=== PATIENT | female | born 1995 | race African-American/Black ===

== ENCOUNTER 2017-08-29 06:08 | Emergency (ER) ==
[2017-08-29 06:20] VITALS: BP 142/99; TEMP 98.4; BMI 24.9
[2017-08-29] MEDS ORDERED: PREDNISONE PO STA (06:38)
[2017-08-29] MEDS ORDERED: ZOFRAN 4 MG/2 ML IM STA (06:38)
--- NOTE | 2017-08-29 06:41 | ED.PDOC ---
General ED Provider: Dr. RUBINA DEL RIO Chief Complaint: Non-specific Complaint Stated Complaint: Patient is diagnosed with Flu, Taking Tamiflu, not feeling better, still coughing, nausea, hurting all over. Time Seen by Physician: 06:39 Mode of Arrival: Walk-In Information Source: Patient, Family Primary Care Provider: ELENA CHO Nursing and Triage Documentation Reviewed and Agree: Yes Reviewed sepsis parameters & appropriate labs ordered?: No System Inflammatory Response Syndrome: Not Applicable Sepsis Protocol: For patient's 13 years and over: Temp is 96.8 and below OR 101 and greater Pulse >90 BPM Resp >20/minute Acutely Altered Mental Status Are patient's symptoms suggestive of a new infection, such as: -Pneumonia -Skin, Soft Tissue -Endocarditis -UTI -Bone, Joint Infection -Implantable Device -Acute Abdominal Infection -Wound Infection -Meningitis -Blood Stream Catheter Infection -Unknown Miscellaneous Complaint Exam - Febrile Illness/Adult Complaint/Exam Symptoms Are: Resolved Timing: Intermittent Episodes Lasting: Days Initial Severity: Moderate Current Severity: Mild Aggravating: Reports: None Alleviating: Reports: None Associated Signs and Symptoms: Reports: Headache, Cough, Nausea, Myalgia. Denies: Fluid intake, Short of air, Sore throat, Vomiting, Chills, Diaphoresis, Dysuria, Arthralgia, Stiff neck, Rash, Altered mental status Pseudomonas Risk Factors: Reports: None Serious Bacterial Infection Risk Factors: Reports: None Related Surgical History: None Differential Diagnoses: Viremia Review of Systems - Review Of Systems Constitutional: Reports: Malaise, Weakness Eyes: Reports: No symptoms Ears, Nose, Mouth, Throat: Reports: No symptoms Respiratory: Reports: Cough Cardiac: Reports: No symptoms GI: Reports: Nausea : Reports: No symptoms Musculoskeletal: Reports: No symptoms Skin: Reports: No symptoms Neurological: Reports: No symptoms Endocrine: Reports: No symptoms Hematologic/Lymphatic: Reports: No symptoms All Other Systems: Reviewed and Negative Past Medical History - Past Medical History Previously Healthy: Yes Endocrine: Reports: None Cardiovascular: Reports: None Respiratory: Reports: None Hematological: Reports: None Gastrointestinal: Reports: None Genitourinary: Reports: None Neuro/Psych: Reports: None Musculoskeletal: Reports: None Cancer: Reports: None Last Menstrual Period: 3 MONTHS AGO - Surgical History General Surgical History: Reports: None - Family History Family History: Reports: None - Social History Smoking Status: Current every day smoker, Heavy tobacco smoker Smoking Cessation Counseling Time: > 3 min - 10 min Hx Substance Use: Yes (OPIATE) Alcohol Screening: Occasionally - Immunizations Tetanus Shot up to Date: Yes Physical Exam - Physical Exam Appearance: Well-appearing, Obese Eyes: NOEL, EOMI, Conjunctiva clear ENT: Ears normal, Nose normal, Oropharynx normal Respiratory: Airway patent, Breath sounds equal, Respirations nonlabored, Crackles Cardiovascular: RRR, Pulses normal, No rub, No murmur GI/: Soft, Nontender, No masses, Bowel sounds normal, No Organomegaly Musculoskeletal: Normal strength, ROM intact, No edema, No calf tenderness Skin: Warm, Dry, Normal color Neurological: Sensation intact, Motor intact, Reflexes intact, Cranial nerves intact, Alert, Oriented Psychiatric: Affect appropriate, Mood appropriate Critical Care Note - Critical Care Note Total Time (mins): 10 Course - Course Orders, Labs, Meds: Orders Category Date Time Status Ondansetron HCl/Pf [Zofran 4 mg/2 ml] MEDS 08/29/17 06:38 Stat 4 mg IM ONCE STA Prednisone MEDS 08/29/17 06:38 Stat 10 mg PO ONCE STA Medications Discontinued Medications Generic Name Dose Route Start Last Admin Trade Name Freq PRN Reason Stop Dose Admin Ondansetron HCl 4 mg 08/29/17 06:38 Zofran 4 Mg/2 Ml IM 08/29/17 06:39 ONCE STA Prednisone 10 mg 08/29/17 06:38 Prednisone PO 08/29/17 06:39 ONCE STA Vital Signs: Temp Pulse Resp BP Pulse Ox 08/29/17 06:12 98.4 F 109 H 20 142/99 H 95 Departure - Departure Time of Disposition: 06:43 Disposition: HOME SELF-CARE Discharge Problem: Influenza Instructions: Influenza (ED) Condition: Stable Pt referred to PMD for follow-up: Yes IPMP verified?: No Additional Instructions: Increase Hydration Tylenol or Ibuprofen prn soft diet for 3-4 days Prescriptions: Ondansetron [Zofran Odt] 4 mg PO Q8H #20 tab.rapdis Prednisone 10 mg PO BIDWM #14 tablet Allergies/Adverse Reactions: Allergies amoxicillin Adverse Reaction (Verified 08/10/14 06:46) Nausea clarithromycin [From Biaxin] Adverse Reaction (Verified 08/10/14 06:46) Nausea Penicillins Adverse Reaction (Verified 08/10/14 06:46) Nausea Home Medications: Ambulatory Orders Buprenorphine HCl/Naloxone HCl [Suboxone 4 mg-1 mg Sl Film] 1 each SL DAILY Ondansetron [Zofran Odt] 4 mg PO Q8H #20 tab.rapdis 08/29/17 Oseltamivir Phosphate 75 mg PO BID 08/29/17 Prednisone 10 mg PO BIDWM #14 tablet 08/29/17 Disposition Discussed With: Patient, Family
== END 2017-08-29 06:53 | disposition home or self-care (01) ==
LOC: ED 06:08
DX: J11.1 Influenza due to unidentified influenza virus with other respiratory manifestations (principal); F17.210 Nicotine dependence, cigarettes, uncomplicated
CPT/HCPCS: 96372; 99282

== ENCOUNTER 2017-09-28 09:36 | Emergency (ER) ==
--- NOTE | 2017-09-28 09:38 | ED.PDOC ---
General ED Provider: Dr. MORGAN MENESES-ER Chief Complaint: Abdominal Pain Stated Complaint: im hurting Time Seen by Physician: 09:40 Mode of Arrival: Walk-In Information Source: Patient, Family Exam Limitations: No limitations Primary Care Provider: ELENA WALTER Nursing and Triage Documentation Reviewed and Agree: Yes Reviewed sepsis parameters & appropriate labs ordered?: Yes System Inflammatory Response Syndrome: Not Applicable Sepsis Protocol: For patient's 13 years and over: Temp is 96.8 and below OR 101 and greater Pulse >90 BPM Resp >20/minute Acutely Altered Mental Status Are patient's symptoms suggestive of a new infection, such as: -Pneumonia -Skin, Soft Tissue -Endocarditis -UTI -Bone, Joint Infection -Implantable Device -Acute Abdominal Infection -Wound Infection -Meningitis -Blood Stream Catheter Infection -Unknown GI Complaint Exam - Abdominal Pain Complaint/Exam Onset: Gradual Duration: several hours Symptoms Are: Still present Timing: Constant Initial Severity: Mild Current Severity: Mild Location of Pain: Diffuse Radiates To: Reports: Back Character: Reports: Dull, Aching Aggravating: Reports: None Alleviating: Reports: None Associated Signs and Symptoms: Reports: Back pain, Decreased appetite, Nausea. 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 Differential Diagnoses: Appendicitis, Bowel Obstruction, Constipation, Gastroenteritis, Pancreatitis, Renal Colic, Ureteral Stone, GB, PUD, UTI, Review of Systems - Review Of Systems Constitutional: Reports: No symptoms Eyes: Reports: No symptoms Ears, Nose, Mouth, Throat: Reports: No symptoms Respiratory: Reports: No symptoms Cardiac: Reports: No symptoms GI: Reports: Abdominal pain, Nausea : Reports: No symptoms Musculoskeletal: Reports: No symptoms Skin: Reports: No symptoms Neurological: Reports: No symptoms Endocrine: Reports: No symptoms Hematologic/Lymphatic: Reports: No symptoms All Other Systems: Reviewed and Negative Past Medical History - Past Medical History Previously Healthy: Yes Endocrine: Reports: None Cardiovascular: Reports: None Respiratory: Reports: None Hematological: Reports: None Gastrointestinal: Reports: None Genitourinary: Reports: None Neuro/Psych: Reports: None Musculoskeletal: Reports: None Cancer: Reports: None - Surgical History General Surgical History: Reports: None - Family History Family History: Reports: None - Social History Smoking Status: Current every day smoker, Heavy tobacco smoker Hx Substance Use: Yes (OPIATE) Alcohol Screening: Occasionally Lives: With family Physical Exam - Physical Exam Appearance: Well-appearing, No pain distress, Well-nourished Pain Distress: Moderate Eyes: NOEL, EOMI, Conjunctiva clear ENT: Ears normal, Nose normal, Oropharynx normal Neck: Supple Respiratory: Airway patent, Breath sounds clear, Breath sounds equal, Respirations nonlabored Cardiovascular: RRR, Pulses normal, No rub, No murmur GI/: Soft, No masses, Bowel sounds normal, No Organomegaly Musculoskeletal: Normal strength Skin: Warm, Dry, Normal color Neurological: Sensation intact, Motor intact, Reflexes intact, Cranial nerves intact, Alert, Oriented Psychiatric: Affect appropriate, Mood appropriate Interpretation - Radiology Interpretation Radiology Interpretation By: Radiologist Radiology Results: Negative Exam Interpreted: CT Scan Re-Evaluation - Re-Evaluation Time of Re-Evaluation: 11:40 Status: Improved Vital Signs Stable: Yes Pain Level: 3 Appearance: NAD Lungs: Clear Skin: Warm and Dry Neuro: Alert and Oriented X3 CV: RRR Critical Care Note - Critical Care Note Total Time (mins): 0 Course - Course Hematology/Chemistry: 09/28/17 09:50 09/28/17 09:50 Orders, Labs, Meds: Lab Review 09/28/17 09/28/17 09/28/17 09:50 09:50 09:50 WBC 11.23 H RBC 4.58 Hgb 14.5 Hct 41.5 MCV 90.6 MCH 31.7 H MCHC 34.9 RDW Coeff of Mainor 17.7 H Plt Count 265 Immature Gran % (Auto) 0.4 Neut % (Auto) 81.7 Lymph % (Auto) 12.5 Bee % (Auto) 4.8 Eos % (Auto) 0.3 Baso % (Auto) 0.3 Immature Gran # (Auto) 0.0 Neut # 9.2 H Lymph # 1.4 Bee # 0.5 Eos # 0.0 Baso # 0.0 ESR 6 Sodium 134 L Potassium 3.1 L Chloride 102 Carbon Dioxide 14 L Anion Gap 21.1 BUN 9 Creatinine 0.93 Estimated GFR (MDRD) 90.00 BUN/Creatinine Ratio 9.67 Glucose 102 Calcium 9.4 Total Bilirubin 0.9 AST 108 H ALT 50 Alkaline Phosphatase 79 Total Protein 8.6 H Albumin 4.1 Globulin 4.5 Albumin/Globulin Ratio 0.91 Amylase 76 Lipase 249 H Urine Color Yellow Urine Clarity Clear Urine pH 5.5 Ur Specific [place] >=1.030 Urine Protein 1+ Urine Glucose (UA) Negative Urine Ketones Trace Urine Blood 2+ Urine Nitrite Positive Urine Bilirubin 1+ Urine Urobilinogen 0.2 Ur Leukocyte Esterase Negative Urine Microscopic RBC 5-10 Urine Microscopic WBC 2-5 Ur Squamous Epith Cells 10-20 Urine Bacteria 4+ Urine Yeast Trace Urine Test 09/28/17 09:50 WBC RBC Hgb Hct MCV MCH MCHC RDW Coeff of Mainor Plt Count Immature Gran % (Auto) Neut % (Auto) Lymph % (Auto) [place] % (Auto) Eos % (Auto) Baso % (Auto) Immature Gran # (Auto) Neut # Lymph # Bee # Eos # Baso # ESR Sodium Potassium Chloride Carbon Dioxide Anion Gap BUN Creatinine Estimated GFR (MDRD) BUN/Creatinine Ratio Glucose Calcium Total Bilirubin AST ALT Alkaline Phosphatase Total Protein Albumin Globulin Albumin/Globulin Ratio Amylase Lipase Urine Color Urine Clarity Urine pH Ur Specific [place] Urine Protein Urine Glucose (UA) Urine Ketones Urine Blood Urine Nitrite Urine Bilirubin Urine Urobilinogen Ur Leukocyte Esterase Urine Microscopic RBC Urine Microscopic WBC Ur Squamous Epith Cells Urine Bacteria Urine Yeast Urine Test Negative Orders Category Date Time Status NPO REMINDER: IMAGING ONCE CARE 09/28/17 09:45 Active ED IV/MEDIPORT/POWERPORT .ONCE EMERGENCY 09/28/17 09:44 Active AMYLASE Stat LAB 09/28/17 09:50 Completed CBC W/ AUTO DIFF Stat LAB 09/28/17 09:50 Completed COMPREHENSIVE METABOLIC PANEL Stat LAB 09/28/17 09:50 Completed ESR Stat LAB 09/28/17 09:50 Completed LIPASE Stat LAB 09/28/17 09:50 Completed URINALYSIS C & S IF INDICATED Stat LAB 09/28/17 09:50 Completed URINE CULTURE Stat LAB 09/28/17 09:50 Received URINE Stat LAB 09/28/17 09:50 Completed 0.9 % Sodium Chloride [Saline Flush] MEDS 09/28/17 09:44 Active 1 syr IVF PRN PRN Ketorolac Tromethamine [Toradol] MEDS 09/28/17 11:33 Discontinued 30 mg IVP ONCE STA Morphine Sulfate [Morphine 2 mg/ml Syringe] MEDS 09/28/17 10:15 Discontinued 2 mg IVP ONCE STA Ondansetron HCl/Pf [Zofran 4 mg/2 ml] MEDS 09/28/17 10:15 Discontinued 4 mg IVP ONCE STA Potassium Chloride [K-Dur] MEDS 09/28/17 11:35 Discontinued 40 meq PO ONCE STA Sodium Chloride 0.9% [Sodium Chloride] 500 ml MEDS 09/28/17 10:[address] ABDOMEN/PELVIS W/WO CONTRAS Stat RADS 09/28/17 09:44 Completed Medications Generic Name Dose Route Start Last Admin Trade Name Freq PRN Reason Stop Dose Admin Sodium Chloride 1 syr 09/28/17 09:44 Saline Flush IVF PRN PRN To flush IV Discontinued Medications Generic Name Dose Route Start Last Admin Trade Name Freq PRN Reason Stop Dose Admin Sodium Chloride 500 mls @ 500 mls/hr 09/28/17 10:15 09/28/17 10:39 Sodium Chloride IV 09/28/17 11:14 500 mls/hr BOLUS STA Administration Ketorolac Tromethamine 30 mg 09/28/17 11:33 Toradol IVP 09/28/17 11:34 ONCE STA Morphine Sulfate 2 mg 09/28/17 10:15 09/28/17 10:38 Morphine 2 Mg/Ml Syringe IVP 09/28/17 10:16 Not Given ONCE STA Ondansetron HCl 4 mg 09/28/17 10:15 09/28/17 10:39 Zofran 4 Mg/2 Ml IVP 09/28/17 10:16 4 mg ONCE STA Administration Potassium Chloride 40 meq 09/28/17 11:35 K-Dur PO 09/28/17 11:36 ONCE STA Vital Signs: Temp Pulse Resp BP Pulse Ox 09/28/17 09:37 98.6 F 122 H 16 156/111 H 98 Departure - Departure Time of Disposition: 11:41 Disposition: HOME SELF-CARE Discharge Problem: Abdominal pain Pancreatitis Qualifiers: Chronicity: acute Pancreatitis type: unspecified pancreatitis type Acute pancreatitis complication: unspecified Qualified Code(s): K85.90 - Acute pancreatitis without necrosis or infection, unspecified UTI (urinary tract infection) Qualifiers: Urinary tract infection type: site unspecified Hematuria presence: without hematuria Qualified Code(s): N39.0 - Urinary tract infection, site not specified Instructions: Pancreatitis (ED) Condition: Good Pt referred to PMD for follow-up: Yes IPMP verified?: No Additional Instructions: stop etoh--bactrim ds bid x 7 days---f/u with dr walter this week to repeat pancreas labs and potassium Allergies/Adverse Reactions: Allergies amoxicillin Adverse Reaction (Verified 09/28/17 09:56) Nausea clarithromycin [From Biaxin] Adverse Reaction (Verified 09/28/17 09:56) Nausea Penicillins Adverse Reaction (Verified 09/28/17 09:56) Nausea Home Medications: Ambulatory Orders Buprenorphine HCl/Naloxone HCl [Suboxone 4 mg-1 mg Sl Film] 1 each SL DAILY Ondansetron [Zofran Odt] 4 mg PO Q8H #20 tab.rapdis 08/29/17 Oseltamivir Phosphate 75 mg PO BID 08/29/17 Prednisone 10 mg PO BIDWM #14 tablet 08/29/17 Disposition Discussed With: Patient, Family
[2017-09-28 09:45] VITALS: BP 156/111; TEMP 98.6; BMI 34.9
[2017-09-28] MEDS ORDERED: SODIUM CHLORIDE 500 ML IV STA (10:15)
[2017-09-28] MEDS ORDERED: MORPHINE 2 MG/ML SYRINGE IVP STA (10:15)
[2017-09-28] MEDS ORDERED: ZOFRAN 4 MG/2 ML IVP STA (10:15)
[2017-09-28] MEDS ORDERED: TORADOL IVP STA (11:33)
--- NOTE | 2017-09-28 11:33 | CT ---
EXAM: CT abdomen pelvis with and without contrast TECHNIQUE: Helical axial CT of the abdomen and pelvis was performed with and without contrast with c oronal and sagittal reconstructions. COMPARISON: CT pelvis from 06/15/2011 HISTORY: Abdominal pain FINDINGS: There is no acute abnormality. Specifically there is no mesenteric inflammation, free air, free fluid or bowel wall thickening or edema or pathologic lymph nodes or obstruction or ileus. The liver, spleen, pancreas,and adrenal glands show no acute abnormality. There is a fair amount of f atty infiltration of the liver. Lung bases are well-aerated. There is no hiatal hernia. The gallblad shayla is normal with no stones or inflammation. There is no biliary or pancreatic ductal dilatation. There are no suspicious renal masses or large cysts and no hydronephrosis. There is a 3 mm nonobstruc tive stone in the lower pole of the right kidney and the similar stone in the lower pole calyceal sys tem of the left kidney. Both ureters demonstrate normal course and caliber. There is no filling defe ct in the urinary bladder. There is an intrauterine device in place. Uterus and adnexa are unremarka ble. The appendix is unremarkable. There are no colonic diverticula. There are no abdominal wall hernias. The aorta is normal with no aneurysm or calcific atherosclerosis. There are no acute osseous abnorma lities. IMPRESSION: 1. No acute abnormality in the abdomen or pelvis. Specifically there is no free air free fluid or b owel wall thickening or edema or hydronephrosis. 2. Bilateral small nonobstructing ureteral kidney stones. 3. Fatty infiltration of the liver with no focal liver abnormality.
[2017-09-28] MEDS ORDERED: K-DUR PO STA (11:35)
== END 2017-09-28 12:00 | disposition home or self-care (01) ==
LOC: ED 09:36
DX: K85.90 Acute pancreatitis without necrosis or infection, unspecified (principal); N39.0 Urinary tract infection, site not specified; F17.210 Nicotine dependence, cigarettes, uncomplicated
CPT/HCPCS: 36415; 80053; 81001; 81025; 82150; 83690; 85025; 85651; 87086; 87186; 96360; 96375; 99284

== ENCOUNTER 2018-01-05 06:48 | Emergency (ER) | payer OTHER ==
[2018-01-05 06:57] VITALS: BP 138/99; TEMP 97.9; BMI 24.0
[2018-01-05] MEDS ORDERED: ZOFRAN ODT PO STA (07:51)
[2018-01-05] MEDS ORDERED: MORPHINE 2 MG/ML SYRINGE IM STA (08:15)
--- NOTE | 2018-01-05 08:24 | ED.PDOC ---
General ED Provider: Dr. LUCIAN MCCLURE Chief Complaint: Abdominal Pain Stated Complaint: Pt states that she woke up this morning due to epigastric pain around 4 am this morning. Associated symptoms include nausea. History of diarrhea for the past one week. History of mild pancreatitis diagnosed approximately 7 months ago here. Denies UTI symptoms, Fever, or Chill Time Seen by Physician: 07:45 Mode of Arrival: Walk-In Information Source: Patient Exam Limitations: No limitations Primary Care Provider: ELENA CHO Nursing and Triage Documentation Reviewed and Agree: Yes Reviewed sepsis parameters & appropriate labs ordered?: Yes System Inflammatory Response Syndrome: Pulse >90 BPM, Not Applicable Sepsis Protocol: For patient's 13 years and over: Temp is 96.8 and below OR 101 and greater Pulse >90 BPM Resp >20/minute Acutely Altered Mental Status Are patient's symptoms suggestive of a new infection, such as: -Pneumonia -Skin, Soft Tissue -Endocarditis -UTI -Bone, Joint Infection -Implantable Device -Acute Abdominal Infection -Wound Infection -Meningitis -Blood Stream Catheter Infection -Unknown GI Complaint Exam - Abdominal Pain Complaint/Exam Onset: Sudden Duration: 4 hours Symptoms Are: Still present Timing: Constant Initial Severity: Moderate Current Severity: Moderate Location of Pain: Epigastric Radiates To: Denies: Chest, Back, Flank, LLQ, RLQ Character: Reports: Sharp Aggravating: Reports: None Alleviating: Reports: None Associated Signs and Symptoms: Reports: Nausea, Diarrhea. Denies: Diaphoresis, Fever, Cough, Chest pain, Dizziness, Back pain, Constipation, Blood in stool, Dysuria, Urinary frequency, Decreased urine output, Decreased appetite, Vaginal bleeding, Vaginal discharge, Vomiting, Sore throat, Decreased activity Related History: Reports: Similar episode (pt states that previous occurance was 7 months ago and diagnosed with mild pancreatitis ) : 2 Para: 2 (two vaginal deliveries ) Hx Total # of Abortions (Spontaneous & Elective): 0 AAA Risk Factors: Reports: None, Smoking Cardiac Risk Factors: Reports: Smoking Ectopic Risk Factors: Reports: None Ovarian Torsion Risk Factors: Reports: None, Reproductive age Surgical Obstruction Risk Factors: Reports: None Related Surgical History: Reports: None Abdominal Findings: Present: Abdominal distention Differential Diagnoses: Gastroenteritis, Pancreatitis Review of Systems - Review Of Systems Constitutional: Reports: No symptoms Eyes: Reports: No symptoms Ears, Nose, Mouth, Throat: Reports: No symptoms Respiratory: Reports: No symptoms Cardiac: Reports: No symptoms GI: Reports: Abdomen distended, Abdominal pain, Diarrhea, Nausea : Reports: No symptoms Musculoskeletal: Reports: No symptoms Skin: Reports: No symptoms Neurological: Reports: No symptoms Endocrine: Reports: No symptoms Hematologic/Lymphatic: Reports: No symptoms All Other Systems: Reviewed and Negative Past Medical History - Past Medical History Previously Healthy: Yes Endocrine: Reports: None Cardiovascular: Reports: None Respiratory: Reports: None Hematological: Reports: None Gastrointestinal: Reports: None Genitourinary: Reports: None Neuro/Psych: Reports: None Musculoskeletal: Reports: None Cancer: Reports: None Last Menstrual Period: monthsm- has IUD - Surgical History General Surgical History: Reports: None - Family History Family History: Reports: None, Unknown - Social History Smoking Status: Current every day smoker, Heavy tobacco smoker Hx Substance Use: No (OPIATE) Alcohol Screening: Occasionally - Immunizations Tetanus Shot up to Date: Yes Physical Exam - Physical Exam Appearance: Ill-appearing Ill-appearing: Moderate Pain Distress: Moderate Eyes: NOEL, EOMI, Conjunctiva clear ENT: Ears normal, Nose normal, Oropharynx normal Respiratory: Airway patent, Breath sounds clear, Breath sounds equal, Respirations nonlabored Cardiovascular: RRR, Pulses normal, No rub, No murmur GI/: No masses, Bowel sounds normal, No Organomegaly, Tender Musculoskeletal: Normal strength Skin: Warm, Dry, Normal color Neurological: Sensation intact, Motor intact, Reflexes intact, Cranial nerves intact, Alert, Oriented Psychiatric: Affect appropriate, Mood appropriate Interpretation - Radiology Interpretation Radiology Interpretation By: Radiologist Radiology Results: No acute changes Critical Care Note - Critical Care Note Total Time (mins): 0 Course - Course Hematology/Chemistry: 01/05/18 07:55 01/05/18 07:55 Orders, Labs, Meds: Lab Review 01/05/18 01/05/18 01/05/18 07:40 07:40 07:55 WBC 11.44 H RBC 4.28 Hgb 13.5 Hct 40.1 MCV 93.7 MCH 31.5 H MCHC 33.7 RDW Coeff of Mainor 16.0 H Plt Count 276 Immature Gran % (Auto) 0.3 Neut % (Auto) 86.1 Lymph % (Auto) 7.7 L [place] % (Auto) 5.2 Eos % (Auto) 0.5 Baso % (Auto) 0.2 Immature Gran # (Auto) 0.0 Neut # (Auto) 9.9 H Lymph # (Auto) 0.9 [place] # (Auto) 0.6 Eos # (Auto) 0.1 Baso # (Auto) 0.0 Sodium Potassium Chloride Carbon Dioxide Anion Gap BUN Creatinine Estimated GFR (MDRD) BUN/Creatinine Ratio Glucose Calcium Total Bilirubin AST ALT Alkaline Phosphatase Total Protein Albumin Globulin Albumin/Globulin Ratio Amylase Lipase Urine Color Yellow Urine Clarity Turbid Urine pH 6.0 Ur Specific [place] >=1.030 Urine Protein 2+ Urine Glucose (UA) Negative Urine Ketones Negative Urine Blood Negative Urine Nitrite Negative Urine Bilirubin 2+ Urine Urobilinogen 0.2 Ur Leukocyte Esterase Negative Urine Microscopic WBC 0-2 Ur Squamous Epith Cells 0-2 Amorphous Sediment 3+ Urine Test Negative 01/05/18 07:55 WBC RBC Hgb Hct MCV MCH MCHC RDW Coeff of Mainor Plt Count Immature Gran % (Auto) Neut % (Auto) Lymph % (Auto) [place] % (Auto) Eos % (Auto) Baso % (Auto) Immature Gran # (Auto) Neut # (Auto) Lymph # (Auto) [place] # (Auto) Eos # (Auto) Baso # (Auto) Sodium 141 Potassium 3.0 L Chloride 105 Carbon Dioxide 22 Anion Gap 17.0 BUN 8 Creatinine 1.06 Estimated GFR (MDRD) 77.00 BUN/Creatinine Ratio 7.54 Glucose 110 Calcium 10.4 H Total Bilirubin 0.9 AST 35 ALT 20 Alkaline Phosphatase 80 Total Protein 8.7 H Albumin 4.7 Globulin 4.0 Albumin/Globulin Ratio 1.18 Amylase 46 Lipase 40 Urine Color Urine Clarity Urine pH Ur Specific [place] Urine Protein Urine Glucose (UA) Urine Ketones Urine Blood Urine Nitrite Urine Bilirubin Urine Urobilinogen Ur Leukocyte Esterase Urine Microscopic WBC Ur Squamous Epith Cells Amorphous Sediment Urine Test Orders Category Date Time Status AMYLASE Stat LAB 01/05/18 07:55 Completed CBC W/ AUTO DIFF Stat LAB 01/05/18 07:55 Completed COMPREHENSIVE METABOLIC PANEL Stat LAB 01/05/18 07:55 Completed LIPASE Stat LAB 01/05/18 07:55 Completed URINALYSIS C & S IF INDICATED Stat LAB 01/05/18 07:40 Completed URINE Stat LAB 01/05/18 07:40 Completed Morphine Sulfate [Morphine 2 mg/ml Syringe] MEDS 01/05/18 08:15 Discontinued 2 mg IM ONCE STA Ondansetron [Zofran Odt] MEDS 01/05/18 07:51 Discontinued 4 mg PO ONCE STA CT ABDOMEN/PELVIS WO CONTRAST Stat RADS 01/05/18 07:48 Completed Medications Discontinued Medications Generic Name Dose Route Start Last Admin Trade Name Spencer PRN Reason Stop Dose Admin Morphine Sulfate 2 mg 01/05/18 08:15 01/05/18 08:27 Morphine 2 Mg/Ml Syringe IM 01/05/18 08:16 2 mg ONCE STA Administration Ondansetron HCl 4 mg 01/05/18 07:51 01/05/18 08:23 Zofran Odt PO 01/05/18 07:52 4 mg ONCE STA Administration Vital Signs: Temp Pulse Resp BP Pulse Ox 01/05/18 06:50 97.9 F 136 H 18 138/99 H 98 Departure - Departure Time of Disposition: 09:50 Disposition: HOME SELF-CARE Discharge Problem: Abdominal pain Instructions: Abdominal Pain (ED) Condition: Good Pt referred to PMD for follow-up: Yes IPMP verified?: No Additional Instructions: Please call your Family Physician as soon as possible to schedule a follow-up appointment. Allergies/Adverse Reactions: Allergies amoxicillin Adverse Reaction (Verified 09/28/17 09:56) Nausea clarithromycin [From Biaxin] Adverse Reaction (Verified 09/28/17 09:56) Nausea Penicillins Adverse Reaction (Verified 09/28/17 09:56) Nausea Home Medications: Ambulatory Orders Buprenorphine HCl/Naloxone HCl [Suboxone 4 mg-1 mg Sl Film] 1 each SL DAILY Levonorgestrel [Mirena] 1 insert VAGINAL DIRECTED 01/05/18
--- NOTE | 2018-01-05 08:57 | CT ---
EXAM: CT ABDOMEN AND PELVIS HISTORY: Epigastric pain TECHNIQUE: CT abdomen and pelvis without intravenous contrast. Images were reconstructed using 3 mm section thickness. Reformations were prepared. COMPARISON: 09/28/2017 FINDINGS: Diagnostic limitations exist without including contrast enhanced images. Liver and spleen appear nor mal. Gallbladder is normal. Normal pancreas and adrenal glands. There is a single calculus within each kidney largest on the right measuring 2.6 mm. No perinephric fat stranding or hydronephrosis. Ureters are clear. Normal abdominal aorta. There is a small hiatal hernia. No gastric distension. Normal appendix. Questionable mild colonic wall thickening diffusely with also possible mild thickening of the terminal ileum. There is fluid c onsistency stool within the rectum which may represent diarrhea. Nonobstructive bowel gas pattern. Intrauterine device is in place. Urinary bladder appears normal. There is no ascites or noticeable inflammatory infiltration of the abdominal fat. Small fatty umbilical hernia with transverse neck of 6.8 mm likely of no current clinical significanc e. Bones are normal. Lung bases are clear. No pneumoperitoneum. IMPRESSION: 1. Hiatal hernia. 2. Cannot exclude early infectious or inflammatory enterocolitis. Nonobstructive bowel gas pattern. No ascites, inflammatory infiltration of the abdominal fat or free air. 3. Bilateral nephrolithiasis without hydronephrosis. 4. Normal appendix.
== END 2018-01-05 10:04 | disposition home or self-care (01) ==
LOC: ED 06:48
DX: R10.13 Epigastric pain (principal); R11.0 Nausea; R19.7 Diarrhea, unspecified; F17.210 Nicotine dependence, cigarettes, uncomplicated
CPT/HCPCS: 36415; 80053; 81001; 81025; 82150; 83690; 85025; 96372; 99283

== ENCOUNTER 2018-01-14 08:07 | Outpatient (CLI) ==
--- NOTE | 2018-01-14 10:32 | DI ---
EXAM: Double contrast upper GI History: GERD. Technique: Patient was given gas crystals. Patient was then given oral barium and multiple spot ankit ms of the esophagus, stomach and duodenum were obtained during projections. Findings: The course and caliber of the esophagus are within normal limits. No filling defects or m ucosal lesions identified. Small inconsistent hiatal hernia identified with Valsalva maneuver. No ga stroesophageal reflux was observed during the course of this examination. The stomach demonstrates n ormal course and caliber and is without ulceration. No gastric outlet obstruction. The course and c aliber of the duodenum are within normal limits with no wall thickening or ulceration. No extravasat ion of contrast material. Impression: Small inconsistent hiatal hernia.
== END 2018-01-14 08:08 | disposition home or self-care (01) ==
LOC: RAD 08:07
PROVIDERS: ATTEND Family Medicine
DX: K21.9 Gastro-esophageal reflux disease without esophagitis (principal)

== ENCOUNTER 2018-03-05 09:28 | Emergency (ER) ==
[2018-03-05 09:32] VITALS: BP 165/112; TEMP 98.1; BMI 25.1
--- NOTE | 2018-03-05 10:26 | US ---
EXAM: Abdominal ultrasound limited HISTORY: Intermittent episodes of abdominal pain for 6 months COMPARISON: CT abdomen pelvis 01/05/2018 and 09/28/2017 TECHNIQUE: Sonographic and limited Doppler evaluation of the right upper quadrant was performed. FINDINGS: The liver is normal in echogenicity and measures 13.4 cm. The portal vein is patent. The gallbladder demonstrates no stones or sludge. The gallbladder wall measures 0.2 cm in thickness. Co mmon bile duct is unremarkable and measures 0.3 cm in diameter. The pancreas is unremarkable in appe arance. The right kidney measure 9.0 x 3.5 x 3.8 cm with cortical thickness of 1.2 cm. IMPRESSION: No sonographic abnormality to account for patient's symptoms.
--- NOTE | 2018-03-05 11:06 | ED.PDOC ---
General ED Provider: Dr. LUCIAN MCCLURE Chief Complaint: Abdominal Pain Stated Complaint: abdominal pain Time Seen by Physician: 09:33 (libbRN present at all times ) Mode of Arrival: Walk-In Information Source: Patient Exam Limitations: No limitations Primary Care Provider: ELENA CHO Nursing and Triage Documentation Reviewed and Agree: Yes Does patient meet sepsis criteria?: No System Inflammatory Response Syndrome: Not Applicable Sepsis Protocol: For patient's 13 years and over: Temp is 96.8 and below OR 101 and greater Pulse >90 BPM Resp >20/minute Acutely Altered Mental Status Are patient's symptoms suggestive of a new infection, such as: -Pneumonia -Skin, Soft Tissue -Endocarditis -UTI -Bone, Joint Infection -Implantable Device -Acute Abdominal Infection -Wound Infection -Meningitis -Blood Stream Catheter Infection -Unknown GI Complaint Exam - Abdominal Pain Complaint/Exam Onset: Gradual Duration: a chronic issue Symptoms Are: Still present Timing: Intermittent Initial Severity: Mild Current Severity: Mild Location of Pain: RUQ Radiates To: Denies: Chest, Back, Flank, LLQ, RLQ, Inguinal Character: Reports: Aching Aggravating: Reports: None Alleviating: Reports: None Associated Signs and Symptoms: Denies: Diaphoresis, Fever, Cough, Chest pain, Dizziness, Back pain, Constipation, Blood in stool, Dysuria, Urinary frequency, Decreased urine output, Decreased appetite, Vaginal bleeding, Vaginal discharge , Nausea, Vomiting, Diarrhea, Sore throat, Decreased activity Related History: Reports: Similar episode AAA Risk Factors: Reports: None Cardiac Risk Factors: Reports: None Ectopic Risk Factors: Reports: None Ovarian Torsion Risk Factors: Reports: Reproductive age Surgical Obstruction Risk Factors: Reports: None Related Surgical History: Reports: None Patient Rh Status: Unknown Abdominal Findings: Present: None Differential Diagnoses: Appendicitis, Bowel Obstruction, Constipation, Diverticulitis, Gastroenteritis, UTI Review of Systems - Review Of Systems Constitutional: Reports: No symptoms Eyes: Reports: No symptoms Ears, Nose, Mouth, Throat: Reports: No symptoms Respiratory: Reports: No symptoms Cardiac: Reports: No symptoms GI: Reports: Abdominal pain : Reports: No symptoms Musculoskeletal: Reports: No symptoms Skin: Reports: No symptoms Neurological: Reports: No symptoms Endocrine: Reports: No symptoms Hematologic/Lymphatic: Reports: No symptoms All Other Systems: Reviewed and Negative Past Medical History - Past Medical History Previously Healthy: Yes Endocrine: Reports: None Cardiovascular: Reports: None Respiratory: Reports: None Hematological: Reports: None Gastrointestinal: Reports: None Genitourinary: Reports: None Neuro/Psych: Reports: None Musculoskeletal: Reports: None Cancer: Reports: None Last Menstrual Period: IUD - Surgical History General Surgical History: Reports: None - Family History Family History: Reports: None, Unknown - Social History Smoking Status: Current every day smoker, Heavy tobacco smoker Hx Substance Use: No (OPIATE) Alcohol Screening: Occasionally Physical Exam - Physical Exam Appearance: Well-appearing, No pain distress, Well-nourished Eyes: NOEL, EOMI, Conjunctiva clear ENT: Ears normal, Nose normal, Oropharynx normal Respiratory: Airway patent, Breath sounds clear, Breath sounds equal, Respirations nonlabored Cardiovascular: RRR, Pulses normal, No rub, No murmur GI/: Soft, Nontender, No masses, Bowel sounds normal, No Organomegaly Musculoskeletal: Normal strength, ROM intact, No edema, No calf tenderness Skin: Warm, Dry, Normal color Neurological: Sensation intact, Motor intact, Reflexes intact, Cranial nerves intact, Alert, Oriented Psychiatric: Affect appropriate, Mood appropriate Interpretation - Radiology Interpretation Radiology Interpretation By: Radiologist Radiology Results: No acute changes Critical Care Note - Critical Care Note Total Time (mins): 0 Course - Course Orders, Labs, Meds: Lab Review 03/05/18 03/05/18 09:50 10:32 Urine Color Yellow Urine Clarity Cloudy Urine pH 6.0 Ur Specific [place] 1.025 Urine Protein 2+ Urine Glucose (UA) Negative Urine Ketones 1+ Urine Blood 3+ Urine Nitrite Negative Urine Bilirubin 1+ Urine Urobilinogen 0.2 Ur Leukocyte Esterase Negative Urine Microscopic RBC 20-30 Ur Squamous Epith Cells 50-100 Urine Mucus 1+ Urine Test Negative Orders Category Date Time Status NPO REMINDER: IMAGING ONCE CARE 03/05/18 09:45 Completed UA [URINALYSIS C & S IF INDICATED] Stat LAB 03/05/18 09:50 Completed URINE Stat LAB 03/05/18 10:[address] ABDOMEN/PELVIS WO CONTRAST Stat RADS 03/05/18 09:44 Ordered ULTRASOUND ABDOMEN, RT. UPPER QUAD [U/S ABDOMEN, RT. RADS 03/05/18 09:44 Completed UPPER QUAD] Stat Vital Signs: Temp Pulse Resp BP Pulse Ox 03/05/18 09:29 98.1 F 100 H 20 165/112 H 97 Departure - Departure Time of Disposition: 12:00 Disposition: HOME SELF-CARE Discharge Problem: Abdominal pain Instructions: Chronic Abdominal Pain (ED) Condition: Good Pt referred to PMD for follow-up: Yes IPMP verified?: No Additional Instructions: Please call your Family Physician as soon as possible to schedule a follow-up appointment. Allergies/Adverse Reactions: Allergies amoxicillin Adverse Reaction (Verified 03/05/18 09:33) Nausea clarithromycin [From Biaxin] Adverse Reaction (Verified 03/05/18 09:33) Nausea Penicillins Adverse Reaction (Verified 03/05/18 09:33) Nausea Home Medications: Ambulatory Orders Buprenorphine HCl/Naloxone HCl [Suboxone 4 mg-1 mg Sl Film] 1 each SL DAILY Levonorgestrel [Mirena] 1 insert VAGINAL DIRECTED 01/05/18
--- NOTE | 2018-03-05 11:32 | CT ---
Exam: CT abdomen pelvis without intravenous contrast. Comparison: CT abdomen pelvis performed 01/05/2018. Reason for exam: Chronic pain. FINDINGS: No pleural effusion, or focal consolidation in the partially imaged lung bases. There is a small hiatal hernia. The liver is lower in attenuation in the spleen. The splenic parenchyma, gallbladder, adrenal glands , and pancreas appear grossly unremarkable within limitations of a noncontrasted study. 4 mm stone is seen in the right renal collecting system. 2 mm stone is seen in the left renal collec ting system. No hydronephrosis or ureterolithiasis is seen in either kidney. The bladder appears grossly unremarkable. Intrauterine device is seen within the uterus. No focal small bowel dilatation or transition point. The appendix is unremarkable. No intra-abdominal free air or pelvic free fluid. No suspicious appearing osteoblastic or osteolytic lesions. Impression: 1. No acute inflammatory findings are seen within the abdomen or pelvis. 2. Nephrolithiasis without hydronephrosis. 3. Small hiatal hernia
== END 2018-03-05 11:55 | disposition home or self-care (01) ==
LOC: ED 09:28
DX: R10.11 Right upper quadrant pain (principal)
CPT/HCPCS: 81001; 81025; 99283

== ENCOUNTER 2018-11-02 11:58 | Outpatient (CLI) ==
--- NOTE | 2018-11-02 14:06 | DI ---
EXAM: RIGHT ANKLE THREE VIEWS HISTORY: Ankle pain FINDINGS: Bone and joint structures appear normal. No fracture or joint dislocation. There is no joint effusion. Bone density is unremarkable. IMPRESSION: Bone and joint structures are within normal limits.
== END 2018-11-02 11:59 | disposition home or self-care (01) ==
LOC: RAD 11:58
PROVIDERS: ATTEND Family Medicine
DX: M25.571 Pain in right ankle and joints of right foot (principal)

== ENCOUNTER 2019-04-14 15:48 | Inpatient (IN) ==
--- NOTE | 2019-04-14 16:36 | ED.PDOC ---
General ED Provider: Dr. MORGAN MENDEZ Chief Complaint: Abdominal Pain Stated Complaint: Has experienced epiagastric discomfort with severe pain across her upper abdomen. Associated severe nausea. Pt was seen at [facility] yesterday and dx with viral infection. Her mother states she saw Dr. Richards yesterday evening and he was worried about Pancreatitis and ordered ultrasounds , did not get was awaiting insurance approval Time Seen by Physician: 16:00 Mode of Arrival: Walk-In Information Source: Patient Primary Care Provider: ELENA RICHARDS Nursing and Triage Documentation Reviewed and Agree: Yes Does patient meet sepsis criteria?: No System Inflammatory Response Syndrome: Not Applicable Sepsis Protocol: For patient's 13 years and over: Temp is 96.8 and below OR 101 and greater Pulse >90 BPM Resp >20/minute Acutely Altered Mental Status Are patient's symptoms suggestive of a new infection, such as: -Pneumonia -Skin, Soft Tissue -Endocarditis -UTI -Bone, Joint Infection -Implantable Device -Acute Abdominal Infection -Wound Infection -Meningitis -Blood Stream Catheter Infection -Unknown GI Complaint Exam - Abdominal Pain Complaint/Exam Onset: Gradual Duration: 48 hr Symptoms Are: Still present Timing: Intermittent Initial Severity: Moderate Current Severity: Severe Location of Pain: RUQ, LUQ, Epigastric Radiates To: Reports: Back Character: Reports: Sharp, Aching, Cramping, Colicky Aggravating: Reports: Movement Alleviating: Reports: None Associated Signs and Symptoms: Reports: Diaphoresis, Back pain, Nausea Related History: Reports: Similar episode AAA Risk Factors: Reports: None Cardiac Risk Factors: Reports: None Ectopic Risk Factors: Reports: None Ovarian Torsion Risk Factors: Reports: None Surgical Obstruction Risk Factors: Reports: None Related Surgical History: Reports: None Abdominal Findings: Present: Abdominal distention, CVA Tenderness Differential Diagnoses: Gastroenteritis, Pancreatitis Review of Systems - Review Of Systems Constitutional: Reports: No symptoms Eyes: Reports: No symptoms Ears, Nose, Mouth, Throat: Reports: No symptoms Respiratory: Reports: No symptoms Cardiac: Reports: No symptoms GI: Reports: Abdominal pain, Nausea, Poor appetite, Poor fluid intake : Reports: No symptoms Musculoskeletal: Reports: No symptoms Skin: Reports: No symptoms Neurological: Reports: No symptoms Endocrine: Reports: No symptoms Hematologic/Lymphatic: Reports: No symptoms All Other Systems: Reviewed and Negative Past Medical History - Past Medical History Previously Healthy: Yes Endocrine: Reports: DM 1 Cardiovascular: Reports: None Respiratory: Reports: None Hematological: Reports: None Gastrointestinal: Reports: Other (pancreatitis) Genitourinary: Reports: None Neuro/Psych: Reports: None, Other (Hx opiate/drug abuse-on suboxone) Musculoskeletal: Reports: None Cancer: Reports: None Last Menstrual Period: IUD - Surgical History General Surgical History: Reports: None - Family History Family History: Reports: None, Unknown - Social History Smoking Status: Current some day smoker Hx Substance Use: No Alcohol Screening: Occasionally - Immunizations Tetanus Shot up to Date: Yes Physical Exam - Physical Exam Appearance: Ill-appearing Ill-appearing: Moderate Pain Distress: Moderate Eyes: NOEL, EOMI, Conjunctiva clear ENT: Ears normal, Nose normal, Oropharynx normal Neck: Supple Respiratory: Airway patent, Breath sounds clear, Breath sounds equal, Respirations nonlabored Cardiovascular: RRR GI/: Soft, No masses, No Organomegaly, Tender, Bowel sounds hypoactive Musculoskeletal: Normal strength, ROM intact, No edema, No calf tenderness Skin: Warm, Dry, Normal color Neurological: Sensation intact, Motor intact, Reflexes intact, Cranial nerves intact, Alert, Oriented Psychiatric: Affect appropriate, Mood appropriate Physician Notification - Case Discussed Physician Notified: Dr Painter Time of Notification: 17:20 (Discussed Case/Recommend admit) Critical Care Note - Critical Care Note Total Time (mins): 30 Course - Course Hematology/Chemistry: 04/14/19 16:30 04/14/19 16:30 Orders, Labs, Meds: Lab Review 04/14/19 04/14/19 04/14/19 16:15 16:15 16:30 WBC 8.10 RBC 4.87 Hgb 15.2 Hct 45.5 MCV 93.4 MCH 31.2 H MCHC 33.4 RDW Coeff of Mainor 12.1 Plt Count 236 Immature Gran % (Auto) 0.1 Neut % (Auto) 82.9 Lymph % (Auto) 10.7 [place] % (Auto) 5.7 Eos % (Auto) 0.4 Baso % (Auto) 0.2 Immature Gran # (Auto) 0.0 Neut # (Auto) 6.7 Lymph # (Auto) 0.9 [place] # (Auto) 0.5 Eos # (Auto) 0.0 Baso # (Auto) 0.0 Sodium Potassium Chloride Carbon Dioxide Anion Gap BUN Creatinine Estimated GFR (MDRD) BUN/Creatinine Ratio Glucose Calcium Total Bilirubin AST ALT Alkaline Phosphatase Total Protein Albumin Globulin Albumin/Globulin Ratio Amylase Lipase Urine Color Yellow Urine Clarity Clear Urine pH 6.0 Ur Specific [place] >=1.030 Urine Protein Trace Urine Glucose (UA) Negative Urine Ketones 2+ Urine Blood 1+ Urine Nitrite Negative Urine Bilirubin Negative Urine Urobilinogen 0.2 Ur Leukocyte Esterase Negative Urine Microscopic RBC 5-10 Ur Squamous Epith Cells 50-100 Urine Bacteria 1+ Urine Opiates Screen Positive Ur Oxycodone Screen Negative Urine Methadone Screen Negative Ur Propoxyphene Screen Negative Ur Barbiturates Screen Negative U Tricyclic Antidepress Negative Ur Phencyclidine Scrn Negative Ur Amphetamine Screen Negative U Methamphetamines Scrn Negative U Benzodiazepines Scrn Negative Urine Cocaine Screen Negative U Cannabinoids Screen Negative 04/14/19 16:30 WBC RBC Hgb Hct MCV MCH MCHC RDW Coeff of Mainor Plt Count Immature Gran % (Auto) Neut % (Auto) Lymph % (Auto) [place] % (Auto) Eos % (Auto) Baso % (Auto) Immature Gran # (Auto) Neut # (Auto) Lymph # (Auto) [place] # (Auto) Eos # (Auto) Baso # (Auto) Sodium 136.7 Potassium 4.06 Chloride 102.2 Carbon Dioxide 24.0 Anion Gap 14.56 BUN 11.6 Creatinine 0.87 Estimated GFR (MDRD) 95.00 BUN/Creatinine Ratio 13.33 Glucose 88.7 Calcium 9.27 Total Bilirubin 0.99 AST 45.3 H ALT 32.1 Alkaline Phosphatase 94.2 Total Protein 8.09 Albumin 4.65 Globulin 3.44 Albumin/Globulin Ratio 1.35 Amylase 203.1 H Lipase 1546.0 H Urine Color Urine Clarity Urine pH Ur Specific [place] Urine Protein Urine Glucose (UA) Urine Ketones Urine Blood Urine Nitrite Urine Bilirubin Urine Urobilinogen Ur Leukocyte Esterase Urine Microscopic RBC Ur Squamous Epith Cells Urine Bacteria Urine Opiates Screen Ur Oxycodone Screen Urine Methadone Screen Ur Propoxyphene Screen Ur Barbiturates Screen U Tricyclic Antidepress Ur Phencyclidine Scrn Ur Amphetamine Screen U Methamphetamines Scrn U Benzodiazepines Scrn Urine Cocaine Screen U Cannabinoids Screen Orders Category Date Time Status ADMIT PATIENT INPATIENT .TO [facility] (NON-MONITORED ADMISSION 04/14/19 17: 36 Active BED) NPO REMINDER: IMAGING ONCE CARE 04/14/19 16:20 Active IV [ED IV/MEDIPORT/POWERPORT] .ONCE EMERGENCY 04/14/19 16:21 Active AMYLASE Stat LAB 04/14/19 16:30 Completed CBC W/ AUTO DIFF Stat LAB 04/14/19 16:30 Completed CMP [COMPREHENSIVE METABOLIC PANEL] Stat LAB 04/14/19 16:30 Completed LIPASE Stat LAB 04/14/19 16:30 Completed UA [URINALYSIS C & S IF INDICATED] Stat LAB 04/14/19 16:15 Completed URINE CULTURE Stat LAB 04/14/19 16:15 Received URINE DRUG SCREEN (RAPID FOR ED) [DRUG SCREEN, URINE, LAB 04/14/19 16:15 Completed RAPID] Stat 0.9 % Sodium Chloride [Saline Flush] MEDS 04/14/19 16:21 Active 1 syr IVF PRN PRN Hydromorphone HCl [Dilaudid 1 mg/ml Syringe] MEDS 04/14/19 17:11 Discontinued 1 mg IVP ONCE STA Ondansetron HCl/Pf [Zofran 4 mg/2 ml] MEDS 04/14/19 17:11 Discontinued 4 mg IVP ONCE STA ULTRASOUND ABDOMEN [U/S ABDOMEN COMPLETE] Stat RADS 04/14/19 16:19 Completed Medications Generic Name Dose Route Start Last Admin Trade Name Freq PRN Reason Stop Dose Admin Enoxaparin Sodium 40 mg 04/14/19 21:00 Lovenox SUBCUT BEDTIME MICHAEL Hydromorphone HCl 1 mg 04/14/19 17:52 Dilaudid 1 Mg/Ml Syringe IVP Q4HR PRN Severe Pain Sodium Chloride 1,000 mls @ 150 mls/hr 04/15/19 00:40 Sodium Chloride IV Q6H [facility] Insulin Human Regular 1 unit 04/14/19 18:00 Humulin R SUBCUT PRN PRN elevated blood glucose Protocol Lisinopril 20 mg 04/15/19 09:00 Zestril PO DAILY MICHAEL Lorazepam 0.5 mg 04/14/19 18:00 Ativan IVP Q8H MICHAEL Non-Formulary Medication 1 tab 04/15/19 09:00 Buprenorphine Hcl/Naloxone Hcl [Suboxone 4 Mg-1 Mg Sl Film] PO DAILY MICHAEL Ondansetron HCl 4 mg 04/14/19 17:52 Zofran 4 Mg/2 Ml IVP Q6H PRN Nausea vomiting Sodium Chloride 1 syr 04/14/19 16:21 Saline Flush IVF PRN PRN To flush IV Thiamine HCl 100 mg 04/15/19 09:00 Thiamine IVP DAILY MICHAEL Discontinued Medications Generic Name Dose Route Start Last Admin Trade Name Spencer PRN Reason Stop Dose Admin Hydromorphone HCl 1 mg 04/14/19 17:11 04/14/19 17:21 Dilaudid 1 Mg/Ml Syringe IVP 04/14/19 17:12 1 mg ONCE STA Administration Sodium Chloride 1,000 mls @ 150 mls/hr 04/14/19 18:00 04/14/19 17:55 Sodium Chloride IV 150 mls/hr Q0H MICHAEL Administration Ondansetron HCl 4 mg 04/14/19 17:11 04/14/19 17:21 Zofran 4 Mg/2 Ml IVP 04/14/19 17:12 4 mg ONCE STA Administration Vital Signs: Temp Pulse Resp BP Pulse Ox 04/14/19 15:50 98 F 91 H 16 167/112 H 98 Departure - Departure Time of Disposition: 17:30 Disposition: ADMITTED INPATIENT Discharge Problem: Acute pancreatitis Condition: Stable Pt referred to PMD for follow-up: Yes IPMP verified?: No Allergies/Adverse Reactions: Allergies amoxicillin Adverse Reaction (Verified 04/14/19 15:58) Nausea clarithromycin [From Biaxin] Adverse Reaction (Verified 04/14/19 15:58) Nausea Penicillins Adverse Reaction (Verified 04/14/19 15:58) Nausea Home Medications: Ambulatory Orders Levonorgestrel [Mirena] 1 insert VAGINAL DIRECTED 01/05/18 Buprenorphine HCl/Naloxone HCl [Suboxone 4 mg-1 mg Sl Film] 1 tab PO DAILY 04/14 Insulin Glargine,Hum.rec.anlog [Basaglar Kwikpen U-100] 20 units SQ DAILY Insulin Lispro [Humalog] 4 units SQ QID 04/14/19 Lisinopril 20 mg PO DAILY 04/14/19 Disposition Discussed With: Patient, Family
[2019-04-14] MEDS ORDERED: ZOFRAN 4 MG/2 ML IVP STA (17:11)
[2019-04-14] MEDS ORDERED: DILAUDID 1 MG/ML SYRINGE IVP STA (17:11)
--- NOTE | 2019-04-14 17:28 | US ---
EXAM: Complete abdominal ultrasound. History: Upper abdominal pain. Comparison: CT abdomen pelvis 03/05/2018 Technique: Multiple sonographic images through the abdomen were obtained. Color duplex Doppler was used to interrogate vascular flow. Findings: The liver is not enlarged. No focal liver lesions. There is antegrade flow within the ma in portal vein. The visualized abdominal aorta and IVC demonstrate normal caliber. No abdominal ascites. No shadowing gallstones. Gallbladder wall is not thickened. Common bile duct measures 0.4 cm in alhaji iber. The visualized pancreas is unremarkable. Spleen is not enlarged. No focal splenic lesions. Both kidneys measure normal in long length demonstrating normal cortical echogenicity without evidenc e for hydronephrosis, mass or shadowing calculus. Impression: Unremarkable exam
[2019-04-14] MEDS: SODIUM CHLORIDE 1,000 ML IV SCH ×2 (17:53→17:55)
[2019-04-14] MEDS ORDERED: HUMULIN R SUBCUT PRN (18:00)
[2019-04-14] MEDS ORDERED: ATIVAN ONE (18:20)
[2019-04-14 18:37] VITALS: BMI 25.5
[2019-04-14] MEDS: ATIVAN IVP SCH (18:41)
[2019-04-14] MEDS: LOVENOX SUBCUT SCH (20:51)
[2019-04-14] MEDS: DILAUDID 1 MG/ML SYRINGE IVP PRN (21:58)
[2019-04-15] MEDS: SODIUM CHLORIDE 1,000 ML IV SCH ×4 (00:23→21:44)
[2019-04-15] MEDS: ATIVAN IVP SCH ×3 (01:59→17:52)
[2019-04-15] MEDS: DILAUDID 1 MG/ML SYRINGE IVP PRN ×7 (02:00→22:49)
[2019-04-15] MEDS: THIAMINE IVP SCH (08:33)
[2019-04-15] MEDS: ZESTRIL PO SCH ×2 (08:39→15:05)
[2019-04-15] MEDS: ZOFRAN 4 MG/2 ML IVP PRN (08:41)
[2019-04-15] MEDS ORDERED: [UNRECOGNIZED DRUG - OTHER] PO SCH (09:00)
[2019-04-15] MEDS ORDERED: NALOXONE HCL PO SCH (09:00)
[2019-04-15] MEDS ORDERED: BUPRENORPHINE HCL PO SCH (09:00)
[2019-04-15] MEDS: LOVENOX SUBCUT SCH (20:56)
[2019-04-16] MEDS: ATIVAN IVP SCH ×2 (01:17→10:32)
[2019-04-16] MEDS: DILAUDID 1 MG/ML SYRINGE IVP PRN ×7 (01:23→19:50)
[2019-04-16] MEDS: SODIUM CHLORIDE 1,000 ML IV SCH ×3 (03:55→11:27)
[2019-04-16] MEDS: ZOFRAN 4 MG/2 ML IVP PRN ×2 (04:44→16:38)
[2019-04-16] MEDS: ZESTRIL PO SCH (08:23)
[2019-04-16] MEDS: THIAMINE IVP SCH (08:24)
[2019-04-16] MEDS: NICODERM 21 MG TD SCH (10:32)
[2019-04-16] MEDS ORDERED: TOPROL XL PO STA (16:09)
[2019-04-16] MEDS: SODIUM CHLORIDE 0.9%-KCL 20 MEQ 1,000 ML IV SCH (17:47)
[2019-04-16] MEDS: HUMULIN R SUBCUT PRN (19:49)
[2019-04-16] MEDS: LOVENOX SUBCUT SCH (20:05)
[2019-04-16] MEDS: ATIVAN IVP PRN (23:10)
[2019-04-17] MEDS: DILAUDID 1 MG/ML SYRINGE IVP PRN ×7 (00:44→23:56)
[2019-04-17] MEDS: ATIVAN IVP PRN ×2 (08:23→21:07)
[2019-04-17] MEDS: ZESTRIL PO SCH (08:28)
[2019-04-17] MEDS: TOPROL XL PO SCH (08:29)
[2019-04-17] MEDS: NICODERM 21 MG TD SCH (08:30)
[2019-04-17] MEDS: THIAMINE IVP SCH (08:32)
[2019-04-17] MEDS: SODIUM CHLORIDE 0.9%-KCL 20 MEQ 1,000 ML IV SCH (14:23)
[2019-04-17] MEDS ORDERED: TYLENOL ONE (14:54)
[2019-04-17] MEDS: TYLENOL PO PRN (14:55)
[2019-04-17] MEDS: HUMULIN R SUBCUT PRN ×2 (17:01→21:08)
[2019-04-17] MEDS: LOVENOX SUBCUT SCH (21:11)
[2019-04-18] MEDS: TYLENOL PO PRN (01:37)
[2019-04-18] MEDS: DILAUDID 1 MG/ML SYRINGE IVP PRN ×3 (03:09→09:39)
[2019-04-18] MEDS: TOPROL XL PO SCH (08:40)
[2019-04-18] MEDS: ZESTRIL PO SCH (08:40)
[2019-04-18] MEDS: ATIVAN IVP PRN (08:41)
[2019-04-18] MEDS: NICODERM 21 MG TD SCH (09:02)
[2019-04-18] MEDS: SODIUM CHLORIDE 0.9%-KCL 20 MEQ 1,000 ML IV SCH (09:39)
[2019-04-18] MEDS ORDERED: DULCOLAX RC STA (12:29)
[2019-04-18] MEDS: NORCO 5-325 PO PRN ×3 (13:11→17:06)
[2019-04-18] MEDS: HUMULIN R SUBCUT PRN (13:11)
[2019-04-18 13:45] VITALS: BP 155/107; TEMP 98.7
== END 2019-04-18 17:50 | disposition home or self-care (01) | DRG 440 ==
LOC: ED 15:48 → MEDSURG B 17:39
PROVIDERS: ADMIT Family Medicine; ATTEND Family Medicine

== ENCOUNTER 2019-10-07 09:20 | Inpatient (IN) ==
--- NOTE | 2019-10-07 10:05 | ED.PDOC ---
General ED Provider: Dr. MORGAN MENDEZ Chief Complaint: Abdominal Pain Stated Complaint: Nausea and vomiting. Pain and bloating, especially RUQ. Hx pancreatitis. Time Seen by Physician: 09:40 Mode of Arrival: Walk-In Information Source: Patient Exam Limitations: No limitations Primary Care Provider: LEIGHTON WALKER APRN, FNP-BC Nursing and Triage Documentation Reviewed and Agree: Yes Does patient meet sepsis criteria?: No System Inflammatory Response Syndrome: Not Applicable Sepsis Protocol: For patient's 13 years and over: Temp is 96.8 and below OR 101 and greater Pulse >90 BPM Resp >20/minute Acutely Altered Mental Status Are patient's symptoms suggestive of a new infection, such as: -Pneumonia -Skin, Soft Tissue -Endocarditis -UTI -Bone, Joint Infection -Implantable Device -Acute Abdominal Infection -Wound Infection -Meningitis -Blood Stream Catheter Infection -Unknown GI Complaint Exam Abdominal Pain Complaint/Exam Onset: Gradual Duration: 2 days Symptoms Are: Still present Timing: Constant Initial Severity: Moderate Current Severity: Moderate Location of Pain: RUQ and LUQ Radiates To: Reports Back Character: Reports Sharp, Aching and Throbbing Aggravating: Reports Food and Position Associated Signs and Symptoms: Reports Nausea and Vomiting; Denies Diaphoresis, Fever, Cough, Chest pain, Dizziness, Back pain, Constipation, Blood in stool, Dysuria, Urinary frequency, Decreased urine output, Decreased appetite, Vaginal bleeding, Vaginal discharge, Diarrhea, Sore throat and Decreased activity Related History: Reports Similar episode Review of Systems Review Of Systems Constitutional: Reports Malaise Eyes: Reports No symptoms Ears, Nose, Mouth, Throat: Reports No symptoms Respiratory: Reports No symptoms Cardiac: Reports No symptoms GI: Reports Abdomen distended, Abdominal pain, Nausea, Poor appetite and Vomiting : Reports No symptoms Musculoskeletal: Reports No symptoms Skin: Reports No symptoms Neurological: Reports No symptoms Endocrine: Reports No symptoms Hematologic/Lymphatic: Reports No symptoms All Other Systems: Reviewed and Negative [facility] Medical History (Updated 10/08/19 @ 09:40 by GEORGE HESS) Drug abuse (Acute) History of pancreatitis (Inactive) Hypertension (Acute) Tobacco abuse (Chronic) Type 1 diabetes mellitus (Chronic) Family History (Updated 10/07/19 @ 14:56 by GEORGE HESS) FATHER Diabetes Hypertension FH: prostate cancer Mother Hypertension SISTER Seasonal allergies Social History (Updated 10/07/19 @ 15:00 by GEORGE MAURO Smoking and tobacco status: Current every day smoker Tobacco: How many years used: 8 Quit status: not considering quitting Second hand smoke exposure: No Alcohol intake: current Alcohol intake frequency: a few times a month Alcohol type: beer and other Counseling given: Yes Counseling provided: reduce to 2 or less/day Substance use type: former substance user Date of last use: 1016 Rehab program w/ no use since. 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 Current occupational exposures/hazards: No Pets and animals: No History of recent travel: No Sexually active: Yes Do you think of yourself as: straight/heterosexual Current gender identity: female Seatbelt use: always Drives intoxicated or rides with intoxicated pick up and delivery driver: No Water heater temperature set < 120 degrees: Yes Fire extinguisher in home: Yes Carbon monoxide detector in home: Yes Female Reproductive History Menstrual Hx Hysterectomy: No Hx Tubal Ligation: No Physical Exam Physical Exam Appearance: Reports Well-appearing and Well-nourished Ill-appearing: Mild Pain Distress: Mild Eyes: Reports NOEL, EOMI and Conjunctiva clear ENT: Reports Ears normal, Nose normal and Oropharynx normal Neck: Supple Respiratory: Reports Airway patent, Breath sounds clear, Breath sounds equal and Respirations nonlabored Cardiovascular: Reports RRR, Pulses normal, No rub and No murmur GI/: Reports Soft, No masses, Bowel sounds normal, No Organomegaly and Tender (RUQ) Musculoskeletal: Reports Normal strength, ROM intact, No edema and No calf tenderness Skin: Reports Warm, Dry and Normal color Neurological: Reports Sensation intact, Motor intact, Reflexes intact, Cranial nerves intact, Alert and Oriented Psychiatric: Reports Affect appropriate and Mood appropriate Re-Evaluation Re-Evaluation Time of Re-Evaluation: 12:25 Status: Unchanged Vital Signs Stable: Yes Appearance: NAD Lungs: Clear Skin: Warm and Dry Neuro: Alert and Oriented X3 CV: RRR Physician Notification Case Discussed Physician Notified: [id number] case-accepted admission Time of Notification: 12:30 Critical Care Note Critical Care Note Total Time (mins): 30 Course Course Hematology/Chemistry: 10/09/19 04:20 10/09/19 04:20 Orders, Labs, Meds: Lab Review 10/07/19 10/07/19 10/07/19 10:30 10:30 10:30 WBC 5.28 RBC 4.48 Hgb 13.8 Hct 41.9 MCV 93.5 MCH 30.8 MCHC 32.9 RDW Coeff of Mainor 13.5 Plt Count 259 Immature Gran % (Auto) 0.2 Neut % (Auto) 50.8 Lymph % (Auto) 39.2 Beckham % (Auto) 6.3 Eos % (Auto) 2.7 Baso % (Auto) 0.8 Immature Gran # (Auto) 0.0 Neut # (Auto) 2.7 Lymph # (Auto) 2.1 Beckham # (Auto) 0.3 L Eos # (Auto) 0.1 Baso # (Auto) 0.0 Sodium 143.2 Potassium 3.92 Chloride 106.7 Carbon Dioxide 26.3 Anion Gap 14.12 BUN 11.0 Creatinine 0.70 Estimated GFR (MDRD) 123.00 BUN/Creatinine Ratio 15.71 Glucose 72.3 L Calcium 9.31 Magnesium 2.15 Total Bilirubin 0.50 AST 230.5 H ALT 398.3 H Alkaline Phosphatase 188.7 H Total Protein 8.66 H Albumin 5.09 H Globulin 3.57 Albumin/Globulin Ratio 1.42 Amylase 60.2 Lipase 65.2 Serum , Qual Negative Urine Color Urine Clarity Urine pH Ur Specific [place] Urine Protein Urine Glucose (UA) Urine Ketones Urine Blood Urine Nitrite Urine Bilirubin Urine Urobilinogen Ur Leukocyte Esterase Urine Microscopic RBC Urine Microscopic WBC Ur Squamous Epith Cells Influ A Molecular Assay Influ B Molecular Assay 10/07/19 10/07/19 10:30 12:02 WBC RBC Hgb Hct MCV MCH MCHC RDW Coeff of Mainor Plt Count Immature Gran % (Auto) Neut % (Auto) Lymph % (Auto) Beckham % (Auto) Eos % (Auto) Baso % (Auto) Immature Gran # (Auto) Neut # (Auto) Lymph # (Auto) Beckham # (Auto) Eos # (Auto) Baso # (Auto) Sodium Potassium Chloride Carbon Dioxide Anion Gap BUN Creatinine Estimated GFR (MDRD) BUN/Creatinine Ratio Glucose Calcium Magnesium Total Bilirubin AST ALT Alkaline Phosphatase Total Protein Albumin Globulin Albumin/Globulin Ratio Amylase Lipase Serum , Qual Urine Color Yellow Urine Clarity Clear Urine pH 7.0 Ur Specific [place] 1.020 Urine Protein Negative Urine Glucose (UA) Negative Urine Ketones Negative Urine Blood 1+ H Urine Nitrite Negative Urine Bilirubin Negative Urine Urobilinogen 0.2 Ur Leukocyte Esterase Negative Urine Microscopic RBC 0-2 Urine Microscopic WBC 0-2 Ur Squamous Epith Cells 2-5 Influ A Molecular Assay Negative by naat Influ B Molecular Assay Negative by naat Orders Category Date Time Status ADMIT PATIENT INPATIENT .TO MEDSURG (MONITORED BED) ADMISSION 10/07/19 12:46 Active EKG-(ED ONLY) Stat CARDIO 10/07/19 12:38 Completed INTAKE & OUTPUT Q8HR CARE 10/07/19 12:39 Active INTAKE & OUTPUT Q8HR CARE 10/07/19 12:39 Completed NPO REMINDER: IMAGING ONCE CARE 10/07/19 10:14 Completed NPO REMINDER: IMAGING ONCE CARE 10/07/19 12:39 Completed TELEMETRY MONITORING TELE CARE 10/07/19 12:43 Active VITAL SIGNS Q8HR CARE 10/07/19 12:39 Completed VITAL SIGNS Q8HR CARE 10/07/19 12:39 Completed IV [ED IV/MEDIPORT/POWERPORT] .ONCE EMERGENCY 10/07/19 10:17 Active AMYLASE Stat LAB 10/07/19 10:30 Completed CBC W/ AUTO DIFF Stat LAB 10/07/19 10:30 Completed CMP [COMPREHENSIVE METABOLIC PANEL] Stat LAB 10/07/19 10:30 Completed FLU A & B MOLECULAR [FLU A/B MOLECULAR] Stat LAB 10/07/19 10:30 Completed HCG QUALITATIVE [SERUM ] Stat LAB 10/07/19 10:30 Completed LIPASE Stat LAB 10/07/19 10:30 Completed MAGNESIUM Stat LAB 10/07/19 10:30 Completed UA [URINALYSIS C & S IF INDICATED] Stat LAB 10/07/19 12:02 Completed 0.9 % Sodium Chloride [Saline Flush] MEDS 10/07/19 10:15 Active 1 syr IVF PRN PRN Famotidine Inj [Pepcid] MEDS 10/07/19 12:37 Discontinued 20 mg IVP ONCE STA Ondansetron HCl/Pf [Zofran 4 mg/2 ml] MEDS 10/07/19 12:38 Discontinued 4 mg IVP ONCE STA Sodium Chloride 0.9% [Sodium Chloride] 500 ml MEDS 10/07/19 12:37 Discontinued IV BOLUS RESUSCITATION STATUS Routine OTHERS 10/07/19 12:[address] ABDOMEN/PELVIS W CONTRAST Stat RADS 10/07/19 10:10 Completed Medications Generic Name Dose Route Start Last Admin Trade Name Freq PRN Reason Stop Dose Admin Dextrose 50 ml 10/07/19 17:06 Dextrose 50%-Water Abboject IVP PRN PRN Hypoglycemia Enalaprilat 1.25 mg 10/07/19 16:34 Vasotec Iv IVP Q6H PRN SBP > 170 Famotidine 20 mg 10/07/19 15:55 10/08/19 21:02 Pepcid IVP 20 mg Q12HR MICHAEL Administration Glucose 5 tab 10/07/19 17:06 10/07/19 17:21 Glucose Chew Tab PO 5 tab PRN PRN Administration Hypoglycemia Sodium Chloride 1,000 mls @ 125 mls/hr 10/08/19 08:47 10/09/19 04:04 Sodium Chloride IV 125 mls/hr .Q8H MICHAEL Administration Ibuprofen 800 mg 10/07/19 15:38 10/08/19 21:03 Motrin PO 800 mg Q8H PRN Administration Mild Pain Insulin Glargine 20 unit 10/07/19 21:00 10/08/19 21:14 Lantus SUBCUT 20 unit BEDTIME MICHAEL Administration Insulin Human Lispro 5 unit 10/07/19 17:00 10/09/19 08:06 Humalog SUBCUT Not Given ACHS [facility] Lisinopril 20 mg 10/08/19 09:00 10/08/19 11:03 Zestril PO 20 mg DAILY MICHAEL Administration Metoprolol Succinate 25 mg 10/08/19 09:00 10/08/19 11:03 Toprol Xl PO 25 mg DAILY MICHAEL Administration Nicotine 1 patch 10/08/19 21:30 10/08/19 22:20 Nicoderm 14 Mg TD 1 patch DAILY MICHAEL Administration Non-Formulary Medication 0.5 each 10/08/19 09:00 10/08/19 17:10 Buprenorphine-Naloxone [Suboxone] SL 0.5 each DAILY MICHAEL Administration Non-Formulary Medication 1 insert 10/06/24 15:45 Levonorgestrel [Mirena] INTRAUTERI DIRECTED [facility] Ondansetron HCl 8 mg 10/07/19 16:05 10/08/19 21:02 Zofran 4 Mg/2 Ml IVP 8 mg Q6H PRN Administration Nausea / Vomiting Sodium Chloride 1 syr 10/07/19 10:15 Saline Flush IVF PRN PRN To flush IV Discontinued Medications Generic Name Dose Route Start Last Admin Trade Name Freq PRN Reason Stop Dose Admin Amlodipine Besylate 5 mg 10/07/19 13:08 10/07/19 13:12 Norvasc PO 10/07/19 13:09 5 mg ONCE STA Administration Amlodipine Besylate 5 mg 10/07/19 14:33 10/07/19 14:53 Norvasc PO 10/07/19 14:34 5 mg ONCE STA Administration Famotidine 20 mg 10/07/19 12:37 10/07/19 12:47 Pepcid IVP 10/07/19 12:38 Not Given ONCE STA Glucagon 1 mg 10/07/19 16:30 Glucagen IVP PRN PRN hypoglycemia Sodium Chloride 500 mls @ 500 mls/hr 10/07/19 12:37 10/07/19 14:34 Sodium Chloride IV 10/07/19 13:36 Not Given BOLUS STA Sodium Chloride 1,000 mls @ 100 mls/hr 10/07/19 15:00 10/08/19 00:07 Sodium Chloride IV 100 mls/hr .Q10H MICHAEL Administration Lactated Ringer's 1,000 mls @ 500 mls/hr 10/08/19 09:23 10/08/19 09:43 Lactated Ringers IV 10/08/19 11:22 500 mls/hr BOLUS STA Administration Insulin Human Lispro 5 unit 10/07/19 17:00 10/08/19 12:04 Humalog SUBCUT 5 unit ACHS MICHAEL Administration Ondansetron HCl 4 mg 10/07/19 12:38 10/07/19 12:47 Zofran 4 Mg/2 Ml IVP 10/07/19 12:39 Not Given ONCE STA Vital Signs: Temp Pulse Resp BP Pulse Ox 10/07/19 09:20 97.7 F 81 18 176/114 H 97 Discharge Plan Discharge Patient Disposition: ADMITTED INPATIENT Discharge Problem: Acute pancreatitis, Diabetes Hypertension Qualifiers: Hypertension type: essential hypertension Qualified Code(s): I10 - Essential (primary) hypertension ED Provider: MORGAN MENDEZ Condition: Good Discharge Date/Time: 10/07/19 13:40
[2019-10-07 10:37] LABS: HEMATOCRIT 41.9 % (37.0-47.0)
--- NOTE | 2019-10-07 11:59 | CT ---
EXAM: CT of the abdomen pelvis with contrast History: Right upper quadrant abdominal pain. Comparison: CT abdomen pelvis 07/02/2019 Technique: Multiplanar CT images through the abdomen pelvis were obtained following administration o f IV contrast Findings: Lung bases are clear. No acute osseous abnormalities. No gallstones identified by CT. No liver or splenic lesions. There is some atrophy of the pancreas and the pancreatic duct is prominent. 1.3 cm low-density mass in the pancreatic head. There is subt le stranding seen adjacent to the pancreatic head and pancreatic tail. No peripancreatic fluid colle ctions. Adrenal glands are unremarkable. 2 mm calculus within the left kidney. No renal masses. N o hydronephrosis. No perinephric stranding. No abdominal aortic aneurysm. No bowel obstruction. T he appendix is normal. No free air and no ascites. No bladder wall thickening. Intrauterine device is seen in place within the pelvis. No perirectal inflammation. No pathologically enlarged lymph n odes. Impression: 1. Mild early acute pancreatitis. 2. Low-density mass in the pancreatic head could represent a pseudocyst but cannot exclude underlyin g pancreatic neoplasm. Recommend further evaluation with MRI of the abdomen with and without contras t and MRCP 3. There is some atrophy of the pancreas and the pancreatic duct is prominent.
[2019-10-07] MEDS ORDERED: PEPCID IVP STA (12:37)
[2019-10-07] MEDS ORDERED: SODIUM CHLORIDE 500 ML IV STA (12:37)
[2019-10-07] MEDS ORDERED: ZOFRAN 4 MG/2 ML IVP STA (12:38)
[2019-10-07] MEDS ORDERED: NORVASC PO STA ×2 (13:08→14:33)
[2019-10-07 14:16] VITALS: BMI 26.3
[2019-10-07] MEDS: SODIUM CHLORIDE 1,000 ML IV SCH (15:02)
--- NOTE | 2019-10-07 15:16 | PCM ---
Chief Complaint Chief Complaint: "abdominal pain" History of Present Illness History of Present Illness: Alesha Pastor is a 24 yo AA female w/ Type 1 DM, HTN, hx pain med abuse w/ rehab 2013, and Tobacco abuse (1/2 PPD X 8yrs) who presented 10/07/2019 09:20 [facility] ER for recurrent episode 1 week ago of waxing and waning stabbing/pressure to soft throb aching RUQ abdominal pain that radiates to right lateral side (not kidney area) lasting up to 30 minutes and relieved w/ 600mg Ibuprofen OTC. Pain is rated 10/10 and currently upon admission 4/10. There is associated chills at HS, decreased appetite, nausea, vomiting X1 in last 2 days, bilious emesis, large soft brown unformed stools 3 times/day last 2 days; last pancreatitis 05/2019. 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 Admission labs reveal significant findings: CBC wnl; Chem profile wnl except LFT"s elevated AST 230.5H, ALT 398.3, Alk Phos 188.7: Total Protein 8.86H; Albumin 5.09H. Amylase and Lipase are normal 60.2 and 65.2 respectively. Urinalysis is negative except for 1+ blood. Influenza A/B were both negative. CT abd/pelvis w/ contrast notes: Mild early acute pancreatitis; Low-density mass in the pancreatic head could represent a pseudocyst but cannot exclude underlying pancreatic neoplasm. Recommend further evaluation with MRI of the abdomen with and without contrast and MRCP; some atrophy of the pancreas and the pancreatic duct is prominent. There is also incidental finding of 2 mm calculus within the left kidney. Patient was admitted as inPatient w/ Acute Pancreatitis w/ abnormal CT finding head of pancreas w/ MRI f-u recommended. Full code status confirmed per review w/ patient. Goal is hydration w/ managing slightly elevated BP, and protection for liver w/ elevated LFT's. IBUPROFEN for pain; avoid narcotics. Review of Systems Constitutional: Reports chills; Denies fever, weakness, sweats, fatigue and loss of appetite Eyes: Denies blurred vision, double-vision, discharge, itching, pain and redness Ears: Denies pain, bleeding, drainage, ringing and hearing loss Nose: Denies bleeding, congestion and discharge Throat: Denies pain, swelling and voice change Mouth: Denies bleeding, pain and swelling Respiratory: Denies cough, shortness of air, wheeze, hemoptysis and pain with breathing Cardiovascular: Denies chest pain, left arm pain, diaphoresis, PND, orthopnea, edema, palpitations and syncope Gastrointestinal: Reports abdominal pain (RUQ --see HPI. ), nausea, vomiting and diarrhea (soft unformed stools 3 X/day in last few days. ); Denies melena, hematemesis, hematochezia, dysphagia and constipation Genitourinary: Denies dysuria, hematuria, frequency, incontinence, flank pain, vaginal discharge, abnormal bleeding and pelvic pain Last Menstrual Cycle: Has Mirena. Neurological: Denies headache, dizziness, seizure, numbness, weakness, speech difficulty, problems with walking, tremor and fainting Musculoskeletal: Denies pain and swelling in joints Skin: Denies rash, pruritus, lacerations, wounds and bruising Hematology: Denies easy bruising, easy bleeding and swollen glands Endocrine: Denies weight changes, cold intolerance, heat intolerance, excessive thirst, excessive hunger and polyuria Psychiatric: Denies depression, anxiety, sleeplessness, hopelessness, suicidal and hallucinations Habits: Reports tobacco use (1/2 PPD; using nicotine patch to try and stop. ), substance use (Pain pills; drug rehab 2013 w/ no use since then) and alcohol use (2 drinks per month at most.) Allergies Allergies Allergy/AdvReac Type Severity Reaction Status Date / Time amoxicillin AdvReac Nausea Verified 10/07/19 09:24 clarithromycin [From Biaxin] AdvReac Nausea Verified 10/07/19 09:24 Penicillins AdvReac Nausea Verified 10/07/19 09:24 [facility] Medical History (Updated 10/07/19 @ 16:14 by GEORGE HESS) Drug abuse (Acute) History of pancreatitis (Inactive) Hypertension (Acute) Tobacco abuse (Chronic) Type 1 diabetes mellitus (Chronic) Surgical History (Updated 10/07/19 @ 14:54 by GEORGE HESS) History of tonsillectomy (Acute) [place] teeth extracted (Acute) Family History (Updated 10/07/19 @ 14:56 by GEORGE HESS) FATHER Diabetes Hypertension FH: prostate cancer Mother Hypertension SISTER Seasonal allergies Social History (Updated 03/05/20 @ 15:00 by GEORGE MAURO Smoking and tobacco status: Current every day smoker Tobacco: How many years used: 8 Quit status: not considering quitting Second hand smoke exposure: No Alcohol intake: current Alcohol intake frequency: a few times a month Alcohol type: beer and other Counseling given: Yes Counseling provided: reduce to 2 or less/day Substance use type: former substance user Date of last use: 1016 Rehab program w/ no use since. 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 Current occupational exposures/hazards: No Pets and animals: No History of recent travel: No Sexually active: Yes Do you think of yourself as: straight/heterosexual Current gender identity: female Seatbelt use: always Drives intoxicated or rides with intoxicated flatbed truck driver: No Water heater temperature set < 120 degrees: Yes Fire extinguisher in home: Yes Carbon monoxide detector in home: Yes Medications Medications: Medications Generic Name Dose Route Start Last Admin Trade Name Freq PRN Reason Stop Dose Admin Sodium Chloride 1,000 mls @ 100 mls/hr 10/07/19 15:00 Sodium Chloride IV .Q10H MICHAEL Sodium Chloride 1 syr 10/07/19 10:15 Saline Flush IVF PRN PRN To flush IV Body Composition Height: 5 ft 4 in Weight: 153 lb 7.068 oz Body Mass Index (BMI): 26.3 Vital Signs Temperature: 97.7 F Pulse Rate: 61 Respiratory Rate: 16 Blood Pressure: 155/99 O2 Sat by Pulse Oximetry: 100 Physical Examination Appearance: Reports Ill-appearing and Well-nourished Ill-appearing: Mild Pain Distress: Mild Eyes: Reports NOEL, EOMI and Conjunctiva clear ENT: Reports Ears normal, Nose normal and Oropharynx normal (except for mild pharyngeal cobblestoning; No PND. ); Denies TMs Occluded, Rhinorrhea, Epistaxis, Erythema and Exudate Neck: Supple Respiratory: Reports Airway patent, Breath sounds clear, Breath sounds equal and Respirations nonlabored; Denies Crackles, Rhonchi, Wheezes and Retractions Cardiovascular: Reports RRR (SR Telemetry 60's. ), Pulses normal, No rub and No murmur GI/: Reports Soft, No masses, Bowel sounds normal, No Organomegaly and Tender (Mid-epigastric and RUQ tenderness w/o rebound or guarding. No bilateral CVA tenderness. ) Musculoskeletal: Reports Normal strength, ROM intact, No edema and No calf tenderness Skin: Reports Warm, Dry and Normal color; Denies Pale, Diaphoretic and Cyanotic Neurological: Reports Sensation intact, Motor intact, Reflexes intact, Cranial nerves intact, Alert and Oriented (X4) Psychiatric: Reports Affect appropriate and Mood appropriate; Denies Anxious and Depressed Lab/Tests/Diagnostic Imaging Lab/Tests/Diagnostic Imaging: Lab Review 10/07/19 10/07/19 10/07/19 10:30 10:30 10:30 WBC 5.28 RBC 4.48 Hgb 13.8 Hct 41.9 MCV 93.5 MCH 30.8 MCHC 32.9 RDW Coeff of Mainor 13.5 Plt Count 259 Immature Gran % (Auto) 0.2 Neut % (Auto) 50.8 Lymph % (Auto) 39.2 [place] % (Auto) 6.3 Eos % (Auto) 2.7 Baso % (Auto) 0.8 Immature Gran # (Auto) 0.0 Neut # (Auto) 2.7 Lymph # (Auto) 2.1 [place] # (Auto) 0.3 L Eos # (Auto) 0.1 Baso # (Auto) 0.0 Sodium 143.2 Potassium 3.92 Chloride 106.7 Carbon Dioxide 26.3 Anion Gap 14.12 BUN 11.0 Creatinine 0.70 Estimated GFR (MDRD) 123.00 BUN/Creatinine Ratio 15.71 Glucose 72.3 L Calcium 9.31 Magnesium 2.15 Total Bilirubin 0.50 AST 230.5 H ALT 398.3 H Alkaline Phosphatase 188.7 H Total Protein 8.66 H Albumin 5.09 H Globulin 3.57 Albumin/Globulin Ratio 1.42 Amylase 60.2 Lipase 65.2 Serum , Qual Negative Urine Color Urine Clarity Urine pH Ur Specific [place] Urine Protein Urine Glucose (UA) Urine Ketones Urine Blood Urine Nitrite Urine Bilirubin Urine Urobilinogen Ur Leukocyte Esterase Urine Microscopic RBC Urine Microscopic WBC Ur Squamous Epith Cells Influ A Molecular Assay Influ B Molecular Assay 03/05/20 03/05/20 10:30 12:02 WBC RBC Hgb Hct MCV MCH MCHC RDW Coeff of Mainor Plt Count Immature Gran % (Auto) Neut % (Auto) Lymph % (Auto) [place] % (Auto) Eos % (Auto) Baso % (Auto) Immature Gran # (Auto) Neut # (Auto) Lymph # (Auto) [place] # (Auto) Eos # (Auto) Baso # (Auto) Sodium Potassium Chloride Carbon Dioxide Anion Gap BUN Creatinine Estimated GFR (MDRD) BUN/Creatinine Ratio Glucose Calcium Magnesium Total Bilirubin AST ALT Alkaline Phosphatase Total Protein Albumin Globulin Albumin/Globulin Ratio Amylase Lipase Serum , Qual Urine Color Yellow Urine Clarity Clear Urine pH 7.0 Ur Specific [place] 1.020 Urine Protein Negative Urine Glucose (UA) Negative Urine Ketones Negative Urine Blood 1+ H Urine Nitrite Negative Urine Bilirubin Negative Urine Urobilinogen 0.2 Ur Leukocyte Esterase Negative Urine Microscopic RBC 0-2 Urine Microscopic WBC 0-2 Ur Squamous Epith Cells 2-5 Influ A Molecular Assay Negative by naat Influ B Molecular Assay Negative by naat 10/07/2019 EXAM: CT of the abdomen pelvis with contrast History: Right upper quadrant abdominal pain. Comparison: CT abdomen pelvis 07/02/2019 Technique: Multiplanar CT images through the abdomen pelvis were obtained following administration of IV contrast Findings: Lung bases are clear. No acute osseous abnormalities. No gallstones identified by CT. No liver or splenic lesions. There is some atrophy of the pancreas and the pancreatic duct is prominent. 1.3 cm low- density mass in the pancreatic head. There is subtle stranding seen adjacent to the pancreatic head and pancreatic tail. No peripancreatic fluid collections. Adrenal glands are unremarkable. 2 mm calculus within the left kidney. No renal masses. No hydronephrosis. No perinephric stranding. No abdominal aortic aneurysm. No bowel obstruction. The appendix is normal. No free air an d no ascites. No bladder wall thickening. Intrauterine device is seen in place within the pelvis. No perirectal inflammation. No pathologically enlarged lymph nodes. Impression: 1. Mild early acute pancreatitis. 2. Low-density mass in the pancreatic head could represent a pseudocyst but cannot exclude underlying pancreatic neoplasm. Recommend further evaluation with MRI of the abdomen with and without contrast and MRCP 3. There is some atrophy of the pancreas and the pancreatic duct is prominent. Orders Category Date Time Status ADMIT PATIENT INPATIENT .TO MEDSURG (MONITORED BED) ADMISSION 10/07/19 12:46 Active EKG-(ED ONLY) Stat CARDIO 10/07/19 12:38 Completed BLOOD GLUCOSE MONITORING 0630,1100,1700,2100 CARE 10/07/19 14:33 Active INTAKE & OUTPUT Q8HR CARE 10/07/19 12:39 Active INTAKE & OUTPUT Q8HR CARE 10/07/19 12:39 Completed NPO REMINDER: IMAGING ONCE CARE 10/07/19 10:14 Completed NPO REMINDER: IMAGING ONCE CARE 10/07/19 12:39 Completed TELEMETRY MONITORING TELE CARE 10/07/19 12:43 Active VITAL SIGNS Q8HR CARE 10/07/19 12:39 Active VITAL SIGNS Q8HR CARE 10/07/19 12:39 Completed IV [ED IV/MEDIPORT/POWERPORT] .ONCE EMERGENCY 10/07/19 10:17 Active AMYLASE Stat LAB 10/07/19 10:30 Completed CBC W/ AUTO DIFF Stat LAB 10/07/19 10:30 Completed CMP [COMPREHENSIVE METABOLIC PANEL] Stat LAB 10/07/19 10:30 Completed FLU A & B MOLECULAR [FLU A/B MOLECULAR] Stat LAB 10/07/19 10:30 Completed HCG QUALITATIVE [SERUM ] Stat LAB 10/07/19 10:30 Completed LIPASE Stat LAB 10/07/19 10:30 Completed MAGNESIUM Stat LAB 10/07/19 10:30 Completed UA [URINALYSIS C & S IF INDICATED] Stat LAB 10/07/19 12:02 Completed 0.9 % Sodium Chloride [Saline Flush] MEDS 10/07/19 10:15 Active 1 syr IVF PRN PRN Amlodipine Besylate [Norvasc] MEDS 10/07/19 13:08 Discontinued 5 mg PO ONCE STA Amlodipine Besylate [Norvasc] MEDS 10/07/19 14:33 Discontinued 5 mg PO ONCE STA Famotidine Inj [Pepcid] MEDS 10/07/19 12:37 Discontinued 20 mg IVP ONCE STA Ondansetron HCl/Pf [Zofran 4 mg/2 ml] MEDS 10/07/19 12:38 Discontinued 4 mg IVP ONCE STA Sodium Chloride 0.9% [Sodium Chloride] 1,000 ml MEDS 10/07/19 15:00 Active IV 100 mls/hr Sodium Chloride 0.9% [Sodium Chloride] 500 ml MEDS 10/07/19 12:37 Discontinued IV BOLUS RESUSCITATION STATUS Routine OTHERS 10/07/19 12:[address] ABDOMEN/PELVIS W CONTRAST Stat RADS 10/07/19 10:10 Completed Medications Generic Name Dose Route Start Last Admin Trade Name Freq PRN Reason Stop Dose Admin Sodium Chloride 1,000 mls @ 100 mls/hr 10/07/19 15:00 Sodium Chloride IV .Q10H MICHAEL Sodium Chloride 1 syr 10/07/19 10:15 Saline Flush IVF PRN PRN To flush IV Discontinued Medications Generic Name Dose Route Start Last Admin Trade Name Freq PRN Reason Stop Dose Admin Amlodipine Besylate 5 mg 10/07/19 13:08 10/07/19 13:12 Norvasc PO 10/07/19 13:09 5 mg ONCE STA Administration Amlodipine Besylate 5 mg 10/07/19 14:33 Norvasc PO 10/07/19 14:34 ONCE STA Famotidine 20 mg 10/07/19 12:37 10/07/19 12:47 Pepcid IVP 10/07/19 12:38 Not Given ONCE STA Sodium Chloride 500 mls @ 500 mls/hr 10/07/19 12:37 10/07/19 14:34 Sodium Chloride IV 10/07/19 13:36 Not Given BOLUS STA Ondansetron HCl 4 mg 10/07/19 12:38 10/07/19 12:47 Zofran 4 Mg/2 Ml IVP 10/07/19 12:39 Not Given ONCE STA Assessment (1) Acute pancreatitis: Status: Acute Code(s): K85.9 - Acute pancreatitis, unspecified SNOMED Code(s): 423489760 Qualifiers: Pancreatitis type: unspecified pancreatitis type Acute pancreatitis complication: no infection or necrosis Qualified Code(s): K85.90 - Acute pancreatitis without necrosis or infection, unspecified (2) Hypertension: Status: Acute Code(s): I10 - Essential (primary) hypertension SNOMED Code(s): 65589553 Qualifiers: Hypertension type: essential hypertension Qualified Code(s): I10 - Essential (primary) hypertension (3) Type 1 diabetes mellitus: Status: Chronic Qualifiers: Diabetes mellitus complication status: without complication Qualified Code(s): E10.9 - Type 1 diabetes mellitus without complications (4) Tobacco abuse: Status: Chronic Code(s): Z72.0 - Tobacco use SNOMED Code(s): 49259891 (5) Tobacco abuse counseling: Status: Acute Code(s): Z71.6 - Tobacco abuse counseling SNOMED Code(s): 492602421 Plan Plan: Acute Pancreatitis--Recurring problem w/ abnormal CT scan of pancreas w/ MRI recommended. Cautious hydration w/ IVF due to mildly elevated BP; PPI; Ibuprofen 800mg Q 8hrs prn pain; NO narcotics due to past drug hx w/ patient requesting same; Zofran prn N/V; telemetry; monitor VS and labs--keli. LFT's w/ significant elevation as noted in HPI; Clear liquid diet avoiding red dyes for now and will advance in AM if symptoms resolving. Will need MRI of Abdomen in near future for pancreatic head abnormality. Hypertension--moderately increased w/ pain and anxiety; continue home meds; added Hydralazine total 10mg today. Caution w/ further Beta bette as pulse is in 60's---Consider HCTZ 25mg PO, but my dry pancreas out too much; will order Vasotec mg IVP Q hrs for SBP>190 Type I DM --good control w/ latest 09/24/2019 A1C 6.92; cont home insulins; SB AC & HS; 2000 Calorie ADA diet when able to resume eating. Tobacco Abuse w/ Tobacco abuse counseling-Improving w/ patient now switching to nicotine patch size 14 to be continued in hospital; patient alert, attentive, and encouraged to d/c tobacco and verbalizes understanding of 15 min. counseling w/ side effects vs benefits of quitting tobacco.
[2019-10-07] MEDS: ZOFRAN 4 MG/2 ML IVP PRN (16:23)
[2019-10-07] MEDS: PEPCID IVP SCH ×2 (16:23→20:52)
[2019-10-07] MEDS ORDERED: GLUCAGEN IVP PRN ×2 (16:30→16:37)
[2019-10-07] MEDS ORDERED: VASOTEC IV IVP PRN (16:34)
[2019-10-07] MEDS: HUMALOG SUBCUT SCH ×2 (17:01→20:46)
[2019-10-07] MEDS ORDERED: GLUCOSE CHEW TAB PO PRN (17:06)
[2019-10-07] MEDS ORDERED: DEXTROSE 50%-WATER ABBOJECT IVP PRN (17:06)
[2019-10-07] MEDS: MOTRIN PO PRN (18:37)
[2019-10-07] MEDS: LANTUS SUBCUT SCH (20:47)
[2019-10-08] MEDS: SODIUM CHLORIDE 1,000 ML IV SCH ×3 (00:07→18:29)
[2019-10-08] MEDS: ZOFRAN 4 MG/2 ML IVP PRN ×3 (05:15→21:02)
[2019-10-08] MEDS: MOTRIN PO PRN ×3 (05:15→21:03)
[2019-10-08] MEDS: HUMALOG SUBCUT SCH ×5 (05:29→21:15)
--- NOTE | 2019-10-08 06:54 | PCM.PROG ---
Date Seen by Provider: 10/08/19 Time Seen by Provider: 08:08 Subjective: Alesha Pastor found resting on her right side in bed. States she slept a little better last night w/ improved mild RUQ pain that radiates to right lateral upper abdominal area. Has slight nausea; tolerating clear liquids sparingly. Denies f/c, headache, CP, palpitations, SOB, NICHOLS, diarrhea, constipation, or myalgias. Objective: Vitals: T=98.1 F, P=67, R=16, ZP=544/63, SPO2=99 HEENT: Eyes-no redness, swelling or d/c. Ears: pinna w/o tenderness/pain. Hearing--normal. Pharynx: w/o injection, cobblestoning, lesions or PND. No dysphagia. Neck: Supple; NT; No lymphadenopathy Lungs: CTA. No rales, rhonchi, crackles, or wheezing. No cough on exam. No retractions. Respirations easy and regular. RA O2 sat 99%. CVS: RRR; no murmurs or gallops; No edema. No cyanosis; NBB Abdomen: Soft, mild tenderness generalized > bilateral upper quads w/o rebound tenderness or guarding, no organomegaly or masses. TAYLOR/SO present. Extremities: KHAN well w/ symmetry. No edema. Ambulates w/ steady gait. Neurological: A/O X4. Cooperative and pleasant. Good eye contact. Up and about in room w/ assistance; steady. Speech clear. No other abnormalities noted. Skin: Dry & intact. No rashes or lesions noted. Lab/Tests/Diagnostic Imaging: Laboratory Results WBC 3.59 K/ul (4.6-10.2) L 10/08/19 07:00 RBC 4.21 10^6/ul (4.20-5.40) 10/08/19 07:00 Hgb 12.9 g/dl (12.0-16.0) 10/08/19 07:00 Hct 39.8 % (37.0-47.0) 10/08/19 07:00 MCV 94.5 fl (81.0-99.0) 10/08/19 07:00 MCH 30.6 pg (27.0-31.0) 10/08/19 07:00 MCHC 32.4 (31.8-35.4) 10/08/19 07:00 RDW Coeff of Mainor 13.3 % (11.6-14.8) 10/08/19 07:00 Plt Count 189 10^3/uL (140-440) 10/08/19 07:00 Immature Gran % (Auto) 0.3 % (0.0-5.0) 10/08/19 07:00 Neut % (Auto) 59.3 % (42.2-75.2) 10/08/19 07:00 Lymph % (Auto) 31.5 (10.0-50.0) 10/08/19 07:00 [place] % (Auto) 5.0 (0-10) 10/08/19 07:00 Eos % (Auto) 3.3 % (0.0-7.0) 10/08/19 07:00 Baso % (Auto) 0.6 % (0.0-3.0) 10/08/19 07:00 Immature Gran # (Auto) 0.0 (0.0-1.0) 10/08/19 07:00 Neut # (Auto) 2.1 K/ul (2.0-6.9) 10/08/19 07:00 Lymph # (Auto) 1.1 K/uL (0.60-3.4) 10/08/19 07:00 [place] # (Auto) 0.2 K/uL (0.4-2.0) L 10/08/19 07:00 Eos # (Auto) 0.1 K/ul (0.0-0.7) 10/08/19 07:00 Baso # (Auto) 0.0 K/uL (0-0.2) 10/08/19 07:00 Sodium 137.1 mmol/L (134.5-145) 10/08/19 07:00 Potassium 3.56 mmol/L (3.5-5.1) 10/08/19 07:00 Chloride 104.4 mmol/L (98-107) 10/08/19 07:00 Carbon Dioxide 25.4 mmol/L (22-30.0) 10/08/19 07:00 Anion Gap 10.86 10/08/19 07:00 BUN 4.7 mg/dL (7-17) L 10/08/19 07:00 Creatinine 0.73 mg/dL (0.60-1.30) 10/08/19 07:00 Estimated GFR (MDRD) 117.00 mL/min 10/08/19 07:00 BUN/Creatinine Ratio 6.43 10/08/19 07:00 Glucose 138.2 mg/dL (74-106) H D 10/08/19 07:00 Calcium 8.64 mg/dL (8.4-10.2) 10/08/19 07:00 Magnesium 2.15 mg/dL (1.6-2.3) 10/07/19 10:30 Total Bilirubin 0.94 mg/dL (0.2-1.3) 10/08/19 07:00 AST 74.5 U/L (14-36) H D 10/08/19 07:00 ALT 229.9 U/L (0-35) H D 10/08/19 07:00 Alkaline Phosphatase 175.3 U/L (38-126) H 10/08/19 07:00 Total Protein 6.78 g/dL (6.3-8.2) 10/08/19 07:00 Albumin 3.94 g/dL (3.5-5.0) 10/08/19 07:00 Globulin 2.84 10/08/19 07:00 Albumin/Globulin Ratio 1.38 10/08/19 07:00 Amylase 59.1 U/L (30-110) 10/08/19 07:00 Lipase 110.8 U/L (23-300) 10/08/19 07:00 Serum , Qual Negative (NEGATIVE) 10/07/19 10:30 Urine Color Yellow (YELLOW) 10/07/19 12:02 Urine Clarity Clear (CLEAR) 10/07/19 12:02 Urine pH 7.0 (5-9) 10/07/19 12:02 Ur Specific [place] 1.020 (1.005-1.030) 10/07/19 12:02 Urine Protein Negative (NEGATIVE) 10/07/19 12:02 Urine Glucose (UA) Negative (NEGATIVE) 10/07/19 12:02 Urine Ketones Negative (NEGATIVE) 10/07/19 12:02 Urine Blood 1+ (NEGATIVE) H 10/07/19 12:02 Urine Nitrite Negative (NEGATIVE) 10/07/19 12:02 Urine Bilirubin Negative (NEGATIVE) 10/07/19 12:02 Urine Urobilinogen 0.2 (0.2) 10/07/19 12:02 Ur Leukocyte Esterase Negative (NEGATIVE) 10/07/19 12:02 Urine Microscopic RBC 0-2 (0-2) 10/07/19 12:02 Urine Microscopic WBC 0-2 (0-2) 10/07/19 12:02 Ur Squamous Epith Cells 2-5 (0-5) 10/07/19 12:02 Influ A Molecular Assay Negative by naat (NEGATIVE) 10/07/19 10:30 Influ B Molecular Assay Negative by naat (NEGATIVE) 10/07/19 10:30 (1) Acute pancreatitis: Status: Acute Code(s): K85.9 - Acute pancreatitis, unspecified SNOMED Code(s): 369524400 (2) Hypertension: Status: Acute Code(s): I10 - Essential (primary) hypertension SNOMED Code(s): 13141830 (3) Type 1 diabetes mellitus: Status: Chronic (4) Tobacco abuse: Status: Chronic Code(s): Z72.0 - Tobacco use SNOMED Code(s): 40076910 (5) Tobacco abuse counseling: Status: Acute Code(s): Z71.6 - Tobacco abuse counseling SNOMED Code(s): 448547047 (6) Transaminitis: Status: Acute Code(s): R74.0 - Nonspecific elevation of levels of transaminase and lactic acid dehydrogenase [LDH] SNOMED Code(s): 297647238 Plan: Acute Pancreatitis w/ Transaminitis--Improving slowly. LFT's still elevated w/ slight improvement for most levels--AST 230.5 to 74.5 ALT 398.3 to 229.9 and ALK Phos 188.7 to 175.3. Lipase & Amylase remain normal 110.8 and 59.1 respectively. Recurring problem w/ abnormal CT scan of pancreas w/ MRI/MRCP recommended. Discussed inpatient MRI/MRCP w/ CEO Mir as it needs his approval per hospital protocol. Plan is OP studies here if patient L FT's return to normal and symptoms resolve. Otherwise, will continue w/ bolus 500ml LR and then IVF NS @ 125ml/hr.; recheck labs in AM & prn; if no improvement in LFT's and symptoms, will transfer tomorrow AM for further evaluation and GI consult; Continue PPI & Ibuprofen 800mg Q 8hrs prn pain; NO narcotics due to past drug hx w/ patient requesting same; Zofran prn N/V; telemetry; monitor VS and labs; Clear liquid diet avoiding red dyes for now; Call [employer] hospitalist with any change in VS/status or concerns--may need to be transferred. Hypertension--Improved BP 106/63 P 67 this AM. Will need to watch BP w/ IVF therapy. continue home meds; Caution w/ further Beta bette as pulse is in 60's; Vasotec mg IVP Q hrs for SBP>190. Type I DM --good control w/ latest 09/24/2019 A1C 6.92 Fasting Glucose this AM 138.2 w/ clear liquid diet; cont home insulins; SBGM AC & HS; 2000 Calorie ADA diet when able to resume eating. Tobacco Abuse w/ Tobacco abuse counseling-Improving w/ patient w/ good toleration nicotine patch; patient alert, attentive, and encouraged to continue w/ Tobacco discontinuation.
[2019-10-08 07:20] LABS: HEMATOCRIT 39.8 % (37.0-47.0)
[2019-10-08] MEDS ORDERED: LACTATED RINGERS 1,000 ML IV STA (09:23)
[2019-10-08] MEDS: PEPCID IVP SCH ×2 (11:03→21:02)
[2019-10-08] MEDS: ZESTRIL PO SCH (11:03)
[2019-10-08] MEDS: TOPROL XL PO SCH (11:03)
--- NOTE | 2019-10-08 16:13 | PCM.DC ---
Final Diagnosis: Acute Pancreatitis Transaminitis (1) Acute pancreatitis: Status: Acute Code(s): K85.9 - Acute pancreatitis, unspecified SNOMED Code(s): 961110384 Qualifiers: Acute pancreatitis complication: no infection or necrosis Pancreatitis type: unspecified pancreatitis type Qualified Code(s): K85.90 - Acute pancreatitis without necrosis or infection, unspecified (2) Transaminitis: Status: Acute Code(s): R74.0 - Nonspecific elevation of levels of transaminase and lactic acid dehydrogenase [LDH] SNOMED Code(s): 051990815 (3) Hypertension: Status: Acute Code(s): I10 - Essential (primary) hypertension SNOMED Code(s): 02993227 Qualifiers: Hypertension type: essential hypertension Qualified Code(s): I10 - Essential (primary) hypertension (4) Type 1 diabetes mellitus: Status: Chronic Qualifiers: Diabetes mellitus complication status: without complication Qualified Code(s): E10.9 - Type 1 diabetes mellitus without complications (5) Tobacco abuse: Status: Chronic Code(s): Z72.0 - Tobacco use SNOMED Code(s): 04846758 (6) Tobacco abuse counseling: Status: Acute Code(s): Z71.6 - Tobacco abuse counseling SNOMED Code(s): 653114215 Medications at Discharge: Ambulatory Orders Medication Instructions Recorded Mirena 1 insert VAGINAL DIRECTED 01/05/18 buprenorphine-naloxone [Suboxone] 0.5 ea SUBLINGUAL DAILY 04/15/19 pen needle, diabetic 32 gauge x See Rx Instructions .ROUTE 08/26/19" .COMPLEX #200 each insulin glargine 100 unit/mL (3 20 unit SUBCUT BEDTIME #15 ml 09/13/19 mL) subcutaneous pen metoprolol succinate 25 mg 25 mg PO DAILY #90 tab 09/13/19 tablet,extended release 24 hr blood sugar diagnostic #100 each 09/15/19 insulin lispro [Admelog SoloStar 5 unit SUBCUT ACHS 10/07/19 U-100 Insulin] lisinopril 20 mg PO DAILY 10/07/19 Education Provided to Patient and Family: Activity as tolerated. Stay on low fat, low spice, soft bland diet for 1 week and then increase diet slowly as tolerated. Continue home medications as directed. May use Motrin/Ibuprofen 600-800mg by mouth every 8 hrs as needed for pain; take with crackers or a light snack to prevent stomach irritation. Follow-up with Savanah Dickson APRN for needed GI specialist referral [facility]. Hospital Course: 10/07/2019 Alesha Pastor, a 24 yo AA female w/ Type 1 DM, HTN, hx pain med abuse w/ rehab 2013, Tobacco abuse (1/2 PPD X 8yrs), and episode acute pancreatitis 05/2019 presented at 09:20 to [facility] ER for a recurrent episode 1 week ago of waxing and waning stabbing/pressure to soft throbbing, aching RUQ abdominal pain that radiated to right lateral side (not kidney area) lasting up to 30 minutes and relieved w/ 600mg Ibuprofen OTC. Pain was rated 10/10 at worst. There was associated nightime chills, decreased appetite, nausea, vomiting X1 in last 2 days, bilious emesis, large soft brown unformed stools 3 times/day last 2 days. 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 CT abd/pelvis w/ contrast noted: Mild early acute pancreatitis; Low-density mass in the pancreatic head could represent a pseudocyst but cannot exclude underlying pancreatic neoplasm; recommended further evaluation with MRI of the abdomen with and without contrast and MRCP; some atrophy of the pancreas and the pancreatic duct was prominent; and there was also incidental finding of 2 mm calculus within the left kidney. CBC and Chem profile were benign except for elevated LFT's AST 230.5H, ALT 398.3, Alk Phos 188.7: Total Protein 8.86H; Albumin 5.09H. Amylase and Lipase were normal 60.2 and 65.2 respectively. Urinalysis was negative except for 1+ blood. Influenza A/B were both negative. Patient was admitted as inPatient w/ Acute Pancreatitis w/ abnormal CT finding head of pancreas. Full code status confirmed per review w/ patient; IVF's and PPI were started. Admission treatment goas was hydration w/ managing slightly elevated BP, and protection for liver w/ elevated LFT's. IBUPROFEN for pain; avoid narcotics. The patient experienced some mild nausea her first night and was able to accomplish nausea control w/o vomiting and pain was controlled at 3/10 rating. 10/08/2019 QUILL REAMER Hospitalist saw patient w/ H&P performed noting generalized abdominal tenderness on palpation w/o guarding or rebound; no masses or organomegalynormal TAYLOR/SO.
[2019-10-08] MEDS: BUPRENORPHINE NALOXONE SL SCH (17:10)
[2019-10-08] MEDS: LANTUS SUBCUT SCH (21:14)
[2019-10-08] MEDS: NICODERM 14 MG TD SCH (22:20)
[2019-10-09] MEDS: SODIUM CHLORIDE 1,000 ML IV SCH (04:04)
[2019-10-09 04:40] LABS: HEMATOCRIT 37.1 % (37.0-47.0)
[2019-10-09 05:08] VITALS: BP 122/80; TEMP 98.5
--- NOTE | 2019-10-09 07:32 | PCM.DC ---
Final Diagnosis: Acute Pancreatitis Transaminitis (1) Acute pancreatitis: Status: Acute Code(s): K85.9 - Acute pancreatitis, unspecified SNOMED Code(s): 408082945 Qualifiers: Acute pancreatitis complication: no infection or necrosis Pancreatitis type: unspecified pancreatitis type Qualified Code(s): K85.90 - Acute pancreatitis without necrosis or infection, unspecified (2) Transaminitis: Status: Acute Code(s): R74.0 - Nonspecific elevation of levels of transaminase and lactic acid dehydrogenase [LDH] SNOMED Code(s): 554667730 (3) Hypertension: Status: Acute Code(s): I10 - Essential (primary) hypertension SNOMED Code(s): 96595693 Qualifiers: Hypertension type: essential hypertension Qualified Code(s): I10 - Essential (primary) hypertension (4) Type 1 diabetes mellitus: Status: Chronic Qualifiers: Diabetes mellitus complication status: without complication Qualified Code(s): E10.9 - Type 1 diabetes mellitus without complications (5) Tobacco abuse: Status: Chronic Code(s): Z72.0 - Tobacco use SNOMED Code(s): 78541635 (6) Tobacco abuse counseling: Status: Acute Code(s): Z71.6 - Tobacco abuse counseling SNOMED Code(s): 620273182 Reason for Hospitalization: Acute pancreatitis, recurrent, (last/first episode 07/01/2019) needing IVF, symptom control, and monitoring w/ transaminitis. Abnormal CT notin. Mild early acute pancreatitis. 2. Low-density mass in the pancreatic head could represent a pseudocyst but cannot exclude underlying pancreatic neoplasm. Recommend further evaluation with MRI of the abdomen with and without contrast and MRCP 3. There is some atrophy of the pancreas and the pancreatic duct is prominent. Prognosis at Discharge: Transferring to [place], [place] to Dr. Diogo Hubbard. Improving, but LFT's still remain elevated w/ mild to moderate RUQ pain w/ radiation to mid-lateral trunk area w/ nausea---vomiting currently under control. Condition at Discharge: Stable, but unknown CT scan needing MRI w/ MRCP to r/o obstructed ducts or other pancreatic/liver problems in Type 1 Diabetic w/ HTN. Medications at Discharge: Ambulatory Orders Medication Instructions Recorded Mirena 1 insert VAGINAL DIRECTED 01/05/18 buprenorphine-naloxone [Suboxone] 0.5 ea SUBLINGUAL DAILY 04/15/19 pen needle, diabetic 32 gauge x See Rx Instructions .ROUTE 08/26/19" .COMPLEX #200 each insulin glargine 100 unit/mL (3 20 unit SUBCUT BEDTIME #15 ml 09/13/19 mL) subcutaneous pen metoprolol succinate 25 mg 25 mg PO DAILY #90 tab 09/13/19 tablet,extended release 24 hr blood sugar diagnostic #100 each 09/15/19 insulin lispro [Admelog SoloStar 5 unit SUBCUT ACHS 10/07/19 U-100 Insulin] lisinopril 20 mg PO DAILY 10/07/19 Lab/Diagnostics: Laboratory Results WBC 3.17 K/ul (4.6-10.2) L 10/09/19 04:20 RBC 3.87 10^6/ul (4.20-5.40) L 10/09/19 04:20 Hgb 12.0 g/dl (12.0-16.0) 10/09/19 04:20 Hct 37.1 % (37.0-47.0) 10/09/19 04:20 MCV 95.9 fl (81.0-99.0) 10/09/19 04:20 MCH 31.0 pg (27.0-31.0) 10/09/19 04:20 MCHC 32.3 (31.8-35.4) 10/09/19 04:20 RDW Coeff of Mainor 13.0 % (11.6-14.8) 10/09/19 04:20 Plt Count 187 10^3/uL (140-440) 10/09/19 04:20 Immature Gran % (Auto) 0.0 % (0.0-5.0) 10/09/19 04:20 Neut % (Auto) 39.5 % (42.2-75.2) L 10/09/19 04:20 Lymph % (Auto) 47.6 (10.0-50.0) 10/09/19 04:20 Archer % (Auto) 8.2 (0-10) 10/09/19 04:20 Eos % (Auto) 4.1 % (0.0-7.0) 10/09/19 04:20 Baso % (Auto) 0.6 % (0.0-3.0) 10/09/19 04:20 Immature Gran # (Auto) 0.0 (0.0-1.0) 10/09/19 04:20 Neut # (Auto) 1.3 K/ul (2.0-6.9) L 10/09/19 04:20 Lymph # (Auto) 1.5 K/uL (0.60-3.4) 10/09/19 04:20 Archer # (Auto) 0.3 K/uL (0.4-2.0) L 10/09/19 04:20 Eos # (Auto) 0.1 K/ul (0.0-0.7) 10/09/19 04:20 Baso # (Auto) 0.0 K/uL (0-0.2) 10/09/19 04:20 Sodium 139.8 mmol/L (134.5-145) 10/09/19 04:20 Potassium 3.90 mmol/L (3.5-5.1) 10/09/19 04:20 Chloride 105.9 mmol/L (98-107) 10/09/19 04:20 Carbon Dioxide 29.7 mmol/L (22-30.0) 10/09/19 04:20 Anion Gap 8.10 10/09/19 04:20 BUN 4.0 mg/dL (7-17) L 10/09/19 04:20 Creatinine 0.78 mg/dL (0.60-1.30) 10/09/19 04:20 Estimated GFR (MDRD) 108.00 mL/min 10/09/19 04:20 BUN/Creatinine Ratio 5.12 10/09/19 04:20 Glucose 108.6 mg/dL (74-106) H 10/09/19 04:20 Calcium 8.54 mg/dL (8.4-10.2) 10/09/19 04:20 Magnesium 2.15 mg/dL (1.6-2.3) 10/07/19 10:30 Total Bilirubin 0.59 mg/dL (0.2-1.3) 10/09/19 04:20 AST 50.5 U/L (14-36) H 10/09/19 04:20 ALT 161.3 U/L (0-35) H D 10/09/19 04:20 Alkaline Phosphatase 124.7 U/L (38-126) D 10/09/19 04:20 Total Protein 6.50 g/dL (6.3-8.2) 10/09/19 04:20 Albumin 3.77 g/dL (3.5-5.0) 10/09/19 04:20 Globulin 2.73 10/09/19 04:20 Albumin/Globulin Ratio 1.38 10/09/19 04:20 Amylase 52.6 U/L (30-110) 10/09/19 04:20 Lipase 69.1 U/L (23-300) 10/09/19 04:20 Serum , Qual Negative (NEGATIVE) 10/07/19 10:30 Urine Color Yellow (YELLOW) 10/07/19 12:02 Urine Clarity Clear (CLEAR) 10/07/19 12:02 Urine pH 7.0 (5-9) 10/07/19 12:02 Ur Specific [place] 1.020 (1.005-1.030) 10/07/19 12:02 Urine Protein Negative (NEGATIVE) 10/07/19 12:02 Urine Glucose (UA) Negative (NEGATIVE) 10/07/19 12:02 Urine Ketones Negative (NEGATIVE) 10/07/19 12:02 Urine Blood 1+ (NEGATIVE) H 10/07/19 12:02 Urine Nitrite Negative (NEGATIVE) 10/07/19 12:02 Urine Bilirubin Negative (NEGATIVE) 10/07/19 12:02 Urine Urobilinogen 0.2 (0.2) 10/07/19 12:02 Ur Leukocyte Esterase Negative (NEGATIVE) 10/07/19 12:02 Urine Microscopic RBC 0-2 (0-2) 10/07/19 12:02 Urine Microscopic WBC 0-2 (0-2) 10/07/19 12:02 Ur Squamous Epith Cells 2-5 (0-5) 10/07/19 12:02 Influ A Molecular Assay Negative by naat (NEGATIVE) 10/07/19 10:30 Influ B Molecular Assay Negative by naat (NEGATIVE) 10/07/19 10:30 10/07/2019 EXAM: CT of the abdomen pelvis with contrast History: Right upper quadrant abdominal pain. Comparison: CT abdomen pelvis 07/02/2019 Technique: Multiplanar CT images through the abdomen pelvis were obtained following administration of IV contrast Findings: Lung bases are clear. No acute osseous abnormalities. No gallstones identified by CT. No liver or splenic lesions. There is some atrophy of the pancreas and the pancreatic duct is prominent. 1.3 cm low- density mass in the pancreatic head. There is subtle stranding seen adjacent to the pancreatic head and pancreatic tail. No peripancreatic fluid collections. Adrenal glands are unremarkable. 2 mm calculus within the left kidney. No renal masses. No hydronephrosis. No perinephric stranding. No abdominal aortic aneurysm. No bowel obstruction. The appendix is normal. No free air and no ascites. No bladder wall thickening. Intrauterine device is seen in place within the pelvis. No perirectal inflammation. No pathologically enlarged lymph nodes. Impression: 1. Mild early acute pancreatitis. 2. Low-density mass in the pancreatic head could represent a pseudocyst but cannot exclude underlying pancreatic neoplasm. Recommend further evaluation with MRI of the abdomen with and without contrast and MRCP 3. There is some atrophy of the pancreas and the pancreatic duct is prominent. Education Provided to Patient and Family: Activity as tolerated. Stay on low fat, low spice, soft bland diet for 1 week and then increase diet slowly as tolerated. Continue home medications as directed. May use Motrin/Ibuprofen 600-800mg by mouth every 8 hrs as needed for pain; take with crackers or a light snack to prevent stomach irritation. Follow-up with Savanah Dickson APRN for needed GI specialist referral [facility]. Follow-ups: F-U w/ Savanah Dickson APRN Hospital Course: 10/07/2019 Alesha Pastor, a 24 yo AA female w/ Type 1 DM, HTN, hx pain med abuse w/ rehab 2013, Tobacco abuse (1/2 PPD X 8yrs), and episode acute pancreatitis 05/2019 presented at 09:20 to [facility] ER for a recurrent episode 1 week ago of waxing and waning stabbing/pressure to soft throbbing, aching RUQ abdominal pain that radiated to right lateral side (not kidney area) lasting up to 30 minutes and relieved w/ 600mg Ibuprofen OTC. Pain was rated 10/10 at worst. There was associated nightime chills, decreased appetite, nausea, vomiting X1 in last 2 days, bilious emesis, large soft brown unformed stools 3 times/day last 2 days. 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 CT abd/pelvis w/ contrast noted: Mild early acute pancreatitis; Low-density mass in the pancreatic head could represent a pseudocyst but cannot exclude underlying pancreatic neoplasm; recommended further evaluation with MRI of the abdomen with and without contrast and MRCP; some atrophy of the pancreas and the pancreatic duct was prominent; and there was also incidental finding of 2 mm calculus within the left kidney. CBC and Chem profile were benign except for elevated LFT's AST 230.5H, ALT 398.3, Alk Phos 188.7: Total Protein 8.86H; Albumin 5.09H. Amylase and Lipase were normal 60.2 and 65.2 respectively. Urinalysis was negative except for 1+ blood. Influenza A/B were both negative. Patient was admitted as inPatient w/ Acute Pancreatitis w/ abnormal CT finding head of pancreas. Full code status confirmed per review w/ patient; IVF's and PPI were started. Admission treatment goas was hydration w/ managing slightly elevated BP, and protection for liver w/ elevated LFT's. IBUPROFEN for pain; avoid narcotics. The patient experienced some mild nausea her first night and was able to accomplish nausea control w/o vomiting and pain was controlled at 3/10 rating. 10/08/2019 [employer] Hospitalist saw patient w/ H&P performed noting generalized abdominal tenderness on palpation w/o guarding or rebound; no masses or organomegaly, normal TAYLOR/SO. BP was elevated upper 140-150's/79-90; Telemetry SR 60-70's. Patient up and walking in the halls w/ assistance to help with "tightness" abdomen. Has mild nausea intermittently relieved w/ Zofran IV and PPI continue. Denies CP, SOB, NICHOLS, swelling, or palpitations. IVF NS @ 125ml/hr cont'd w/ Ibuprofen 800mg X1 requested for pain. Patient has high pain tolerance and due to her 2013 drug rehab program is not wanting to take any more pain medications than she needs. O Transaminitis improved but not resolved w/ concerns w/ abnormal CT abd/pelvis w/ abnormal pancreatic head finding for obstructing stones, presence of sludge, or other liver or GI system complications. Talked w/ patient, who's status is essentially unchanged and will transfer to [facility] for MRI/MRCP and GI consult as indicated. Patient agrees w/ plan of care. Plan: Acute Pancreatitis w/ Transaminitis--Unresolving w/ Transfer to [place], [place] system. See Critical Care note. Report and acceptance to [facility] per Dr. Diogo Fabian for Room 511 Bed 1; 2nd episode since 07/01/2019; Improving slowly LFT's still elevated w/ slight improvement for most levels over the last 3 days--AST 230.5 to 74.5 ALT 398.3 to 229.9 and ALK Phos 188.7 to 175.3. Lipase & Amylase remain normal 110.8 and 59.1 r espectively. Recurring problem w/ abnormal CT scan of pancreas w/ MRI/MRCP recommended. Unable to do this testing during weekend as not available and would be at least 2 or 3 days after that w/ insurance clearance. See nurse report for last doses of PPI & Ibuprofen 800mg Q 8hrs prn pain; NO narcotics due to past drug hx w/ patient requesting same and patient refuses any narcotics.; Zofran prn N/V; telemetry has been NSR 60-70's; NPO since )7:15 today w/ clear liquids w/o red coloring avoided. Further order per Dr. Fabian. Hypertension--Stable at present. 122/80. Home meds Metoprolol ER 25mg and Lisinopril 20mg given this AM. see nurses d/c report. Type I DM --good control w/ latest 09/24/2019 A1C 6.92 Fasting Glucose this AM 108.6; cont home insulins--lispro & glargine; [facility] [place] enclosed w/ Nurse info.; Tobacco Abuse w/ Tobacco abuse counseling-Improving w/ patient w/ good toleration nicotine patch 14--patient has decided no further smoking using nicotine patch.
[2019-10-09] MEDS: HUMALOG SUBCUT SCH ×2 (07:58→08:06)
--- NOTE | 2019-10-09 08:00 | PCM.PROG ---
Critical Care Note -- Critical care time: Final exam; discussion/review of hospital stay, review of radiology records (04/14/2019 US Abd, 07/01/2019 CT Abd/Pelvis w/o contrast, 07/02/2019 CT Abd/Pelvis w/ contrast compared to 10/07/2019 CT Abd/Pelvis w/ contrast) w/ patient; plan of care w/ transfer to higher level of care and instructions for continuing care to other caregivers, EMR entry D/C summary & creation of D/C records including radiology disc of current CT 10/07/2019), discussion w/ 2 hospital transfer centers, Nursing huddle, and EMS for transfer. 07:15 Talked w/ patient re: lab results w/ AST 50.5H, ALT 161.3H, and Alk Phos now normal 124.7; abnormal CT w/ pancreatic head concerns suggesting MRI w/ MRCP; and abdominal tenderness still significant despite activity and IVF. Discussed OP MRI vs transfer to [facility] for further evaluation. Patient also notes some nausea that is relieved w/ Zofran, but not resolving completely. After discussing concerns for obstructing stones w/ liver involvement and 2 episodes 07/01/2019 and present, patient agrees and would like to go forward w/ [facility] transfer for further evaluation to r/o other possib ilities/complications. 07:30 Called JAMMIE Xiong at [facility] for transfer Acute Pancreatitis w/ transaminitis needing MRI w/ MRCP and GI consult. Face sheet faxed per JAMMIE Gutierrez to transfer center as requested. Hospitalist to call for transfer report. 07:57 Received call back from [facility] w/ Dr. Lawson for possible transfer w/ report including patient PMH, HPI, past tx for pancreatitis 07/01/2019(w/ US & CTX2 reports), current lab and abnormal CT findings including transaminitis, current P.E findings, and treatments given; questions answered. Dr. Lawson declines transfer as no GI available to do ERCP or surgery, w/ Dr. Lawson suspecting sludge, stones or other issues that may require GI surgical attention. Dr. Lawson recommends [facility] w/ GI available for probable needed services. agrees patient needs transferred today. 08:10 [place], [place] transfer center call and spoke w/ JAMMIE Dick giving information for patient transfer w/ nurse questions answered; Hospitalist to return call for transfer. Face sheet faxed to transfer center as requested per JAMMIE Gutierrez ([phone]). 08:38AM Received call back from JAMMIE [facility] Transfer [facility] w/ Transfer report called to Dr. Diogo Fabian, hospitalist accepting transfer. Patient report including HPI, past 07/01/2019 treatment/w/ CT abd/pelvis X2 and US Abd results 07/02/2020 reviewed, current labs and CT abd/pelvis results 10/07/2019 w/ disc to follow w/ patient transfer including H&P, all radiology printed reports,and nursing d/c summaries; all questions answered per MD w/ transfer accepted to Room 511 Bed 1. JAMMIE Gutierrez requested to call nursing report to [phone] Nurse to nurse line; EMS called for transport w/ EMS papers completed and signed per LABORATORY CHEMICAL ASSISTANT and patient nurseBrenda. 09:39 EMS has been called and they are currently on a CVA run; will mixing picker tender patient for transport when return to hospital then. IV 0.9% NS continued at 125ml/hr w/patient ready for transport now. 11:30 EMS here and transporting patient via stretcher w/ telemetry and IV 0.9% NS transfusing at 125ml/hr. JAMMIE Gutierrez, has given transfer papers, radiology disc, medical records as per protocol. Patient in no acute distress w/ nausea controlled post recent Zofran 4mg IV.
[2019-10-09] MEDS: TOPROL XL PO SCH (08:23)
[2019-10-09] MEDS: PEPCID IVP SCH (08:23)
[2019-10-09] MEDS: ZESTRIL PO SCH (08:23)
[2019-10-09] MEDS: NICODERM 14 MG TD SCH (08:23)
[2019-10-09] MEDS: BUPRENORPHINE NALOXONE SL SCH (08:24)
[2019-10-09] MEDS: ZOFRAN 4 MG/2 ML IVP PRN (10:47)
[2024-10-06] MEDS ORDERED: LEVONORGESTREL INTRAUTERI SCH (15:45)
== END 2019-10-09 11:30 | disposition short-term general hospital (02) | DRG 440 ==
LOC: ED 09:20 → MEDSURG B 12:44
PROVIDERS: ADMIT Nurse Practitioner Family; ATTEND Nurse Practitioner Family
DX: K85.90 Acute pancreatitis without necrosis or infection, unspecified; R74.0 Nonspecific elevation of levels of transaminase and lactic acid dehydrogenase [LDH]; E10.9 Type 1 diabetes mellitus without complications; N20.0 Calculus of kidney; R11.2 Nausea with vomiting, unspecified; Z71.6 Tobacco abuse counseling; R10.12 Left upper quadrant pain; R10.11 Right upper quadrant pain; K86.89 Other specified diseases of pancreas; F17.210 Nicotine dependence, cigarettes, uncomplicated; I10 Essential (primary) hypertension

== ENCOUNTER 2020-07-12 15:37 | Observation (INO) ==
[2020-07-12 15:57] VITALS: BMI 24.9
[2020-07-12] MEDS ORDERED: SODIUM CHLORIDE 1,000 ML IV STA ×2 (16:12→16:46)
[2020-07-12] MEDS ORDERED: ZOFRAN 4 MG/2 ML IVP STA (16:20)
[2020-07-12] MEDS ORDERED: TORADOL IVP STA (16:20)
--- NOTE | 2020-07-12 16:24 | ED.PDOC ---
General ED Provider: Dr. BRIE CHAMORRO MD Chief Complaint: Abdominal Pain Stated Complaint: abdominal pain 8.5/10 x 2 days Time Seen by Physician: 16:13 Mode of Arrival: Walk-In Information Source: Patient Exam Limitations: No limitations Primary Care Provider: LEIGHTON WALKER APRN, FNP- Nursing and Triage Documentation Reviewed and Agree: Yes Does patient meet sepsis criteria?: No System Inflammatory Response Syndrome: Pulse >90 BPM Sepsis Protocol: For patient's 13 years and over: Temp is 96.8 and below OR 101 and greater Pulse >90 BPM Resp >20/minute Acutely Altered Mental Status Are patient's symptoms suggestive of a new infection, such as: -Pneumonia -Skin, Soft Tissue -Endocarditis -UTI -Bone, Joint Infection -Implantable Device -Acute Abdominal Infection -Wound Infection -Meningitis -Blood Stream Catheter Infection -Unknown Review of Systems Review Of Systems Constitutional: Reports No symptoms Eyes: Reports No symptoms Ears, Nose, Mouth, Throat: Reports No symptoms Respiratory: Reports No symptoms Cardiac: Reports No symptoms GI: Reports Abdominal pain, Nausea and Vomiting (x 1) : Reports No symptoms and Other (currently menstuating, has IUD) Musculoskeletal: Reports No symptoms Skin: Reports No symptoms Neurological: Reports No symptoms Endocrine: Reports Other (last took insulin this morning) Hematologic/Lymphatic: Reports No symptoms All Other Systems: Reviewed and Negative [facility] Medical History Acute effusion of left ear Drug abuse Encounter for diabetic foot exam Fatigue Follow-up exam after treatment Glucosuria Hematuria History of pancreatitis Hypertension Left ear pain Loss of smell Loss of taste Proteinuria Tobacco abuse Type 1 diabetes mellitus Type 1 diabetes mellitus with hyperglycemia, with long-term current use of insulin Urinary tract infection Vaginal irritation Family History FATHER Diabetes Hypertension FH: prostate cancer Mother Hypertension SISTER Seasonal allergies Social History Smoking and tobacco status: Current every day smoker Tobacco: How many years used: 8 Quit status: not considering quitting Second hand smoke exposure: No Alcohol intake: current Alcohol intake frequency: a few times a month Alcohol type: beer and other Counseling given: Yes Counseling provided: reduce to 2 or less/day Substance use type: former substance user Date of last use: [facility] program w/ no use since. 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 Current occupational exposures/hazards: Yes Pets and animals: No History of recent travel: No Sexually active: Yes Do you think of yourself as: straight/heterosexual Current gender identity: female Seatbelt use: always Helmet use: Yes Drives intoxicated or rides with intoxicated winch driver: No Water heater temperature set < 120 degrees: Yes Working smoke detector in home: Yes Fire extinguisher in home: Yes Carbon monoxide detector in home: Yes Firearms in home: No Surgical History History of tonsillectomy Magnet teeth extracted Female Reproductive History Menstrual Hx Hysterectomy: No Hx Tubal Ligation: No Physical Exam Physical Exam Appearance: Reports Well-appearing Ill-appearing: None Pain Distress: None Eyes: Reports NOEL, EOMI and Conjunctiva clear ENT: Reports Ears normal and Oropharynx normal Neck: Supple Respiratory: Reports Airway patent, Breath sounds equal and Respirations nonlabored Cardiovascular: Reports RRR and Tachycardia GI/: Reports Soft, Nontender, No masses and No Organomegaly Musculoskeletal: Reports Normal strength and ROM intact Skin: Reports Warm and Dry Neurological: Reports Sensation intact, Motor intact, Reflexes intact, Cranial nerves intact and Alert Psychiatric: Reports Anxious Interpretation EKG Interpretation Time of EKG #1: 16:34 Rate: Tachy (135) Rhythm: Sinus Ectopy: None Mittie: NL ST Segment: Normal Interpretation: sinus tachycardia, otherwise negative EKG Re-Evaluation Re-Evaluation Time of Re-Evaluation: 18:33 Status: Improved Vital Signs Stable: Yes (heart rate 73 after 2 liters fluids) Pain Level: 3 Appearance: NAD Lungs: Clear CV: RRR Additional Comments: place in observation Critical Care Note Critical Care Note Total Critical Care Time (mins): 0 Course Course Hematology/Chemistry: 07/12/20 16:24 07/12/20 16:24 Orders, Labs, Meds: Lab Review 07/12/20 07/12/20 07/12/20 16:24 16:24 16:24 WBC 7.23 RBC 4.59 Hgb 14.6 Hct 42.0 MCV 91.5 MCH 31.8 H MCHC 34.8 RDW Coeff of Mainor 12.4 Plt Count 219 Immature Gran % (Auto) 0.3 Neut % (Auto) 79.7 H Lymph % (Auto) 11.3 Weston % (Auto) 7.3 Eos % (Auto) 1.0 Baso % (Auto) 0.4 Neut # (Auto) 5.8 Lymph # (Auto) 0.8 Weston # (Auto) 0.5 Eos # (Auto) 0.1 Baso # (Auto) 0.0 Immature Gran # (Auto) 0.0 Puncture Site O2 Saturation ABG pH ABG pCO2 ABG pO2 ABG HCO3 ABG Total CO2 ABG Base Excess FiO2 % Sodium 134.3 L Potassium 3.31 L Chloride 99.7 Carbon Dioxide 13.2 L Anion Gap 24.71 BUN 9.3 Creatinine 0.81 Estimated GFR (MDRD) 103.00 BUN/Creatinine Ratio 11.48 Glucose 185.6 H Hemoglobin A1c 9.78 H Calcium 9.67 Total Bilirubin 1.01 AST 142.1 H ALT 71.0 H Alkaline Phosphatase 205.9 H Total Protein 8.40 H Albumin 4.98 Globulin 3.42 Albumin/Globulin Ratio 1.45 Lipase 630.9 H Serum , Qual 07/12/20 07/12/20 16:24 16:43 WBC RBC Hgb Hct MCV MCH MCHC RDW Coeff of Mainor Plt Count Immature Gran % (Auto) Neut % (Auto) Lymph % (Auto) Weston % (Auto) Eos % (Auto) Baso % (Auto) Neut # (Auto) Lymph # (Auto) Weston # (Auto) Eos # (Auto) Baso # (Auto) Immature Gran # (Auto) Puncture Site Rbrach O2 Saturation 97.6 ABG pH 7.33 L ABG pCO2 25.0 L ABG pO2 105.0 H ABG HCO3 13.2 L ABG Total CO2 14 L ABG Base Excess -12.7 L FiO2 % 21.0 Sodium Potassium Chloride Carbon Dioxide Anion Gap BUN Creatinine Estimated GFR (MDRD) BUN/Creatinine Ratio Glucose Hemoglobin A1c Calcium Total Bilirubin AST ALT Alkaline Phosphatase Total Protein Albumin Globulin Albumin/Globulin Ratio Lipase Serum , Qual Negative Orders Category Date Time Status ABG DRAW REQUEST Stat CARDIO 07/12/20 16:43 Completed EKG-(ED ONLY) Stat CARDIO 07/12/20 16:12 Completed NPO REMINDER: IMAGING ONCE CARE 07/12/20 16:15 Completed ED ACCUCHECK ASSESSMENT .ONCE EMERGENCY 07/12/20 16:12 Active ED EXTRAS CASTING DIRECTOR APPLIED .ONCE EMERGENCY 07/12/20 16:12 Active ED IV/MEDIPORT/POWERPORT .ONCE EMERGENCY 07/12/20 16:12 Active ED IV/MEDIPORT/POWERPORT .ONCE EMERGENCY 07/12/20 16:46 Active ABG Stat LAB 07/12/20 16:43 Completed CBC W/ AUTO DIFF Stat LAB 07/12/20 16:24 Completed COMPREHENSIVE METABOLIC PANEL Stat LAB 07/12/20 16:24 Completed DRUG SCREEN, URINE, RAPID Stat LAB 07/12/20 16:24 Uncollected HEMOGLOBIN A1C Stat LAB 07/12/20 16:24 Completed LIPASE Stat LAB 07/12/20 16:24 Completed SERUM Stat LAB 07/12/20 16:24 Completed URINALYSIS C & S IF INDICATED Stat LAB 07/12/20 16:12 Uncollected 0.9 % Sodium Chloride [Saline Flush] MEDS 07/12/20 16:12 Active 1 syr IVF PRN PRN Hydromorphone HCl [Dilaudid 0.5 mg/0.5 ml Syringe] MEDS 07/12/20 16:45 Discontinued 1 mg IVP ONCE STA Ketorolac Tromethamine [Toradol] MEDS 07/12/20 16:20 Discontinued 15 mg IVP ONCE STA Ondansetron HCl/Pf [Zofran 4 mg/2 ml] MEDS 07/12/20 16:20 Discontinued 4 mg IVP ONCE STA Sodium Chloride 0.9% [Sodium Chloride] 1,000 ml MEDS 07/12/20 16:12 Discontinued IV BOLUS Sodium Chloride 0.9% [Sodium Chloride] 1,000 ml MEDS 07/12/20 16:46 Discontinued IV BOLUS CHEST, 2 VIEWS PA & LAT Stat RADS 07/12/20 16:[address] ABDOMEN/PELVIS W CONTRAST Stat RADS 07/12/20 16:14 Completed Medications Generic Name Dose Route Start Last Admin Trade Name Freq PRN Reason Stop Dose Admin Sodium Chloride 1 syr 07/12/20 16:12 0.9% Sodium Chloride 10 Ml Disp.Syrin IVF PRN PRN To flush IV Discontinued Medications Generic Name Dose Route Start Last Admin Trade Name Salvadorq PRN Reason Stop Dose Admin Hydromorphone HCl 1 mg 07/12/20 16:45 07/12/20 17:45 Hydromorphone 0.5 Mg/0.5 Ml Syringe IVP 07/12/20 16:46 1 mg ONCE STA Administration Sodium Chloride 1,000 mls @ 1,000 mls/hr 07/12/20 16:12 07/12/20 17:45 Sodium Chloride IV 07/12/20 17:11 1,000 mls/hr BOLUS STA Administration Sodium Chloride 1,000 mls @ 1,000 mls/hr 07/12/20 16:46 Sodium Chloride IV 07/12/20 17:45 BOLUS STA Ketorolac Tromethamine 15 mg 07/12/20 16:20 07/12/20 17:42 Ketorolac Tromethamine 15 Mg/Ml Vial IVP 07/12/20 16:21 15 mg ONCE STA Administration Ondansetron HCl 4 mg 07/12/20 16:20 07/12/20 17:38 Ondansetron Hcl/Pf 4 Mg/2 Ml Sdv IVP 07/12/20 16:21 4 mg ONCE STA Administration A1C 9,78, glucose 186, pH 7.33, bicarb 13.2, respiratory compensation of metabo lic acidosis Vital Signs: Temp Pulse Resp BP Pulse Ox 07/12/20 15:40 97.4 F L 127 H 20 142/107 H 98 Discharge Plan Discharge Patient Disposition: PLACED OBSERVATION Discharge Problem: Metabolic acidosis due to diabetes mellitus Acute pancreatitis Qualifiers: Pancreatitis type: unspecified pancreatitis type Acute pancreatitis complication: no infection or necrosis Qualified Code(s): K85.90 - Acute pancreatitis without necrosis or infection, unspecified Prescriptions: No Action OneTouch Ultra Blue Test Strip Strip See Rx Instructions .ROUTE .COMPLEX Qty: 100 RF: 2 alcohol swabs [BD Alcohol Swabs] Pads, Medicated 1 pad TP TID Qty: 100 RF: 2 lisinopril 20 mg tablet 20 mg PO DAILY Qty: 90 RF: 0 Mirena 1 EACH intrauterine device 1 insert vaginal DIRECTED RF: 0 buprenorphine-naloxone [Suboxone] 1 EACH film 0.5 ea sublingual DAILY RF: 0 metoprolol succinate 50 mg tablet extended release 24 hr 50 mg PO DAILY RF: 0 promethazine 25 mg tablet 25 mg PO Q8HR PRN (Reason: nausea and vomiting) Qty: 14 RF: 0 fluticasone propionate [Flonase Allergy Relief] 50 mcg/actuation spray,suspension 2 spray ALEC QDAY Qty: 9.9 RF: 1 insulin lispro [Admelog U-100 Insulin lispro] 100 unit/mL solution 10 unit SUBCUT QID 30 Days Qty: 12 RF: 2 pen needle, diabetic [BD Ultra-Fine Piedad Pen Needle] 32 gauge x 5/32" needle See Rx Instructions .ROUTE .COMPLEX Qty: 200 RF: 2 insulin glargine 100 unit/mL (3 mL) insulin pen 30 unit SUBCUT BEDTIME Qty: 15 RF: 2 ED Provider: RBIE CHAMORRO Condition: Stable Physician Progress Note: []
[2020-07-12 16:29] LABS: BASOPHILS % (AUTO) 0.4 % (0.0-3.0); EOSINOPHILS # (AUTO) 0.1 K/ul (0.0-0.7); HEMOGLOBIN 14.6 g/dl (12.0-16.0); IMMATURE GRANULOCYTE % (AUTO) 0.3 % (0.0-5.0); LYMPHOCYTES # (AUTO) 0.8 K/uL (0.60-3.4); LYMPHOCYTES % (AUTO) 11.3 (10.0-50.0); MEAN CORPUSCULAR HEMOGLOBIN 31.8 pg (27.0-31.0); MEAN CORPUSCULAR HGB CONC 34.8 (31.8-35.4); MEAN CORPUSCULAR VOLUME 91.5 fl (81.0-99.0); MONOCYTES # (AUTO) 0.5 K/uL (0.4-2.0); MONOCYTES % (AUTO) 7.3 (0-10); NEUTROPHILS # (AUTO) 5.8 K/ul (2.0-6.9); NEUTROPHILS % (AUTO) 79.7 % (42.2-75.2); PLATELET COUNT 219 10^3/uL (140-440); RDW COEFFICIENT OF VARIATION 12.4 % (11.6-14.8); RED BLOOD COUNT 4.59 10^6/ul (4.20-5.40); WHITE BLOOD COUNT 7.23 K/ul (4.6-10.2)
[2020-07-12 16:40] LABS: ALBUMIN 4.98 g/dL (3.5-5.0); ALKALINE PHOSPHATASE 205.9 U/L (38-126); ASPARTATE AMINO TRANSFERASE 142.1 U/L (14-36); BILIRUBIN,TOTAL 1.01 mg/dL (0.2-1.3); BLOOD UREA NITROGEN 9.3 mg/dL (7-17); CALCIUM 9.67 mg/dL (8.4-10.2); CARBON DIOXIDE 13.2 mmol/L (22-30.0); CHLORIDE 99.7 mmol/L (98-107); CREATININE 0.81 mg/dL (0.60-1.30); GLUCOSE 185.6 mg/dL (74-106); LIPASE 630.9 U/L (23-300); POTASSIUM 3.31 mmol/L (3.5-5.1); SODIUM 134.3 mmol/L (134.5-145); TOTAL PROTEIN 8.4 g/dL (6.3-8.2)
[2020-07-12 16:44] LABS: SERUM PREGNANCY NEGATIVE (NEGATIVE)
[2020-07-12] MEDS ORDERED: DILAUDID 0.5 MG/0.5 ML SYRINGE IVP STA (16:45)
--- NOTE | 2020-07-12 17:30 | CT ---
Exam: CT abdomen and pelvis with contrast Date: 07/12/2020 Comparison: CT abdomen and pelvis 12/04/2019 History: Left upper quadrant abdominal pain and back pain. TECHNIQUE: Axial CT images through the abdomen and pelvis were obtained after the intravenous admini stration of iodinated contrast dye.. MPR images obtained. FINDINGS: Small hypodensity seen along the falciform ligament likely representing focal fatty infilt ration versus a perfusion variant. Liver is otherwise negative. The spleen is normal. Gallbladder is normal in caliber and without pericholecystic fluid or fat stranding. There is mild fat stranding of the pancreas, which may represent acute pancreatitis. No pancreatic fluid collection or acute ne crotic collection identified. No pseudocyst formation. No splenic vein thrombosis. No adrenal mass. Bilateral kidneys are normal. No pyelonephritis. No urolithiasis, hydronephrosis, or hydroureter. No bowel obstruction. Negative appendix on axial image 51. No abdominal aortic aneurysm. Intraut erine device is in good position. Ovaries are grossly normal. There is mild free pelvic fluid. No bladder calculi. No bladder wall thickening. No inguinal lymphadenopathy. No iliac chain lymphaden opathy. No retroperitoneal lymphadenopathy. No mesenteric lymphadenopathy. Impression: Acute pancreatitis. No evidence of pancreatic pseudocyst or acute necrotic collection.
--- NOTE | 2020-07-12 17:33 | DI ---
EXAM: Chest two views Date: 07/12/2020 Comparison: None. History: Shortness of breath FINDINGS: PA and lateral views of the chest obtained. Cardiac silhouette and pulmonary vascularity ar e normal. No consolidation, pleural effusion, or evidence of pneumothorax. No acute fractures in th e chest. Impression: No active chest disease.
[2020-07-12 18:18] LABS: ABG BASE EXCESS -12.7 (-2.0-2.0); ABG HCO3 13.2 (22.0-26.0); ABG OXYGEN SATURATION 97.6 % (95-100); ABG PH 7.33 (7.35-7.45); ABG TCO2 14 (22.0-28.0)
[2020-07-12 18:39] LABS: BILIRUBIN,URINE 1+ (NEGATIVE); CLARITY,URINE Clear (CLEAR); COLOR,URINE Yellow (YELLOW); GLUCOSE, URINE (UA) Negative (NEGATIVE); KETONES,URINE 4+ (NEGATIVE); LEUKOCYTE ESTERASE ,URINE Trace (NEGATIVE); NITRITE,URINE Negative (NEGATIVE); PH,URINE 5.5 (5-9); PROTEIN,URINE 1+ (NEGATIVE); URINE, BLOOD 2+ (NEGATIVE); UROBILINOGEN,URINE 0.2 (0.2)
[2020-07-12 18:41] LABS: BACTERIA,URINE TRACE (NOT PRESENT); SQUAMOUS EPITHELIAL CELL,UR 0-2 (0-5)
[2020-07-12 18:49] LABS: AMPHETAMINE SCREEN,URINE NEGATIVE (NEGATIVE); BARBITURATE SCREEN,URINE NEGATIVE (NEGATIVE); BENZODIAZEPINES SCREEN,URINE NEGATIVE (NEGATIVE); CANNABINOID SCREEN,URINE NEGATIVE (NEGATIVE); COCAIN SCREEN,URINE NEGATIVE (NEGATIVE); METHADONE URINE SCREEN NEGATIVE (NEGATIVE); METHAMPHETAMINES SCREEN,URINE NEGATIVE (NEGATIVE); OPIATE SCREEN,URINE POSITIVE (NEGATIVE); OXYCODONE URINE SCREEN NEGATIVE (NEGATIVE); PHENCYCLIDINE SCREEN,URINE NEGATIVE (NEGATIVE); PROPOXYPHENE URINE SCREEN NEGATIVE (NEGATIVE); TRICYCLIC ANTIDEPRESSANTS URIN NEGATIVE (NEGATIVE)
[2020-07-12] MEDS ORDERED: HUMULIN R SUBCUT PRN (19:15)
[2020-07-12] MEDS ORDERED: SODIUM BICARBONATE 8.4% IVP STA (19:53)
[2020-07-12] MEDS: SODIUM CHLORIDE 0.9%-KCL 20 MEQ 1,000 ML IV SCH (20:04)
[2020-07-12] MEDS ORDERED: TRANDATE IVP STA ×2 (20:54→23:30)
[2020-07-12] MEDS: ZOFRAN 4 MG/2 ML IVP PRN (21:56)
[2020-07-12] MEDS: DILAUDID 1 MG/ML SYRINGE IVP PRN (21:56)
[2020-07-12] MEDS ORDERED: TRANDATE ONE (23:39)
[2020-07-13] MEDS: ATIVAN PO PRN ×3 (00:29→20:58)
[2020-07-13] MEDS: TORADOL IVP PRN ×3 (00:29→20:51)
[2020-07-13] MEDS: DILAUDID 1 MG/ML SYRINGE IVP PRN ×3 (04:14→20:51)
[2020-07-13 05:30] LABS: BASOPHILS % (AUTO) 0.2 % (0.0-3.0); EOSINOPHILS # (AUTO) 0.1 K/ul (0.0-0.7); EOSINOPHILS % (AUTO) 1.1 % (0.0-7.0); HEMATOCRIT 32.9 % (37.0-47.0); HEMOGLOBIN 11.4 g/dl (12.0-16.0); IMMATURE GRANULOCYTE % (AUTO) 0.2 % (0.0-5.0); LYMPHOCYTES # (AUTO) 1.1 K/uL (0.60-3.4); LYMPHOCYTES % (AUTO) 22.8 (10.0-50.0); MEAN CORPUSCULAR HEMOGLOBIN 32.2 pg (27.0-31.0); MEAN CORPUSCULAR HGB CONC 34.7 (31.8-35.4); MEAN CORPUSCULAR VOLUME 92.9 fl (81.0-99.0); MONOCYTES # (AUTO) 0.4 K/uL (0.4-2.0); MONOCYTES % (AUTO) 9.6 (0-10); NEUTROPHILS % (AUTO) 66.1 % (42.2-75.2); PLATELET COUNT 175 10^3/uL (140-440); RDW COEFFICIENT OF VARIATION 12.4 % (11.6-14.8); RED BLOOD COUNT 3.54 10^6/ul (4.20-5.40)
[2020-07-13 06:19] LABS: ALBUMIN 3.59 g/dL (3.5-5.0); ASPARTATE AMINO TRANSFERASE 75.4 U/L (14-36); BILIRUBIN,TOTAL 0.57 mg/dL (0.2-1.3); BLOOD UREA NITROGEN 5.9 mg/dL (7-17); CALCIUM 8.26 mg/dL (8.4-10.2); CARBON DIOXIDE 15.1 mmol/L (22-30.0); CHLORIDE 108.3 mmol/L (98-107); CREATININE 0.65 mg/dL (0.60-1.30); GLUCOSE 202.6 mg/dL (74-106); POTASSIUM 3.48 mmol/L (3.5-5.1); SODIUM 136.3 mmol/L (134.5-145); TOTAL PROTEIN 6.26 g/dL (6.3-8.2)
[2020-07-13] MEDS: ZOFRAN 4 MG/2 ML IVP PRN ×2 (06:22→14:12)
[2020-07-13] MEDS: TYLENOL PO PRN (06:39)
[2020-07-13] MEDS: SODIUM CHLORIDE 0.9%-KCL 20 MEQ 1,000 ML IV SCH ×5 (07:21→15:55)
[2020-07-13] MEDS: TOPROL XL PO SCH (08:47)
[2020-07-13] MEDS: ZESTRIL PO SCH (08:47)
[2020-07-13] MEDS: HUMALOG SUBCUT SCH ×4 (08:48→20:29)
[2020-07-13] MEDS: BUPRENORPHINE NALOXONE SL SCH (08:48)
--- NOTE | 2020-07-13 11:58 | US ---
EXAM: Right upper quadrant abdominal ultrasound History: Elevated liver function tests, pancreatitis. Comparison: CT abdomen pelvis 07/12/2020 Technique: Multiple sonographic images through the abdomen were obtained. Color and duplex Doppler was used to interrogate vascular flow. Findings: The liver is echogenic. No abdominal ascites. The pancreas was not seen due to obscuration by bowel gas. No liver lesions identified sonographically. There is antegrade flow within the main portal v ein. No shadowing gallstones. Gallbladder wall is not thickened. Common bile duct measures 0.7 cm in caliber. The right kidney is unremarkable. Impression: 1. No shadowing gallstones. 2. Mildly dilated common bile duct. 3. Hepatic steatosis
[2020-07-13] MEDS ORDERED: DILAUDID 1 MG/ML SYRINGE IVP STA (17:02)
[2020-07-13] MEDS: NICODERM 21 MG TD SCH (17:06)
[2020-07-13] MEDS ORDERED: PHENERGAN 25 MG/ML VIAL ONE (17:18)
[2020-07-13] MEDS: PROTONIX IV IVP SCH (17:25)
[2020-07-13] MEDS: PHENERGAN 25 MG/ML VIAL 25 MG in SODIUM CHLORIDE 50 ML IV PRN (17:28)
[2020-07-13] MEDS: LANTUS SUBCUT SCH (20:18)
[2020-07-14] MEDS: DILAUDID 1 MG/ML SYRINGE IVP PRN ×2 (01:01→05:25)
[2020-07-14] MEDS: SODIUM CHLORIDE 0.9%-KCL 20 MEQ 1,000 ML IV SCH ×4 (02:12→21:17)
[2020-07-14] MEDS: ATIVAN PO PRN ×2 (05:24→20:44)
[2020-07-14] MEDS: TORADOL IVP PRN ×3 (05:25→21:11)
[2020-07-14 05:39] LABS: BASOPHILS % (AUTO) 0.5 % (0.0-3.0); EOSINOPHILS # (AUTO) 0.1 K/ul (0.0-0.7); EOSINOPHILS % (AUTO) 1.6 % (0.0-7.0); HEMOGLOBIN 11.4 g/dl (12.0-16.0); IMMATURE GRANULOCYTE % (AUTO) 0.2 % (0.0-5.0); LYMPHOCYTES # (AUTO) 1.1 K/uL (0.60-3.4); LYMPHOCYTES % (AUTO) 23.7 (10.0-50.0); MEAN CORPUSCULAR HEMOGLOBIN 31.8 pg (27.0-31.0); MEAN CORPUSCULAR HGB CONC 34.5 (31.8-35.4); MEAN CORPUSCULAR VOLUME 92.2 fl (81.0-99.0); MONOCYTES # (AUTO) 0.3 K/uL (0.4-2.0); MONOCYTES % (AUTO) 6.5 (0-10); NEUTROPHILS % (AUTO) 67.5 % (42.2-75.2); PLATELET COUNT 168 10^3/uL (140-440); RDW COEFFICIENT OF VARIATION 12.4 % (11.6-14.8); RED BLOOD COUNT 3.58 10^6/ul (4.20-5.40); WHITE BLOOD COUNT 4.43 K/ul (4.6-10.2)
[2020-07-14 05:48] LABS: ALANINE AMINOTRANSFERASE 55.6 U/L (0-35); ALBUMIN 4.19 g/dL (3.5-5.0); ALKALINE PHOSPHATASE 193.1 U/L (38-126); ASPARTATE AMINO TRANSFERASE 97.9 U/L (14-36); BILIRUBIN,TOTAL 0.64 mg/dL (0.2-1.3); CALCIUM 9.06 mg/dL (8.4-10.2); CARBON DIOXIDE 25.6 mmol/L (22-30.0); CREATININE 0.57 mg/dL (0.60-1.30); POTASSIUM 3.15 mmol/L (3.5-5.1); SODIUM 138.5 mmol/L (134.5-145)
[2020-07-14 05:50] LABS: BLOOD UREA NITROGEN < 2.0 mg/dL (7-17)
[2020-07-14 07:20] LABS: AMYLASE 78.7 U/L (30-110); LIPASE 700.8 U/L (23-300)
[2020-07-14] MEDS ORDERED: CATAPRES-TTS 1 TD SCH (09:00)
[2020-07-14] MEDS: ZESTRIL PO SCH (09:08)
[2020-07-14] MEDS: TOPROL XL PO SCH (09:09)
[2020-07-14] MEDS: NICODERM 21 MG TD SCH (09:09)
[2020-07-14] MEDS: BUPRENORPHINE NALOXONE SL SCH (09:12)
[2020-07-14] MEDS: PROTONIX IV IVP SCH (09:47)
[2020-07-14] MEDS: HUMALOG SUBCUT PRN ×2 (12:43→17:00)
[2020-07-14] MEDS ORDERED: PHENERGAN 25 MG/ML VIAL ONE ×2 (12:48→20:11)
[2020-07-14] MEDS: PHENERGAN 25 MG/ML VIAL 25 MG in SODIUM CHLORIDE 50 ML IV PRN ×2 (12:53→20:45)
--- NOTE | 2020-07-14 16:12 | PCM.PROG ---
Objective: Vitals: T=98.1 F, P=105, R=20, RY=774/88, SPO2=99 HEENT: oral mucosa moist Neck: supple Lungs: clear CVS: 98 regular Abdomen: soft, mild left upper quadrant tenderness Extremities: no calf tenderness or cords Neurological: m/s normal Skin: warm and dry Lab/Tests/Diagnostic Imaging: no gallstones on ultrasound, borderline CBD size PLAN: PATIENT TOLERATED SOLID LUNCH ONLY FAIR, WILL PREMEDICATE WITH REGLAN FOR DINNER; PATIENT MAY BE SHOWING SYMPTOMS OF DIABETIC GASTROPARESIS, PANCREATITIS, OR POSSIBLE BILIARY DYSFUNCTION WHICH MAY REQUIRE LATER OUTPATIENT HIDA SCAN TO FULLY EVALUATE. (1) Dyspepsia: Status: Acute Code(s): R10.13 - Epigastric pain SNOMED Code(s): 944722914 (2) Acute pancreatitis: Status: Acute Code(s): K85.9 - Acute pancreatitis, unspecified SNOMED Code(s): 764068325 (3) Hypertension: Status: Acute Code(s): I10 - Essential (primary) hypertension SNOMED Code(s): 42328614
[2020-07-14] MEDS: REGLAN PO SCH ×2 (17:00→20:44)
[2020-07-14] MEDS ORDERED: MILK OF MAGNESIA PO PRN (20:28)
[2020-07-14] MEDS: LANTUS SUBCUT SCH (20:47)
[2020-07-15] MEDS: TYLENOL PO PRN (02:04)
[2020-07-15] MEDS: TORADOL IVP PRN ×3 (05:04→21:51)
[2020-07-15] MEDS ORDERED: PHENERGAN 25 MG/ML VIAL ONE ×2 (05:35→21:49)
[2020-07-15] MEDS: PHENERGAN 25 MG/ML VIAL 25 MG in SODIUM CHLORIDE 50 ML IV PRN ×2 (05:40→21:51)
[2020-07-15] MEDS: REGLAN PO SCH ×4 (05:46→20:49)
[2020-07-15] MEDS: ATIVAN PO PRN ×3 (05:46→20:54)
[2020-07-15] MEDS: SODIUM CHLORIDE 0.9%-KCL 20 MEQ 1,000 ML IV SCH ×4 (05:47→22:46)
[2020-07-15] MEDS: TOPROL XL PO SCH (09:21)
[2020-07-15] MEDS: ZESTRIL PO SCH (09:21)
[2020-07-15] MEDS: BUPRENORPHINE NALOXONE SL SCH (09:21)
[2020-07-15] MEDS: NICODERM 21 MG TD SCH (09:22)
[2020-07-15] MEDS: PROTONIX IV IVP SCH (09:54)
[2020-07-15] MEDS: HUMALOG SUBCUT PRN ×2 (11:34→17:21)
[2020-07-15] MEDS: ZOFRAN 4 MG/2 ML IVP PRN (18:32)
[2020-07-15] MEDS: LANTUS SUBCUT SCH (20:49)
[2020-07-16] MEDS: ATIVAN PO PRN ×2 (03:20→13:44)
[2020-07-16] MEDS: REGLAN PO SCH ×2 (06:25→11:31)
[2020-07-16] MEDS: SODIUM CHLORIDE 0.9%-KCL 20 MEQ 1,000 ML IV SCH ×2 (06:31)
[2020-07-16 06:36] VITALS: TEMP 98
[2020-07-16] MEDS ORDERED: GI COCKTAIL PO PRN (07:50)
[2020-07-16 08:02] LABS: BASOPHILS % (AUTO) 0.3 % (0.0-3.0); EOSINOPHILS # (AUTO) 0.1 K/ul (0.0-0.7); EOSINOPHILS % (AUTO) 1.3 % (0.0-7.0); HEMATOCRIT 32.7 % (37.0-47.0); HEMOGLOBIN 11.3 g/dl (12.0-16.0); IMMATURE GRANULOCYTE % (AUTO) 0.3 % (0.0-5.0); LYMPHOCYTES % (AUTO) 24.7 (10.0-50.0); MEAN CORPUSCULAR HGB CONC 34.6 (31.8-35.4); MEAN CORPUSCULAR VOLUME 92.6 fl (81.0-99.0); MONOCYTES # (AUTO) 0.4 K/uL (0.4-2.0); MONOCYTES % (AUTO) 10.3 (0-10); NEUTROPHILS # (AUTO) 2.5 K/ul (2.0-6.9); NEUTROPHILS % (AUTO) 63.1 % (42.2-75.2); PLATELET COUNT 172 10^3/uL (140-440); RDW COEFFICIENT OF VARIATION 12.7 % (11.6-14.8); RED BLOOD COUNT 3.53 10^6/ul (4.20-5.40); WHITE BLOOD COUNT 3.89 K/ul (4.6-10.2)
[2020-07-16 08:15] LABS: ALANINE AMINOTRANSFERASE 45.4 U/L (0-35); ALBUMIN 4.29 g/dL (3.5-5.0); ALKALINE PHOSPHATASE 143.4 U/L (38-126); ASPARTATE AMINO TRANSFERASE 74.2 U/L (14-36); BILIRUBIN,TOTAL 0.36 mg/dL (0.2-1.3); BLOOD UREA NITROGEN 2.1 mg/dL (7-17); CALCIUM 9.31 mg/dL (8.4-10.2); CARBON DIOXIDE 27.3 mmol/L (22-30.0); CHLORIDE 103.5 mmol/L (98-107); CREATININE 0.58 mg/dL (0.60-1.30); GLUCOSE 106.4 mg/dL (74-106); POTASSIUM 3.3 mmol/L (3.5-5.1); SODIUM 137.2 mmol/L (134.5-145); TOTAL PROTEIN 7.36 g/dL (6.3-8.2)
[2020-07-16] MEDS: TOPROL XL PO SCH (08:37)
[2020-07-16] MEDS: NICODERM 21 MG TD SCH (08:37)
[2020-07-16] MEDS: ZESTRIL PO SCH (08:37)
[2020-07-16] MEDS: BUPRENORPHINE NALOXONE SL SCH (08:37)
[2020-07-16] MEDS: PROTONIX IV IVP SCH (10:10)
--- NOTE | 2020-07-16 10:41 | PCM.PROG ---
Objective: Vitals: T=98.0 F, P=111, R=16, MU=889/90, SPO2=99 HEENT: conjunctiva clear, PERRL, neck supple, oropharnyx clear.[] Neck: []supple Lungs: [] clear CVS: []RRR Abdomen: generalized discomfort, LUQ pain w palpation[] Extremities: normal strength, ROM [] Neurological: []case liner intact, no complaint of numbness or weakness Skin: []no abnormalities Lab/Tests/Diagnostic Imaging: []Lipase trending downwards (pos) Amylase normal. (1) Dyspepsia: Status: Acute Code(s): R10.13 - Epigastric pain SNOMED Code(s): 519644115 (2) Acute pancreatitis: Status: Acute Code(s): K85.9 - Acute pancreatitis, unspecified SNOMED Code(s): 328689954 (3) Hypertension: Status: Acute Code(s): I10 - Essential (primary) hypertension SNOMED Code(s): 52237695
[2020-07-16] MEDS: HUMALOG SUBCUT PRN (11:31)
--- NOTE | 2020-07-16 13:20 | PCM.DC ---
Final Diagnosis: Pancreatitis, acute (1) Dyspepsia: Status: Acute Code(s): R10.13 - Epigastric pain SNOMED Code(s): 073310819 (2) Acute pancreatitis: Status: Acute Code(s): K85.9 - Acute pancreatitis, unspecified SNOMED Code(s): 858995379 Qualifiers: Acute pancreatitis complication: no infection or necrosis Pancreatitis type: unspecified pancreatitis type Qualified Code(s): K85.90 - Acute pancreatitis without necrosis or infection, unspecified (3) Hypertension: Status: Acute Code(s): I10 - Essential (primary) hypertension SNOMED Code(s): 87056180 Qualifiers: Hypertension type: essential hypertension Qualified Code(s): I10 - Essential (primary) hypertension Medications at Discharge: Ambulatory Orders Medication Instructions Recorded Mirena 1 insert VAGINAL DIRECTED 01/05/18 buprenorphine-naloxone [Suboxone] 0.5 ea SUBLINGUAL DAILY 04/15/19 insulin glargine 100 unit/mL (3 30 unit SUBCUT BEDTIME #15 ml 12/13/19 mL) subcutaneous pen blood sugar diagnostic See Rx Instructions .ROUTE 02/17/20 .COMPLEX #100 strip fluticasone propionate 50 2 spray ALEC QDAY #9.9 gm 03/13/20 mcg/actuation nasal spray,suspension insulin lispro 100 unit/mL 10 unit SUBCUT QID 30 Days #12 ml 03/13/20 subcutaneous solution pen needle, diabetic 32 gauge x See Rx Instructions .ROUTE 03/13/20" .COMPLEX #200 each promethazine 25 mg PO Q8HR PRN #14 tab 05/11/20 alcohol swabs 1 pad TP TID #100 each 06/12/20 lisinopril 20 mg tablet 20 mg PO DAILY #90 tab 07/11/20 metoprolol succinate 50 mg PO DAILY 07/12/20
[2020-07-16 13:40] VITALS: BP 145/100
== END 2020-07-16 15:20 | disposition home or self-care (01) ==
LOC: MEDSURG A 15:37 → ED 15:37 → MEDSURG A 20:10
PROVIDERS: ADMIT Emergency Medicine; ATTEND Emergency Medicine Emergency Medical Services
DX: K85.90 Acute pancreatitis without necrosis or infection, unspecified; I10 Essential (primary) hypertension; R10.13 Epigastric pain

== ENCOUNTER 2021-01-02 07:24 | Inpatient (IN) ==
--- NOTE | 2021-01-02 08:00 | ED.PDOC ---
General ED Provider: Dr. MORGAN MENDEZ Chief Complaint: Abdominal Pain Stated Complaint: Abdominal and middle back pain, nausea, one episode vomiting yesterday. Hx chronic pancreatitis Time Seen by Provider: 01/02/21 07:45 Mode of Arrival: Walk-In Information Source: Patient Primary Care Provider: LEIGHTON WALKER APRN, FNP- Nursing and Triage Documentation Reviewed and Agree: Yes Does patient meet sepsis criteria?: No System Inflammatory Response Syndrome: Not Applicable Sepsis Protocol: For patient's 13 years and over: Temp is 96.8 and below OR 101 and greater Pulse >90 BPM Resp >20/minute Acutely Altered Mental Status Are patient's symptoms suggestive of a new infection, such as: -Pneumonia -Skin, Soft Tissue -Endocarditis -UTI -Bone, Joint Infection -Implantable Device -Acute Abdominal Infection -Wound Infection -Meningitis -Blood Stream Catheter Infection -Unknown GI Complaint Exam Abdominal Pain Complaint/Exam Onset: Sudden Duration: 24 hr Symptoms Are: Still present Timing: Intermittent Initial Severity: Moderate Current Severity: Mild Location of Pain: RUQ, LUQ and Epigastric Radiates To: Reports Back Character: Reports Sharp and Aching Aggravating: Reports None Alleviating: Reports None Associated Signs and Symptoms: Denies Diaphoresis, Fever, Cough, Chest pain, Dizziness, Back pain, Constipation, Blood in stool, Dysuria, Urinary frequency, Decreased urine output, Decreased appetite, Vaginal bleeding, Vaginal discharge, Nausea, Vomiting, Diarrhea, Sore throat and Decreased activity Related History: Reports Similar episode AAA Risk Factors: Reports Hypertension Cardiac Risk Factors: Reports None Ectopic Risk Factors: Reports None Ovarian Torsion Risk Factors: Reports None Surgical Obstruction Risk Factors: Reports None Related Surgical History: Reports None Abdominal Findings: Present None Female Body Picture: 1. Review of Systems Review Of Systems Constitutional: Reports Weakness GI: Reports Abdominal pain, Nausea, Poor appetite, Poor fluid intake and Vomiting (one episode yesterday) : Reports No symptoms Musculoskeletal: Reports No symptoms Skin: Reports No symptoms Neurological: Reports No symptoms Endocrine: Reports No symptoms Hematologic/Lymphatic: Reports No symptoms All Other Systems: Reviewed and Negative [facility] Medical History (Updated 01/02/21 @ 13:18 by MORGAN MENDEZ DO) Acute effusion of left ear Alcohol use Anxiety and depression Drug abuse Elevated LFTs Encounter for diabetic foot exam Fatigue Follow-up exam after treatment Generalized anxiety disorder Glucosuria Hematuria History of alcohol dependence History of COVID-19 History of pancreatitis Hypertension Hypertriglyceridemia Left ear pain Loss of smell Loss of taste Proteinuria Snoring Tobacco abuse Type 1 diabetes mellitus Type 1 diabetes mellitus with hyperglycemia, with long-term current use of insulin Uncontrolled hypertension Urinary tract infection Vaginal irritation Family History FATHER Diabetes Hypertension FH: prostate cancer Mother Hypertension SISTER Seasonal allergies Social History Smoking and tobacco status: Current every day smoker Tobacco: How many years used: 8 Quit status: not considering quitting Second hand smoke exposure: No Alcohol intake: current Alcohol intake frequency: a few times a month Alcohol type: beer and other Counseling given: Yes Counseling provided: reduce to 2 or less/day Substance use type: former substance user Date of last use: [address] [place], [place] [id number] program w/ no use since. 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 Current occupational exposures/hazards: Yes Pets and animals: No History of recent travel: No Sexually active: Yes Do you think of yourself as: straight/heterosexual Current gender identity: female Seatbelt use: always Helmet use: Yes Drives intoxicated or rides with intoxicated dumpster driver: No Water heater temperature set < 120 degrees: Yes Working smoke detector in home: Yes Fire extinguisher in home: Yes Carbon monoxide detector in home: Yes Firearms in home: No Surgical History History of tonsillectomy [place] teeth extracted Female Reproductive History Menstrual Hx Hysterectomy: No Hx Tubal Ligation: No Physical Exam Physical Exam Appearance: Reports Well-appearing and No pain distress Ill-appearing: Mild Pain Distress: Mild Eyes: Reports NOEL, EOMI and Conjunctiva clear ENT: Reports Ears normal, Nose normal and Oropharynx normal Neck: Supple Respiratory: Reports Airway patent, Breath sounds clear and Breath sounds equal Cardiovascular: Reports RRR, Pulses normal, No rub and No murmur GI/: Reports Soft, No masses, Bowel sounds normal and Tender (markedly tender in the Mid to lower epigastric and BI lat Upper quadrants with guarding. No Rebound or rigidity) Musculoskeletal: Reports Normal strength Skin: Reports Warm and Dry Neurological: Reports Sensation intact, Motor intact, Reflexes intact, Cranial nerves intact, Alert and Oriented Psychiatric: Reports Affect appropriate and Mood appropriate Interpretation Radiology Interpretation Exam Interpreted: CT Scan (Mild residual inflammatory changes are seen along the pancreas and this may represent improving pancreatitis. Recurrent pancreatitis cannot be excluded. There is no bowel obstruction. No definite fluid collections are seen.) Physician Notification Case Discussed Physician Notified: Dr Godfrey-agreed to admissoin and continued home meds Time of Notification: 13:18 Critical Care Note Critical Care Note Total Critical Care Time (mins): 60 Course Course Hematology/Chemistry: 01/02/21 08:26 01/02/21 08:26 Orders, Labs, Meds: Lab Review 01/02/21 01/02/21 01/02/21 08:20 08:20 08:24 WBC RBC Hgb Hct MCV MCH MCHC RDW Coeff of Mainor Plt Count Immature Gran % (Auto) Neut % (Auto) Lymph % (Auto) Sharp % (Auto) Eos % (Auto) Baso % (Auto) Neut # (Auto) Lymph # (Auto) Sharp # (Auto) Eos # (Auto) Baso # (Auto) Immature Gran # (Auto) Puncture Site Base Excess O2 Saturation ABG pH ABG pCO2 ABG pO2 ABG HCO3 ABG Total CO2 Abhishek Test Hemoglobin Oxyhemoglobin Carboxyhemoglobin Total Hemoglobin O2 Delivery Device FiO2 % Sodium Potassium Chloride Carbon Dioxide Anion Gap BUN Creatinine Estimated GFR (MDRD) BUN/Creatinine Ratio Glucose Lactic Acid Calcium Total Bilirubin AST ALT Alkaline Phosphatase Total Protein Albumin Globulin Albumin/Globulin Ratio Amylase Lipase Serum , Qual Urine Color Yellow Urine Clarity Clear Urine pH 6.0 Ur Specific Sanger >=1.030 Urine Protein 2+ H Urine Glucose (UA) 2+ H Urine Ketones 3+ H Urine Blood 2+ H Urine Nitrite Negative Urine Bilirubin 1+ H Urine Urobilinogen 0.2 Ur Leukocyte Esterase Negative Urine Microscopic RBC 2-5 Ur Squamous Epith Cells 10-20 Urine Mucus 2+ Urine Opiates Screen Positive H Ur Oxycodone Screen Negative Urine Methadone Screen Negative Ur Propoxyphene Screen Negative Ur Barbiturates Screen Negative U Tricyclic Antidepress Negative Ur Phencyclidine Scrn Negative Ur Amphetamine Screen Negative U Methamphetamines Scrn Negative U Benzodiazepines Scrn Negative Urine Cocaine Screen Negative U Cannabinoids Screen Negative Plasma/Serum Alcohol < 10.0 Adenovirus (PCR) B. pertussis DNA (PCR) B.parapertussis DNA PCR C. pneumoniae DNA (PCR) Coronavirus OC43 (PCR) Coronavirus HKU1 (PCR) Coronavirus 229E (PCR) Coronavirus NL63 (PCR) Human Metapneumovir PCR Influenza Type A (PCR) Influenza B (RT-PCR) M. pneumoniae (PCR) Parainfluenza 1 (PCR) Parainfluenza 2 (PCR) Parainfluenza 3 (PCR) Parainfluenza 4 (PCR) RSV (PCR) Entero/Rhino (PCR) SARS-CoV-2 (PCR) 01/02/21 01/02/21 01/02/21 08:26 08:26 08:26 WBC 5.42 RBC 4.28 Hgb 14.0 Hct 40.8 MCV 95.3 MCH 32.7 H MCHC 34.3 RDW Coeff of Mainor 13.5 Plt Count 198 Immature Gran % (Auto) 0.2 Neut % (Auto) 75.4 H Lymph % (Auto) 14.4 Sharp % (Auto) 9.2 Eos % (Auto) 0.6 Baso % (Auto) 0.2 Neut # (Auto) 4.1 Lymph # (Auto) 0.8 Sharp # (Auto) 0.5 Eos # (Auto) 0.0 Baso # (Auto) 0.0 Immature Gran # (Auto) 0.0 Puncture Site Base Excess O2 Saturation ABG pH ABG pCO2 ABG pO2 ABG HCO3 ABG Total CO2 Abhishek Test Hemoglobin Oxyhemoglobin Carboxyhemoglobin Total Hemoglobin O2 Delivery Device FiO2 % Sodium 132.2 L Potassium 3.57 Chloride 97.9 L Carbon Dioxide 21.7 L Anion Gap 16.17 BUN 7.2 Creatinine 0.76 Estimated GFR (MDRD) 111.00 BUN/Creatinine Ratio 9.47 Glucose 280.4 H Lactic Acid Calcium 9.61 Total Bilirubin 1.07 AST 200.1 H ALT 98.5 H Alkaline Phosphatase 177.0 H Total Protein 8.12 Albumin 4.57 Globulin 3.55 Albumin/Globulin Ratio 1.28 Amylase 69.5 Lipase 414.8 H Serum , Qual Negative Urine Color Urine Clarity Urine pH Ur Specific Sanger Urine Protein Urine Glucose (UA) Urine Ketones Urine Blood Urine Nitrite Urine Bilirubin Urine Urobilinogen Ur Leukocyte Esterase Urine Microscopic RBC Ur Squamous Epith Cells Urine Mucus Urine Opiates Screen Ur Oxycodone Screen Urine Methadone Screen Ur Propoxyphene Screen Ur Barbiturates Screen U Tricyclic Antidepress Ur Phencyclidine Scrn Ur Amphetamine Screen U Methamphetamines Scrn U Benzodiazepines Scrn Urine Cocaine Screen U Cannabinoids Screen Plasma/Serum Alcohol Adenovirus (PCR) B. pertussis DNA (PCR) B.parapertussis DNA PCR C. pneumoniae DNA (PCR) Coronavirus OC43 (PCR) Coronavirus HKU1 (PCR) Coronavirus 229E (PCR) Coronavirus NL63 (PCR) Human Metapneumovir PCR Influenza Type A (PCR) Influenza B (RT-PCR) M. pneumoniae (PCR) Parainfluenza 1 (PCR) Parainfluenza 2 (PCR) Parainfluenza 3 (PCR) Parainfluenza 4 (PCR) RSV (PCR) Entero/Rhino (PCR) SARS-CoV-2 (PCR) 01/02/21 01/02/21 01/02/21 10:50 10:59 11:20 WBC RBC Hgb Hct MCV MCH MCHC RDW Coeff of Mainor Plt Count Immature Gran % (Auto) Neut % (Auto) Lymph % (Auto) Sharp % (Auto) Eos % (Auto) Baso % (Auto) Neut # (Auto) Lymph # (Auto) Sharp # (Auto) Eos # (Auto) Baso # (Auto) Immature Gran # (Auto) Puncture Site L brach Base Excess -5.8 L O2 Saturation 96.4 ABG pH 7.34 L ABG pCO2 37.0 ABG pO2 90.0 ABG HCO3 20.0 L ABG Total CO2 21.1 Abhishek Test + Hemoglobin 1.1 Oxyhemoglobin 94.1 L Carboxyhemoglobin 3.4 H Total Hemoglobin 13.6 O2 Delivery Device Room air FiO2 % 21.0 Sodium Potassium Chloride Carbon Dioxide Anion Gap BUN Creatinine Estimated GFR (MDRD) BUN/Creatinine Ratio Glucose Lactic Acid 1.05 Calcium Total Bilirubin AST ALT Alkaline Phosphatase Total Protein Albumin Globulin Albumin/Globulin Ratio Amylase Lipase Serum , Qual Urine Color Urine Clarity Urine pH Ur Specific Sanger Urine Protein Urine Glucose (UA) Urine Ketones Urine Blood Urine Nitrite Urine Bilirubin Urine Urobilinogen Ur Leukocyte Esterase Urine Microscopic RBC Ur Squamous Epith Cells Urine Mucus Urine Opiates Screen Ur Oxycodone Screen Urine Methadone Screen Ur Propoxyphene Screen Ur Barbiturates Screen U Tricyclic Antidepress Ur Phencyclidine Scrn Ur Amphetamine Screen U Methamphetamines Scrn U Benzodiazepines Scrn Urine Cocaine Screen U Cannabinoids Screen Plasma/Serum Alcohol Adenovirus (PCR) Not detected B. pertussis DNA (PCR) Not detected B.parapertussis DNA PCR Not detected C. pneumoniae DNA (PCR) Not detected Coronavirus OC43 (PCR) Not detected Coronavirus HKU1 (PCR) Not detected Coronavirus 229E (PCR) Not detected Coronavirus NL63 (PCR) Not detected Human Metapneumovir PCR Not detected Influenza Type A (PCR) Not detected Influenza B (RT-PCR) Not detected M. pneumoniae (PCR) Not detected Parainfluenza 1 (PCR) Not detected Parainfluenza 2 (PCR) Not detected Parainfluenza 3 (PCR) Not detected Parainfluenza 4 (PCR) Not detected RSV (PCR) Not detected Entero/Rhino (PCR) Not detected SARS-CoV-2 (PCR) Not detected Orders Category Date Time Status ABG DRAW REQUEST Stat CARDIO 01/02/21 10:47 Completed EKG-(ED ONLY) Stat CARDIO 01/02/21 08:08 Completed TELEMETRY MONITORING TELE CARE 01/02/21 12:22 Active VITAL SIGNS Q30MIN CARE 01/02/21 08:09 Active IV [ED IV/MEDIPORT/POWERPORT] .ONCE EMERGENCY 01/02/21 10:40 Active ABG COOX Stat LAB 01/02/21 10:59 Completed AMYLASE Stat LAB 01/02/21 08:26 Completed BLOOD ALCOHOL Stat LAB 01/02/21 08:24 Completed CBC W/ AUTO DIFF Stat LAB 01/02/21 08:26 Completed CMP [COMPREHENSIVE METABOLIC PANEL] Stat LAB 01/02/21 08:26 Completed HCG QUALITATIVE [SERUM ] Stat LAB 01/02/21 08:26 Completed LACTIC ACID Stat LAB 01/02/21 10:50 Completed LIPASE Stat LAB 01/02/21 08:26 Completed RESPIRATORY PANEL 2.1 (PCR) Stat LAB 01/02/21 11:20 Completed UA [URINALYSIS C & S IF INDICATED] Stat LAB 01/02/21 08:20 Completed URINE DRUG SCREEN (RAPID FOR ED) [DRUG SCREEN, URINE, LAB 01/02/21 08:20 Compl eted RAPID] Stat 0.9 % Sodium Chloride [Saline Flush] MEDS 01/02/21 10:40 Active 1 syr IVF PRN PRN Famotidine Inj [Pepcid] MEDS 01/02/21 12:12 Discontinued 20 mg IVP ONCE STA Hydralazine HCl MEDS 01/02/21 10:51 Discontinued 10 mg IVP ONCE ONE Hydromorphone HCl [Dilaudid 1 mg/ml Syringe] MEDS 01/02/21 10:47 Discontinued 1 mg IVP ONCE STA Ketorolac Tromethamine [Toradol] MEDS 01/02/21 12:12 Discontinued 30 mg IVP ONCE STA Ondansetron HCl/Pf [Zofran 4 mg/2 ml] MEDS 01/02/21 10:50 Discontinued 4 mg IVP ONCE STA Sodium Chloride 0.9% [Sodium Chloride] 1,000 ml MEDS 01/02/21 10:[address] ABDOMEN/PELVIS WO CONTRAST Stat RADS 01/02/21 08:09 Completed Medications Generic Name Dose Route Start Last Admin Trade Name Freq PRN Reason Stop Dose Admin Buspirone HCl 5 mg 01/02/21 13:30 Buspirone Hcl 10 Mg Tablet PO TID [facility] Escitalopram Oxalate 10 mg 01/02/21 13:30 Escitalopram Oxalate 10 Mg Tablet PO QDAY [facility] Fluticasone Propionate 2 spray 01/02/21 13:30 Fluticasone Propionate 16 Gm Nasal [place] ALEC QDAY [facility] Hydralazine HCl 10 mg 01/02/21 13:30 Hydralazine Hcl 10 Mg Tablet PO Q6H [facility] Insulin Glargine 34 unit 01/02/21 17:00 Insulin Glargine,Hum.Rec.Anlog 100 Units/Ml SUBCUT QPM [facility] Insulin Human Lispro 10 unit 01/02/21 13:15 Insulin Lispro 100 Unit/Ml (3 Ml) Vial SUBCUT QID [facility] Lisinopril 40 mg 01/02/21 13:30 Lisinopril 40 Mg Tablet PO QDAY [facility] Metoprolol Succinate 50 mg 01/02/21 13:30 Metoprolol Succinate 50 Mg Tab.Er.24h PO DAILY [facility] Non-Formulary Medication 0.5 each 01/03/21 09:00 Buprenorphine-Naloxone [Suboxone] SL DAILY [facility] Non-Formulary Medication 1 insert 01/02/21 13:15 Levonorgestrel [Mirena] VAGINAL DIRECTED MICHAEL Sodium Chloride 1 syr 01/02/21 10:40 01/02/21 12:22 0.9% Sodium Chloride 10 Ml Disp.Syrin IVF 1 syr PRN PRN Administration To flush IV Discontinued Medications Generic Name Dose Route Start Last Admin Trade Name Freq PRN Reason Stop Dose Admin Famotidine 20 mg 01/02/21 12:12 01/02/21 12:21 Famotidine Inj 20 Mg/2 Ml Vial IVP 01/02/21 12:13 20 mg ONCE STA Administration Hydralazine HCl 10 mg 01/02/21 10:51 01/02/21 11:22 Hydralazine Hcl 20 Mg/Ml Sdv IVP 01/02/21 10:52 10 mg ONCE ONE Administration Hydromorphone HCl 1 mg 01/02/21 10:47 01/02/21 11:21 Hydromorphone Hcl 1 Mg/Ml Syringe IVP 01/02/21 10:48 1 mg ONCE STA Administration Sodium Chloride 1,000 mls @ 1,000 mls/hr 01/02/21 10:43 01/02/21 11:22 Sodium Chloride IV 01/02/21 11:42 1,000 mls/hr BOLUS STA Administration Ketorolac Tromethamine 30 mg 01/02/21 12:12 01/02/21 12:19 Ketorolac Tromethamine 30 Mg/Ml Vial IVP 01/02/21 12:13 30 mg ONCE STA Administration Ondansetron HCl 4 mg 01/02/21 10:50 01/02/21 11:21 Ondansetron Hcl/Pf 4 Mg/2 Ml Sdv IVP 01/02/21 10:51 4 mg ONCE STA Administration Vital Signs: Temp Pulse Resp BP Pulse Ox 01/02/21 08:56 158/113 H 01/02/21 07:25 97.4 F L 123 H 20 181/117 H 98 Discharge Plan Discharge Discharge Problem: Acute pancreatitis, Hypertension, Type 1 diabetes mellitus, Alcohol use ED Provider: MORGAN MENDEZ Physician Progress Note: []
[2021-01-02 08:29] LABS: BASOPHILS % (AUTO) 0.2 % (0.0-3.0); EOSINOPHILS % (AUTO) 0.6 % (0.0-7.0); HEMATOCRIT 40.8 % (37.0-47.0); IMMATURE GRANULOCYTE % (AUTO) 0.2 % (0.0-5.0); LYMPHOCYTES # (AUTO) 0.8 K/uL (0.60-3.4); LYMPHOCYTES % (AUTO) 14.4 (10.0-50.0); MEAN CORPUSCULAR HEMOGLOBIN 32.7 pg (27.0-31.0); MEAN CORPUSCULAR HGB CONC 34.3 (31.8-35.4); MEAN CORPUSCULAR VOLUME 95.3 fl (81.0-99.0); MONOCYTES # (AUTO) 0.5 K/uL (0.4-2.0); MONOCYTES % (AUTO) 9.2 (0-10); NEUTROPHILS # (AUTO) 4.1 K/ul (2.0-6.9); NEUTROPHILS % (AUTO) 75.4 % (42.2-75.2); PLATELET COUNT 198 10^3/uL (140-440); RDW COEFFICIENT OF VARIATION 13.5 % (11.6-14.8); RED BLOOD COUNT 4.28 10^6/ul (4.20-5.40); WHITE BLOOD COUNT 5.42 K/ul (4.6-10.2)
[2021-01-02 08:38] LABS: BILIRUBIN,URINE 1+ (NEGATIVE); CLARITY,URINE Clear (CLEAR); COLOR,URINE Yellow (YELLOW); GLUCOSE, URINE (UA) 2+ (NEGATIVE); KETONES,URINE 3+ (NEGATIVE); LEUKOCYTE ESTERASE ,URINE Negative (NEGATIVE); NITRITE,URINE Negative (NEGATIVE); PROTEIN,URINE 2+ (NEGATIVE); URINE, BLOOD 2+ (NEGATIVE); UROBILINOGEN,URINE 0.2 (0.2)
[2021-01-02 08:42] LABS: ALANINE AMINOTRANSFERASE 98.5 U/L (0-35); ALBUMIN 4.57 g/dL (3.5-5.0); AMYLASE 69.5 U/L (30-110); ASPARTATE AMINO TRANSFERASE 200.1 U/L (14-36); BILIRUBIN,TOTAL 1.07 mg/dL (0.2-1.3); BLOOD UREA NITROGEN 7.2 mg/dL (7-17); CALCIUM 9.61 mg/dL (8.4-10.2); CARBON DIOXIDE 21.7 mmol/L (22-30.0); CHLORIDE 97.9 mmol/L (98-107); CREATININE 0.76 mg/dL (0.60-1.30); GLUCOSE 280.4 mg/dL (74-106); LIPASE 414.8 U/L (23-300); POTASSIUM 3.57 mmol/L (3.5-5.1); SODIUM 132.2 mmol/L (134.5-145); TOTAL PROTEIN 8.12 g/dL (6.3-8.2)
[2021-01-02 08:43] LABS: MUCUS,URINE 2+ (NOT PRESENT)
[2021-01-02 08:47] LABS: SERUM PREGNANCY NEGATIVE (NEGATIVE)
--- NOTE | 2021-01-02 09:50 | CT ---
EXAM: CT scan of the abdomen and pelvis without contrast HISTORY: abdominal pain, back pain TECHNIQUE: Imaging of the abdomen pelvis was performed without contrast. 5 mm thin axial images and coronal and sagittal reconstructions were provided for interpretation. Comparison 07/12/2020. FINDINGS: Mild residual inflammatory changes are seen surrounding the pancreas. Low density changes are seen throughout the liver. No acute abnormalities are seen seen within the spleen. The proxima l ureters are normal size. There is a small nonobstructing calculus seen within the inferior pole of the left kidney. There is no free air. The appendix appears normal. There is no free fluid seen within the pelvis. There is an intrauterine device seen within the urete rs. Lung bases are clear. No lytic or blastic changes are seen within the osseous structures. IMPRESSION: Mild residual inflammatory changes are seen along the pancreas and this may represent im proving pancreatitis. Recurrent pancreatitis cannot be excluded. There is no bowel obstruction. No definite fluid collections are seen. All CT scans are performed using dose optimization techniques as appropriate to the performed exam an d include at least one of the following: Automated exposure control, adjustment of the mA and/or kV according t o size, and the use of iterative reconstruction technique.
[2021-01-02] MEDS ORDERED: SODIUM CHLORIDE 1,000 ML IV STA (10:43)
[2021-01-02] MEDS ORDERED: DILAUDID 1 MG/ML SYRINGE IVP STA (10:47)
[2021-01-02] MEDS ORDERED: ZOFRAN 4 MG/2 ML IVP STA (10:50)
[2021-01-02] MEDS ORDERED: HYDRALAZINE HCL IVP ONE (10:51)
[2021-01-02 11:33] LABS: ABG O2 HGB 94.1 % (95-100); ABG PH 7.34 (7.35-7.45); BEecf -5.8 (-2.0-3.0); COHb 3.4 (0.5-1.5); MetHb 1.1 (0-1.5); TCO2 21.1 (19-24); sO2 96.4 % (94-98); tHb 13.6 g/dl (11.7-17.4)
[2021-01-02 12:03] LABS: ADENOVIRUS (PCR) NOT DETECTED (NOT DETECT); BORDETELLA PARAPERTUSSIS (PCR) NOT DETECTED (NOT DETECT); BORDETELLA PERTUSSIS (PCR) NOT DETECTED (NOT DETECT); CHLAMYDIA PNEUMONIAE (PCR) NOT DETECTED (NOT DETECT); CORONAVIRUS 229E (PCR) NOT DETECTED (NOT DETECT); CORONAVIRUS HKU1 (PCR) NOT DETECTED (NOT DETECT); CORONAVIRUS NL63 (PCR) NOT DETECTED (NOT DETECT); CORONAVIRUS OC43 (PCR) NOT DETECTED (NOT DETECT); HUMAN METAPNEUMOVIRUS (PCR) NOT DETECTED (NOT DETECT); HUMAN RHINOVIRUS/ENTEROV (PCR) NOT DETECTED (NOT DETECT); INFLUENZA B (PCR) NOT DETECTED (NOT DETECT); MYCOPLASMA PNEUMONIAE (PCR) NOT DETECTED (NOT DETECT); PARAINFLUENZA VIRUS 1 (PCR) NOT DETECTED (NOT DETECT); PARAINFLUENZA VIRUS 2 (PCR) NOT DETECTED (NOT DETECT); PARAINFLUENZA VIRUS 3 (PCR) NOT DETECTED (NOT DETECT); PARAINFLUENZA VIRUS 4 (PCR) NOT DETECTED (NOT DETECT); RESPIRATORY SYNCYTIAL V (PCR) NOT DETECTED (NOT DETECT); SARS_COV_2 (PCR) NOT DETECTED (NOT DETECT)
[2021-01-02] MEDS ORDERED: TORADOL IVP STA (12:12)
[2021-01-02] MEDS ORDERED: PEPCID IVP STA (12:12)
[2021-01-02 12:26] LABS: AMPHETAMINE SCREEN,URINE NEGATIVE (NEGATIVE); BARBITURATE SCREEN,URINE NEGATIVE (NEGATIVE); BENZODIAZEPINES SCREEN,URINE NEGATIVE (NEGATIVE); CANNABINOID SCREEN,URINE NEGATIVE (NEGATIVE); COCAIN SCREEN,URINE NEGATIVE (NEGATIVE); METHADONE URINE SCREEN NEGATIVE (NEGATIVE); METHAMPHETAMINES SCREEN,URINE NEGATIVE (NEGATIVE); OPIATE SCREEN,URINE POSITIVE (NEGATIVE); OXYCODONE URINE SCREEN NEGATIVE (NEGATIVE); PHENCYCLIDINE SCREEN,URINE NEGATIVE (NEGATIVE); PROPOXYPHENE URINE SCREEN NEGATIVE (NEGATIVE); TRICYCLIC ANTIDEPRESSANTS URIN NEGATIVE (NEGATIVE)
[2021-01-02] MEDS ORDERED: LEVONORGESTREL VAGINAL SCH (13:15)
[2021-01-02] MEDS ORDERED: TORADOL IVP PRN (13:30)
[2021-01-02 14:13] VITALS: BMI 23.8
[2021-01-02] MEDS: TOPROL XL PO SCH (15:26)
[2021-01-02] MEDS: BUSPAR PO SCH ×3 (15:26→20:36)
[2021-01-02] MEDS: FLONASE NAS SCH (15:27)
[2021-01-02] MEDS ORDERED: HUMALOG SUBCUT ONE (15:34)
[2021-01-02] MEDS: HUMALOG SUBCUT SCH ×4 (15:36→20:34)
[2021-01-02] MEDS: APRESOLINE PO SCH ×3 (15:37→21:21)
--- NOTE | 2021-01-02 16:40 | PCM ---
Chief Complaint Chief Complaint: Abdominal pain, nausea, back pain, vomiting x 1 yesterday, not feeling well. History of Present Illness History of Present Illness: 25 yo AAF presented to emergency department 0745 01/02/21 for walk in with CC abdominal and mid back pain, emesis x 1 yesterday, history of chronic pancreatitis, chronic suboxone use/opiate, Tobacco use, DM 1, HTN, transaminitis, LANE, HTN, and history of moderate to heavy alcohol use. Vitals upon initial eval temp 97.4, pulse 123, rr 20, BP 181/117, pulse ox 98%. Repeat BP at 0856 158/113. Based on presentation, did not meet SIRS criteria. Sudden onset of pain x 24 hours, intermittent colicky pain moderate, RUQ/LUQ/Epigastric, pain radiates through to the back. Sharp and aching, No agg/ameliorating factors. Denied Diaphoresis, Fever, Cough, Chest pain, Dizziness, Back pain, Constipation, Blood in stool, Dysuria, Urinary frequency, Decreased urine output, Decreased appetite, Vaginal bleeding, Vaginal discharge, Nausea, Vomiting, Diarrhea, Sore throat and Decreased activity. History of similar problems in the past. Reported abd pain, N/V x 1 yesteday non bloody, decreased appetite, poor fluid intake. Not tolerating liquids or solids at this time. Fam hx reviewed DM in father, HTN in mother and father, paternal history of Prostate cancer in family. No other findings. Current every day smoking x 8 years, PMHX/Social history reviewed. 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 CT scan of abdomen. Mild residual inflammatory changes are seen along the pancreas and this may represent improving pancreatitis. Recurrent pancreatitis cannot be excluded. There is no bowel obstruction. No definite fluid collections are seen. I reveiwed US of kidneys from 11/20/20: No abnormality of the kidneys or bladder. Dopper negative. I was updated by Dr. hutchinson at 13:18 and agreed to admission for acute on chronic pancreatitis. Labs showed WBC 5.2, Hgb 14.0, plt 198. CMP showed sodium 132, K+ 3.57, CL 97.9, co2 21.7, BUN 7.2, Cr 0.76, glucose 280.4. Urine pH 6.0, SG 1.030, prot/glu 2+, ketones 3+, blood 2+, bili 1+, urobilinogen 0.2, leuk est neg, micro rbc 2-5, squam 10-20, mucus 2+. UDS +opiates, Negative oxy, methadone, propoxyphene, barbs, tca, phencyclidine, amphet, methamphetamine, benzo, urine cocaine, cannabinoids. ETOH <10. AST 200.1, ALT 98.5. Alk phos 177. Lipase 414.8, serum negative. ABG reviewed 7.34, pco2 37, po2 90, hco3 20, fio2 21%. Independent interpretation: Primary metabolic acidosis, with normal anion gap, with full respiratory compensation. Lactic acid was 1.05 and normal range. Biofire negative for all organisms and patient was thus admitted to room 104. History was discussed with Dr. Hutchinson. Discussed orders. Patient was evaluated by me at 1700. She was given 1 L of NS, 1mg of dilaudid, 30mg toradol, 4mg zofran. Home meds reviewed, buspar 5 mg TID, lexapro 10mg, flonase nasal, hydralazine 10mg q 6 hours, glargine 34 units daily, lispro 10 units QID, lisinopril 40mg, metoprolol succinate 50mg daily, suboxone 0.5 daily\. I reviewed last note from WIN Dickson on 12/11/20 summary: Bp better, feelign better. F/U anxiety, depression/BP. BP 140/88 in office. Review of recent labs showed CBC stable. HCT 40.8 and better today than 39.5 11/30/20 and 37.3 on 10/24/20. No anemia since 07/16/20. CMP 11/30/20 K+ 3.67. Sodium 139.1. Cr 0.72 (baseline). Glucose 152.8. ALT 48, AST 112 2:1 ratio suggesting ETOH involvement. GGT was 435 on 11/06/20. I will add antimitochondrial abs ( US liver 07/13/20 Impression: 1. No shadowing gallstones. 2. Mildly dilated common bile duct. 3. Hepatic steatosis, A1C 9.61 10/30/20. Not done within 30 days of admit, will check one in am tomorrow. 9.14 07/31/20, 9.78 07/12/20, 9.50 03/06/20. 8.80 12/13/19. She is noted to be DM 1. if PBC is present, she may have chronic biliary cirhossis and chronic pancreatitis of autoimmune type. With elevated alk phos historically, this may be partially involved. She does drink alcohol. She has given up alcohol last . She has had ETOH issues x 2 years. She notes history of Drug problem several items, opiates and anything she could get. She was diagnosed with diabetes 4 [address] ago[address] Prior provider Dr. Richards. This changed over to [facility] clinics due to insurance issues. She notes opiate doctor said she was not diabetic. A1C is elevated and she is diabetic. We discussed diabetes type 1 vs type 2. She has never been tested th at she could tell. She noted that her boyfriend wnated her to come in to hopsital on friday as felt bad. She notes she always felt judged. At 1738 she is 6-7/10 pain in mid epigastric and upper abdomen. She noted dilaudid took all of the pain away but did not help her mid stomach. She has had toradol historically. She was asleep and comfortable. She has increased ibupofren/aleve recently. She notes she has been worried about peptic ulcer. She notes frontal FRANKLIN, no photophobia. No phonophobia. We had talked about NPO status in ER they brought food tray. She is not ready to tolerate foods. I will change to clear liquids and advance as tolerated. We discussed her history, she notes nobody has worked her up for AI disease that she can remember. She has Mirena in place. Spotting 2 days ago and spotting now. Sexually active single partner. REVIEW OF SYMPTOMS: (Positives bolded) General: weight loss, fever, chills, night sweats, fatigue, appetite loss HEENT: blurry vision, eye pain, eye discharge, dry eyes, decreased vision, sore throat tinnitus, bloody nose, hearin gloss, sinus pain/pressure, ear pain/pressure. Respiratory: shortness of breath, cough, hemoptysis, wheezing, pleurisy, Cardiovascular: chest pain, PND, palpitation, edema, orthopnea, syncope, swelling of extremities Gastro: Nausea, vomiting, diarrhea, hematemesis, abdominal pain, constipation, NSAID use, ETOH use. History of Drug addiction. HIV negative 09/13/19 Genito: hematuria, dysuria, glycosuria, hesitancy, frequency, incontinence Musckelo: Arthralgia, Back painn myalgia, muscle weakness, joint swelling, NSAID use Skin: rash, pruritis, sores, nail changes, skin thickening, change in wart/mole, itching, rash, new lesions, pruritus, nail changes Neuro: Migraine, numbness, ataxia, tremor, vertigo, weakness, memory loss, Irritability, dizziness Endocrine: excessive thirst, polyuria, cold intolerance, heat intolerance, goiter Psychiatric: depression, anxiety, anti-depressants, alcohol abuse, drug abuse, insomnia, change in sleep pattern and mood changes Heme/lymph: easy bruising, bleeding gums, blood clots, swollen glands, lymphedema, Allergic/immune: allergic rhinitis, hay fever, asthma, hives Vital Signs Temp Pulse Resp BP Pulse Ox 01/02/21 16:40 99.3 F 104 H 18 158/113 H 100 01/02/21 14:01 99.3 F 104 H 18 100 01/02/21 08:56 158/113 H 01/02/21 07:25 97.4 F L 123 H 20 181/117 H 98 Constitutional: Appearance-No acute distress, Consistent with stated age. Orientation- Oriented x 3, alert Build and Nutrition-[normal ] General- Patient is pleasant and cooperative with the interview and exam. Integumentary: General-No rashes, ulcers or lesions. Palpation- Normal skin moisture/turgor. Skin is warm to touch, appropriate. Capillary refill is normal bilateral Upper and lower extremity. Head/Neck: Head- normocephalic and atraumatic. Neck- without visible/palpable lumps or pulsations. Palpation- No bony tenderness about head/neck along frontal, occipital, temporal, parietal, mastoid, jawline, zygoma, orbit or any other location. NO temporal artery tenderness. No TMJ tenderness. Neck Supple. Thyroid-No thyromegaly, no nodules Eye: Bilaterally PERRLA, EOMI. No discharge. Upper and lower eyelids are normal. Sclera/conjunctiva normal without discharge. Cornea is normal and clear. Lens is normal. Eyeball appears normal. No ciliary flushing, no conjunctival injection. ENMT: Pinna- normal without tenderness or erythema. External auditory canal Left- normal without erythema or discharge, no excessive cerumen. External auditory canal Right-normal without erythema or discharge, no excessive cerumen. TM left- Mtz/pearly, normal light reflex and anatomy TM Right- Mtz/pearly, normal light reflex and anatomy Hearing Assessment-normal to conversational speech. Nose and sinus- No sinus tenderness along frontal/maxillary region. External appearance normal and midline. Nares- bilateral quiet airflow, no discharge. Nasal mucosa- No bleeding noted and no ulcerations observed. [place], moist. Turbinates non boggy. Lips- normal color, moist without cracks/lesions Oral Cavity/Palate- hard/soft palate intact without lesions, oral mucosa pink and moist. Dentition assessed [well kempt]. Tongue normal midline. Oropharynx- no pharyngeal erythema, Uvula midline. No post nasal drip. No exudate. Salivary glands- Non tender to palpation CHEST/LUNG: Inspection- symmetric chest wall no pectus deformity. Normal effort, no distress, no use of accessory muscles. Palpation- nontender sternum, ribline. No abnormal pulsations. Auscultation- Breath sounds normal throughout all lung marino. Normal tracheal sounds, Normal bronchial sounds overlying sternum, Bronchovessicular sounds normal between scapulae posteriorly, Normal vessicular breath sounds heard throughout periphery. Lungs are clear today. Adventitious sounds- No wheezes, rales, rhonchi. CARDIOVASCULAR: Carotid artery- normal, no bruits or abnormal pulsations. Jugular vein- no pulsations. Palpation/Percussion- Normal PMI, no palpable thrill Auscultation- Regular rate and rhythm. No murmur noted in sitting, supine positions. Extremities- no digital clubbing, cyanosis, edema, increased warmth. ABDOMEN: Inspection- normal and no visible pulsations. Normal contour. Auscultation- Bowel sounds normal, no abdominal bruits. Palpation/Percussion- soft, tender, no rebound tenderness, no rigidity (guarding), no jar tenderness, no masses. Liver-mild hepatomegaly, 3 fingers below costal margin, Spleen no splenomegaly, not palpable. Tender epigastric region, RUQ adn along weinstein praumbilical region. Mcburney negative, rovsing negative. No straie. Peripheral Vascular: Upper extremity Left- Normal temperature with pink nailbeds and no ulcerations. Upper extremity Right- Normal temperature with pink nailbeds and no ulcerations. Lower extremity- Normal temperature with pink nailbeds and no ulcerations. DP pulses 2+ bilaterally. Pedal hair intact. Normal capillary refill. Edema- No edema. Musculoskeletal: Generalized-No generalized swelling or edema of extremities, no digital clubbing or cyanosis, neurovascularly intact all four extremities. Upper extremity- Symmetrical posture. No visible deformity. Normal sensation along medial and lateral upper extremity proximally and distally. NO tenderness overlying shoulder, lateral/medial epicondyle. Postdoctoral Research Fellow 5/5 and strength 5/5 bilateral UE. Elbow palpated, no tenderness overlying olecranon. Normal supination, pronation to active/passive ROM and to resisted rotation. Bicep insertion/tricep insertion appear normal without obvious pathology. Rotator cuff evaluated and intact. Normal wrist ROM bilaterally. Normal hand movement, intrinsic muscles of hands normal. No tenderness to palpation of hands/wrists/elbows. Lower extremity- Hip: Not tender to palpation, no pain, no swelling, edema or erythema of surrounding tissue, normal strength and tone. Normal appearing hip ROM bilaterally without pain. Knee: Knee ROM normal. No tenderness overlying trochanters, no tenderness about patella, quad tendon, patellar tendon. No tenderness at tibial tuberosity. Ankle: normal ROM not tender to palpation along medial/lateral malleolus. Foot: Normal movement of toes, no tenderness bilateral feet/toes. Normal foot type. Spine/Ribs- No deformities, masses or tenderness, no known fractures, normal strength, Normal ROM. Normal stability No tenderness along C/T/L spine. Normal appearing ROM about spine. Neurological: General- Moves all 4 extremities symmetrically. Symmetrical face and body posture. Cranial nerves- individually evaluated II-XII and intact. PERRLA, Normal EOMI, visual/special senses appear intact, Face is symmetrical and normal sensation/movement, normal tongue, normal strength/posture of neck musculature. Reflexes- intact with DTR 2+ patellar, Achilles, bicep, brachial, tricep. Ankle clonus normal with 2 beats. Strength- 5/5 bilateral UE and LE. Soft touch- intact bilateral UE and LE. Temperature sensation- intact bilateral UE and LE. Neuropsych: Oriented- Person, place, time. (AAOx3), Mood/affect- normal and congruent. Able to articulate well. Speech-Normal speech, normal rate, normal tone, normal use of language, volume and coherence. Thought content- normal with ability to perform basic computations and apply abstract thought/reason. Associations- intact, no SI/HI, no hallucinations, delusions, obsessions. Judgment/insight- Appropriate. Memory-Recall intact, remote and recent memory intact. Knowledge- Age appropriate fund of knowledge, concentration and attention span normal. Lymphatic: Head/Neck- normal size and non tender to palpation. Axillary- normal size and non tender to palpation. Femoral and Inguinal- normal size and non tender to palpation. Allergies Allergies Allergy/AdvReac Type Severity Reaction Status Date / Time amoxicillin AdvReac Nausea Verified 01/02/21 07:30 clarithromycin [From Biaxin] AdvReac Nausea Verified 01/02/21 07:30 Penicillins AdvReac Nausea Verified 01/02/21 07:30 [facility] Medical History (Updated 01/02/21 @ 18:22 by HAL COFFMAN MD) Acute effusion of left ear Alcohol use Anxiety and depression Drug abuse Elevated LFTs Encounter for diabetic foot exam Fatigue Follow-up exam after treatment Generalized anxiety disorder Glucosuria Hematuria History of alcohol dependence History of COVID-19 History of pancreatitis Hypertension Hypertriglyceridemia Left ear pain Loss of smell Loss of taste Proteinuria Snoring Tobacco abuse Type 1 diabetes mellitus Type 1 diabetes mellitus with hyperglycemia, with long-term current use of insulin Uncontrolled hypertension Urinary tract infection Vaginal irritation Surgical History History of tonsillectomy Malin teeth extracted Family History FATHER Diabetes Hypertension FH: prostate cancer Mother Hypertension SISTER Seasonal allergies Social History (Updated 01/02/21 @ 14:06 by TASHIA DIGGS RN) Smoking and tobacco status: Current every day smoker Tobacco: How many years used: 8 Quit status: not considering quitting Second hand smoke exposure: No Alcohol intake: current Alcohol intake frequency: a few times a month Alcohol type: beer and other Counseling given: Yes Counseling provided: reduce to 2 or less/day Details: patient states she hasn't drank alcohol since last week Substance use type: former substance user Date of last use: [facility] program w/ no use since. 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 Current occupational exposures/hazards: Yes Pets and animals: No History of recent travel: No Sexually active: Yes Do you think of yourself as: straight/heterosexual Current gender identity: female Seatbelt use: always Helmet use: Yes Drives intoxicated or rides with intoxicated commercial collections driver: No Water heater temperature set < 120 degrees: Yes Working smoke detector in home: Yes Fire extinguisher in home: Yes Carbon monoxide detector in home: Yes Firearms in home: No Medications Medications: Medications Generic Name Dose Route Start Last Admin Trade Name Freq PRN Reason Stop Dose Admin Buspirone HCl 5 mg 01/02/21 13:30 01/02/21 15:37 Buspirone Hcl 10 Mg Tablet PO 5 mg TID [facility] Administration Escitalopram Oxalate 10 mg 01/03/21 09:00 Escitalopram Oxalate 10 Mg Tablet PO DAILY [facility] Fluticasone Propionate 2 spray 01/02/21 13:30 01/02/21 15:27 Fluticasone Propionate 16 Gm Nasal [place] ALEC Not Given DAILY [facility] Hydralazine HCl 10 mg 01/02/21 13:30 01/02/21 15:37 Hydralazine Hcl 10 Mg Tablet PO 10 mg Q6H [facility] Administration Insulin Glargine 34 unit 01/02/21 17:00 Insulin Glargine,Hum.Rec.Anlog 100 Units/Ml SUBCUT QPM [facility] Insulin Human Lispro 10 unit 01/02/21 13:15 01/02/21 16:21 Insulin Lispro 100 Unit/Ml (3 Ml) Vial SUBCUT Not Given QID [facility] Ketorolac Tromethamine 30 mg 01/02/21 13:30 Ketorolac Tromethamine 30 Mg/Ml Vial IVP 01/06/21 13:31 Q6H PRN severe pain abdomen Lisinopril 40 mg 01/03/21 09:00 Lisinopril 40 Mg Tablet PO DAILY [facility] Metoprolol Succinate 50 mg 01/02/21 13:30 01/02/21 15:26 Metoprolol Succinate 50 Mg Tab.Er.24h PO Not Given DAILY MICHAEL Non-Formulary Medication 0.5 each 01/03/21 09:00 Buprenorphine-Naloxone [Suboxone] SL DAILY MICHAEL Non-Formulary Medication 1 insert 01/02/21 13:15 Levonorgestrel [Mirena] VAGINAL DIRECTED MICHAEL Sodium Chloride 1 syr 01/02/21 10:40 01/02/21 12:22 0.9% Sodium Chloride 10 Ml Disp.Syrin IVF 1 syr PRN PRN Administration To flush IV Body Composition Height: 5 ft 4 in Weight: 138 lb 14.259 oz Body Mass Index (BMI): 23.8 Vital Signs Temperature: 99.3 F Pulse Rate: 104 Respiratory Rate: 18 Blood Pressure: 158/113 O2 Sat by Pulse Oximetry: 100 Lab/Tests/Diagnostic Imaging Lab/Tests/Diagnostic Imaging: Lab Review 01/02/21 01/02/21 01/02/21 08:20 08:20 08:24 WBC RBC Hgb Hct MCV MCH MCHC RDW Coeff of Mainor Plt Count Immature Gran % (Auto) Neut % (Auto) Lymph % (Auto) Park % (Auto) Eos % (Auto) Baso % (Auto) Neut # (Auto) Lymph # (Auto) Park # (Auto) Eos # (Auto) Baso # (Auto) Immature Gran # (Auto) Puncture Site Base Excess O2 Saturation ABG pH ABG pCO2 ABG pO2 ABG HCO3 ABG Total CO2 Abhishek Test Hemoglobin Oxyhemoglobin Carboxyhemoglobin Total Hemoglobin O2 Delivery Device FiO2 % Sodium Potassium Chloride Carbon Dioxide Anion Gap BUN Creatinine Estimated GFR (MDRD) BUN/Creatinine Ratio Glucose Lactic Acid Calcium Total Bilirubin AST ALT Alkaline Phosphatase Total Protein Albumin Globulin Albumin/Globulin Ratio Amylase Lipase Serum , Qual Urine Color Yellow Urine Clarity Clear Urine pH 6.0 Ur Specific [place] >=1.030 Urine Protein 2+ H Urine Glucose (UA) 2+ H Urine Ketones 3+ H Urine Blood 2+ H Urine Nitrite Negative Urine Bilirubin 1+ H Urine Urobilinogen 0.2 Ur Leukocyte Esterase Negative Urine Microscopic RBC 2-5 Ur Squamous Epith Cells 10-20 Urine Mucus 2+ Urine Opiates Screen Positive H Ur Oxycodone Screen Negative Urine Methadone Screen Negative Ur Propoxyphene Screen Negative Ur Barbiturates Screen Negative U Tricyclic Antidepress Negative Ur Phencyclidine Scrn Negative Ur Amphetamine Screen Negative U Methamphetamines Scrn Negative U Benzodiazepines Scrn Negative Urine Cocaine Screen Negative U Cannabinoids Screen Negative Plasma/Serum Alcohol < 10.0 Adenovirus (PCR) B. pertussis DNA (PCR) B.parapertussis DNA PCR C. pneumoniae DNA (PCR) Coronavirus OC43 (PCR) Coronavirus HKU1 (PCR) Coronavirus 229E (PCR) Coronavirus NL63 (PCR) Human Metapneumovir PCR Influenza Type A (PCR) Influenza B (RT-PCR) M. pneumoniae (PCR) Parainfluenza 1 (PCR) Parainfluenza 2 (PCR) Parainfluenza 3 (PCR) Parainfluenza 4 (PCR) RSV (PCR) Entero/Rhino (PCR) SARS-CoV-2 (PCR) 01/02/21 01/02/21 01/02/21 08:26 08:26 08:26 WBC 5.42 RBC 4.28 Hgb 14.0 Hct 40.8 MCV 95.3 MCH 32.7 H MCHC 34.3 RDW Coeff of Mainor 13.5 Plt Count 198 Immature Gran % (Auto) 0.2 Neut % (Auto) 75.4 H Lymph % (Auto) 14.4 Park % (Auto) 9.2 Eos % (Auto) 0.6 Baso % (Auto) 0.2 Neut # (Auto) 4.1 Lymph # (Auto) 0.8 Park # (Auto) 0.5 Eos # (Auto) 0.0 Baso # (Auto) 0.0 Immature Gran # (Auto) 0.0 Puncture Site Base Excess O2 Saturation ABG pH ABG pCO2 ABG pO2 ABG HCO3 ABG Total CO2 Abhishek Test Hemoglobin Oxyhemoglobin Carboxyhemoglobin Total Hemoglobin O2 Delivery Device FiO2 % Sodium 132.2 L Potassium 3.57 Chloride 97.9 L Carbon Dioxide 21.7 L Anion Gap 16.17 BUN 7.2 Creatinine 0.76 Estimated GFR (MDRD) 111.00 BUN/Creatinine Ratio 9.47 Glucose 280.4 H Lactic Acid Calcium 9.61 Total Bilirubin 1.07 AST 200.1 H ALT 98.5 H Alkaline Phosphatase 177.0 H Total Protein 8.12 Albumin 4.57 Globulin 3.55 Albumin/Globulin Ratio 1.28 Amylase 69.5 Lipase 414.8 H Serum , Qual Negative Urine Color Urine Clarity Urine pH Ur Specific [place] Urine Protein Urine Glucose (UA) Urine Ketones Urine Blood Urine Nitrite Urine Bilirubin Urine Urobilinogen Ur Leukocyte Esterase Urine Microscopic RBC Ur Squamous Epith Cells Urine Mucus Urine Opiates Screen Ur Oxycodone Screen Urine Methadone Screen Ur Propoxyphene Screen Ur Barbiturates Screen U Tricyclic Antidepress Ur Phencyclidine Scrn Ur Amphetamine Screen U Methamphetamines Scrn U Benzodiazepines Scrn Urine Cocaine Screen U Cannabinoids Screen Plasma/Serum Alcohol Adenovirus (PCR) B. pertussis DNA (PCR) B.parapertussis DNA PCR C. pneumoniae DNA (PCR) Coronavirus OC43 (PCR) Coronavirus HKU1 (PCR) Coronavirus 229E (PCR) Coronavirus NL63 (PCR) Human Metapneumovir PCR Influenza Type A (PCR) Influenza B (RT-PCR) M. pneumoniae (PCR) Parainfluenza 1 (PCR) Parainfluenza 2 (PCR) Parainfluenza 3 (PCR) Parainfluenza 4 (PCR) RSV (PCR) Entero/Rhino (PCR) SARS-CoV-2 (PCR) 01/02/21 01/02/21 01/02/21 10:50 10:59 11:20 WBC RBC Hgb Hct MCV MCH MCHC RDW Coeff of Mainor Plt Count Immature Gran % (Auto) Neut % (Auto) Lymph % (Auto) Park % (Auto) Eos % (Auto) Baso % (Auto) Neut # (Auto) Lymph # (Auto) Park # (Auto) Eos # (Auto) Baso # (Auto) Immature Gran # (Auto) Puncture Site L brach Base Excess -5.8 L O2 Saturation 96.4 ABG pH 7.34 L ABG pCO2 37.0 ABG pO2 90.0 ABG HCO3 20.0 L ABG Total CO2 21.1 Abhishek Test + Hemoglobin 1.1 Oxyhemoglobin 94.1 L Carboxyhemoglobin 3.4 H Total Hemoglobin 13.6 O2 Delivery Device Room air FiO2 % 21.0 Sodium Potassium Chloride Carbon Dioxide Anion Gap BUN Creatinine Estimated GFR (MDRD) BUN/Creatinine Ratio Glucose Lactic Acid 1.05 Calcium Total Bilirubin AST ALT Alkaline Phosphatase Total Protein Albumin Globulin Albumin/Globulin Ratio Amylase Lipase Serum , Qual Urine Color Urine Clarity Urine pH Ur Specific [place] Urine Protein Urine Glucose (UA) Urine Ketones Urine Blood Urine Nitrite Urine Bilirubin Urine Urobilinogen Ur Leukocyte Esterase Urine Microscopic RBC Ur Squamous Epith Cells Urine Mucus Urine Opiates Screen Ur Oxycodone Screen Urine Methadone Screen Ur Propoxyphene Screen Ur Barbiturates Screen U Tricyclic Antidepress Ur Phencyclidine Scrn Ur Amphetamine Screen U Methamphetamines Scrn U Benzodiazepines Scrn Urine Cocaine Screen U Cannabinoids Screen Plasma/Serum Alcohol Adenovirus (PCR) Not detected B. pertussis DNA (PCR) Not detected B.parapertussis DNA PCR Not detected C. pneumoniae DNA (PCR) Not detected Coronavirus OC43 (PCR) Not detected Coronavirus HKU1 (PCR) Not detected Coronavirus 229E (PCR) Not detected Coronavirus NL63 (PCR) Not detected Human Metapneumovir PCR Not detected Influenza Type A (PCR) Not detected Influenza B (RT-PCR) Not detected M. pneumoniae (PCR) Not detected Parainfluenza 1 (PCR) Not detected Parainfluenza 2 (PCR) Not detected Parainfluenza 3 (PCR) Not detected Parainfluenza 4 (PCR) Not detected RSV (PCR) Not detected Entero/Rhino (PCR) Not detected SARS-CoV-2 (PCR) Not detected IMAGING: CT AB PELVIS W/o CONTRAST: Mild residual inflammatory changes are seen along the pancreas and this may represent improving pancreatitis. Recurrent pancreatitis cannot be excluded. There is no bowel obstruction. No definite fluid collections are seen. Orders Category Date Time Status ADMIT PATIENT [facility]PAT[facility] ADMISSION 01/02/21 12: 42 Active ABG DRAW REQUEST Stat CARDIO 01/02/21 10:47 Completed EKG-(ED ONLY) Stat CARDIO 01/02/21 08:08 Completed ACCUCHECK (MED/SURG, SCU) [BLOOD GLUCOSE MONITORING] CARE 01/02/21 14:44 Active 0630,1100,1700,2100 ACTIVITY .Up ad [place]elle CARE 01/02/21 13:25 Active GIVE HS SNACK 2100 CARE 01/02/21 13:26 Active INTAKE & OUTPUT Q8HR CARE 01/02/21 13:25 Active INTAKE & OUTPUT Q8HR CARE 01/02/21 13:26 Completed TELEMETRY MONITORING TELE CARE 01/02/21 12:22 Active VITAL SIGNS Q6HR CARE 01/02/21 08:09 Active VITAL SIGNS Q8HR CARE 01/02/21 13:25 Completed ADA 2000 MELIDA DIET DIETARY 01/02/21 Dinner Ordered HS SNACK DIETARY 01/02/21 Dinner Ordered IV [ED IV/MEDIPORT/POWERPORT] .ONCE EMERGENCY 01/02/21 10:40 Active ABG COOX Stat LAB 01/02/21 10:59 Completed AMYLASE Stat LAB 01/02/21 08:26 Completed BLOOD ALCOHOL Stat LAB 01/02/21 08:24 Completed CBC W/ AUTO DIFF Stat LAB 01/02/21 08:26 Completed CMP [COMPREHENSIVE METABOLIC PANEL] Stat LAB 01/02/21 08:26 Completed HCG QUALITATIVE [SERUM ] Stat LAB 01/02/21 08:26 Completed LACTIC ACID Stat LAB 01/02/21 10:50 Completed LIPASE Stat LAB 01/02/21 08:26 Completed RESPIRATORY PANEL 2.1 (PCR) Stat LAB 01/02/21 11:20 Completed UA [URINALYSIS C & S IF INDICATED] Stat LAB 01/02/21 08:20 Completed URINE DRUG SCREEN (RAPID FOR ED) [DRUG SCREEN, URINE, LAB 01/02/21 08:20 Completed RAPID] Stat 0.9 % Sodium Chloride [Saline Flush] MEDS 01/02/21 10:40 Active 1 syr IVF PRN PRN Buspirone HCl [Buspar] MEDS 01/02/21 13:30 Active 5 mg PO TID Escitalopram Oxalate [Lexapro] MEDS 01/03/21 09:00 Active 10 mg PO DAILY Famotidine Inj [Pepcid] MEDS 01/02/21 12:12 Discontinued 20 mg IVP ONCE STA Fluticasone Propionate [Flonase] MEDS 01/02/21 13:30 Active 2 spray ALEC DAILY Hydralazine HCl MEDS 01/02/21 10:51 Discontinued 10 mg IVP ONCE ONE Hydralazine HCl [Apresoline] MEDS 01/02/21 13:30 Active 10 mg PO Q6H Hydromorphone HCl [Dilaudid 1 mg/ml Syringe] MEDS 01/02/21 10:47 Discontinued 1 mg IVP ONCE STA Insulin Glargine,Hum.rec.anlog [Lantus] MEDS 01/02/21 17:00 Ordered 34 unit SUBCUT QPM Insulin Lispro [Humalog] MEDS 01/02/21 13:15 Ordered 10 unit SUBCUT QID Ketorolac Tromethamine [Toradol] MEDS 01/02/21 12:12 Discontinued 30 mg IVP ONCE STA Ketorolac Tromethamine [Toradol] MEDS 01/02/21 13:30 Active 30 mg IVP Q6H PRN Lisinopril [Zestril] MEDS 01/03/21 09:00 Active 40 mg PO DAILY Metoprolol Succinate [Toprol Xl] MEDS 01/02/21 13:30 Active 50 mg PO DAILY Ondansetron HCl/Pf [Zofran 4 mg/2 ml] MEDS 01/02/21 10:50 Discontinued 4 mg IVP ONCE STA Sodium Chloride 0.9% [Sodium Chloride] 1,000 ml MEDS 01/02/21 10:43 Discontinued IV BOLUS buprenorphine-naloxone [Suboxone] MEDS 01/03/21 09:00 Active 0.5 each SL DAILY levonorgestrel [Mirena] MEDS 01/02/21 13:15 Active 1 insert VAGINAL DIRECTED RESUSCITATION STATUS Routine OTHERS 01/02/21 13:[address] ABDOMEN/PELVIS WO CONTRAST Stat RADS 01/02/21 08:09 Completed Medications Generic Name Dose Route Start Last Admin Trade Name Freq PRN Reason Stop Dose Admin Buspirone HCl 5 mg 01/02/21 13:30 01/02/21 15:37 Buspirone Hcl 10 Mg Tablet PO 5 mg TID MICHAEL Administration Escitalopram Oxalate 10 mg 01/03/21 09:00 Escitalopram Oxalate 10 Mg Tablet PO DAILY [facility] Fluticasone Propionate 2 spray 01/02/21 13:30 01/02/21 15:27 Fluticasone Propionate 16 Gm Nasal [place] ALEC Not Given DAILY [facility] Hydralazine HCl 10 mg 01/02/21 13:30 01/02/21 15:37 Hydralazine Hcl 10 Mg Tablet PO 10 mg Q6H MICHAEL Administration Insulin Glargine 34 unit 01/02/21 17:00 Insulin Glargine,Hum.Rec.Anlog 100 Units/Ml SUBCUT QPM [facility] Insulin Human Lispro 10 unit 01/02/21 13:15 01/02/21 16:21 Insulin Lispro 100 Unit/Ml (3 Ml) Vial SUBCUT Not Given QID [facility] Ketorolac Tromethamine 30 mg 01/02/21 13:30 Ketorolac Tromethamine 30 Mg/Ml Vial IVP 01/06/21 13:31 Q6H PRN severe pain abdomen Lisinopril 40 mg 01/03/21 09:00 Lisinopril 40 Mg Tablet PO DAILY [facility] Metoprolol Succinate 50 mg 01/02/21 13:30 01/02/21 15:26 Metoprolol Succinate 50 Mg Tab.Er.24h PO Not Given DAILY [facility] Non-Formulary Medication 0.5 each 01/03/21 09:00 Buprenorphine-Naloxone [Suboxone] SL DAILY [facility] Non-Formulary Medication 1 insert 01/02/21 13:15 Levonorgestrel [Mirena] VAGINAL DIRECTED [facility] Sodium Chloride 1 syr 01/02/21 10:40 01/02/21 12:22 0.9% Sodium Chloride 10 Ml Disp.Syrin IVF 1 syr PRN PRN Administration To flush IV Discontinued Medications Generic Name Dose Route Start Last Admin Trade Name Freq PRN Reason Stop Dose Admin Famotidine 20 mg 01/02/21 12:12 01/02/21 12:21 Famotidine Inj 20 Mg/2 Ml Vial IVP 01/02/21 12:13 20 mg ONCE STA Administration Hydralazine HCl 10 mg 01/02/21 10:51 01/02/21 11:22 Hydralazine Hcl 20 Mg/Ml Sdv IVP 01/02/21 10:52 10 mg ONCE ONE Administration Hydromorphone HCl 1 mg 01/02/21 10:47 01/02/21 11:21 Hydromorphone Hcl 1 Mg/Ml Syringe IVP 01/02/21 10:48 1 mg ONCE STA Administration Sodium Chloride 1,000 mls @ 1,000 mls/hr 01/02/21 10:43 01/02/21 11:22 Sodium Chloride IV 01/02/21 11:42 1,000 mls/hr BOLUS STA Administration Ketorolac Tromethamine 30 mg 01/02/21 12:12 01/02/21 12:19 Ketorolac Tromethamine 30 Mg/Ml Vial IVP 01/02/21 12:13 30 mg ONCE STA Administration Ondansetron HCl 4 mg 01/02/21 10:50 01/02/21 11:21 Ondansetron Hcl/Pf 4 Mg/2 Ml Sdv IVP 01/02/21 10:51 4 mg ONCE STA Administration Assessment (1) Epigastric abdominal pain: Status: Acute Code(s): R10.13 - Epigastric pain SNOMED Code(s): 56406521 (2) Elevated lipase: Status: Acute Code(s): R74.8 - Abnormal levels of other serum enzymes SNOMED Code(s): 194033021 (3) Transaminitis: Status: Acute Code(s): R74.01 - Elevation of levels of liver transaminase levels SNOMED Code(s): 966683751 (4) History of alcohol dependence: Status: Acute Code(s): F10.21 - Alcohol dependence, in remission SNOMED Code(s): 954341935 (5) History of drug use: Status: Acute Code(s): Z87.898 - Personal history of other specified conditions SNOMED Code(s): 735037894 (6) Chronic prescription opiate use: Status: Acute Code(s): 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 SNOMED Code(s): 615108777 (7) Anxiety and depression: Status: Acute Code(s): F41.9 - Anxiety disorder, unspecified; F32.9 - Major depressive disorder, single episode, unspecified SNOMED Code(s): 050284586 (8) Uncontrolled hypertension: Status: Acute Code(s): I10 - Essential (primary) hypertension SNOMED Code(s): 66795088 (9) Hypertriglyceridemia: Status: Acute Code(s): E78.1 - Pure hyperglyceridemia SNOMED Code(s): 598631208 (10) Dyspepsia: Status: Acute Code(s): R10.13 - Epigastric pain SNOMED Code(s): 330001695 (11) Type 1 diabetes mellitus with hyperglycemia, with long-term current use of insulin: Status: Acute Code(s): E10.65 - Type 1 diabetes mellitus with hyperglycemia SNOMED Code(s): 18680556 (12) Proteinuria: Status: Acute Code(s): R80.9 - Proteinuria, unspecified SNOMED Code(s): 68566615 Qualifiers: Proteinuria type: unspecified Qualified Code(s): R80.9 - Proteinuria, unspecified (13) Tobacco abuse: Status: Chronic Code(s): Z72.0 - Tobacco use SNOMED Code(s): 696468944 (14) History of pancreatitis: Status: Inactive Code(s): Z87.19 - Personal history of other diseases of the digestive system SNOMED Code(s): 49117228968420 Plan Plan: Epigastric pain, Transaminitis, elevated lipase: DDX today includes Pancreatitis, Gastritis, PUD, choledoctholithiasis, cholangitis, cholecystitis, hepatitis and less likely SBO/mesenteric ischemia. She has reported history of ETOH, drinking moderate to heavily over the last 4 years. She has now been sober 4 days. No DT, no withdrawal features noted. Discussed to monitor CIWA protocol. Labs showed elevated lipase, elevated AST/ALT but no specific ratio. Pain epigastric, bilateral UQ, mild Hepatomegaly without splenomegaly. Abdominal pain in the regions located concerning for pancreatitis, gastritis and PUD mostly. She noted improvement with pain meds toradol and dilaudid. Imaging suggestive of pancreatitis. Normal WBC/Hgb, hct is stable. Most common causes of pancreatitis reviewed with patient Gallstones, ETOH mostly female and after 10 years of heavy use. [facility] [place] has not met this criteria. Other causes can be anatomic issues autoimmune issues (will check GONZALES and check IgG4). Drug use (lisinopril is a possible cause), familial genetics, infections, post procedure/trauma. Classic symptosm of bandlike pain radiating into the back. UP to 10% are pain free and 90% have N/V which she has reported minimal. She has no ileus, no decreased abdominal bowel sounds. No e/o retroperitoneal hemorrhage or mtz turnes sign. She has met criteria with abd pain, and imaging but lipase was not 3X ULN, rather minimally elevated. Severity dicated by s/sx of organ failure (no CIERRA/Resp failure/Shock). MIld symptoms based on the above, suggesting low mortality at this time. BISAP: BUN <25, no impaired MS, SIRS negative, Age <60, no pleural effusion. Low risk. No SIRS at present. Monitor HCT and consider NANCY/KALSKAG II in 48 hours. We discussed her symptoms support PUD as well as gastritis and can also be seen with ETOH use. We will fluid hydrate with 125ml/hr NS + 10meq K+Cl-. Goal Uout >0.5ml/kg/hr. Monitor BUN and HCT as noted. Reviewed other labs, trigly are not >1000 and likely not cause. She has admitted ETOH although ETOH negative today (sober x 5 days). Discussed AA as outpatient and accountability partner. Discussed early feeding. She is not NPO. Discussed clear liquids, broths, jello, advance as tolerated.. No ileus noted. Low fat low residue can be used as it is typically as safe as liquid. IV opiates, IV toradol, monitor renal function. - Admit inpatient - Telemetry - CBC/CMP in am. - GONZALES in am. IGG4 in am.C-peptide in am. - GGT am - PT/PTT/INR now. - Antimitochondrial abs in am. - Fluids NS +10meq KCL 125 ml/hour (1.25 maintenance). - OKAY TO CONTINUE SUBOXONE - Dilaudid 1mg q 6 hours. - Zofran 4mg IV q 8 hours. - Lovenox DVT prophy 40mg subcut daily. Essential HTN: Elevated chronically. Continue home meds. Will add norvasc to her med regimen. Avoid thiazides due to proposed increased risk of pancreatitis. Monitor BP. Chronic Essential HTN not at goal. Good BP control is encouraged with Goal BP based on JNC 8 guidelines of <140/90 for this patient. Reviewed medications and discussed the typical first line agents to include thiazide diuretic or selam-I or ARB or CCB alone or in combo. She is not on thiazide and we will avoid these if able. Monitor cholesterol regularly as outpatient. Statin therapy should be discussed with patient and cholesterol checked as outpatient by PCP. - Continue lisinopril 40mg - Continue hydralazine home medication. - Consider norvasc 10mg. Diabetes: Unknown if DM 1 or 2. No C-peptide, no LANE abs. She does not know the type of DM that she is either. She has no recent a1c. She is on insulin basal/bolus, continue for now home doses. Address with OV tomorrow. - LANE abs in am - c-peptide in am - A1C in am - Continue home insulin 34 units basal - Continue meal insulin. History of Drug/Opiate Use: We discussed opiates as a form of pain medication to act as an adjunct to Tylenol, NSAIDS, steroids, topical rubs such as icyhot, bengay, biofreeze, aspercreme, cool/warm compresses, stretching/exercising etc. We discussed pain cream. Discussed to consider f/u with pain management to discuss other options. Opiates are not meant to eliminate pain but rather are designed to facilitate function and improve ADL. We discussed ADL today, discussed goals of therapy. We talked specifically about R/B/A to opiates, to overuse of opiates and dangers of using opiates even at recommended levels. We discussed frequency of visits depends on history and is individualized to the patient. We typically will see patients at least every 1-3 months for focused physical exam to make sure the medical course is stable. There is no published guideline for UDS. This is to reduce diversion, to make sure patient is actually taking them and not using illegal drugs. Random UDS are utilized to reduce chances of cheating the system. Patient can expect minimum of 2 per year scheduled and or random and if any compliance questions are considered. Discussed multiple rx can be given but again case by case basis. There will be no early fills, no after hours fills. We reviewed the level of pain, ADL, any adverse effects, and aberrant drug-related behaviors. We also reviewed personal and family history of substance abuse and discussed appropriate destruction of unwanted Rx. Reviewed risks of tolerance/dependence/addiction. These medications are dangerous and any abnormal behavior may limit our ability to continue these agents. - Dilaudid to be continued cautiously. Tobacco use: Tobacco Cessation discussed today. We reviewed lifestyle choices and discussed quitting. Ready to quit status discussed. The risks and hazards of continued tobacco abuse were discussed with the patient today and total tobacco cessation as recommended. It was clearly and unambiguously explained that continued tobacco usage will adversely affect overall morbidity and mortality of the patient. Patient was informed that tobacco use can lead to numerous cancers, worsening of cardiovascular and pulmonary systems and that lung damage is often permanent and irreversible. I advised the patient to inform me if any further assistance is requested, as we can offer counseling services, nicotine replacement inhaled, patch, lozenge, gum, or prescription medications to include Chantix or Wellbutrin for assistance. I will reassess the interest in tobacco cessation at the next and all subsequent visits. ETOH Abuse: none in 5 days. Praise given. Monitor with CIWA. Add thiamine 100mg daily. Monitor for symptoms of withdrawal. DVT prophy: Lovenox 40mg subcutanous daily. Diet: Advance as tolerated. Disposition: Patient presenting with acute on chronic process. Would benefit from outpatient eval by GI for ERCP. 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 Epigastric pain may be as likely PUD as pancreatitis with history listed above. No e/o pseudocyst at this time. Consider genetic testing in future gamaglobulins, SPINK1, PRRS1 due to young age and consider alpha 1 antitrypisin as well as CFTR (AAF makes it less likely). Needs to avvoid ETOH and tobacco. Outpatient evaluation encouraged. If autoimmune process GC can be helpful as well asome immune modulators. 74 mintues spent rounding on patient, eval on floor, discussing with nursing, with patient, review of last OV, last labs, discussion with ER doctor today.
[2021-01-02] MEDS: LANTUS SUBCUT SCH (18:03)
[2021-01-02] MEDS ORDERED: DILAUDID 1 MG/ML SYRINGE IM PRN (18:12)
[2021-01-02 18:23] LABS: PROTHROMBIN TIME 10.4 SEC (9.3-11.0)
[2021-01-02] MEDS ORDERED: POTASSIUM CHLORIDE 10 MEQ VIAL- ADDITIVE ONLY 10 MEQ in SODIUM CHLORIDE 1,000 ML IV SCH (18:30)
[2021-01-02] MEDS ORDERED: POTASSIUM CHLORIDE 10 MEQ VIAL- ADDITIVE ONLY IV ONE (18:34)
[2021-01-02] MEDS: POTASSIUM CHLORIDE 10 MEQ VIAL- ADDITIVE ONLY 10 MEQ in SODIUM CHLORIDE 1,000 ML IV SCH (18:43)
[2021-01-02] MEDS: LOVENOX SUBCUT SCH (18:44)
[2021-01-02] MEDS: NORVASC PO SCH (19:27)
[2021-01-02] MEDS: CARAFATE PO SCH (20:35)
[2021-01-02] MEDS: PEPCID IVP SCH (20:35)
[2021-01-02] MEDS: ZOFRAN 4 MG/2 ML IVP PRN (23:47)
[2021-01-03] MEDS: TORADOL IVP PRN ×3 (01:18→17:09)
[2021-01-03] MEDS ORDERED: POTASSIUM CHLORIDE 10 MEQ VIAL- ADDITIVE ONLY IV ONE ×2 (02:01→20:40)
[2021-01-03] MEDS: POTASSIUM CHLORIDE 10 MEQ VIAL- ADDITIVE ONLY 10 MEQ in SODIUM CHLORIDE 1,000 ML IV SCH ×3 (02:31→20:46)
[2021-01-03] MEDS: ZOFRAN 4 MG/2 ML IVP PRN ×2 (06:28→22:01)
[2021-01-03] MEDS: CARAFATE PO SCH ×4 (06:28→20:19)
--- NOTE | 2021-01-03 07:33 | PCM.PROG ---
Date Seen by Provider: 01/03/21 Time Seen by Provider: 07:05 Subjective: 25 yo AAF HD #2 admitted with Epigastric pain, pain radiating into back, chronic pancreatitis with acute pain and imaging consistent with acute pancreatitis, Diabetes 1 (uncertain dx), uncontrolled HTN, Tobacco use, history of ETOH abuse x 4 years, history of drug abuse/opiate abuse, chronic opiate management now on suboxone, Transaminitis, LANE, Tobacco use. 1 call overnight regarding her hydralazine. I added norvasc 10mg yesterday, avoided thiazides, which can worsen pancreatitis. Nursing notes reviewed. 01/02 discussed the hydralazine. Resume home dosing. I+O #2 voids. IV running 125ml/hour NS +10meq K+CL-. 2222 pain level 6/10 RUQ. Dilaudid 1mg given. 2318 rested quietly. Caution discussed w/ patient 01/02 due to history of opiate abuse. 2349 asked for nausea relief, zofran admin. Tele Sinus tachy through the night. QRS 0.06, pr 0.16. 0123 01/03/21 Pain 9/10 low back. Toradol 30 given. Patient rested comfortably 0327. Nausea meds requested 0632. Zofran given. Labs this am showed WBC 2.57, hgb 17.3, HCT 51.9, plt 133. Reviewed ant 10.4,Neutrophils 1.6. PT/INR/PTT 27.0 01/02/21. Called lab to check on the CBC, they noted CMP tube had hemolyzed and they were going to redraw. A1C this am 7.84 and better than expected. Remainder of lab orders not yet available. Called lab again as noted above, asked to repeat CBC to make sure values are reasonable. Vitals reviewed. Overnight Temp remained afebrile. Pulse rate 96-105. BP 141/92, 143/89, 155/98. RR 18, O2 97-99%. Remote Tele ST and RI/QRS WNL. I+O reviewed. #2 Voids, no mention of BM. As of 7:44 am no additional information. Talked with patient this am. Tension style FRANKLIN is present, bandlike, pressure, pounding neck radiating over top of head. She noted Toradol did help. Asked for something for sleep. I noted a muscle relaxer may help with both problems, Will provide 10mg flexeril, demonstrated stretching. Reviewed her symptoms, she noted mildly looser stool overnight that was not documented. We will reach out to her pain doctor in [place]. She asked for dilaudid to be stopped. WE discussed benefit over morphine, concern for oral agents with her history. I discussed we should continue this agent today. Repeat labs available, lab called 0818. WBC 3.61, hgb 12.0, plt 191. Drop all cell lines c/w hemodilution. Chemistry showed sodium 135.4, K+ 3.13, cl 102, bun 2.7 and creatinine 0.53. glucose 190.4. AST increased to 307.2, alt 183.5, alk phos 180.5. Remainder of labs pending. Changes today: Added K+cl- 20meq BID with meals, flexeril 10mg BID scheduled. Zofran changed from PRN to scheduled. Continued dilaudid 1 q 6. Added thiamine 100mg daily. Patient was checked again at 1700 and doing much better with the muscle relaxer and toradol. I talked with DR. Lin this afternoon and discussed the above with him. The patient was seen this am from [phone] and again [phone]. She tolerated low residue diet for lunch. Will see how she does for dinner and if still doing well d/c in am. She likes this plan. [place] ring glucose, still working on type 1 vs type 2 DM. Per [place] nurse she has not required pain meds most of the day today outside of toradol. REVIEW OF SYMPTOMS: (Positives bolded) General: weight loss, fever, chills, night sweats, fatigue, appetite loss HEENT: blurry vision, eye pain, eye discharge, dry eyes, decreased vision, sore throat tinnitus, bloody nose, hearin gloss, sinus pain/pressure, ear pain/pressure. Respiratory: shortness of breath, cough, hemoptysis, wheezing, pleurisy, Cardiovascular: chest pain, PND, palpitation, edema, orthopnea, syncope, swelling of extremities Gastro: Nausea, vomiting (RESOLVED), diarrhea, hematemesis, abdominal pain, constipation, NSAID use, ETOH use (none in last 6 days). History of Drug addiction. HIV negative 2/10/20 Genito: hematuria, dysuria, glycosuria, hesitancy, frequency, incontinence [place]: Arthralgia, Back pain myalgia, muscle weakness, joint swelling, NSAID use Skin: rash, pruritis, sores, nail changes, skin thickening, change in wart/mole, itching, rash, new lesions, pruritus, nail changes Neuro: Migraine, numbness, ataxia, tremor, vertigo, weakness, memory loss, Irritability, dizziness Endocrine: excessive thirst, polyuria, cold intolerance, heat intolerance, goiter Psychiatric: depression, anxiety, anti-depressants, alcohol abuse, drug abuse, insomnia, change in sleep pattern and mood changes Heme/lymph: easy bruising, bleeding gums, blood clots, swollen glands, lymphedema, Allergic/immune: allergic rhinitis, hay fever, asthma, hives Objective: Vital Signs - 24 hr 01/02/21 08:56 01/02/21 14:01 01/02/21 16:40 Temperature 99.3 F 99.3 F Pulse Rate 104 H 104 H Pulse Rate [Apical] Respiratory Rate 18 18 Blood Pressure 158/113 H 158/113 H O2 Sat by Pulse Oximetry 100 100 01/02/21 18:00 01/02/21 20:00 01/02/21 21:51 Temperature 98.4 F 98.4 F Pulse Rate 95 H 96 H Pulse Rate [Apical] 96 H Respiratory Rate 18 18 Blood Pressure 171/107 H 141/92 H O2 Sat by Pulse Oximetry 100 99 01/03/21 02:00 01/03/21 05:39 Temperature 97.6 F 97.9 F Pulse Rate 89 105 H Pulse Rate [Apical] Respiratory Rate 18 18 Blood Pressure 143/89 H 155/98 H O2 Sat by Pulse Oximetry 98 97 Constitutional: Appearance-No acute distress, Consistent with stated age. Orientation- Oriented x 3, alert Build and Nutrition-[normal ] General- Patient is pleasant and cooperative with the interview and exam. Integumentary: General-No rashes, ulcers or lesions. Palpation- Normal skin moisture/turgor. Skin is warm to touch, appropriate. Capillary refill is normal bilateral Upper and lower extremity. Head/Neck: Head- normocephalic and atraumatic. Neck- without visible/palpable lumps or pulsations. Palpation- No bony tenderness about head/neck along frontal, occipital, temporal, parietal, mastoid, jawline, zygoma, orbit or any other location. NO temporal artery tenderness. No TMJ tenderness. Neck Supple. Thyroid-No thyromegaly, no nodules ENMT: Nares- bilateral quiet airflow, no discharge. Nasal mucosa- No bleeding noted and no ulcerations observed. [place], moist. Turbinates non boggy. Lips- normal color, moist without cracks/lesions Oral Cavity/Palate- hard/soft palate intact without lesions, oral mucosa pink and moist. Tongue normal midline. Oropharynx- no pharyngeal erythema, Uvula midline. No post nasal drip. No exudate. Salivary glands- Non tender to palpation CHEST/LUNG: Inspection- symmetric chest wall no pectus deformity. Normal effort, no distress, no use of accessory muscles. Palpation- nontender sternum, ribline. No abnormal pulsations. Auscultation- Breath sounds normal throughout all lung marino. Normal tracheal sounds, Normal bronchial sounds overlying sternum, Bronchovessicular sounds normal between scapulae posteriorly, Normal vessicular breath sounds heard throughout periphery. Lungs are clear today. Adventitious sounds- No wheezes, rales, rhonchi. CARDIOVASCULAR: Carotid artery- normal, no bruits or abnormal pulsations. Jugular vein- no pulsations. Palpation/Percussion- Normal PMI, no palpable thrill Auscultation- Regular rate and rhythm. No murmur noted in sitting, supine positions. Extremities- no digital clubbing, cyanosis, edema, increased warmth. ABDOMEN: Inspection- normal and no visible pulsations. Unchanged from 01/02/21. Normal contour. Auscultation- Bowel sounds normal, no abdominal bruits. Palpation/Percussion- soft, tender, no rebound tenderness, no rigidity (guarding), no jar tenderness, no masses. Liver-mild hepatomegaly, 3 fingers below costal margin, Spleen no splenomegaly, not palpable. Tender epigastric region, RUQ adn along supraumbilical region. Mcburney negative, rovsing negative. No straie. Peripheral Vascular: Upper extremity Left- Normal temperature with pink nailbeds and no ulcerations. Upper extremity Right- Normal temperature with pink nailbeds and no ulcerations. Lower extremity- Normal temperature with pink nailbeds and no ulcerations. DP pulses 2+ bilaterally. Pedal hair intact. Normal capillary refill. Edema- No edema. Musculoskeletal: Generalized-No generalized swelling or edema of extremities, no digital clubbing or cyanosis, neurovascularly intact all four extremities. Back pain: No spinous process tenderness along C/T/L spine. Paraspinal tenderness present bilaterally along thoracic and lumbar region. Hip flexion 5/5 bilat, knee extension 5/5 bilat, knee flexion 5/5 bilat. Ankle dorsiflexion and plantar flexion 5/5 bilaterally. Hallux strength normal symmetrical, no atrophy. No ankle clonus. Normal reflexes, symmetrical. no foot drop. Normal sensation to light touch bilaterally. FADIR negative bilat, ERICA [negative ]. Piriformis testing [negative bilaterally. ]. Neurological: General- Moves all 4 extremities symmetrically. Symmetrical face and body posture. Cranial nerves- individually evaluated II-XII and intact. PERRLA, Normal EOMI, visual/special senses appear intact, Face is symmetrical and normal sensation/movement, normal tongue, normal strength/posture of neck musculature. Reflexes- intact with DTR 2+ patellar, Achilles, Strength- 5/5 bilateral UE and LE. Soft touch- intact bilateral UE and LE. Temperature sensation- intact bilateral UE and LE. Neuropsych: Oriented- Person, place, time. (AAOx3), Mood/affect- normal and congruent. Able to articulate well. Speech-Normal speech, normal rate, normal tone, normal use of language, volume and coherence. Thought content- normal with ability to perform basic computations and apply abstract thought/reason. Associations- intact, no SI/HI, no hallucinations, delusions, obsessions. Judgment/insight- Appropriate. Memory-Recall intact, remote and recent memory intact. Knowledge- Age appropriate fund of knowledge, concentration and attention span normal. Lymphatic: Head/Neck- normal size and non tender to palpation. Axillary- normal size and non tender to palpation. Femoral and Inguinal- normal size and non tender to palpation. Labs reviewed above in HPI. (1) Epigastric abdominal pain: Status: Acute Code(s): R10.13 - Epigastric pain SNOMED Code(s): 44983017 (2) Elevated lipase: Status: Acute Code(s): R74.8 - Abnormal levels of other serum enzymes SNOMED Code(s): 654510915 (3) Transaminitis: Status: Acute Code(s): R74.01 - Elevation of levels of liver transaminase levels SNOMED Code(s): 139125630 (4) History of alcohol dependence: Status: Acute Code(s): F10.21 - Alcohol dependence, in remission SNOMED Code(s): 488439734 (5) History of drug use: Status: Acute Code(s): Z87.898 - Personal history of other specified conditions SNOMED Code(s): 325743404 (6) Chronic prescription opiate use: Status: Acute Code(s): Z79.891 - salvage determiner (current) use of opiate analgesic SNOMED Code(s): 242785562 (7) Anxiety and depression: Status: Acute Code(s): F41.9 - Anxiety disorder, unspecified; F32.9 - Major depressive disorder, single episode, unspecified SNOMED Code(s): 096721198 (8) Uncontrolled hypertension: Status: Acute Code(s): I10 - Essential (primary) hypertension SNOMED Code(s): 79256054 (9) Hypertriglyceridemia: Status: Acute Code(s): E78.1 - Pure hyperglyceridemia SNOMED Code(s): 253167345 (10) Dyspepsia: Status: Acute Code(s): R10.13 - Epigastric pain SNOMED Code(s): 227454886 (11) Type 1 diabetes mellitus with hyperglycemia, with long-term current use of insulin: Status: Acute Code(s): E10.65 - Type 1 diabetes mellitus with hyperglycemia SNOMED Code(s): 49962254 (12) Proteinuria: Status: Acute Code(s): R80.9 - Proteinuria, unspecified SNOMED Code(s): 58118565 (13) Tobacco abuse: Status: Chronic Code(s): Z72.0 - Tobacco use SNOMED Code(s): 033157289 (14) History of pancreatitis: Status: Inactive Code(s): Z87.19 - Personal history of other diseases of the digestive system SNOMED Code(s): 04702602584375 (15) Acute pancreatitis: Status: Acute Code(s): K85.9 - Acute pancreatitis, unspecified SNOMED Code(s): 878240542 Plan: Epigastric pain, Transaminitis, elevated lipase: DDX today unchanged: Pancreatitis, Gastritis, PUD. Less likely choledoctholithiasis, cholangitis, cholecystitis, hepatitis and SBO/mesenteric ischemia. Pain has been better today. labs AST/ALT are worse. WE will continue to monitor. She is not getting any tylenol at this time. I feel an outpatient GI consult is warranted. We have sent labs for inflammation as well as autoimmune process. These are pending. Pain is improving. 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 no further refills. She tolerated low residue diet for lunch, will continue for dinner and if improving through night plan for d/c in am. Repeat CBC/CMP in am. Await additional send out lab results. Continue hydration with NS+K at 125 1.25 Maintenance as no history of CHF. Still no s/sx of organ failure (no CIERRA/Resp failure/Shock). MIld symptoms based on the above, suggesting low mortality at this time. BISAP repeated today: BUN <25, no impaired MS, SIRS negative, Age <60, no pleural effusion. Low risk. No SIRS at present. Monitor HCT and consider NANCY/MILLE LACS II score tomorrow. We discussed her symptoms support PUD as well as gastritis and can also be seen with ETOH use. Continue to monitor uout. SO far good amounts without specific I+O. Monitor BUN and HCT as noted. Reviewed other labs, trigly are not >1000 and likely not cause. She has admitted ETOH although ETOH negative at admit (sober x 6 days). Discussed AA as outpatient and accountability partner again today. Discussed early feeding. She is not NPO. Discussed clear low residue and advance as tolerated. No ileus noted. Low fat low residue can be used as it is typically as safe as liquid. IV opiates PRN, IV toradol, monitor renal function. - Admit inpatient - Telemetry - CBC/CMP in am. - Await send out labs. - Fluids NS +10meq KCL 125 ml/hour (1.25 maintenance). - OKAY TO CONTINUE SUBOXONE - Dilaudid 1mg q 6 hours. - Zofran 4mg IV q 8 hours. scheduled. - Lovenox DVT prophy 40mg subcut daily. - Added thiamine 100 mg daily - Added flexeril 10mg daily - Added potassium PO BID WM. Essential HTN: Elevated chronically. Most recent 1400 01/03/21 116/70 and WNL. Continue home meds. Will continue norvasc, adjusted hydralazine to be TID 25mg and will continue this. Goal <140/90. Avoid thiazides due to proposed increased risk of pancreatitis. Monitor BP. Chronic Essential HTN not at goal. Good BP control is encouraged with Goal BP based on JNC 8 guidelines of <140/90 for this patient. Reviewed medications and discussed the typical first line agents to include thiazide diuretic or selam-I or ARB or CCB alone or in combo. She is not on thiazide and we will avoid these if able. Monitor cholesterol regularly as outpatient. Statin therapy should be discussed with patient and cholesterol checked as outpatient by PCP. - Continue lisinopril 40mg - Continue hydralazine home medication. - Continue norvasc 10mg. - Monitor overnight, goal is <140/90 but do not need to drop rapidly. Hypokalemia: Will add 20meq BID with MEals K+cl-. Diabetes: Still Unknown if DM 1 or 2. No C-peptide, no LANE abs yet, still pending. F/U with results. Levels of sugars today 167 0601, 234 11, 277 1659. She is on correctional. She will increase to 36 units tonight. Continue lispro 10 units TID. She does not know the type of DM that she is either. Recent a1c reviewed with patient. She is on insulin basal/bolus, continue for now home doses. - LANE abs ordered, c-peptide ordered - A1C reviewed - Incresae home insulin to 36 units basal - Continue meal insulin. History of Drug/Opiate Use: We discussed opiates as a form of pain medication to act as an adjunct to Tylenol, NSAIDS, steroids, topical rubs such as icyhot, bengay, biofreeze, aspercreme, cool/warm compresses, stretching/exercising etc. We discussed pain cream. Discussed to consider f/u with pain management to discuss other options. Opiates are not meant to eliminate pain but rather are designed to facilitate function and improve ADL. We discussed ADL today, discussed goals of therapy. We talked specifically about R/B/A to opiates, to overuse of opiates and dangers of using opiates even at recommended levels. We discussed frequency of visits depends on history and is individualized to the patient. We typically will see patients at least every 1-3 months for focused physical exam to make sure the medical course is stable. There is no published guideline for UDS. This is to reduce diversion, to make sure patient is actually taking them and not using illegal drugs. Random UDS are utilized to reduce chances of cheating the system. Patient can expect minimum of 2 per year sched uled and or random and if any compliance questions are considered. Discussed multiple rx can be given but again case by case basis. There will be no early fills, no after hours fills. We reviewed the level of pain, ADL, any adverse effects, and aberrant drug-related behaviors. We also reviewed personal and family history of substance abuse and discussed appropriate destruction of unwanted Rx. Reviewed risks of tolerance/dependence/addiction. These medications are dangerous and any abnormal behavior may limit our ability to continue these agents. - Dilaudid to be continued cautiously. - D/C with PO meds - Talked with Dr. Lin. Tobacco use: Tobacco Cessation discussed today. We reviewed lifestyle choices and discussed quitting. Ready to quit status discussed. The risks and hazards of continued tobacco abuse were discussed with the patient today and total tobacco cessation as recommended. It was clearly and unambiguously explained that continued tobacco usage will adversely affect overall morbidity and mortality of the patient. Patient was informed that tobacco use can lead to numerous cancers, worsening of cardiovascular and pulmonary systems and that lung damage is often permanent and irreversible. I advised the patient to inform me if any further assistance is requested, as we can offer counseling services, nicotine replacement inhaled, patch, lozenge, gum, or prescription medications to include Chantix or Wellbutrin for assistance. I will reassess the interest in tobacco cessation at the next and all subsequent visits. ETOH Abuse: none in 5 days. Praise given. Monitor with CIWA. Add thiamine 100mg daily. Monitor for symptoms of withdrawal. -thiamine 100mg daily. - AA as outpatient. DVT prophy: Lovenox 40mg subcutanous daily. Diet: Advance as tolerated. low residue diet. Disposition: Patient presenting with acute on chronic process/abdominal pain. Pancreatitis, PUD, gastritis, chronic opiate use, on suboxone. Would benefit from outpatient eval by GI for ?ERCP/EUS. 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 Epigastric pain may be as likely PUD as pancreatitis with history listed above. No e/o pseudocyst at this time. Again considered genetic testing in future gamaglobulins, SPINK1, PRRS1 due to young age and consider alpha 1 antitrypisin as well as CFTR (AAF makes it less likely). Needs to avoid ETOH and tobacco. Outpatient evaluation encouraged. If autoimmune process GC can be helpful as well as some immune modulators. 42 minutes spent rounding on patient, eval on floor x2, discussing with nursing, with patient, review of last OV, last labs, discussion with Opiate management doctor today.
[2021-01-03 08:04] LABS: ALANINE AMINOTRANSFERASE 183.5 U/L (0-35); ALBUMIN 4.2 g/dL (3.5-5.0); ALKALINE PHOSPHATASE 180.5 U/L (38-126); ASPARTATE AMINO TRANSFERASE 307.2 U/L (14-36); BILIRUBIN,TOTAL 0.8 mg/dL (0.2-1.3); BLOOD UREA NITROGEN 2.7 mg/dL (7-17); CALCIUM 8.61 mg/dL (8.4-10.2); CARBON DIOXIDE 24.1 mmol/L (22-30.0); CREATININE 0.53 mg/dL (0.60-1.30); GLUCOSE 190.4 mg/dL (74-106); POTASSIUM 3.13 mmol/L (3.5-5.1); SODIUM 135.4 mmol/L (134.5-145); TOTAL PROTEIN 7.19 g/dL (6.3-8.2)
[2021-01-03] MEDS: FLONASE NAS SCH (08:10)
[2021-01-03] MEDS: NORVASC PO SCH (08:11)
[2021-01-03] MEDS: APRESOLINE PO SCH ×3 (08:11→20:19)
[2021-01-03] MEDS: BUSPAR PO SCH ×3 (08:12→20:19)
[2021-01-03] MEDS: TOPROL XL PO SCH (08:12)
[2021-01-03] MEDS: LOVENOX SUBCUT SCH (08:12)
[2021-01-03] MEDS: HUMALOG SUBCUT SCH ×4 (08:13→20:27)
[2021-01-03 08:15] LABS: BASOPHILS % (AUTO) 0.3 % (0.0-3.0); EOSINOPHILS % (AUTO) 1.1 % (0.0-7.0); HEMATOCRIT 35.7 % (37.0-47.0); IMMATURE GRANULOCYTE % (AUTO) 0.3 % (0.0-5.0); LYMPHOCYTES # (AUTO) 0.9 K/uL (0.60-3.4); MEAN CORPUSCULAR HEMOGLOBIN 32.2 pg (27.0-31.0); MEAN CORPUSCULAR HGB CONC 33.6 (31.8-35.4); MEAN CORPUSCULAR VOLUME 95.7 fl (81.0-99.0); MONOCYTES # (AUTO) 0.3 K/uL (0.4-2.0); MONOCYTES % (AUTO) 9.4 (0-10); NEUTROPHILS # (AUTO) 2.3 K/ul (2.0-6.9); NEUTROPHILS % (AUTO) 62.9 % (42.2-75.2); PLATELET COUNT 191 10^3/uL (140-440); RDW COEFFICIENT OF VARIATION 13.5 % (11.6-14.8); RED BLOOD COUNT 3.73 10^6/ul (4.20-5.40); WHITE BLOOD COUNT 3.61 K/ul (4.6-10.2)
[2021-01-03] MEDS: PEPCID IVP SCH ×2 (08:31→20:46)
[2021-01-03] MEDS ORDERED: BUPRENORPHINE NALOXONE SL SCH ×2 (09:00→10:15)
[2021-01-03] MEDS ORDERED: THIAMINE PO SCH (09:00)
[2021-01-03] MEDS ORDERED: ZESTRIL PO SCH (09:00)
[2021-01-03] MEDS ORDERED: LEXAPRO PO SCH (09:00)
[2021-01-03] MEDS: K-DUR PO SCH ×2 (10:14→17:09)
[2021-01-03] MEDS: FLEXERIL PO SCH ×2 (10:30→20:20)
[2021-01-03] MEDS: LANTUS SUBCUT SCH (18:10)
[2021-01-03] MEDS ORDERED: LANTUS SUBCUT SCH (21:00)
[2021-01-04] MEDS: TORADOL IVP PRN (01:15)
[2021-01-04 02:06] VITALS: TEMP 98.6
[2021-01-04] MEDS ORDERED: POTASSIUM CHLORIDE 10 MEQ VIAL- ADDITIVE ONLY IV ONE (04:27)
[2021-01-04] MEDS: POTASSIUM CHLORIDE 10 MEQ VIAL- ADDITIVE ONLY 10 MEQ in SODIUM CHLORIDE 1,000 ML IV SCH (04:30)
[2021-01-04 05:39] LABS: BASOPHILS % (AUTO) 0.5 % (0.0-3.0); EOSINOPHILS # (AUTO) 0.1 K/ul (0.0-0.7); EOSINOPHILS % (AUTO) 1.4 % (0.0-7.0); HEMATOCRIT 32.4 % (37.0-47.0); HEMOGLOBIN 11.1 g/dl (12.0-16.0); LYMPHOCYTES # (AUTO) 1.6 K/uL (0.60-3.4); LYMPHOCYTES % (AUTO) 37.7 (10.0-50.0); MEAN CORPUSCULAR HEMOGLOBIN 33.4 pg (27.0-31.0); MEAN CORPUSCULAR HGB CONC 34.3 (31.8-35.4); MEAN CORPUSCULAR VOLUME 97.6 fl (81.0-99.0); MONOCYTES # (AUTO) 0.4 K/uL (0.4-2.0); MONOCYTES % (AUTO) 8.7 (0-10); NEUTROPHILS # (AUTO) 2.2 K/ul (2.0-6.9); NEUTROPHILS % (AUTO) 51.7 % (42.2-75.2); PLATELET COUNT 202 10^3/uL (140-440); RDW COEFFICIENT OF VARIATION 13.4 % (11.6-14.8); RED BLOOD COUNT 3.32 10^6/ul (4.20-5.40); WHITE BLOOD COUNT 4.24 K/ul (4.6-10.2)
[2021-01-04] MEDS: CARAFATE PO SCH (05:43)
[2021-01-04 05:58] LABS: ALANINE AMINOTRANSFERASE 130.1 U/L (0-35); ALBUMIN 3.85 g/dL (3.5-5.0); ALKALINE PHOSPHATASE 125.2 U/L (38-126); ASPARTATE AMINO TRANSFERASE 114.3 U/L (14-36); BILIRUBIN,TOTAL 0.61 mg/dL (0.2-1.3); BLOOD UREA NITROGEN 2.6 mg/dL (7-17); CALCIUM 8.54 mg/dL (8.4-10.2); CARBON DIOXIDE 31.3 mmol/L (22-30.0); CHLORIDE 102.2 mmol/L (98-107); CREATININE 0.6 mg/dL (0.60-1.30); GLUCOSE 77.7 mg/dL (74-106); POTASSIUM 3.12 mmol/L (3.5-5.1); SODIUM 138.9 mmol/L (134.5-145); TOTAL PROTEIN 6.51 g/dL (6.3-8.2)
[2021-01-04 06:08] VITALS: BP 133/93
[2021-01-04] MEDS: HUMALOG SUBCUT SCH (06:25)
--- NOTE | 2021-01-04 08:07 | PCM.DC ---
Final Diagnosis: Epigastric Pain (PUD vs Gastritis) Elevated lipase Acute on chronic pancreatitis Transaminitis (improving) Anemia Hypokalemia History of substance use Addictive personality disorder ETOH abuse (sober 7 days) Tobacco abuse. Diabetes Type 1 (workup ordered for LANE abs/C-Peptide and pending) Anxiety and depression Essential HTN (NEWLY ADDED [facility]OS[facility]ITAL) (1) Epigastric abdominal pain: Status: Acute Code(s): R10.13 - Epigastric pain SNOMED Code(s): 54944445 (2) Elevated lipase: Status: Acute Code(s): R74.8 - Abnormal levels of other serum enzymes SNOMED Code(s): 221554825 (3) Transaminitis: Status: Acute Code(s): R74.01 - Elevation of levels of liver transaminase levels SNOMED Code(s): 930710353 (4) History of alcohol dependence: Status: Acute Code(s): F10.21 - Alcohol dependence, in remission SNOMED Code(s): 728411170 (5) History of drug use: Status: Acute Code(s): Z87.898 - Personal history of other specified conditions SNOMED Code(s): 683678866 (6) Chronic prescription opiate use: Status: Acute Code(s): Z79.891 - penitentiary (current) use of opiate analgesic SNOMED Code(s): 428566170 (7) Anxiety and depression: Status: Acute Code(s): F41.9 - Anxiety disorder, unspecified; F32.9 - Major depressive disorder, single episode, unspecified SNOMED Code(s): 882038497 (8) Uncontrolled hypertension: Status: Acute Code(s): I10 - Essential (primary) hypertension SNOMED Code(s): 19443078 (9) Hypertriglyceridemia: Status: Acute Code(s): E78.1 - Pure hyperglyceridemia SNOMED Code(s): 301943238 (10) Dyspepsia: Status: Acute Code(s): R10.13 - Epigastric pain SNOMED Code(s): 745649831 (11) Type 1 diabetes mellitus with hyperglycemia, with long-term current use of insulin: Status: Acute Code(s): E10.65 - Type 1 diabetes mellitus with hyperglycemia SNOMED Code(s): 29362408 (12) Proteinuria: Status: Acute Code(s): R80.9 - Proteinuria, unspecified SNOMED Code(s): 91248148 Qualifiers: Proteinuria type: unspecified Qualified Code(s): R80.9 - Proteinuria, unspecified (13) Tobacco abuse: Status: Chronic Code(s): Z72.0 - Tobacco use SNOMED Code(s): 696567720 (14) History of pancreatitis: Status: Inactive Code(s): Z87.19 - Personal history of other diseases of the digestive system SNOMED Code(s): 39999073070276 (15) Acute pancreatitis: Status: Acute Code(s): K85.9 - Acute pancreatitis, unspecified SNOMED Code(s): 206741736 Reason for Hospitalization: Epigastric pain, CT scan suggesting pancreatitis, elevated Lipase, unable to tolerate PO liquids/solids requiring IV abx at a rate >100ml/hour. Prognosis at Discharge: Good. Needs f/u with specialist regarding ?pancreatitis chronically. Age and short life of ETOH use (4 years) suggests alternative dx are possible. Referral for liver/pancreas evaluation encouraged. Autoimmune process should be considered in light of DM 1 diagnosis (w/u for this underway as well). Condition at Discharge: Improved pain, tolerating low residue low fat diet without pain. Tolerating liquids PO, meds PO. Maximal benefit from hospital stay, d/c today with f/u 01/12/21 at 1100 with [facility] Parisi. Medications at Discharge: Ambulatory Orders Medication Instructions Recorded Mirena 1 insert VAGINAL DIRECTED 01/05/18 buprenorphine-naloxone [Suboxone] 0.5 ea SUBLINGUAL DAILY 04/15/19 fluticasone propionate 50 2 spray ALEC QDAY #9.9 gm 03/13/20 mcg/actuation nasal spray,suspension insulin lispro 100 unit/mL 10 unit SUBCUT QID 30 Days #12 ml 03/13/20 subcutaneous solution alcohol swabs 1 pad TP TID #100 each 08/14/20 metoprolol succinate 50 mg 50 mg PO DAILY #90 tab 09/04/20 tablet,extended release 24 hr blood sugar diagnostic See Rx Instructions .ROUTE 10/25/20 .COMPLEX #100 strip lisinopril 40 mg tablet 40 mg PO QDAY #90 tab 11/06/20 pen needle, diabetic 32 gauge x See Rx Instructions .ROUTE 11/12/20" .COMPLEX #200 ea escitalopram oxalate 10 mg tablet 10 mg PO QDAY #30 tab 12/04/20 hydralazine 25 mg tablet 25 mg PO TID PRN #90 tab 12/04/20 buspirone 5 mg tablet 5 mg PO TID #90 tab 01/02/21 insulin glargine [Lantus Solostar 34 unit SUBCUT BEDTIME 01/03/21 U-100 Insulin] amlodipine 10 mg PO DAILY #30 tab 01/04/21 cyclobenzaprine 10 mg PO BID #30 tab 01/04/21 ketorolac 10 mg PO TID 5 Days #15 tab 01/04/21 omeprazole 20 mg PO BID #60 cap 01/04/21 oxycodone-acetaminophen [Percocet] 1 tab PO TID PRN #15 tab 01/04/21 potassium chloride [Klor-Con M20] 20 meq PO BIDWM #60 tab 01/04/21 sucralfate 1 g PO QACHS #40 tab 01/04/21 thiamine HCl (vitamin B1) 100 mg PO DAILY #30 tab 01/04/21 Lab/Diagnostics: Laboratory Last Values WBC 4.24 K/ul (4.6-10.2) L 01/04/21 05:12 RBC 3.32 10^6/ul (4.20-5.40) L 01/04/21 05:12 Hgb 11.1 g/dl (12.0-16.0) L 01/04/21 05:12 Hct 32.4 % (37.0-47.0) L 01/04/21 05:12 MCV 97.6 fl (81.0-99.0) 01/04/21 05:12 MCH 33.4 pg (27.0-31.0) H 01/04/21 05:12 MCHC 34.3 (31.8-35.4) 01/04/21 05:12 RDW Coeff of Mainor 13.4 % (11.6-14.8) 01/04/21 05:12 Plt Count 202 10^3/uL (140-440) 01/04/21 05:12 Immature Gran % (Auto) 0.0 % (0.0-5.0) 01/04/21 05:12 Neut % (Auto) 51.7 % (42.2-75.2) 01/04/21 05:12 Lymph % (Auto) 37.7 (10.0-50.0) 01/04/21 05:12 [place] % (Auto) 8.7 (0-10) 01/04/21 05:12 Eos % (Auto) 1.4 % (0.0-7.0) 01/04/21 05:12 Baso % (Auto) 0.5 % (0.0-3.0) 01/04/21 05:12 Neut # (Auto) 2.2 K/ul (2.0-6.9) 01/04/21 05:12 Lymph # (Auto) 1.6 K/uL (0.60-3.4) 01/04/21 05:12 [place] # (Auto) 0.4 K/uL (0.4-2.0) 01/04/21 05:12 Eos # (Auto) 0.1 K/ul (0.0-0.7) 01/04/21 05:12 Baso # (Auto) 0.0 K/uL (0-0.2) 01/04/21 05:12 Immature Gran # (Auto) 0.0 (0.0-1.0) 01/04/21 05:12 PT 10.4 SEC (9.3-11.0) 01/02/21 17:55 INR 0.98 SI (0.0-3.9) 01/02/21 17:55 APTT 27.0 SEC (23.9-40.0) 01/02/21 17:55 Puncture Site L brach 01/02/21 10:59 Base Excess -5.8 (-2.0-3.0) L 01/02/21 10:59 O2 Saturation 96.4 % (94-98) 01/02/21 10:59 ABG pH 7.34 (7.35-7.45) L 01/02/21 10:59 ABG pCO2 37.0 mmHg (35-45) 01/02/21 10:59 ABG pO2 90.0 mmHg (85-100) 01/02/21 10:59 ABG HCO3 20.0 (21-28) L 01/02/21 10:59 ABG Total CO2 21.1 (19-24) 01/02/21 10:59 Abhishek Test + 01/02/21 10:59 Hemoglobin 1.1 (0-1.5) 01/02/21 10:59 Oxyhemoglobin 94.1 % (95-100) L 01/02/21 10:59 Carboxyhemoglobin 3.4 (0.5-1.5) H 01/02/21 10:59 Total Hemoglobin 13.6 g/dl (11.7-17.4) 01/02/21 10:59 O2 Delivery Device Room air 01/02/21 10:59 FiO2 % 21.0 % 01/02/21 10:59 Sodium 138.9 mmol/L (134.5-145) 01/04/21 05:12 Potassium 3.12 mmol/L (3.5-5.1) L 01/04/21 05:12 Chloride 102.2 mmol/L (98-107) 01/04/21 05:12 Carbon Dioxide 31.3 mmol/L (22-30.0) H D 01/04/21 05:12 Anion Gap 8.52 01/04/21 05:12 BUN 2.6 mg/dL (7-17) L 01/04/21 05:12 Creatinine 0.60 mg/dL (0.60-1.30) 01/04/21 05:12 Estimated GFR (MDRD) 145.00 mL/min 01/04/21 05:12 BUN/Creatinine Ratio 4.33 01/04/21 05:12 Glucose 77.7 mg/dL (74-106) D 01/04/21 05:12 Hemoglobin A1c 7.84 (4.0-6.0) H 01/03/21 05:05 Lactic Acid 1.05 mmol/L (0.7-2.1) 01/02/21 10:50 Calcium 8.54 mg/dL (8.4-10.2) 01/04/21 05:12 Magnesium 1.83 mg/dL (1.6-2.3) 01/04/21 05:12 Total Bilirubin 0.61 mg/dL (0.2-1.3) 01/04/21 05:12 AST 114.3 U/L (14-36) H D 01/04/21 05:12 ALT 130.1 U/L (0-35) H D 01/04/21 05:12 Alkaline Phosphatase 125.2 U/L (38-126) D 01/04/21 05:12 Total Protein 6.51 g/dL (6.3-8.2) 01/04/21 05:12 Albumin 3.85 g/dL (3.5-5.0) 01/04/21 05:12 Globulin 2.66 01/04/21 05:12 Albumin/Globulin Ratio 1.44 01/04/21 05:12 Amylase 69.5 U/L (30-110) 01/02/21 08:26 Lipase 414.8 U/L (23-300) H 01/02/21 08:26 Serum , Qual Negative (NEGATIVE) 01/02/21 08:26 Urine Color Yellow (YELLOW) 01/02/21 08:20 Urine Clarity Clear (CLEAR) 01/02/21 08:20 Urine pH 6.0 (5-9) 01/02/21 08:20 Ur Specific [place] >=1.030 (1.005-1.030) 01/02/21 08:20 Urine Protein 2+ (NEGATIVE) H 01/02/21 08:20 Urine Glucose (UA) 2+ (NEGATIVE) H 01/02/21 08:20 Urine Ketones 3+ (NEGATIVE) H 01/02/21 08:20 Urine Blood 2+ (NEGATIVE) H 01/02/21 08:20 Urine Nitrite Negative (NEGATIVE) 01/02/21 08:20 Urine Bilirubin 1+ (NEGATIVE) H 01/02/21 08:20 Urine Urobilinogen 0.2 (0.2) 01/02/21 08:20 Ur Leukocyte Esterase Negative (NEGATIVE) 01/02/21 08:20 Urine Microscopic RBC 2-5 (0-2) 01/02/21 08:20 Ur Squamous Epith Cells 10-20 (0-5) 01/02/21 08:20 Urine Mucus 2+ (NOT PRESENT) 01/02/21 08:20 Urine Opiates Screen Positive (NEGATIVE) H 01/02/21 08:20 Ur Oxycodone Screen Negative (NEGATIVE) 01/02/21 08:20 Urine Methadone Screen Negative (NEGATIVE) 01/02/21 08:20 Ur Propoxyphene Screen Negative (NEGATIVE) 01/02/21 08:20 Ur Barbiturates Screen Negative (NEGATIVE) 01/02/21 08:20 U Tricyclic Antidepress Negative (NEGATIVE) 01/02/21 08:20 Ur Phencyclidine Scrn Negative (NEGATIVE) 01/02/21 08:20 Ur Amphetamine Screen Negative (NEGATIVE) 01/02/21 08:20 U Methamphetamines Scrn Negative (NEGATIVE) 01/02/21 08:20 U Benzodiazepines Scrn Negative (NEGATIVE) 01/02/21 08:20 Urine Cocaine Screen Negative (NEGATIVE) 01/02/21 08:20 U Cannabinoids Screen Negative (NEGATIVE) 01/02/21 08:20 Plasma/Serum Alcohol < 10.0 mg/dL (0.0-50.0) 01/02/21 08:24 Adenovirus (PCR) Not detected (NOT DETECT) 01/02/21 11:20 B. pertussis DNA (PCR) Not detected (NOT DETECT) 01/02/21 11:20 B.parapertussis DNA PCR Not detected (NOT DETECT) 01/02/21 11:20 C. pneumoniae DNA (PCR) Not detected (NOT DETECT) 01/02/21 11:20 Coronavirus OC43 (PCR) Not detected (NOT DETECT) 01/02/21 11:20 Coronavirus HKU1 (PCR) Not detected (NOT DETECT) 01/02/21 11:20 Coronavirus 229E (PCR) Not detected (NOT DETECT) 01/02/21 11:20 Coronavirus NL63 (PCR) Not detected (NOT DETECT) 01/02/21 11:20 Human Metapneumovir PCR Not detected (NOT DETECT) 01/02/21 11:20 Influenza Type A (PCR) Not detected (NOT DETECT) 01/02/21 11:20 Influenza B (RT-PCR) Not detected (NOT DETECT) 01/02/21 11:20 M. pneumoniae (PCR) Not detected (NOT DETECT) 01/02/21 11:20 Parainfluenza 1 (PCR) Not detected (NOT DETECT) 01/02/21 11:20 Parainfluenza 2 (PCR) Not detected (NOT DETECT) 01/02/21 11:20 Parainfluenza 3 (PCR) Not detected (NOT DETECT) 01/02/21 11:20 Parainfluenza 4 (PCR) Not detected (NOT DETECT) 01/02/21 11:20 RSV (PCR) Not detected (NOT DETECT) 01/02/21 11:20 Entero/Rhino (PCR) Not detected (NOT DETECT) 01/02/21 11:20 SARS-CoV-2 (PCR) Not detected (NOT DETECT) 01/02/21 11:20 Mild residual inflammatory changes are seen along the pancreas and this may represent improving pancreatitis. Recurrent pancreatitis cannot be excluded. There is no bowel obstruction. No definite fluid collections are seen. Education Provided to Patient and Family: 1. Pancreatitis 2. PUD 3. Opiates 4. ETOH abuse 5. Tobacco 6. New Medications: Carafate/Prilosec/Toradol/Percocet/Thiamine Follow-ups: 1. JUDICIAL CLERK Sury Parisi 11 am on 01/12/21. Discharge Disposition: Home Hospital Course: 25 yo AAF HD #3. Pancreatitis, PUD/GERD, Epigastric pain, pain radiating into back, chronic pancreatitis with acute pain and imaging consistent with acute pancreatitis, Diabetes 1 (uncertain dx), uncontrolled HTN, Tobacco use, history of ETOH abuse x 4 years, history of drug abuse/opiate abuse, chronic opiate management now on suboxone, Transaminitis, LANE, Tobacco use. ON nursing notes reviewed. 1738 Rosa Elena hortencia updated insulin regimen. 365 at 1935 01/03/21. 22:17 JAMMIE Butterfield nausea noted Zofran given. Tele monitoring sinus tachy persists. QRS and NJ unchanged. 0116 am 01/04/21 pain requested toradol given and pain improved from 5/10 to 2/10. AM labs showed WBC increased to 4.24 from 3.61 yesterday. Hgb 11.1 and mildly low. Likely dilutional from fluids. Plt up a little from 191 to 202 and stable. Potassium remains low at 3.12 was 3.13 yesterday. I have ordered K+ BID with meals, she has K+ inside of her fluids as well. Will add a magnesium level. Glucose this am was 77. Was 190 yesterday. AST improved from 307 to 114.3. ALT improved from 183 to 130. Alk phos normal now down from 180.5 yesterday to 125.2. Vitals reviewed. RR was 18 and O2 97-99% on RA. Tele reviewed. Remains afebrile since yesterday. No fever entire stay. HR last 24 hours showed 78-105. BP seems markedly better. 1400 01/03 116/70, 133/88 at 1800, 138/88 at 21:42, 125/77 at 0200 01/04 and then 133/93 this am. Norvasc seems to be working well. We increased insulin to 36 units last night. We will plan to try to get her set up with DexCom or jarvis at d/c. No BM during hospital stay. Voids 4 01/03, #3 01/04/21. Pending labs: GONZALES w/ Reflex, Anti-Mitochondrial Abs, C-Peptide, CRP, LANE, Mg++, IgG4 Immunoglobulin 4. With her young age and relative short drinking history of ~4 years, chronic pancreatitis is an interesting status for her. Autoimmune pancreatitis, Autoimmune diabetes will start to be worked up. Will benefit from outpatient GI referral for possible ERCP/EUS and eval for possible AI hepatitis as well (transaminitis during hospital stay). Complicated scenario based on her history of substance use. She has an addictive style personality. I have talked with pain management team, will continue the suboxone. Provide 5 days of TID Percocet. She will not get any further refills from us. She is aware and thankful. Symptoms are now better, she has reached maximal benefit from hospital stay and will plan to d/c home this am. We will cover with toradol PO, cover with Percocet PO. Continue thiamine 100mg daily. Avoid ETOH highly encouraged with patient. Dispose of ETOH when you get home. Await the labs listed above. No additional imaging beyond CT abdomen done at admission. Admitted for Poor PO intake and pain control. She is improving tolerating PO and now eating low residue diet. Lovenox was utilized for DVT prophy. She was started on Carafate and PPI, will continue these for a week as well due to concern over possible PUD. GI referral as outpatient needed. Will have her f/u in clinic in next 1 week. Plan Friday01/12/21 with WIN Ga at 1100. She was given a controlled Rx destruction bag as well. Day of d/c exam Vital Signs - 24 hr 01/03/21 10:00 01/03/21 14:00 01/03/21 18:00 Temperature 97.6 F 97.9 F 97.6 F Pulse Rate 94 H 90 99 H Pulse Rate [Apical] Respiratory Rate 14 18 20 Blood Pressure 148/98 H 116/70 133/88 O2 Sat by Pulse Oximetry 100 97 100 01/03/21 20:00 01/03/21 21:42 01/04/21 02:00 Temperature 99.1 F 98.6 F Pulse Rate 91 H 82 Pulse Rate [Apical] 81 Respiratory Rate 18 18 Blood Pressure 138/88 125/77 O2 Sat by Pulse Oximetry 99 97 01/04/21 06:00 Temperature 98.6 F Pulse Rate 78 Pulse Rate [Apical] Respiratory Rate 18 Blood Pressure 133/93 H O2 Sat by Pulse Oximetry 99 REVIEW OF SYMPTOMS: (Positives bolded) General: weight loss, fever, chills, night sweats, fatigue, appetite loss HEENT: blurry vision, eye pain, eye discharge, dry eyes, decreased vision, sore throat tinnitus, bloody nose, hearin gloss, sinus pain/pressure, ear pain/pressure. Respiratory: shortness of breath, cough, hemoptysis, wheezing, pleurisy, Cardiovascular: chest pain, PND, palpitation, edema, orthopnea, syncope, swelling of extremities Gastro: Nausea, vomiting (RESOLVED), diarrhea, hematemesis, abdominal pain, constipation, NSAID use, ETOH use (none in last 7 days). History of Drug addiction. HIV negative 09/13/19 Genito: hematuria, dysuria, glycosuria, hesitancy, frequency, incontinence [place]: Arthralgia, Back pain myalgia, muscle weakness, joint swelling, NSAID use Skin: rash, pruritis, sores, nail changes, skin thickening, change in wart/mole, itching, rash, new lesions, pruritus, nail changes Neuro: Migraine, numbness, ataxia, tremor, vertigo, weakness, memory loss, Irritability, dizziness Endocrine: excessive thirst, polyuria, cold intolerance, heat intolerance, goiter Psychiatric: depression, anxiety, anti-depressants, alcohol abuse, drug abuse, insomnia, change in sleep pattern and mood changes Heme/lymph: easy bruising, bleeding gums, blood clots, swollen glands, lymphedema, Allergic/immune: allergic rhinitis, hay fever, asthma, hives Reported symptoms above are 50-75% better. She notes minimal pain in back and abdomen this am. Toradol is helping. Constitutional: Appearance-No acute distress, Consistent with stated age. Orientation- Oriented x 3, alert Build and Nutrition-[normal ] General- Patient is pleasant and cooperative with the interview and exam. Integumentary: General-No rashes, ulcers or lesions. Palpation- Normal skin moisture/turgor. Skin is warm to touch, appropriate. Capillary refill is normal bilateral Upper and lower extremity. Head/Neck: Head- normocephalic and atraumatic. Neck- without visible/palpable lumps or pulsations. Palpation- No bony tenderness about head/neck along fronta l, occipital, temporal, parietal, mastoid, jawline, zygoma, orbit or any other location. NO temporal artery tenderness. No TMJ tenderness. Neck Supple. Thyroid-No thyromegaly, no nodules ENMT: Nares- bilateral quiet airflow, no discharge. Nasal mucosa- No bleeding noted and no ulcerations observed. [place], moist. Turbinates non boggy. Lips- normal color, moist without cracks/lesions Oral Cavity/Palate- hard/soft palate intact without lesions, oral mucosa pink and moist. Tongue normal midline. Oropharynx- no pharyngeal erythema, Uvula midline. No post nasal drip. No exudate. Salivary glands- Non tender to palpation CHEST/LUNG: Inspection- symmetric chest wall no pectus deformity. Normal effort, no distress, no use of accessory muscles. Palpation- nontender sternum, ribline. No abnormal pulsations. Auscultation- Breath sounds normal throughout all lung marino. Normal tracheal sounds, Normal bronchial sounds overlying sternum, Bronchovessicular sounds normal between scapulae posteriorly, Normal vessicular breath sounds heard throughout periphery. Lungs are clear today. Adventitious sounds- No wheezes, rales, rhonchi. CARDIOVASCULAR: Carotid artery- normal, no bruits or abnormal pulsations. Jugular vein- no pulsations. Palpation/Percussion- Normal PMI, no palpable thrill Auscultation- Regular rate and rhythm. No murmur noted in sitting, supine positions. Extremities- no digital clubbing, cyanosis, edema, increased warmth. ABDOMEN: Inspection- normal and no visible pulsations. Normal contour. Auscultation- Bowel sounds normal, no abdominal bruits. Palpation/Percussion- soft, non tender this am, no rebound tenderness, no rigidity (guarding), no jar tenderness, no masses. Liver-mild hepatomegaly, 3 fingers below costal margin, Spleen no splenomegaly, not palpable. Still mild discomfort epigastric region but not painful. Peripheral Vascular: Upper extremity Left- Normal temperature with pink nailbeds and no ulcerations. Upper extremity Right- Normal temperature with pink nailbeds and no ulcerations. Lower extremity- Normal temperature with pink nailbeds and no ulcerations. DP pulses 2+ bilaterally. Pedal hair intact. Normal capillary refill. Edema- No edema. Musculoskeletal: Generalized-No generalized swelling or edema of extremities, no digital clubbing or cyanosis, neurovascularly intact all four extremities. Back pain: No spinous process tenderness along C/T/L spine. Paraspinal tenderness present bilaterally along thoracic and lumbar region. Tension FRANKLIN reported yesterday resolved. Normal Hip ROM, knee Rom, str normal bilateral UE and LE. Neuropsych: Oriented- Person, place, time. (AAOx3), Mood/affect- normal and congruent. Able to articulate well. Speech-Normal speech, normal rate, normal tone, normal use of language, volume and coherence. Thought content- normal with ability to perform basic computations and apply abstract thought/reason. Associations- intact, no SI/HI, no hallucinations, delusions, obsessions. Judgment/insight- Appropriate. Memory-Recall intact, remote and recent memory intact. Knowledge- Age appropriate fund of knowledge, concentration and attention span normal. Plan: 1. Outpatient f/u [facility] Friday 11am 01/12/21. 2. Referral to GI as outpatient 3. Set up for Dexcom 4. Await hospital labs (pending GONZALES w/ Reflex, Anti-Mitochondrial Abs, C-Pe ptide, CRP, LANE, Mg++, IgG4 Immunoglobulin 4.) 5. Avoid ETOH 6. Avoid Tobacco (CESSATION ENCOURAGED) 7. Opiate dependence Continue f/u with DR. Lin. Carafate x 10 days. Prilosec x 30 days (14 days BID then drop to daily). 5 days of percocet. BULK DRIVER printed. [facility] disposal bag provided for patient. Dispose of ETOH at home. Tobacco cessation encouraged. - We will need to follow up on pending hospital labs as listed above. Hospital discharge 32 minutes.
[2021-01-04 10:21] LABS: C-PEPTIDE 0.3 ng/mL (1.1-4.4)
[2021-01-04 14:11] LABS: ANA DIRECT Negative (Negative)
[2021-01-05 16:19] LABS: GAD AUTOANTIBODY < 5.0 U/mL (0.0-5.0)
== END 2021-01-04 09:15 | disposition home or self-care (01) | DRG 639 ==
LOC: ED 07:24 → MEDSURG A 12:30
PROVIDERS: ADMIT Emergency Medicine; ATTEND Family Medicine
DX: R80.9 Proteinuria, unspecified; R74.8 Abnormal levels of other serum enzymes; Z72.0 Tobacco use; Z79.891 Long term (current) use of opiate analgesic; Z87.19 Personal history of other diseases of the digestive system; R74.01 Elevation of levels of liver transaminase levels; M54.9 Dorsalgia, unspecified; E10.9 Type 1 diabetes mellitus without complications; F10.21 Alcohol dependence, in remission; R11.2 Nausea with vomiting, unspecified; I10 Essential (primary) hypertension; R53.1 Weakness; Z87.898 Personal history of other specified conditions; R10.13 Epigastric pain; F41.9 Anxiety disorder, unspecified; Z20.822 Contact with and (suspected) exposure to COVID-19; E10.65 Type 1 diabetes mellitus with hyperglycemia; F32.9 Major depressive disorder, single episode, unspecified; E78.1 Pure hyperglyceridemia

== ENCOUNTER 2021-05-02 00:06 | Inpatient (IN) ==
[2021-05-02] MEDS ORDERED: MORPHINE 4 MG/ML SYRINGE IVP STA (00:26)
[2021-05-02] MEDS ORDERED: LACTATED RINGERS 1,000 ML IV STA (00:26)
[2021-05-02] MEDS ORDERED: ZOFRAN 4 MG/2 ML IVP STA (00:26)
[2021-05-02] MEDS ORDERED: PROTONIX IV IVP STA (00:26)
--- NOTE | 2021-05-02 00:29 | ED.PDOC ---
General ED Provider: Dr. RODRÍGUEZ MAC Chief Complaint: Abdominal Pain Stated Complaint: comes to the ER with a 3 day history of abdominal pain nausea vomiting and diarrhea. Time Seen by Provider: 05/02/21 00:24 Mode of Arrival: Walk-In Information Source: Patient Exam Limitations: No limitations Primary Care Provider: LEIGHTON WALKER APRN, FNP-BC Nursing and Triage Documentation Reviewed and Agree: Yes Does patient meet sepsis criteria?: No System Inflammatory Response Syndrome: Not Applicable Sepsis Protocol: For patient's 13 years and over: Temp is 96.8 and below OR 101 and greater Pulse >90 BPM Resp >20/minute Acutely Altered Mental Status Are patient's symptoms suggestive of a new infection, such as: -Pneumonia -Skin, Soft Tissue -Endocarditis -UTI -Bone, Joint Infection -Implantable Device -Acute Abdominal Infection -Wound Infection -Meningitis -Blood Stream Catheter Infection -Unknown Review of Systems Review Of Systems Constitutional: Reports No symptoms Eyes: Reports No symptoms Ears, Nose, Mouth, Throat: Reports No symptoms Respiratory: Reports No symptoms Cardiac: Reports No symptoms GI: Reports Abdominal pain, Diarrhea, Nausea and Vomiting : Reports No symptoms Musculoskeletal: Reports No symptoms Skin: Reports No symptoms Neurological: Reports Anxiety Endocrine: Reports No symptoms All Other Systems: Reviewed and Negative [facility] Medical History Acute effusion of left ear Alcohol use Anxiety and depression Drug abuse Elevated LFTs Encounter for diabetic foot exam Fatigue Follow-up exam after treatment Generalized anxiety disorder Glucosuria Hematuria History of alcohol dependence History of COVID-19 History of pancreatitis Hypertension Hypertriglyceridemia Left ear pain Loss of smell Loss of taste Proteinuria Snoring Tobacco abuse Type 1 diabetes mellitus Type 1 diabetes mellitus with hyperglycemia, with long-term current use of insulin Uncontrolled hypertension Urinary tract infection Vaginal irritation Family History FATHER Diabetes Hypertension FH: prostate cancer Mother Hypertension SISTER Seasonal allergies Social History Smoking and tobacco status: Current every day smoker Tobacco: How many years used: 8 Quit status: not considering quitting Second hand smoke exposure: No Alcohol intake: current Alcohol intake frequency: a few times a month Alcohol type: beer and other Counseling given: Yes Counseling provided: reduce to 2 or less/day Details: patient states she hasn't drank alcohol since last week Substance use type: former substance user Date of last use: 1016 Rehab program w/ no use since. 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 Current occupational exposures/hazards: Yes Pets and animals: No History of recent travel: No Sexually active: Yes Do you think of yourself as: straight/heterosexual Current gender identity: female Seatbelt use: always Helmet use: Yes Drives intoxicated or rides with intoxicated river driver: No Water heater temperature set < 120 degrees: Yes Working smoke detector in home: Yes Fire extinguisher in home: Yes Carbon monoxide detector in home: Yes Firearms in home: No Surgical History History of tonsillectomy Swain teeth extracted Female Reproductive History Menstrual Hx Hysterectomy: No Hx Tubal Ligation: No Physical Exam Physical Exam Appearance: Reports Ill-appearing Ill-appearing: Severe Pain Distress: Severe Eyes: Reports Conjunctiva clear ENT: Reports Nose normal Neck: Not Examined Respiratory: Reports Airway patent and Breath sounds clear Cardiovascular: Reports RRR and Pulses normal GI/: Reports Soft, Bowel sounds normal and Tender Musculoskeletal: Reports Normal strength and ROM intact Skin: Reports Warm and Dry Neurological: Reports Motor intact, Alert and Oriented Psychiatric: Reports Anxious Interpretation Radiology Interpretation Radiology Interpretation By: Radiologist Radiology Results: Positive (Peripancreatic edema, consistent with acute pancreatitis. Recommend correlation with amylase/lipase levels. Nonobstructive left nephrolithiasis. Small hiatal hernia. 1.9 cm left adnexal simple cyst. Intrauterine device as described.) Exam Interpreted: CT Scan Critical Care Note Critical Care Note Total Critical Care Time (mins): 50 Course Course Hematology/Chemistry: 05/02/21 05:53 05/02/21 05:53 Orders, Labs, Meds: Lab Review 05/02/21 05/02/21 05/02/21 00:35 00:35 00:35 WBC 10.00 RBC 4.04 L Hgb 13.4 Hct 39.8 MCV 98.5 MCH 33.2 H MCHC 33.7 RDW Coeff of Mainor 13.4 Plt Count 247 Immature Gran % (Auto) 0.2 Neut % (Auto) 84.2 H Lymph % (Auto) 8.7 L [place] % (Auto) 6.3 Eos % (Auto) 0.3 Baso % (Auto) 0.3 Neut # (Auto) 8.4 H Lymph # (Auto) 0.9 [place] # (Auto) 0.6 Eos # (Auto) 0.0 Baso # (Auto) 0.0 Immature Gran # (Auto) 0.0 Puncture Site Base Excess O2 Saturation ABG pH ABG pCO2 ABG pO2 ABG HCO3 ABG Total CO2 Abhishek Test Hemoglobin Oxyhemoglobin Carboxyhemoglobin Total Hemoglobin FiO2 % Sodium 136.0 Potassium 4.66 Chloride 101.1 Carbon Dioxide 14.1 L Anion Gap 25.46 BUN 8.7 Creatinine 0.78 Estimated GFR (MDRD) 107.00 BUN/Creatinine Ratio 11.15 Glucose 457.2 H Hemoglobin A1c Calcium 9.68 Phosphorus Magnesium Total Bilirubin 0.73 AST 28.5 ALT 33.7 Alkaline Phosphatase 178.6 H Total Protein 8.57 H Albumin 5.09 H Globulin 3.48 Albumin/Globulin Ratio 1.46 Amylase 82.8 Lipase 322.2 H Urine Color Urine Clarity Urine pH Ur Specific Cutler Urine Protein Urine Glucose (UA) Urine Ketones Urine Blood Urine Nitrite Urine Bilirubin Urine Urobilinogen Ur Leukocyte Esterase Urine Microscopic RBC Ur Squamous Epith Cells Amorphous Sediment Urine Bacteria Urine Opiates Screen Ur Oxycodone Screen Urine Methadone Screen Ur Propoxyphene Screen Ur Barbiturates Screen U Tricyclic Antidepress Ur Phencyclidine Scrn Ur Amphetamine Screen U Methamphetamines Scrn U Benzodiazepines Scrn Urine Cocaine Screen U Cannabinoids Screen Acetone, Qual Trace Adenovirus (PCR) B. pertussis DNA (PCR) B.parapertussis DNA PCR C. pneumoniae DNA (PCR) Coronavirus OC43 (PCR) Coronavirus HKU1 (PCR) Coronavirus 229E (PCR) Coronavirus NL63 (PCR) Human Metapneumovir PCR Influenza Type A (PCR) Influenza B (RT-PCR) M. pneumoniae (PCR) Parainfluenza 1 (PCR) Parainfluenza 2 (PCR) Parainfluenza 3 (PCR) Parainfluenza 4 (PCR) RSV (PCR) Entero/Rhino (PCR) SARS-CoV-2 (PCR) 05/02/21 05/02/21 05/02/21 00:35 00:35 00:45 WBC RBC Hgb Hct MCV MCH MCHC RDW Coeff of Mainor Plt Count Immature Gran % (Auto) Neut % (Auto) Lymph % (Auto) [place] % (Auto) Eos % (Auto) Baso % (Auto) Neut # (Auto) Lymph # (Auto) [place] # (Auto) Eos # (Auto) Baso # (Auto) Immature Gran # (Auto) Puncture Site Base Excess O2 Saturation ABG pH ABG pCO2 ABG pO2 ABG HCO3 ABG Total CO2 Abhishek Test Hemoglobin Oxyhemoglobin Carboxyhemoglobin Total Hemoglobin FiO2 % Sodium Potassium Chloride Carbon Dioxide Anion Gap BUN Creatinine Estimated GFR (MDRD) BUN/Creatinine Ratio Glucose Hemoglobin A1c 8.44 H Calcium Phosphorus 4.51 H Magnesium 2.50 H Total Bilirubin AST ALT Alkaline Phosphatase Total Protein Albumin Globulin Albumin/Globulin Ratio Amylase Lipase Urine Color Urine Clarity Urine pH Ur Specific Cutler Urine Protein Urine Glucose (UA) Urine Ketones Urine Blood Urine Nitrite Urine Bilirubin Urine Urobilinogen Ur Leukocyte Esterase Urine Microscopic RBC Ur Squamous Epith Cells Amorphous Sediment Urine Bacteria Urine Opiates Screen Positive H Ur Oxycodone Screen Negative Urine Methadone Screen Negative Ur Propoxyphene Screen Negative Ur Barbiturates Screen Negative U Tricyclic Antidepress Negative Ur Phencyclidine Scrn Negative Ur Amphetamine Screen Negative U Methamphetamines Scrn Negative U Benzodiazepines Scrn Negative Urine Cocaine Screen Negative U Cannabinoids Screen Negative Acetone, Qual Adenovirus (PCR) B. pertussis DNA (PCR) B.parapertussis DNA PCR C. pneumoniae DNA (PCR) Coronavirus OC43 (PCR) Coronavirus HKU1 (PCR) Coronavirus 229E (PCR) Coronavirus NL63 (PCR) Human Metapneumovir PCR Influenza Type A (PCR) Influenza B (RT-PCR) M. pneumoniae (PCR) Parainfluenza 1 (PCR) Parainfluenza 2 (PCR) Parainfluenza 3 (PCR) Parainfluenza 4 (PCR) RSV (PCR) Entero/Rhino (PCR) SARS-CoV-2 (PCR) 05/02/21 05/02/21 05/02/21 00:45 01:16 02:20 WBC RBC Hgb Hct MCV MCH MCHC RDW Coeff of Mainor Plt Count Immature Gran % (Auto) Neut % (Auto) Lymph % (Auto) [place] % (Auto) Eos % (Auto) Baso % (Auto) Neut # (Auto) Lymph # (Auto) [place] # (Auto) Eos # (Auto) Baso # (Auto) Immature Gran # (Auto) Puncture Site L rad Base Excess -11.8 L O2 Saturation 95.5 ABG pH 7.26 L* ABG pCO2 34.0 L ABG pO2 90.0 ABG HCO3 15.3 L ABG Total CO2 16.3 L Abhishek Test Yes Hemoglobin 1.1 Oxyhemoglobin 92.3 L Carboxyhemoglobin 3.2 H Total Hemoglobin 13.2 FiO2 % 21.0 Sodium Potassium Chloride Carbon Dioxide Anion Gap BUN Creatinine Estimated GFR (MDRD) BUN/Creatinine Ratio Glucose Hemoglobin A1c Calcium Phosphorus Magnesium Total Bilirubin AST ALT Alkaline Phosphatase Total Protein Albumin Globulin Albumin/Globulin Ratio Amylase Lipase Urine Color Yellow Urine Clarity Slightly Urine pH 5.0 Ur Specific Cutler 1.020 Urine Protein 2+ H Urine Glucose (UA) 2+ H Urine Ketones 4+ Urine Blood 3+ H Urine Nitrite Negative Urine Bilirubin Negative Urine Urobilinogen 0.2 Ur Leukocyte Esterase Negative Urine Microscopic RBC 5-10 Ur Squamous Epith Cells 20-30 Amorphous Sediment Trace Urine Bacteria Trace Urine Opiates Screen Ur Oxycodone Screen Urine Methadone Screen Ur Propoxyphene Screen Ur Barbiturates Screen U Tricyclic Antidepress Ur Phencyclidine Scrn Ur Amphetamine Screen U Methamphetamines Scrn U Benzodiazepines Scrn Urine Cocaine Screen U Cannabinoids Screen Acetone, Qual Adenovirus (PCR) Not detected B. pertussis DNA (PCR) Not detected B.parapertussis DNA PCR Not detected C. pneumoniae DNA (PCR) Not detected Coronavirus OC43 (PCR) Not detected Coronavirus HKU1 (PCR) Not detected Coronavirus 229E (PCR) Not detected Coronavirus NL63 (PCR) Not detected Human Metapneumovir PCR Not detected Influenza Type A (PCR) Not detected Influenza B (RT-PCR) Not detected M. pneumoniae (PCR) Not detected Parainfluenza 1 (PCR) Not detected Parainfluenza 2 (PCR) Not detected Parainfluenza 3 (PCR) Not detected Parainfluenza 4 (PCR) Not detected RSV (PCR) Not detected Entero/Rhino (PCR) Not detected SARS-CoV-2 (PCR) Not detected Orders Category Date Time Status ABG DRAW REQUEST Stat CARDIO 05/02/21 01:13 Completed ACTIVITY .Up ad [place]elle CARE 05/02/21 03:00 Active BLOOD GLUCOSE MONITORING Q1HR CARE 05/02/21 03:02 Active INTAKE & OUTPUT Q8HR CARE 05/02/21 02:41 Active REMINDER: BMP Q4hrs Until Anion Gap < 12 Q4HR CARE 05/02/21 02:41 Active REMINDER: BMP Q8HRS Once Anion Gap <12 PRN CARE 05/02/21 02:41 Active REMINDER: Call Provider if K < 3.3 meq/L PRN CARE 05/02/21 02:41 Active REMINDER: Hold IV Fluids with KCL PRN CARE 05/02/21 02:41 Active REMINDER: Print DKA Nursing Protocol PRN CARE 05/02/21 02:41 Active TELEMETRY MONITORING TELE CARE 05/02/21 02:41 Active VITAL SIGNS Q4HR CARE 05/02/21 02:41 Active NOTHING BY MOUTH DIETARY 05/02/21 Breakfast Ordered CONSULT PREMIUM REPRESENTATIVE ONCE PREMIUM REPRESENTATIVE 05/02/21 03:00 Active ED ACCUCHECK ASSESSMENT .ONCE EMERGENCY 05/02/21 02:12 Active ED IV/MEDIPORT/POWERPORT .ONCE EMERGENCY 05/02/21 00:26 Active ABG COOX Stat LAB 05/02/21 01:16 Completed ACETONE, QUALITATIVE Stat LAB 05/02/21 00:35 Completed AMYLASE Stat LAB 05/02/21 00:35 Completed CBC W/ AUTO DIFF Stat LAB 05/02/21 00:35 Completed CBC W/ AUTO DIFF Stat LAB 05/02/21 05:53 Completed COMPREHENSIVE METABOLIC PANEL Routine LAB 05/02/21 05:53 Completed COMPREHENSIVE METABOLIC PANEL Stat LAB 05/02/21 00:35 Completed DRUG SCREEN, URINE, RAPID Stat LAB 05/02/21 00:45 Completed HEMOGLOBIN A1C Stat LAB 05/02/21 00:35 Completed LIPASE Stat LAB 05/02/21 00:35 Completed MAGNESIUM Stat LAB 05/02/21 00:35 Completed PHOSPHORUS Stat LAB 05/02/21 00:35 Completed RESPIRATORY PANEL 2.1 (PCR) Stat LAB 05/02/21 02:20 Completed URINALYSIS C & S IF INDICATED Stat LAB 05/02/21 00:45 Completed 0.9 % Sodium Chloride [Saline Flush] MEDS 05/02/21 00:26 Active 1 syr IVF PRN PRN Amlodipine Besylate [Norvasc] MEDS 05/02/21 09:00 Active 10 mg PO DAILY Buspirone HCl [Buspar] MEDS 05/02/21 09:00 Active 5 mg PO TID Dicyclomine Inj [Bentyl] MEDS 05/02/21 01:09 Discontinued 10 mg IM ONCE ONE Escitalopram Oxalate [Lexapro] MEDS 05/02/21 09:00 Active 10 mg PO DAILY Fluticasone Propionate [Flonase] MEDS 05/02/21 09:00 Active 2 spray ALEC DAILY Hydralazine HCl [Apresoline] MEDS 05/02/21 03:07 Discontinued 25 mg PO TID PRN Hydralazine HCl [Apresoline] MEDS 05/02/21 03:20 Active 25 mg PO TID PRN Hydromorphone HCl [Dilaudid 1 mg/ml Syringe] MEDS 05/02/21 03:18 Discontinued 1 mg IVP ONCE STA Insulin Regular in 0.9 % NaCl [Myxredlin 100 Unit/100 MEDS 05/02/21 03:00 Active ml Bag] 100 unit in 100 ml IV TITRATE Insulin Regular, Human [Humulin R] MEDS 05/02/21 00:56 Discontinued 10 unit SUBCUT ONCE ONE Ketorolac Tromethamine [Toradol] MEDS 05/02/21 00:30 Discontinued 30 mg IVP ONCE ONE Lisinopril [Zestril] MEDS 05/02/21 09:00 Active 40 mg PO DAILY Metoprolol Succinate [Toprol Xl] MEDS 05/02/21 09:00 Active 50 mg PO DAILY Morphine Sulfate [Morphine 4 mg/ml Syringe] MEDS 05/02/21 02:10 Discontinued 4 mg IVP ONCE ONE Morphine Sulfate [Morphine 4 mg/ml Syringe] MEDS 05/02/21 03:04 Active 4 mg IVP Q6H PRN Omeprazole [Prilosec] MEDS 05/02/21 09:00 Active 20 mg PO BID Ondansetron HCl [Zofran Tab] MEDS 05/02/21 01:11 Discontinued 4 mg .ROUTE .STK-MED ONE Ondansetron HCl/Pf [Zofran 4 mg/2 ml] MEDS 05/02/21 00:58 Discontinued 4 mg IVP ONCE ONE Ondansetron HCl/Pf [Zofran 4 mg/2 ml] MEDS 05/02/21 00:26 Discontinued 4 mg IVP ONCE STA Ondansetron HCl/Pf [Zofran 4 mg/2 ml] MEDS 05/02/21 03:04 Active 4 mg IVP Q6H PRN Pantoprazole Sodium [Protonix IV] MEDS 05/02/21 00:26 Discontinued 40 mg IVP ONCE STA Potassium Chloride in 0.9%NaCl [Sodium Chloride 0.9%- MEDS 05/02/21 03:00 Active KCl 20 Meq] 1,000 ml IV 100 mls/hr Ringers Lactated Solution [Lactated Ringers] 1,000 ml MEDS 05/02/21 00:26 Di scontinued IV BOLUS Sodium Chloride 0.9% [Sodium Chloride] 1,000 ml MEDS 05/02/21 03:25 Dis continued IV BOLUS Vitamin B-1 [Thiamine] MEDS 05/02/21 09:00 Active [address] ABD/PEL WO RENAL STONE PROT Stat RADS 05/02/21 00:26 Completed Medications Generic Name Dose Route Start Last Admin Trade Name Freq PRN Reason Stop Dose Admin Amlodipine Besylate 10 mg 05/02/21 09:00 Amlodipine Besylate 5 Mg Tablet PO DAILY MICHAEL Buspirone HCl 5 mg 05/02/21 09:00 Buspirone Hcl 10 Mg Tablet PO TID [facility] Escitalopram Oxalate 10 mg 05/02/21 09:00 Escitalopram Oxalate 10 Mg Tablet PO DAILY [facility] Fluticasone Propionate 2 spray 05/02/21 09:00 Fluticasone Propionate 16 Gm Nasal [place] ALEC DAILY MICHAEL Hydralazine HCl 25 mg 05/02/21 03:20 Hydralazine Hcl 50 Mg Tablet PO TID PRN rash or anxiety Potassium Chloride/Sodium Chloride 1,000 mls @ 100 mls/hr 05/02/21 03:00 05/02/21 04:51 Sodium Chloride 0.9%-Kcl 20 Meq IV 100 mls/hr .Q10H MICHAEL Administration INSULIN REGULAR IN 0.9 % NACL 100 unit in 100 mls @ 6.577 mls/hr 05/02/21 03:00 05/02/21 05:05 Myxredlin 100 Unit/100 Ml Bag IV 0.1 unit/kg/hr TITRATE MICHAEL 6.6 mls/hr Administration Protocol 0.1 UNIT/KG/HR Lisinopril 40 mg 05/02/21 09:00 Lisinopril 40 Mg Tablet PO DAILY [facility] Metoprolol Succinate 50 mg 05/02/21 09:00 Metoprolol Succinate 50 Mg Tab.Er.24h PO DAILY [facility] Morphine Sulfate 4 mg 05/02/21 03:04 Morphine Sulfate 4 Mg/Ml Syringe IVP Q6H PRN severe abdminal pain Omeprazole 20 mg 05/02/21 09:00 Omeprazole 20 Mg Capsule.Dr PO BID MICHAEL Ondansetron HCl 4 mg 05/02/21 03:04 05/02/21 05:08 Ondansetron Hcl/Pf 4 Mg/2 Ml Sdv IVP 4 mg Q6H PRN Administration nausea and vomiting Sodium Chloride 1 syr 05/02/21 00:26 0.9% Sodium Chloride 10 Ml Disp.Syrin IVF PRN PRN To flush IV Thiamine HCl 100 mg 05/02/21 09:00 Vitamin B-1 100 Mg Tablet PO DAILY [facility] Discontinued Medications Generic Name Dose Route Start Last Admin Trade Name Freq PRN Reason Stop Dose Admin Dicyclomine HCl 10 mg 05/02/21 01:09 05/02/21 01:23 Dicyclomine Inj 20 Mg/2 Ml Ampul IM 05/02/21 01:10 10 mg ONCE ONE Administration Hydralazine HCl 25 mg 05/02/21 03:07 Hydralazine Hcl 50 Mg Tablet PO TID PRN rash or anxiety Hydromorphone HCl 1 mg 05/02/21 03:18 05/02/21 03:25 Hydromorphone Hcl 1 Mg/Ml Syringe IVP 05/02/21 03:19 1 mg ONCE STA Administration Lactated Ringer's 1,000 mls @ 1,000 mls/hr 05/02/21 00:26 05/02/21 01:11 Lactated Ringers IV 05/02/21 01:25 1,000 mls/hr BOLUS STA Administration Sodium Chloride 1,000 mls @ 1,000 mls/hr 05/02/21 03:25 Sodium Chloride IV 05/02/21 04:24 BOLUS STA Insulin Human Regular 10 unit 05/02/21 00:56 05/02/21 01:16 Insulin Regular, Human 100 Unit/Ml (3ml) Vial SUBCUT 05/02/21 00:57 10 unit ONCE ONE Administration Ketorolac Tromethamine 30 mg 05/02/21 00:30 05/02/21 01:10 Ketorolac Tromethamine 30 Mg/Ml Vial IVP 05/02/21 00:31 30 mg ONCE ONE Administration Morphine Sulfate 4 mg 05/02/21 02:10 05/02/21 02:40 Morphine Sulfate 4 Mg/Ml Syringe IVP 05/02/21 02:11 4 mg ONCE ONE Administration Ondansetron HCl 4 mg 05/02/21 00:26 05/02/21 02:12 Ondansetron Hcl/Pf 4 Mg/2 Ml Sdv IVP 05/02/21 00:27 Not Given ONCE STA Ondansetron HCl 4 mg 05/02/21 00:58 05/02/21 02:09 Ondansetron Hcl/Pf 4 Mg/2 Ml Sdv IVP 05/02/21 00:59 Not Given ONCE ONE Pantoprazole Sodium 40 mg 05/02/21 00:26 05/02/21 02:10 Pantoprazole Sodium 40 Mg Vial IVP 05/02/21 00:27 40 mg ONCE STA Administration Vital Signs: Temp Pulse Resp BP Pulse Ox 05/02/21 03:00 72 140/72 05/02/21 00:13 97.2 F L 98 H 16 160/100 H 100 Discharge Plan Discharge Patient Disposition: ADMITTED INPATIENT Discharge Problem: Abdominal pain Qualifiers: Abdominal location: generalized Qualified Code(s): R10.84 - Generalized abdominal pain Acute pancreatitis Qualifiers: Pancreatitis type: alcohol induced Acute pancreatitis complication: unspecified Qualified Code(s): K85.20 - Alcohol induced acute pancreatitis without necrosis or infection DKA, type 1 Qualifiers: Diabetes mellitus complication detail: without coma Qualified Code(s): E10.10 - Type 1 diabetes mellitus with ketoacidosis without coma Hypertension Qualifiers: Hypertension type: primary hypertension Qualified Code(s): I10 - Essential (primary) hypertension ED Provider: RODRÍGUEZ MAC Condition: Fair Physician Progress Note: []
[2021-05-02] MEDS ORDERED: TORADOL IVP ONE (00:30)
[2021-05-02 00:41] LABS: BASOPHILS % (AUTO) 0.3 % (0.0-3.0); EOSINOPHILS % (AUTO) 0.3 % (0.0-7.0); HEMATOCRIT 39.8 % (37.0-47.0); HEMOGLOBIN 13.4 g/dl (12.0-16.0); IMMATURE GRANULOCYTE % (AUTO) 0.2 % (0.0-5.0); LYMPHOCYTES # (AUTO) 0.9 K/uL (0.60-3.4); LYMPHOCYTES % (AUTO) 8.7 (10.0-50.0); MEAN CORPUSCULAR HEMOGLOBIN 33.2 pg (27.0-31.0); MEAN CORPUSCULAR HGB CONC 33.7 (31.8-35.4); MEAN CORPUSCULAR VOLUME 98.5 fl (81.0-99.0); MONOCYTES # (AUTO) 0.6 K/uL (0.4-2.0); MONOCYTES % (AUTO) 6.3 (0-10); NEUTROPHILS # (AUTO) 8.4 K/ul (2.0-6.9); NEUTROPHILS % (AUTO) 84.2 % (42.2-75.2); PLATELET COUNT 247 10^3/uL (140-440); RDW COEFFICIENT OF VARIATION 13.4 % (11.6-14.8); RED BLOOD COUNT 4.04 10^6/ul (4.20-5.40)
[2021-05-02 00:46] LABS: BILIRUBIN,URINE Negative (NEGATIVE); CLARITY,URINE Slightly (CLEAR); COLOR,URINE Yellow (YELLOW); GLUCOSE, URINE (UA) 2+ (NEGATIVE); KETONES,URINE 4+ (NEGATIVE); LEUKOCYTE ESTERASE ,URINE Negative (NEGATIVE); NITRITE,URINE Negative (NEGATIVE); PROTEIN,URINE 2+ (NEGATIVE); URINE, BLOOD 3+ (NEGATIVE); UROBILINOGEN,URINE 0.2 (0.2)
[2021-05-02 00:52] LABS: AMORPHOUS SEDIMENT,UR TRACE (NOT PRESENT); BACTERIA,URINE TRACE (NOT PRESENT); SQUAMOUS EPITHELIAL CELL,UR 20-30 (0-5)
[2021-05-02 00:54] LABS: ALANINE AMINOTRANSFERASE 33.7 U/L (0-35); ALBUMIN 5.09 g/dL (3.5-5.0); ALKALINE PHOSPHATASE 178.6 U/L (38-126); AMYLASE 82.8 U/L (30-110); ASPARTATE AMINO TRANSFERASE 28.5 U/L (14-36); BILIRUBIN,TOTAL 0.73 mg/dL (0.2-1.3); BLOOD UREA NITROGEN 8.7 mg/dL (7-17); CALCIUM 9.68 mg/dL (8.4-10.2); CARBON DIOXIDE 14.1 mmol/L (22-30.0); CHLORIDE 101.1 mmol/L (98-107); CREATININE 0.78 mg/dL (0.60-1.30); GLUCOSE 457.2 mg/dL (74-106); LIPASE 322.2 U/L (23-300); POTASSIUM 4.66 mmol/L (3.5-5.1); TOTAL PROTEIN 8.57 g/dL (6.3-8.2)
[2021-05-02 00:56] LABS: AMPHETAMINE SCREEN,URINE NEGATIVE (NEGATIVE); BARBITURATE SCREEN,URINE NEGATIVE (NEGATIVE); BENZODIAZEPINES SCREEN,URINE NEGATIVE (NEGATIVE); CANNABINOID SCREEN,URINE NEGATIVE (NEGATIVE); COCAIN SCREEN,URINE NEGATIVE (NEGATIVE); METHADONE URINE SCREEN NEGATIVE (NEGATIVE); METHAMPHETAMINES SCREEN,URINE NEGATIVE (NEGATIVE); OPIATE SCREEN,URINE POSITIVE (NEGATIVE); OXYCODONE URINE SCREEN NEGATIVE (NEGATIVE); PHENCYCLIDINE SCREEN,URINE NEGATIVE (NEGATIVE); PROPOXYPHENE URINE SCREEN NEGATIVE (NEGATIVE); TRICYCLIC ANTIDEPRESSANTS URIN NEGATIVE (NEGATIVE)
[2021-05-02] MEDS ORDERED: HUMULIN R SUBCUT ONE (00:56)
[2021-05-02] MEDS ORDERED: ZOFRAN 4 MG/2 ML IVP ONE (00:58)
[2021-05-02] MEDS ORDERED: BENTYL IM ONE (01:09)
[2021-05-02] MEDS ORDERED: ZOFRAN TAB ONE (01:11)
--- NOTE | 2021-05-02 01:18 | CT ---
EXAM: CT of the abdomen and pelvis without contrast. HISTORY: Abdominal pain. PROCEDURE: Contiguous axial CT images of the abdomen and pelvis without contrast with coronal and sa gittal reformats. All CT scans are performed using dose optimization techniques as appropriate to a performed exam including the following: Automated exposure control, Adjustment of the mA and/or kV ac cording to patient size, Use of iterative reconstruction technique. FINDINGS: The liver, gallbladder, spleen, adrenal glands and right kidney are normal in appearance. There is a nonobstructive calcification in the left kidney. There is peripancreatic edema and inflam matory stranding, consistent with acute pancreatitis. The abdominal aorta is normal in appearance. There is a small hiatal hernia. The visualized loops of bowel and appendix are normal in appearance. No free fluid or free air in the abdomen or pelvis. The bladder is adequately filled and normal in appearance. The uterus is retroflexed. There is an intrauterine device which appears in adequate p osition. There is a 1.9 cm fluid density cyst in the left adnexa. The bones and soft tissues are un remarkable. Impression: Peripancreatic edema, consistent with acute pancreatitis. Recommend correlation with sully lase/lipase levels. Nonobstructive left nephrolithiasis. Small hiatal hernia. 1.9 cm left adnexal simple cyst. Intrauterine device as described. All CT scans are performed using dose optimization techniques as appropriate to the performed exam an d include at least one of the following: Automated exposure control, adjustment of the mA and/or kV according t o size, and the use of iterative reconstruction technique.
[2021-05-02] MEDS ORDERED: MORPHINE 4 MG/ML SYRINGE IVP ONE (02:10)
[2021-05-02 02:20] LABS: ABG O2 HGB 92.3 % (95-100); BEecf -11.8 (-2.0-3.0); COHb 3.2 (0.5-1.5); HCO3 15.3 (21-28); MetHb 1.1 (0-1.5); TCO2 16.3 (19-24); sO2 95.5 % (94-98); tHb 13.2 g/dl (11.7-17.4)
[2021-05-02 02:21] LABS: ABG PH 7.26 (7.35-7.45)
[2021-05-02 02:50] LABS: BORDETELLA PARAPERTUSSIS (PCR) NOT DETECTED (NOT DETECT); BORDETELLA PERTUSSIS (PCR) NOT DETECTED (NOT DETECT); CHLAMYDIA PNEUMONIAE (PCR) NOT DETECTED (NOT DETECT); CORONAVIRUS 229E (PCR) NOT DETECTED (NOT DETECT); CORONAVIRUS HKU1 (PCR) NOT DETECTED (NOT DETECT); CORONAVIRUS NL63 (PCR) NOT DETECTED (NOT DETECT); CORONAVIRUS OC43 (PCR) NOT DETECTED (NOT DETECT); HUMAN METAPNEUMOVIRUS (PCR) NOT DETECTED (NOT DETECT); HUMAN RHINOVIRUS/ENTEROV (PCR) NOT DETECTED (NOT DETECT); INFLUENZA B (PCR) NOT DETECTED (NOT DETECT); MYCOPLASMA PNEUMONIAE (PCR) NOT DETECTED (NOT DETECT); PARAINFLUENZA VIRUS 1 (PCR) NOT DETECTED (NOT DETECT); PARAINFLUENZA VIRUS 2 (PCR) NOT DETECTED (NOT DETECT); PARAINFLUENZA VIRUS 3 (PCR) NOT DETECTED (NOT DETECT); PARAINFLUENZA VIRUS 4 (PCR) NOT DETECTED (NOT DETECT); RESPIRATORY SYNCYTIAL V (PCR) NOT DETECTED (NOT DETECT); SARS_COV_2 (PCR) NOT DETECTED (NOT DETECT)
[2021-05-02] MEDS ORDERED: APRESOLINE PO PRN ×3 (03:07→10:00)
[2021-05-02 03:18] LABS: MAGNESIUM 2.5 mg/dL (1.6-2.3); PHOSPHORUS 4.51 mg/dL (2.5-4.5)
[2021-05-02] MEDS ORDERED: DILAUDID 1 MG/ML SYRINGE IVP STA (03:18)
[2021-05-02] MEDS ORDERED: SODIUM CHLORIDE 1,000 ML IV STA (03:25)
[2021-05-02 03:35] LABS: ADENOVIRUS (PCR) NOT DETECTED (NOT DETECT)
[2021-05-02] MEDS: SODIUM CHLORIDE 0.9%-KCL 20 MEQ 1,000 ML IV SCH ×3 (04:51→21:48)
[2021-05-02] MEDS: MYXREDLIN 100 UNIT/100 ML BAG 100 UNIT/100 ML PLAST..BAG IV SCH (05:05)
[2021-05-02] MEDS: ZOFRAN 4 MG/2 ML IVP PRN ×2 (05:08→11:44)
[2021-05-02 05:36] VITALS: BMI 26.4
[2021-05-02 06:01] LABS: BASOPHILS % (AUTO) 0.3 % (0.0-3.0); EOSINOPHILS % (AUTO) 0.1 % (0.0-7.0); HEMATOCRIT 36.7 % (37.0-47.0); HEMOGLOBIN 12.3 g/dl (12.0-16.0); IMMATURE GRANULOCYTE % (AUTO) 0.2 % (0.0-5.0); LYMPHOCYTES # (AUTO) 0.8 K/uL (0.60-3.4); LYMPHOCYTES % (AUTO) 9.2 (10.0-50.0); MEAN CORPUSCULAR HEMOGLOBIN 32.8 pg (27.0-31.0); MEAN CORPUSCULAR HGB CONC 33.5 (31.8-35.4); MEAN CORPUSCULAR VOLUME 97.9 fl (81.0-99.0); MONOCYTES # (AUTO) 0.4 K/uL (0.4-2.0); MONOCYTES % (AUTO) 4.5 (0-10); NEUTROPHILS # (AUTO) 7.5 K/ul (2.0-6.9); NEUTROPHILS % (AUTO) 85.7 % (42.2-75.2); PLATELET COUNT 211 10^3/uL (140-440); RDW COEFFICIENT OF VARIATION 13.3 % (11.6-14.8); RED BLOOD COUNT 3.75 10^6/ul (4.20-5.40); WHITE BLOOD COUNT 8.73 K/ul (4.6-10.2)
[2021-05-02 06:13] LABS: ALANINE AMINOTRANSFERASE 27.4 U/L (0-35); ALBUMIN 4.55 g/dL (3.5-5.0); ASPARTATE AMINO TRANSFERASE 27.7 U/L (14-36); BILIRUBIN,TOTAL 0.59 mg/dL (0.2-1.3); BLOOD UREA NITROGEN 6.4 mg/dL (7-17); CALCIUM 8.82 mg/dL (8.4-10.2); CARBON DIOXIDE 17.2 mmol/L (22-30.0); CHLORIDE 107.9 mmol/L (98-107); CREATININE 0.58 mg/dL (0.60-1.30); GLUCOSE 196.4 mg/dL (74-106); POTASSIUM 4.01 mmol/L (3.5-5.1); SODIUM 138.8 mmol/L (134.5-145); TOTAL PROTEIN 7.77 g/dL (6.3-8.2)
[2021-05-02] MEDS: MORPHINE 4 MG/ML SYRINGE IVP PRN ×2 (08:21→14:27)
[2021-05-02 08:25] LABS: SERUM PREGNANCY NEGATIVE (NEGATIVE)
[2021-05-02] MEDS: TORADOL IVP PRN ×2 (08:52→19:29)
[2021-05-02] MEDS: NORVASC PO SCH (09:55)
[2021-05-02] MEDS: THIAMINE PO SCH (09:55)
[2021-05-02] MEDS: BUSPAR PO SCH ×3 (09:55→21:01)
[2021-05-02] MEDS: PRILOSEC PO SCH ×2 (09:55→21:02)
[2021-05-02] MEDS: TOPROL XL PO SCH (09:55)
[2021-05-02] MEDS: ZESTRIL PO SCH (09:55)
[2021-05-02] MEDS: FLONASE NAS SCH (09:55)
[2021-05-02] MEDS: LEXAPRO PO SCH (09:55)
[2021-05-02 10:28] LABS: BLOOD UREA NITROGEN 5.7 mg/dL (7-17); CALCIUM 9.11 mg/dL (8.4-10.2); CARBON DIOXIDE 18.8 mmol/L (22-30.0); CHLORIDE 107.2 mmol/L (98-107); CREATININE 0.61 mg/dL (0.60-1.30); GLUCOSE 121.6 mg/dL (74-106); POTASSIUM 4.37 mmol/L (3.5-5.1); SODIUM 139.3 mmol/L (134.5-145)
[2021-05-02] MEDS ORDERED: ARTIFICIAL TEARS DROPS OP PRN (13:36)
[2021-05-02 14:15] LABS: BLOOD UREA NITROGEN 4.6 mg/dL (7-17); CALCIUM 8.97 mg/dL (8.4-10.2); CARBON DIOXIDE 18.2 mmol/L (22-30.0); CHLORIDE 106.4 mmol/L (98-107); CREATININE 0.58 mg/dL (0.60-1.30); GLUCOSE 193.1 mg/dL (74-106); POTASSIUM 4.03 mmol/L (3.5-5.1)
--- NOTE | 2021-05-02 17:49 | PCM.PROG ---
Date Seen by Provider: 05/02/21 Time Seen by Provider: 07:15 Subjective: pt improving, alert and oriented, mild nausea, on insulin R iv drip, per DKA protochol, preg test neg, VSS Objective: Vitals: T=98.4 F, P=86, R=14, SQ=243/84, SPO2=99 HEENT: [] Neck: [] Lungs: [] CVS: [] Abdomen: [] Extremities: [] Neurological: [] Skin: [] Lab/Tests/Diagnostic Imaging: [] Plan: will continue insulin R iv drip dka protoccristal, monitoring K+, glucose, continue IV fluids, clear liquid diet care to Dr Torrez at 19:00
[2021-05-02 18:06] LABS: BLOOD UREA NITROGEN 3.4 mg/dL (7-17); CALCIUM 8.91 mg/dL (8.4-10.2); CARBON DIOXIDE 19.8 mmol/L (22-30.0); CHLORIDE 105.7 mmol/L (98-107); CREATININE 0.55 mg/dL (0.60-1.30); GLUCOSE 198.7 mg/dL (74-106); POTASSIUM 4.19 mmol/L (3.5-5.1); SODIUM 136.4 mmol/L (134.5-145)
[2021-05-02] MEDS: MELATONIN 1 MG PO SCH (20:02)
[2021-05-02] MEDS: AMBIEN PO PRN (20:03)
[2021-05-02 22:10] LABS: CALCIUM 8.7 mg/dL (8.4-10.2); CREATININE 0.5 mg/dL (0.60-1.30); POTASSIUM 3.9 mmol/L (3.5-5.1)
[2021-05-02] MEDS: D5%-NS-KCL 20 MEQ/L IV SOL 1,000 ML IV SCH (22:27)
[2021-05-03] MEDS: MORPHINE 4 MG/ML SYRINGE IVP PRN ×4 (00:18→22:49)
[2021-05-03 02:43] LABS: BLOOD UREA NITROGEN 2.4 mg/dL (7-17); CALCIUM 8.9 mg/dL (8.4-10.2); CARBON DIOXIDE 21.9 mmol/L (22-30.0); CHLORIDE 107.9 mmol/L (98-107); CREATININE 0.58 mg/dL (0.60-1.30); GLUCOSE 165.8 mg/dL (74-106); POTASSIUM 3.73 mmol/L (3.5-5.1); SODIUM 138.4 mmol/L (134.5-145)
[2021-05-03] MEDS: TORADOL IVP PRN (05:16)
[2021-05-03 05:47] LABS: BLOOD UREA NITROGEN 2.7 mg/dL (7-17); CALCIUM 8.81 mg/dL (8.4-10.2); CARBON DIOXIDE 20.7 mmol/L (22-30.0); CHLORIDE 107.4 mmol/L (98-107); CREATININE 0.57 mg/dL (0.60-1.30); GLUCOSE 234.8 mg/dL (74-106); POTASSIUM 3.45 mmol/L (3.5-5.1); SODIUM 137.5 mmol/L (134.5-145)
[2021-05-03] MEDS: D5%-NS-KCL 20 MEQ/L IV SOL 1,000 ML IV SCH (09:03)
[2021-05-03] MEDS: BUSPAR PO SCH ×3 (09:27→20:19)
[2021-05-03] MEDS: PRILOSEC PO SCH ×2 (09:27→16:13)
[2021-05-03] MEDS: ZESTRIL PO SCH (09:27)
[2021-05-03] MEDS: LEXAPRO PO SCH (09:28)
[2021-05-03] MEDS: THIAMINE PO SCH (09:28)
[2021-05-03] MEDS: NORVASC PO SCH (09:28)
[2021-05-03] MEDS: TOPROL XL PO SCH (09:28)
[2021-05-03] MEDS: FLONASE NAS SCH (09:30)
[2021-05-03] MEDS: ZOFRAN 4 MG/2 ML IVP PRN ×2 (10:01→19:44)
[2021-05-03 10:34] LABS: BLOOD UREA NITROGEN 2.6 mg/dL (7-17); CALCIUM 8.87 mg/dL (8.4-10.2); CARBON DIOXIDE 21.5 mmol/L (22-30.0); CHLORIDE 107.3 mmol/L (98-107); CREATININE 0.68 mg/dL (0.60-1.30); GLUCOSE 275.3 mg/dL (74-106); POTASSIUM 3.61 mmol/L (3.5-5.1); SODIUM 137.4 mmol/L (134.5-145)
[2021-05-03 10:58] LABS: BILIRUBIN,URINE Negative (NEGATIVE); CLARITY,URINE Clear (CLEAR); COLOR,URINE Yellow (YELLOW); KETONES,URINE 2+ (NEGATIVE); LEUKOCYTE ESTERASE ,URINE Negative (NEGATIVE); NITRITE,URINE Negative (NEGATIVE); PROTEIN,URINE 2+ (NEGATIVE); URINE, BLOOD 3+ (NEGATIVE)
[2021-05-03 11:02] LABS: GLUCOSE, URINE (UA) 3+ (NEGATIVE)
[2021-05-03 11:03] LABS: BACTERIA,URINE 4+ (NOT PRESENT); SQUAMOUS EPITHELIAL CELL,UR 20-30 (0-5); URINE RBC, MICROSCOPIC 0-2 (0-2)
[2021-05-03] MEDS: MYXREDLIN 100 UNIT/100 ML BAG 100 UNIT/100 ML PLAST..BAG IV SCH (14:33)
[2021-05-03 14:40] LABS: CALCIUM 8.64 mg/dL (8.4-10.2); CARBON DIOXIDE 22.6 mmol/L (22-30.0); CHLORIDE 107.7 mmol/L (98-107); CREATININE 0.76 mg/dL (0.60-1.30); GLUCOSE 320.3 mg/dL (74-106); POTASSIUM 4.22 mmol/L (3.5-5.1); SODIUM 135.8 mmol/L (134.5-145)
[2021-05-03] MEDS ORDERED: SODIUM CHLORIDE 1,000 ML IV SCH (15:00)
[2021-05-03] MEDS: K-DUR PO SCH (16:14)
[2021-05-03] MEDS ORDERED: TORADOL PO PRN (19:40)
--- NOTE | 2021-05-03 19:52 | PCM.PROG ---
Date Seen by Provider: 05/03/21 Time Seen by Provider: 08:45 Subjective: Feeling better. Appetite improved Continues on Insulin drip Objective: Vitals: T=98.7 F, P=87, R=18, VL=491/84, SPO2=99 HEENT: Clear Neck: supple Lungs: CTA CVS: HRRR Abdomen: Soft Non tender Extremities: No edema or tenderness Neurological: WNL Skin: WNL Lab/Tests/Diagnostic Imaging: See CHart (1) DKA, type 1: Status: Acute Code(s): E10.10 - Type 1 diabetes mellitus with ketoacidosis without coma SNOMED Code(s): 06319600 (2) Hypertension: Status: Acute Code(s): I10 - Essential (primary) hypertension SNOMED Code(s): 83218736 (3) ETOH abuse: Status: Acute Code(s): F10.10 - Alcohol abuse, uncomplicated SNOMED Code(s): 02315731 (4) Acute on chronic pancreatitis: Status: Acute Code(s): K85.90 - Acute pancreatitis without necrosis or infection, unspecified; K86.1 - Other chronic pancreatitis SNOMED Code(s): 638901061 (5) History of drug use: Status: Acute Code(s): Z87.898 - Personal history of other specified conditions SNOMED Code(s): 637390902 Plan: Continue Insulin drip and other therapy
[2021-05-03] MEDS: AMBIEN PO PRN (20:16)
[2021-05-03] MEDS: MELATONIN 1 MG PO SCH (20:32)
[2021-05-03] MEDS ORDERED: DEXTROSE 5%-1/2NS IV SOLUTION 1,000 ML IV SCH ×2 (22:00→23:08)
[2021-05-03 22:57] LABS: BILIRUBIN,URINE Negative (NEGATIVE); CLARITY,URINE Clear (CLEAR); COLOR,URINE Yellow (YELLOW); GLUCOSE, URINE (UA) 2+ (NEGATIVE); KETONES,URINE Negative (NEGATIVE); LEUKOCYTE ESTERASE ,URINE Negative (NEGATIVE); NITRITE,URINE Negative (NEGATIVE); PH,URINE 5.5 (5-9); PROTEIN,URINE Negative (NEGATIVE); URINE, BLOOD 3+ (NEGATIVE); UROBILINOGEN,URINE 0.2 (0.2)
[2021-05-03] MEDS ORDERED: DEXTROSE 50%-WATER ABBOJECT IVP STA (23:09)
[2021-05-03 23:13] LABS: URINE WBC, MICROSCOPIC 0-2 (0-2)
[2021-05-03 23:14] LABS: BACTERIA,URINE TRACE (NOT PRESENT); MUCUS,URINE TRACE (NOT PRESENT)
[2021-05-04] MEDS ORDERED: DEXTROSE 50%-WATER ABBOJECT IVP STA (03:52)
[2021-05-04] MEDS ORDERED: [UNRECOGNIZED DRUG - OTHER] IV SCH (04:00)
[2021-05-04] MEDS ORDERED: DEXTROSE IV SCH (04:00)
[2021-05-04] MEDS ORDERED: WATER IV SCH (04:00)
[2021-05-04] MEDS ORDERED: DEXTROSE 50%-WATER ABBOJECT ONE (04:06)
[2021-05-04] MEDS: MORPHINE 4 MG/ML SYRINGE IVP PRN (04:34)
[2021-05-04 05:51] LABS: BLOOD UREA NITROGEN 3.8 mg/dL (7-17); CALCIUM 8.24 mg/dL (8.4-10.2); CARBON DIOXIDE 26.1 mmol/L (22-30.0); CHLORIDE 105.4 mmol/L (98-107); CREATININE 0.64 mg/dL (0.60-1.30); GLUCOSE 120.9 mg/dL (74-106); POTASSIUM 3.36 mmol/L (3.5-5.1); SODIUM 138.6 mmol/L (134.5-145)
[2021-05-04] MEDS: PRILOSEC PO SCH (06:01)
[2021-05-04] MEDS ORDERED: HUMULIN 70-30 SUBCUT ONE (07:58)
[2021-05-04] MEDS ORDERED: HUMULIN R SUBCUT ONE ×2 (08:00→10:45)
[2021-05-04] MEDS: THIAMINE PO SCH (08:09)
[2021-05-04] MEDS: K-DUR PO SCH (08:10)
[2021-05-04] MEDS: BUSPAR PO SCH (08:10)
[2021-05-04] MEDS: ZESTRIL PO SCH (08:11)
[2021-05-04] MEDS: TOPROL XL PO SCH (08:11)
[2021-05-04] MEDS: NORVASC PO SCH (08:12)
[2021-05-04] MEDS: LEXAPRO PO SCH (08:12)
[2021-05-04] MEDS: FLONASE NAS SCH (08:51)
--- NOTE | 2021-05-04 09:26 | PCM.DC ---
Final Diagnosis: dka (1) DKA, type 1: Status: Acute Code(s): E10.10 - Type 1 diabetes mellitus with ketoacidosis without coma SNOMED Code(s): 78850101 Qualifiers: Diabetes mellitus complication detail: without coma Qualified Code(s): E10.10 - Type 1 diabetes mellitus with ketoacidosis without coma (2) Hypertension: Status: Acute Code(s): I10 - Essential (primary) hypertension SNOMED Code(s): 93855621 Qualifiers: Hypertension type: primary hypertension Qualified Code(s): I10 - E ssential (primary) hypertension (3) ETOH abuse: Status: Acute Code(s): F10.10 - Alcohol abuse, uncomplicated SNOMED Code(s): 80097381 (4) Acute on chronic pancreatitis: Status: Acute Code(s): K85.90 - Acute pancreatitis without necrosis or infection, unspecified; K86.1 - Other chronic pancreatitis SNOMED Code(s): 476623686 (5) History of drug use: Status: Acute Code(s): Z87.898 - Personal history of other specified conditions SNOMED Code(s): 399492385 Reason for Hospitalization: dka Prognosis at Discharge: good Condition at Discharge: stable Medications at Discharge: Ambulatory Orders Medication Instructions Recorded levonorgestrel 20 mcg/24 hours (6 1 insert VAGINAL DIRECTED 01/05/18 yrs) 52 mg intrauterine device (Mirena) buprenorphine 8 mg-naloxone 2 mg 0.5 ea SUBLINGUAL DAILY 04/15/19 sublingual film (Suboxone) fluticasone propionate 50 2 spray ALEC QDAY #9.9 gm 03/13/20 mcg/actuation nasal spray,suspension (Flonase Allergy Relief) insulin lispro 100 unit/mL 10 unit SUBCUT QID 30 Days #12 ml 03/13/20 subcutaneous solution (Admelog U-100 Insulin lispro) alcohol swabs (BD Alcohol Swabs) 1 pad TP TID #100 each 08/14/20 pen needle, diabetic 32 gauge x See Rx Instructions .ROUTE 11/12/20 5/32" (BD Piedad 2nd Gen Pen Needle) .COMPLEX #200 ea thiamine HCl (vitamin B1) 100 mg 100 mg PO DAILY #30 tab 01/04/21 tablet blood-glucose meter,continuous #1 ea 01/12/21 (Dexcom Electric Clock Mechanic) blood sugar diagnostic (OneTouch See Rx Instructions .ROUTE 02/05/21 Ultra Test) .COMPLEX #100 strip lisinopril 40 mg tablet See Rx Instructions .ROUTE 02/12/21 .COMPLEX #90 tab potassium chloride 20 mEq 20 meq PO BIDWM #60 tab 02/26/21 tablet,extended release(part/cryst) (Klor-Con M) buspirone 5 mg tablet 5 mg PO TID #90 tab 03/12/21 metoprolol succinate 50 mg 50 mg PO DAILY #90 tab 03/27/21 tablet,extended release 24 hr omeprazole 20 mg capsule,delayed 20 mg PO BID #60 cap 03/27/21 release escitalopram oxalate 10 mg tablet 10 mg PO QDAY #30 tab 03/28/21 (Lexapro) hydralazine 25 mg tablet 25 mg PO TID PRN #90 tab 03/28/21 insulin glargine 100 unit/mL (3 34 unit SUBCUT BEDTIME #15 ml 03/29/21 mL) subcutaneous pen (Lantus Solostar U-100 Insulin) amlodipine 5 mg tablet 10 mg PO DAILY #30 tab 04/19/21 melatonin 1 mg chewable tablet 2 mg PO BEDTIME 05/02/21 Lab/Diagnostics: Laboratory Results - last 24 hr 05/03/21 05/03/21 05/03/21 08:27 10:15 14:16 Sodium 137.4 135.8 Potassium 3.61 4.22 Chloride 107.3 H 107.7 H Carbon Dioxide 21.5 L 22.6 Anion Gap 12.21 9.72 BUN 2.6 L 4.0 L Creatinine 0.68 0.76 Estimated GFR (MDRD) 125.00 110.00 BUN/Creatinine Ratio 3.82 5.26 Glucose 275.3 H 320.3 H Calcium 8.87 8.64 Urine Color Yellow Urine Clarity Clear Urine pH 6.0 Ur Specific [place] 1.020 Urine Protein 2+ H Urine Glucose (UA) 3+ H Urine Ketones 2+ H Urine Blood 3+ H Urine Nitrite Negative Urine Bilirubin Negative Urine Urobilinogen 1.0 H Ur Leukocyte Esterase Negative Urine Microscopic RBC 0-2 Urine Microscopic WBC 10-20 Ur Squamous Epith Cells 20-30 Urine Bacteria 4+ Urine Mucus Acetone, Qual 05/03/21 05/03/21 05/04/21 22:30 22:32 03:07 Sodium Potassium Chloride Carbon Dioxide Anion Gap BUN Creatinine Estimated GFR (MDRD) BUN/Creatinine Ratio Glucose 51.7 L D 48.4 L* Calcium Urine Color Yellow Urine Clarity Clear Urine pH 5.5 Ur Specific [place] 1.015 Urine Protein Negative Urine Glucose (UA) 2+ H Urine Ketones Negative Urine Blood 3+ H Urine Nitrite Negative Urine Bilirubin Negative Urine Urobilinogen 0.2 Ur Leukocyte Esterase Negative Urine Microscopic RBC 2-5 Urine Microscopic WBC 0-2 Ur Squamous Epith Cells 5-10 Urine Bacteria Trace Urine Mucus Trace Acetone, Qual 05/04/21 05/04/21 04:46 04:50 Sodium 138.6 Potassium 3.36 L Chloride 105.4 Carbon Dioxide 26.1 Anion Gap 10.46 BUN 3.8 L Creatinine 0.64 Estimated GFR (MDRD) 134.00 BUN/Creatinine Ratio 5.93 Glucose 120.9 H D Calcium 8.24 L Urine Color Urine Clarity Urine pH Ur Specific [place] Urine Protein Urine Glucose (UA) Urine Ketones Urine Blood Urine Nitrite Urine Bilirubin Urine Urobilinogen Ur Leukocyte Esterase Urine Microscopic RBC Urine Microscopic WBC Ur Squamous Epith Cells Urine Bacteria Urine Mucus Acetone, Qual None Education Provided to Patient and Family: glucose monitoring Follow-ups: see Shannan Discharge Disposition: Home Hospital Course: see chart for testing Plan: continue present medical regimen
[2021-05-04 10:14] VITALS: BP 108/72; TEMP 97.4
[2021-05-04] MEDS ORDERED: HUMALOG SUBCUT SCH (11:00)
[2021-05-04] MEDS ORDERED: LANTUS SUBCUT SCH (21:00)
== END 2021-05-04 13:00 | disposition home or self-care (01) | DRG 637 ==
LOC: ED 00:06 → MEDSURG A 04:15
PROVIDERS: ADMIT Internal Medicine Geriatric Medicine; ATTEND Emergency Medicine Emergency Medical Services
DX: I10 Essential (primary) hypertension; K86.1 Other chronic pancreatitis; F10.10 Alcohol abuse, uncomplicated; E10.10 Type 1 diabetes mellitus with ketoacidosis without coma; R10.84 Generalized abdominal pain; K86.81 Exocrine pancreatic insufficiency; K85.90 Acute pancreatitis without necrosis or infection, unspecified; Z87.898 Personal history of other specified conditions; Z20.822 Contact with and (suspected) exposure to COVID-19

== ENCOUNTER 2024-05-16 09:36 | Observation (INO) ==
[2024-05-16 10:52] LABS: BASOPHILS # (AUTO) 0.1 K/uL (0-0.2); BASOPHILS % (AUTO) 0.4 % (0.0-3.0); EOSINOPHILS # (AUTO) 0.1 K/ul (0.0-0.7); EOSINOPHILS % (AUTO) 0.6 % (0.0-7.0); IMMATURE GRANULOCYTE # (AUTO) 0.1 (0.0-1.0); IMMATURE GRANULOCYTE % (AUTO) 0.4 % (0.0-5.0); LYMPHOCYTES # (AUTO) 2.3 K/uL (0.60-3.4); MEAN CORPUSCULAR HEMOGLOBIN 34.3 pg (27.0-31.0); MEAN CORPUSCULAR HGB CONC 32.6 (31.8-35.4); MEAN CORPUSCULAR VOLUME 105.4 fl (81.0-99.0); MONOCYTES # (AUTO) 0.4 K/uL (0.4-2.0); MONOCYTES % (AUTO) 3.5 (0-10); NEUTROPHILS # (AUTO) 8.8 K/ul (2.0-6.9); NEUTROPHILS % (AUTO) 75.1 % (42.2-75.2); PLATELET COUNT 293 10^3/uL (140-440); RDW COEFFICIENT OF VARIATION 12.2 % (11.6-14.8); RED BLOOD COUNT 4.08 10^6/ul (4.20-5.40)
[2024-05-16 11:08] LABS: SERUM PREGNANCY NEGATIVE (NEGATIVE)
[2024-05-16 11:09] LABS: ALANINE AMINOTRANSFERASE 49.8 U/L (0-35); ALBUMIN 4.15 g/dL (3.5-5.0); ASPARTATE AMINO TRANSFERASE 30.2 U/L (14-36); BILIRUBIN,TOTAL 0.53 mg/dL (0.2-1.3); BLOOD UREA NITROGEN 13.2 mg/dL (7-17); CALCIUM 9.65 mg/dL (8.4-10.2); CHLORIDE 96.3 mmol/L (98-107); GLUCOSE 442.8 mg/dL (74-106); POTASSIUM 5.21 mmol/L (3.5-5.1); SODIUM 130.9 mmol/L (134.5-145); TOTAL PROTEIN 10.51 g/dL (6.3-8.2)
[2024-05-16] MEDS: PROTONIX PO ONE (11:24)
[2024-05-16 11:32] LABS: CARBON DIOXIDE < 5.0 mmol/L (22-30.0)
[2024-05-16] MEDS: NORCO 5-325 PO ONE (12:32)
--- NOTE | 2024-05-16 12:46 | ED.PDOC ---
General ED Provider: Dr. LIZZETH ARNOLD MD Chief Complaint: Vaginal Bleeding Stated Complaint: 29 years old female with history of type 1 diabetes coming to the emergency room for abdominal pain and vaginal bleeding. Patient reports that she has a history of pancreatitis and for the last few days she has been having a lot of abdominal pain in the upper abdomen and she has been taking too much ibuprofen to help with the pain and yesterday she started to have some vaginal bleeding. Last menstrual period was on May 02 patient is using contraception. Patient reports that she has been taking her insulin regularly otherwise she denies any nausea vomiting chest pain or shortness of breath. Time Seen by Provider: 05/16/24 10:25 Information Source: Patient Primary Care Provider: [facility] Nursing and Triage Documentation Reviewed and Agree: Yes What is Opioid Naive?: *Opioid Naive implies the patient is not already taking opioids or not chronically receiving opioids on a daily basis. *PRN dosing is not "usually" associated with tolerance. *Patients are at higher risk of over-sedation and aspiration. What is Opioid Tolerant?: *Opioid Tolerance implies less than the expected response to an opioid. *Acquired tolerance is defined by the patient taking 60mg of oral morphine daily (or equianalgesic dose of another opioid) for 1 week or more. *Often associated with chronic pain. *May take more than usual dose to achieve desired pain control. Review of Systems Review Of Systems Constitutional: Reports No symptoms All Other Systems: Reviewed and Negative [facility] Medical History Acute effusion of left ear Alcohol use Anxiety and depression Drug abuse Elevated LFTs Encounter for diabetic foot exam Fatigue Follow-up exam after treatment Generalized anxiety disorder Glucosuria Hematuria History of alcohol dependence History of COVID-19 History of pancreatitis Hypertension Hypertriglyceridemia Left ear pain Loss of smell Loss of taste Proteinuria Snoring Tobacco abuse Type 1 diabetes mellitus Type 1 diabetes mellitus with hyperglycemia, with long-term current use of insulin Uncontrolled hypertension Urinary tract infection Vaginal irritation Family History FATHER Diabetes Hypertension FH: prostate cancer Mother Hypertension SISTER Seasonal allergies Social History Smoking and tobacco status: Current every day smoker Tobacco: How many years used: 8 Quit status: not considering quitting Second hand smoke exposure: No Alcohol intake: current Alcohol intake frequency: a few times a month Alcohol type: beer and other Counseling given: Yes Counseling provided: reduce to 2 or less/day Details: patient states she hasn't drank alcohol since last week Substance use type: former substance user Date of last use: 1016 Rehab program w/ no use since. 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 Current occupational exposures/hazards: Yes Pets and animals: No History of recent travel: No Sexually active: Yes Do you think of yourself as: straight/heterosexual Current gender identity: female Seatbelt use: always Helmet use: Yes Drives intoxicated or rides with intoxicated farm truck driver: No Water heater temperature set < 120 degrees: Yes Working smoke detector in home: Yes Fire extinguisher in home: Yes Carbon monoxide detector in home: Yes Firearms in home: No Surgical History History of tonsillectomy [place] teeth extracted Female Reproductive History Menstrual Hx Hysterectomy: No Hx Tubal Ligation: No Physical Exam Physical Exam Appearance: Reports Well-appearing Respiratory: Reports Airway patent, Breath sounds clear and Breath sounds equal Cardiovascular: Reports RRR, Pulses normal, No rub and No murmur GI/: Reports Tender (Mild generalized no guarding or rigidity) Musculoskeletal: Reports Normal strength, ROM intact and No edema Skin: Reports Warm and Normal color Neurological: Reports Sensation intact and Motor intact Psychiatric: Reports Affect appropriate Course Course 05/16/24 10:49 05/16/24 10:49 Orders, Labs, Meds: Lab Review 05/16/24 05/16/24 05/16/24 10:49 11:05 12:48 WBC 11.70 H RBC 4.08 L Hgb 14.0 Hct 43.0 MCV 105.4 H MCH 34.3 H MCHC 32.6 RDW Coeff of Mainor 12.2 Plt Count 293 Immature Gran % (Auto) 0.4 Neut % (Auto) 75.1 Lymph % (Auto) 20.0 Clark % (Auto) 3.5 Eos % (Auto) 0.6 Baso % (Auto) 0.4 Neut # (Auto) 8.8 H Lymph # (Auto) 2.3 Clark # (Auto) 0.4 Eos # (Auto) 0.1 Baso # (Auto) 0.1 Immature Gran # (Auto) 0.1 VBG pH VBG pCO2 VBG pO2 VBG HCO3 VBG O2 Saturation Sodium 130.9 L Potassium 5.21 H Chloride 96.3 L Carbon Dioxide < 5.0 L* Anion Gap 34.65362 BUN 13.2 Creatinine 1.30 Estimated GFR (MDRD) 58.00 BUN/Creatinine Ratio 10.15 Glucose 442.8 H Calcium 9.65 Total Bilirubin 0.53 AST 30.2 ALT 49.8 H Alkaline Phosphatase 118.0 Total Protein 10.51 H Albumin 4.15 Globulin 6.36 Albumin/Globulin Ratio 0.65 Lipase 47.0 Serum , Qual Negative Urine Color Yellow Urine Clarity Clear Urine pH 5.5 Ur Specific [place] >=1.030 Urine Protein 2+ H Urine Glucose (UA) 2+ H Urine Ketones 4+ Urine Blood 3+ H Urine Nitrite Negative Urine Bilirubin 2+ H Urine Urobilinogen 0.2 Ur Leukocyte Esterase Negative Urine Microscopic RBC 5-10 Ur Squamous Epith Cells Not present SARS CoV-2 RNA Rapid ANGEL 05/16/24 05/16/24 13:30 14:06 WBC RBC Hgb Hct MCV MCH MCHC RDW Coeff of Mainor Plt Count Immature Gran % (Auto) Neut % (Auto) Lymph % (Auto) Clark % (Auto) Eos % (Auto) Baso % (Auto) Neut # (Auto) Lymph # (Auto) Clark # (Auto) Eos # (Auto) Baso # (Auto) Immature Gran # (Auto) VBG pH 6.95 L VBG pCO2 19 L VBG pO2 46 H VBG HCO3 4.2 L VBG O2 Saturation 50.6 L Sodium Potassium Chloride Carbon Dioxide Anion Gap BUN Creatinine Estimated GFR (MDRD) BUN/Creatinine Ratio Glucose Calcium Total Bilirubin AST ALT Alkaline Phosphatase Total Protein Albumin Globulin Albumin/Globulin Ratio Lipase Serum , Qual Urine Color Urine Clarity Urine pH Ur Specific [place] Urine Protein Urine Glucose (UA) Urine Ketones Urine Blood Urine Nitrite Urine Bilirubin Urine Urobilinogen Ur Leukocyte Esterase Urine Microscopic RBC Ur Squamous Epith Cells SARS CoV-2 RNA Rapid ANGEL Negative Orders Category Date Time Status [facility] ADMISSION 05/16/24 15:06 Active VBG DRAW REQUEST Urgent CARDIO 05/16/24 14:04 Completed BLOOD GLUCOSE MONITORING (MED/SURG) Q1HR CARE 05/16/24 12:47 Active TELEMETRY MONITORING TELE CARE 05/16/24 15:06 Active CBC W/ AUTO DIFF Stat LAB 05/16/24 10:49 Completed CMP [COMPREHENSIVE METABOLIC PANEL] Stat LAB 05/16/24 10:49 Completed COVID [SARS COV-2 RNA RAPID ANGEL] Stat LAB 05/16/24 14:06 Completed LIPASE Stat LAB 05/16/24 11:05 Completed SERUM TEST [SERUM ] Stat LAB 05/16/24 10:49 Completed PT WITH INR Stat LAB 05/16/24 Completed PTT [PARTIAL THROMBOPLASTIN TIME] Stat LAB 05/16/24 Completed URINALYSIS C & S IF INDICATED Stat LAB 05/16/24 12:48 Completed VBG [VENOUS BLOOD GAS] Stat LAB 05/16/24 13:30 Completed Hydrocodone Bit/Acetaminophen [[place] 5-325] Meds 05/16/24 12:10 Discontinued 1 tab PO ONCE ONE Insulin Regular in 0.9 % NaCl [Myxredlin 100 Unit/100 Meds 05/16/24 13:00 Active ml Bag] 100 unit in 100 ml IV TITRATION Insulin Regular, Human [Humulin R (10Ml)] Meds 05/16/24 12:11 Discontinued 15 unit SUBCUT ONCE STA Morphine Sulfate [Morphine 2 mg/ml Syringe] Meds 05/16/24 14:01 Discontinued 1 mg IVP ONCE ONE Pantoprazole Sodium [Protonix] Meds 05/16/24 11:05 Discontinued 40 mg PO ONCE ONE Sodium Chloride 0.9% [Sodium Chloride] 1,000 ml Meds 05/16/24 12:10 Discontinued IV BOLUS Medications Generic Name Dose Route Start Last Admin Trade Name Freq PRN Reason Stop Dose Admin INSULIN REGULAR IN 0.9 % NACL 100 unit in 100 mls @ 5.4 mls/hr 05/16/24 13:00 05/16/24 13:53 Myxredlin 100 Unit/100 Ml Bag IV 0.1 unit/kg/hr TITRATION MICHAEL 5.4 mls/hr Administration Protocol 0.1 UNIT/KG/HR Discontinued Medications Generic Name Dose Route Start Last Admin Trade Name Spencer PRN Reason Stop Dose Admin Hydrocodone Bitart/Acetaminophen 1 tab 05/16/24 12:10 05/16/24 12:32 Hydrocodone Bit/Acetaminophen 5/325 Mg Tablet PO 05/16/24 12:11 1 tab ONCE ONE Administration Sodium Chloride 1,000 mls @ 1,000 mls/hr 05/16/24 12:10 05/16/24 13:45 Sodium Chloride IV 05/16/24 13:09 1,000 mls/hr BOLUS ONE Administration Insulin Human Regular 15 unit 05/16/24 12:11 05/16/24 12:52 Insulin Regular, Human 100 Unit/Ml (10ml) Vial SUBCUT 05/16/24 12:12 15 unit ONCE STA Administration Morphine Sulfate 1 mg 05/16/24 14:01 05/16/24 14:10 Morphine Sulfate 2 Mg/Ml Syringe IVP 05/16/24 14:02 1 mg ONCE ONE Administration Pantoprazole Sodium 40 mg 05/16/24 11:05 05/16/24 11:24 Pantoprazole Sodium 40 Mg Tablet.Dr PO 05/16/24 11:06 40 mg ONCE ONE Administration Vital Signs: Temp Pulse Resp BP Pulse Ox 05/16/24 10:20 97.7 F 128 H 20 155/90 H 100 Patient with type 1 diabetes was coming for abdominal pain and vaginal bleeding. test is negative hemoglobin is stable patient also hemodynamically stable so she will follow-up as outpatient for vaginal bleeding. Patient also was found to be in DKA blood sugar 442 anion gap 34 she was given 15 units of insulin and was started on insulin drip, however not able to get ABG. Venous blood gas showed pH of 6.95 patient also has a potassium of 5.2 which was started on insulin drip potassium will likely improve with treatment of DKA. Initiated will need to be admitted for further management call the hospitalist on-call Ozzy discussed the patient case with her and she accepted the patient to be admitted for further management. 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
[2024-05-16 12:50] LABS: PARTIAL THROMBOPLASTIN TIME 30.1 SEC (23.9-40.0)
[2024-05-16 12:51] LABS: BILIRUBIN,URINE 2+ (NEGATIVE); CLARITY,URINE Clear (CLEAR); COLOR,URINE Yellow (YELLOW); GLUCOSE, URINE (UA) 2+ (NEGATIVE); KETONES,URINE 4+ (NEGATIVE); LEUKOCYTE ESTERASE ,URINE Negative (NEGATIVE); NITRITE,URINE Negative (NEGATIVE); PH,URINE 5.5 (5-9); PROTEIN,URINE 2+ (NEGATIVE); URINE, BLOOD 3+ (NEGATIVE); UROBILINOGEN,URINE 0.2 (0.2)
[2024-05-16 12:52] LABS: SQUAMOUS EPITHELIAL CELL,UR NOT PRESENT (0-5)
[2024-05-16] MEDS: HUMULIN R (10ML) SUBCUT STA (12:52)
[2024-05-16] MEDS: SODIUM CHLORIDE 1,000 ML IV ONE (13:45)
[2024-05-16] MEDS: MYXREDLIN 100 UNIT/100 ML BAG 100 UNIT/100 ML PLAST..BAG IV SCH ×2 (13:53→22:17)
[2024-05-16] MEDS: MORPHINE 2 MG/ML SYRINGE IVP ONE (14:10)
[2024-05-16 14:16] LABS: VBG HCO3 4.2 (22-26); VBG OXYGEN SATURATION 50.6 (60-80); VBG PH 6.95 (7.30-7.40)
[2024-05-16 14:25] LABS: SARS COV-2 RNA RAPID NAAT NEGATIVE (NEGATIVE)
--- NOTE | 2024-05-16 15:39 | PCM ---
Date of Service Date Seen by Provider: 05/16/24 Time Seen by Provider: 15:50 Admit Day/Time Admission Date: 05/16/24 Reason for Admission Chief Complaint: DKA Hospital Provider Hospital Provider: NASRA PERALES, [facility] [place] Primary Care Physician Primary Care Physician: BEST LANGFORD History of Present Illness History of Present Illness: 29 yo female presented to the ER with complaints of vaginal bleeding and abdom inal pain. States the bleeding started yesterday and then the abdominal pain started today. Reports bleeding volume of 1 pad per hour. Last period was May 02. test negative. Sharp abdominal pain noted to upper abdomen and radiates through to her back. Was given norco and morphine in the ER without relief. Denies any urinary symptoms, N/V/D, fever, or other symptoms. Patient was found to be in severe DKA with pH of 6.95 and anion gap of 35. Admitted to med/surg observation for DKA. Case Discussed With Case Discussed With: Patient's case was discussed with the ER Physicians, Dr. Garibay. [facility] Medical History Drug abuse 2016 rehab for pain meds F19.10 - Other psychoactive substance abuse, uncomplicated (ICD-10) Surgical History Kenna teeth extracted K08.409 - Partial loss of teeth, unspecified cause, unspecified class (ICD- 10) History of tonsillectomy Z90.89 - Other specified postprocedural states (ICD-10) Family History FATHER Diabetes Hypertension FH: prostate cancer Mother Hypertension SISTER Seasonal allergies Social History Smoking and tobacco status: Current every day smoker Tobacco: How many years used: 8 Quit status: not considering quitting Second hand smoke exposure: No Alcohol intake: current Alcohol intake frequency: a few times a month Alcohol type: beer and other Counseling given: Yes Counseling provided: reduce to 2 or less/day Details: patient states she hasn't drank alcohol since last week Substance use type: former substance user Date of last use: 1016 Rehab program w/ no use since. 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 Current occupational exposures/hazards: Yes Pets and animals: No History of recent travel: No Sexually active: Yes Do you think of yourself as: straight/heterosexual Current gender identity: female Seatbelt use: always Helmet use: Yes Drives intoxicated or rides with intoxicated shuttle van driver: No Water heater temperature set < 120 degrees: Yes Working smoke detector in home: Yes Fire extinguisher in home: Yes Carbon monoxide detector in home: Yes Firearms in home: No Allergies Allergies Allergy/AdvReac Type Severity Reaction Status Date / Time amoxicillin AdvReac Nausea Verified 05/16/24 10:26 clarithromycin [From Biaxin] AdvReac Nausea Verified 05/16/24 10:26 Penicillins AdvReac Nausea Verified 05/16/24 10:26 Current Medications Home Medications fluticasone propionate 50 mcg/actuation nasal spray,suspension (Flonase Allergy Relief) 2 spray intranasal QDAY #9.9 grams 03/13/20 [Rx Confirmed 05/16/24 Last Taken 05/11/20] pen needle, diabetic 32 gauge x 5/32" (BD Piedad 2nd Gen Pen Needle) See Rx Instructions .Route .COMPLEX #200 ea 11/12/20 [Rx Confirmed 05/16/24 Last Taken Unknown] melatonin 1 mg chewable tablet 2 mg PO BEDTIME 05/02/21 [History Confirmed 05/16/24 Last Taken Unknown] ondansetron HCl 4 mg tablet (Zofran) 4 mg PO Q8H PRN nausea and vomiting #10 tabs 05/04/21 [Rx Confirmed 05/16/24 Last Taken Unknown] ibuprofen 600 mg tablet 600 mg PO Q6H PRN pain #30 tabs 09/12/21 [Rx Confirmed 05/16/24 Last Taken Unknown] alcohol swabs 1 pad topical TID #100 ea 09/19/21 [Rx Confirmed 05/16/24 Last Taken Unknown] buspirone 5 mg tablet See Rx Instructions .Route .COMPLEX #90 tabs 10/08/21 [Rx Confirmed 05/16/24 Last Taken Unknown] blood sugar diagnostic (Victory PharmaTouch Ultra Test strips) See Rx Instructions .Route .COMPLEX #100 strips 11/13/21 [Rx Confirmed 05/16/24 Last Taken Unknown] hydralazine 25 mg tablet See Rx Instructions .Route .COMPLEX #90 tabs 11/13/21 [Rx Confirmed 05/16/24 Last Taken Unknown] bupropion HCl 150 mg tablet,12 hr sustained-release (Wellbutrin SR) 150 mg PO BID 01/07/22 [History Confirmed 05/16/24 Last Taken Unknown] insulin lispro 100 unit/mL subcutaneous solution (Admelog U-100 Insulin lispro) 12 unit (0.12 mL) subcut QID #12 mL 02/11/22 [Rx Confirmed 05/16/24 Last Taken Unknown] metoprolol succinate 50 mg tablet,extended release 24 hr 100 mg PO DAILY 09/16 [History Confirmed 05/16/24 Last Taken Unknown] labetalol 100 mg tablet 100 mg PO 2XD 05/16/24 [History Confirmed 05/16/24 Last Taken Unknown] norgestimate 0.25 mg-ethinyl estradiol 35 mcg tablet (Estarylla) 1 tab PO DAILY 05/16/24 [History Confirmed 05/16/24 Last Taken Unknown] Home Acetaminophen (Acetaminophen 325 Mg Tablet) 650 mg PO Q4H PRN PRN Reason: Mild Pain Sodium Chloride (Sodium Chloride) 1,000 mls @ 250 mls/hr IV .Q4H MICHAEL INSULIN REGULAR IN 0.9 % NACL (Myxredlin 100 Unit/100 Ml Bag) 100 unit in 100 mls @ 5.4 mls/hr IV TITRATION MICHAEL; Protocol Ketorolac Tromethamine (Ketorolac Tromethamine 15 Mg/Ml Vial) 15 mg IVP Q6HR PRN PRN Reason: Pain Stop: 05/20/24 16:36 Discontinued Medications Hydrocodone Bitart/Acetaminophen (Hydrocodone Bit/Acetaminophen 5/325 Mg Tablet) 1 tab PO ONCE ONE Stop: 05/16/24 12:11 Last Admin: 05/16/24 12:32 Dose: 1 tab Sodium Chloride (Sodium Chloride) 1,000 mls @ 1,000 mls/hr IV BOLUS ONE Stop: 05/16/24 13:09 Last Infusion: 05/16/24 15:29 Dose: Infused INSULIN REGULAR IN 0.9 % NACL (Myxredlin 100 Unit/100 Ml Bag) 100 unit in 100 mls @ 5.4 mls/hr IV TITRATION MICHAEL; Protocol Last Titration: 05/16/24 16:28 Dose: 9.4 mls/hr Insulin Human Regular (Insulin Regular, Human 100 Unit/Ml (10ml) Vial) 15 unit SUBCUT ONCE STA Stop: 05/16/24 12:12 Last Admin: 05/16/24 12:52 Dose: 15 unit Morphine Sulfate (Morphine Sulfate 2 Mg/Ml Syringe) 1 mg IVP ONCE ONE Stop: 05/16/24 14:02 Last Admin: 05/16/24 14:10 Dose: 1 mg Pantoprazole Sodium (Pantoprazole Sodium 40 Mg Tablet.Dr) 40 mg PO ONCE ONE Stop: 05/16/24 11:06 Last Admin: 05/16/24 11:24 Dose: 40 mg Opioid Naive vs. Tolerant Does Patient Take Opioids?: Yes Is Patient Opioid Naive?: No What is Opioid Naive?: *Opioid Naive implies the patient is not already taking opioids or not chronically receiving opioids on a daily basis. *PRN dosing is not "usually" associated with tolerance. *Patients are at higher risk of over-sedation and aspiration. Is Patient Opioid Tolerant?: No What is Opioid Tolerant?: *Opioid Tolerance implies less than the expected response to an opioid. *Acquired tolerance is defined by the patient taking 60mg of oral morphine daily (or equianalgesic dose of another opioid) for 1 week or more. *Often associated with chronic pain. *May take more than usual dose to achieve desired pain control. Review of Systems Constitutional: Reports No symptoms Head: Reports Normocephalic Eyes: Reports No symptoms Ears: Reports No symptoms Nose: Reports No symptoms Mouth: Reports No symptoms Throat: Reports No symptoms Cardiovascular: Reports No symptoms Respiratory: Reports No symptoms Gastrointestinal: Reports Abdominal pain Genitourinary: Reports Abnormal Bleeding Musculoskeletal: Reports No symptoms Endocrine: Reports No symptoms Hematology: Reports No symptoms Immunology: Reports No symptoms Neurological: Reports No symptoms Psychiatric: Reports No symptoms Physical examination Most Recent Vital Signs: Most Recent Vital Signs Temperature 97.7 F 05/16/24 10:20 Temperature Source Temporal Artery Scan 05/16/24 10:20 Pulse Rate 128 H 05/16/24 10:20 Respiratory Rate 20 05/16/24 10:20 Blood Pressure 155/90 H 05/16/24 10:20 O2 Sat by Pulse Oximetry 100 05/16/24 10:20 Height 5 ft 4 in 05/16/24 10:20 Weight 54 kg 05/16/24 10:20 Telemetry Heart Rate 74 05/04/21 07:00 Appearance: Positive No Apparent Distress, Alert and Oriented x3 and Ill- Appearing Skin: Positive Warm and Good Turgor HEENT: Positive Normocephalic and PERRLA Neck: Positive Supple and Midline Trachea Chest/Lungs: Positive Symmetrical With Equal Breath Sounds, Clear to Auscultation Bilaterally and Good Air Movement all 4 Lung [place] Heart: Positive RRR and Pulses Normal GI/: Positive Soft, Bowel Sounds Normal, No Distention and Tender (upper quadrants) Musculoskeletal: Positive Not Examined Extremities: Positive Intact Peripheral Pulses, Stable Joints Without Laxity and Good ROM in All Joints Neurological: Positive Sensation Intact, Motor intact, Alert, Oriented and Muscle Strength 5/5 in Upper and Lower Extremities Bilaterally Labs This Visit Labs This Visit: Labs This Visit 05/16/24 05/16/24 05/16/24 10:49 11:05 12:48 WBC 11.70 H RBC 4.08 L Hgb 14.0 Hct 43.0 MCV 105.4 H MCH 34.3 H MCHC 32.6 RDW Coeff of Mainor 12.2 Plt Count 293 Immature Gran % (Auto) 0.4 Neut % (Auto) 75.1 Lymph % (Auto) 20.0 [place] % (Auto) 3.5 Eos % (Auto) 0.6 Baso % (Auto) 0.4 Neut # (Auto) 8.8 H Lymph # (Auto) 2.3 [place] # (Auto) 0.4 Eos # (Auto) 0.1 Baso # (Auto) 0.1 Immature Gran # (Auto) 0.1 PT INR APTT VBG pH VBG pCO2 VBG pO2 VBG HCO3 VBG O2 Saturation Sodium 130.9 L Potassium 5.21 H Chloride 96.3 L Carbon Dioxide < 5.0 L* Anion Gap 34.84031 BUN 13.2 Creatinine 1.30 Estimated GFR (MDRD) 58.00 BUN/Creatinine Ratio 10.15 Glucose 442.8 H Calcium 9.65 Total Bilirubin 0.53 AST 30.2 ALT 49.8 H Alkaline Phosphatase 118.0 Total Protein 10.51 H Albumin 4.15 Globulin 6.36 Albumin/Globulin Ratio 0.65 Lipase 47.0 Serum , Qual Negative Urine Color Yellow Urine Clarity Clear Urine pH 5.5 Ur Specific [place] >=1.030 Urine Protein 2+ H Urine Glucose (UA) 2+ H Urine Ketones 4+ Urine Blood 3+ H Urine Nitrite Negative Urine Bilirubin 2+ H Urine Urobilinogen 0.2 Ur Leukocyte Esterase Negative Urine Microscopic RBC 5-10 Ur Squamous Epith Cells Not present SARS CoV-2 RNA Rapid ANGEL 05/16/24 05/16/24 05/16/24 13:30 14:06 Unknown WBC RBC Hgb Hct MCV MCH MCHC RDW Coeff of Mainor Plt Count Immature Gran % (Auto) Neut % (Auto) Lymph % (Auto) [place] % (Auto) Eos % (Auto) Baso % (Auto) Neut # (Auto) Lymph # (Auto) [place] # (Auto) Eos # (Auto) Baso # (Auto) Immature Gran # (Auto) PT INR APTT 30.1 VBG pH 6.95 L VBG pCO2 19 L VBG pO2 46 H VBG HCO3 4.2 L VBG O2 Saturation 50.6 L Sodium Potassium Chloride Carbon Dioxide Anion Gap BUN Creatinine Estimated GFR (MDRD) BUN/Creatinine Ratio Glucose Calcium Total Bilirubin AST ALT Alkaline Phosphatase Total Protein Albumin Globulin Albumin/Globulin Ratio Lipase Serum , Qual Urine Color Urine Clarity Urine pH Ur Specific [place] Urine Protein Urine Glucose (UA) Urine Ketones Urine Blood Urine Nitrite Urine Bilirubin Urine Urobilinogen Ur Leukocyte Esterase Urine Microscopic RBC Ur Squamous Epith Cells SARS CoV-2 RNA Rapid ANGEL Negative Review Statement Review Statement: I have independently reviewed and interpreted the labs/EKGs/imaging that were ordered by the ER provider. I have reviewed all outside records that are available currently in our EMR including imaging/notes/labs from previous visits. Plan Plan: 1. Severe DKA - insulin gtt per protocol, IV fluids, accuchecks Q1H while on gtt, NPO, serial bmp and vbg Q4H until anion gap <12, checking hemoglobin A1C 2. Hyperkalemia - secondary to DKA, serial BMP, trend and monitor 3. Hyponatremia - secondary to DKA, NS@250mL/hr, trend and monitor 4. Vaginal bleeding - unknown etiology, hemodynamically stable, hemoglobin stable, CT abd/pelv ordered by ER provider - no acute findings concerning repr oductive organs, refer to photogravure press operator upon discharge 5. Hypertension - chronic, continue home medications DVT Prophylaxis: Ambulation Time Spent: Greater than 80 minutes spent with patient, 50% of the time spent with this patient was devoted to counseling and coordination of care. Advanced Care Plannin minutes spent discussing advance care planning. Smoking Cessation: 3-10 minutes spent discussing smoking cessation. Disposition: Admit to: Med/Surg Observation Full Code Discussed Plan of Care with Dr. Jose Garcia. Medications Medication Orders: Medications Ordered Category Date Time Status Acetaminophen [Tylenol] Meds 05/16/24 15:18 Ordered 650 mg PO Q4H PRN Insulin Regular in 0.9 % NaCl [Myxredlin 100 Unit/100 Meds 05/16/24 13:00 Active ml Bag] 100 unit in 100 ml IV TITRATION Insulin Regular in 0.9 % NaCl [Myxredlin 100 Unit/100 Meds 05/16/24 15:30 Ordered ml Bag] 100 unit in 100 ml IV TITRATION Sodium Chloride 0.9% [Sodium Chloride] 1,000 ml Meds 05/16/24 15:30 Ordered IV 250 mls/hr
--- NOTE | 2024-05-16 16:31 | CT ---
EXAMINATION: CT OF THE ABDOMEN AND PELVIS WITHOUT CONTRAST. HISTORY:Abdominal pain. COMPARISON: Ultrasound 08/30/2021. CT 01/02/2021. TECHNIQUE: CT acquisition images were obtained from lung base through pelvis. No intravenous contra st. Multiplanar reformats were obtained. FINDINGS: Heart: No significant pericardial fluid or thickening. Lower mediastinum. Small hiatal hernia suspected. Lung Bases: No effusion. Nonspecific ground-glass opacities at the posterior lung bases. Biliary: Gallbladder present without distension or surrounding inflammatory changes. No biliary abdirahman moises dilatation. Liver: Hepatic steatosis. Focal fat deposition versus a cyst adjacent the fissure for the falciform ligament measuring 13 mm. Spleen: Normal size. No lesions. Pancreas: Interval development of diffuse calcifications throughout the pancreas consistent with chr onic pancreatitis. No acute inflammatory changes or surrounding fluid to suggest acute pancreatitis. The pancreatic duct is not well visualized but may be dilated. Adrenals: No abnormality. Kidneys: Nonobstructing inferior pole left renal calculus measuring 2.5 mm. Bowel: Stomach mildly distended with ingested material. No bowel dilatation or obstruction. The re ctum is distended with stool measuring 6.3 cm in diameter. No surrounding inflammatory changes. Nor mal appendix. No signs of appendicitis. Bladder: No abnormality. Pelvic Organs: Uterus and adnexa without significant abnormality. Free Fluid: None. Lymphadenopathy: None. Vasculature: No abdominal aortic aneurysm. Atherosclerosis: No calcific atherosclerosis. Body wall: Minimal fat stranding and skin thickening in the bilateral lower quadrant anterior abdomi nal wall. May represent postsurgical changes, soft tissue contusion, or other etiology. Osseous structures: No significant abnormality. IMPRESSION: Interval development of diffuse calcifications throughout the pancreas consistent with chronic pancre atitis. No acute inflammatory changes or surrounding fluid to suggest acute pancreatitis. The pancr eatic duct may be dilated. Nonobstructing 2.5 mm left renal calculus. No evidence of bowel obstruction, urinary obstruction, or localized inflammatory changes within the a bdomen or pelvis. Fecal distension of the rectum. Correlate for fecal impaction. No surrounding perirectal inflammato ry changes. Hepatic steatosis. Cyst or focal fatty deposition adjacent the fissure for the falciform ligament measuring 13 mm. Nonspecific ground-glass opacities dependently at the lung bases. May represent atelectatic changes. Infectious etiology not excluded. All CT scans are performed using dose optimization techniques as appropriate to the performed exam an d include at least one of the following: Automated exposure control, adjustment of the mA and/or kV according t o size, and the use of iterative reconstruction technique.
[2024-05-16 16:42] VITALS: BMI 20.8
[2024-05-16] MEDS: TORADOL IVP PRN (16:55)
[2024-05-16] MEDS: SODIUM CHLORIDE 1,000 ML IV SCH (17:02)
[2024-05-16 18:19] LABS: VBG HCO3 6.7 (22-26); VBG OXYGEN SATURATION 35.5 (60-80); VBG PH 7.07 (7.30-7.40)
[2024-05-16 18:30] LABS: BLOOD UREA NITROGEN 14.9 mg/dL (7-17); CALCIUM 8.66 mg/dL (8.4-10.2); CHLORIDE 106.4 mmol/L (98-107); CREATININE 1.24 mg/dL (0.60-1.30); GLUCOSE 198.6 mg/dL (74-106); POTASSIUM 4.82 mmol/L (3.5-5.1); SODIUM 136.9 mmol/L (134.5-145)
[2024-05-16 18:32] LABS: CARBON DIOXIDE < 5.0 mmol/L (22-30.0)
[2024-05-16] MEDS: D5%-1/2NS-KCL 20 MEQ/L IV SOL 1,000 ML IV SCH (18:41)
[2024-05-16] MEDS: BENADRYL PO PRN (20:30)
[2024-05-16] MEDS: TYLENOL PO PRN (20:30)
[2024-05-16 22:52] LABS: BLOOD UREA NITROGEN 13.9 mg/dL (7-17); CALCIUM 8.13 mg/dL (8.4-10.2); CHLORIDE 107.3 mmol/L (98-107); CREATININE 1.18 mg/dL (0.60-1.30); GLUCOSE 243.3 mg/dL (74-106); POTASSIUM 4.78 mmol/L (3.5-5.1); SODIUM 131.2 mmol/L (134.5-145)
[2024-05-16 22:54] LABS: CARBON DIOXIDE < 5.0 mmol/L (22-30.0)
[2024-05-16 23:00] LABS: VBG HCO3 8.4 (22-26); VBG OXYGEN SATURATION 90.7 (60-80); VBG PH 7.23 (7.30-7.40)
[2024-05-16] MEDS: D5%-NS-KCL 20 MEQ/L IV SOL 1,000 ML IV SCH (23:17)
[2024-05-17 02:42] LABS: VBG HCO3 11.5 (22-26); VBG OXYGEN SATURATION 74.5 (60-80); VBG PH 7.29 (7.30-7.40)
[2024-05-17 02:54] LABS: BLOOD UREA NITROGEN 12.4 mg/dL (7-17); CALCIUM 7.94 mg/dL (8.4-10.2); CHLORIDE 109.6 mmol/L (98-107); CREATININE 1.15 mg/dL (0.60-1.30); GLUCOSE 270.7 mg/dL (74-106); POTASSIUM 4.02 mmol/L (3.5-5.1); SODIUM 132.9 mmol/L (134.5-145)
[2024-05-17 02:55] LABS: CARBON DIOXIDE 8.7 mmol/L (22-30.0)
[2024-05-17] MEDS: ZOFRAN ODT PO ONE (03:44)
[2024-05-17] MEDS: HYDRALAZINE HCL IVP PRN (05:56)
[2024-05-17 06:31] LABS: BASOPHILS % (AUTO) 0.1 % (0.0-3.0); EOSINOPHILS % (AUTO) 0.3 % (0.0-7.0); HEMATOCRIT 30.7 % (37.0-47.0); HEMOGLOBIN 10.2 g/dl (12.0-16.0); IMMATURE GRANULOCYTE % (AUTO) 0.3 % (0.0-5.0); LYMPHOCYTES # (AUTO) 0.6 K/uL (0.60-3.4); LYMPHOCYTES % (AUTO) 7.5 (10.0-50.0); MEAN CORPUSCULAR HEMOGLOBIN 32.3 pg (27.0-31.0); MEAN CORPUSCULAR HGB CONC 33.2 (31.8-35.4); MEAN CORPUSCULAR VOLUME 97.2 fl (81.0-99.0); MONOCYTES # (AUTO) 0.4 K/uL (0.4-2.0); MONOCYTES % (AUTO) 5.6 (0-10); NEUTROPHILS # (AUTO) 6.5 K/ul (2.0-6.9); NEUTROPHILS % (AUTO) 86.2 % (42.2-75.2); PLATELET COUNT 147 10^3/uL (140-440); RDW COEFFICIENT OF VARIATION 11.9 % (11.6-14.8); RED BLOOD COUNT 3.16 10^6/ul (4.20-5.40)
[2024-05-17 06:40] LABS: VBG HCO3 13.9 (22-26); VBG OXYGEN SATURATION 91.9 (60-80); VBG PH 7.32 (7.30-7.40)
[2024-05-17 06:44] LABS: ALANINE AMINOTRANSFERASE 26.4 U/L (0-35); ALBUMIN 3.71 g/dL (3.5-5.0); ALKALINE PHOSPHATASE 64.5 U/L (38-126); ASPARTATE AMINO TRANSFERASE 26.2 U/L (14-36); BILIRUBIN,TOTAL 0.3 mg/dL (0.2-1.3); BLOOD UREA NITROGEN 10.9 mg/dL (7-17); CALCIUM 8.05 mg/dL (8.4-10.2); CARBON DIOXIDE 11.5 mmol/L (22-30.0); CHLORIDE 113.6 mmol/L (98-107); CREATININE 1.02 mg/dL (0.60-1.30); GLUCOSE 223.1 mg/dL (74-106); POTASSIUM 3.78 mmol/L (3.5-5.1); TOTAL PROTEIN 6.88 g/dL (6.3-8.2)
[2024-05-17] MEDS: SODIUM CHLORIDE 1,000 ML IV SCH (09:41)
[2024-05-17] MEDS: DEXTROSE 50%-WATER ABBOJECT ONE (10:05)
[2024-05-17 10:34] LABS: VBG OXYGEN SATURATION 96.2 (60-80); VBG PH 7.36 (7.30-7.40)
[2024-05-17 10:44] LABS: BLOOD UREA NITROGEN 9.2 mg/dL (7-17); CALCIUM 8.16 mg/dL (8.4-10.2); CARBON DIOXIDE 13.3 mmol/L (22-30.0); CREATININE 1.02 mg/dL (0.60-1.30); GLUCOSE 130.9 mg/dL (74-106); HDL CHOLESTEROL 65.3 mg/dL (35-80); POTASSIUM 3.61 mmol/L (3.5-5.1); SODIUM 135.6 mmol/L (134.5-145)
[2024-05-17 10:51] LABS: CHOLESTEROL 369.9 mg/dL (0-200)
[2024-05-17] MEDS: D5%-1/2NS-KCL 20 MEQ/L IV SOL 1,000 ML IV SCH (11:19)
[2024-05-17] MEDS: PROTONIX IVP ONE (12:13)
[2024-05-17] MEDS: DEXTROSE 50%-WATER ABBOJECT IVP STA (12:33)
--- NOTE | 2024-05-17 12:58 | PCM.PROG ---
Date/Time Seen Date Seen by Provider: 05/17/24 Time Seen by Provider: 08:40 Provider Provider: EULALIO ANDERSON PA-C, [facility] Chief Complaint Chief Complaint: DKA Subjective Subjective: Patient states her abd pain has improved. She is feeling like eating. However bicarb is slow to improve despite AG closing. Objective Appearance: Positive No Apparent Distress and Alert and Oriented x3 Chest/Lungs: Positive Clear to Auscultation Bilaterally; Negative Rales, Rhonci or Wheezes Heart: Positive RRR GI/: Positive Soft, Nontender, Bowel Sounds Normal and No Distention Neurological: Positive Cranial Nerves Intact, Alert and Oriented Vital Signs Vital Signs: Vital Signs: Last 24 Hours 05/16/24 15:49 05/16/24 15:49 05/16/24 16:00 Temperature 96.2 F L Temperature Source Temporal Artery Scan Pulse Rate 123 H Pulse Rate [Apical] 124 H Respiratory Rate 26 H 24 H Blood Pressure Blood Pressure Mean Blood Pressure Left Arm 160/107 Blood Pressure Location Blood Pressure Position Supine O2 Sat by Pulse Oximetry 100 Oxygen Delivery Method Room Air Room Air Room Air Height 5 ft 4 in Weight 55.1 kg Telemetry Type Telemetry Monitoring Telemetry Heart Rate EKG AR Interval EKG QRS Interval Telemetry Strip Reading 05/16/24 16:53 05/16/24 18:00 05/16/24 18:00 Temperature 97.2 F L Temperature Source Temporal Artery Scan Pulse Rate 113 H Pulse Rate [Apical] Respiratory Rate 16 Blood Pressure 135/89 Blood Pressure Mean 104 Blood Pressure Left Arm Blood Pressure Location Right Arm Blood Pressure Position Supine O2 Sat by Pulse Oximetry 100 Oxygen Delivery Method Room Air Room Air Room Air Height Weight Telemetry Type Telemetry Monitoring Telemetry Heart Rate EKG AR Interval EKG QRS Interval Telemetry Strip [place] 05/16/24 19:00 05/16/24 19:00 05/16/24 20:00 Temperature Temperature Source Pulse Rate Pulse Rate [Apical] Respiratory Rate Blood Pressure Blood Pressure Mean Blood Pressure Left Arm Blood Pressure Location Blood Pressure Position O2 Sat by Pulse Oximetry Oxygen Delivery Method Room Air Room Air Height Weight Telemetry Type Remote Telemetry Telemetry Monitoring Started Telemetry Heart Rate 122 H EKG AR Interval 0.14 EKG QRS Interval 0.05 L Telemetry Strip Reading ST 05/16/24 20:00 05/16/24 21:00 05/16/24 21:01 Temperature 97.9 F Temperature Source Temporal Artery Scan Pulse Rate 116 H Pulse Rate [Apical] 122 H Respiratory Rate 24 H Blood Pressure 159/99 H Blood Pressure Mean 119 Blood Pressure Left Arm Blood Pressure Location Right Arm Blood Pressure Position Supine O2 Sat by Pulse Oximetry 98 Oxygen Delivery Method Room Air Room Air Room Air Height Weight Telemetry Type Telemetry Monitoring Telemetry Heart Rate EKG AR Interval EKG QRS Interval Telemetry Strip Reading 05/16/24 22:00 05/16/24 23:00 05/17/24 00:00 Temperature Temperature Source Pulse Rate Pulse Rate [Apical] Respiratory Rate Blood Pressure Blood Pressure Mean Blood Pressure Left Arm Blood Pressure Location Blood Pressure Position O2 Sat by Pulse Oximetry Oxygen Delivery Method Room Air Room Air Room Air Height Weight Telemetry Type Telemetry Monitoring Telemetry Heart Rate EKG AR Interval EKG QRS Interval Telemetry Strip Reading 05/17/24 01:00 05/17/24 01:00 05/17/24 02:00 Temperature 98.5 F Temperature Source Temporal Artery Scan Pulse Rate 124 H Pulse Rate [Apical] Respiratory Rate 25 H Blood Pressure 155/103 H Blood Pressure Mean 120 Blood Pressure Left Arm Blood Pressure Location Right Arm Blood Pressure Position Sitting O2 Sat by Pulse Oximetry 100 Oxygen Delivery Method Room Air Room Air Height Weight Telemetry Type Remote Telemetry Telemetry Monitoring Continues Telemetry Heart Rate 111 H EKG AR Interval 0.18 EKG QRS Interval 0.05 L Telemetry Strip Reading SINUS TACHYCARDIA 05/17/24 02:00 05/17/24 03:00 05/17/24 04:00 Temperature Temperature Source Pulse Rate Pulse Rate [Apical] Respiratory Rate Blood Pressure Blood Pressure Mean Blood Pressure Left Arm Blood Pressure Location Blood Pressure Position O2 Sat by Pulse Oximetry Oxygen Delivery Method Room Air Room Air Room Air Height Weight Telemetry Type Telemetry Monitoring Telemetry Heart Rate EKG AR Interval EKG QRS Interval Telemetry Strip Reading 05/17/24 05:00 05/17/24 05:16 05/17/24 05:52 Temperature 97.3 F L Temperature Source Temporal Artery Scan Pulse Rate 106 H Pulse Rate [Apical] Respiratory Rate 18 Blood Pressure 185/109 H Blood Pressure Mean 134 Blood Pressure Left Arm Blood Pressure Location Right Arm Blood Pressure Position Supine O2 Sat by Pulse Oximetry 97 Oxygen Delivery Method Room Air Room Air Room Air Height Weight Telemetry Type Telemetry Monitoring Telemetry Heart Rate EKG AR Interval EKG QRS Interval Telemetry Strip Reading 05/17/24 07:00 05/17/24 07:00 05/17/24 07:34 Temperature Temperature Source Pulse Rate Pulse Rate [Apical] Respiratory Rate Blood Pressure Blood Pressure Mean Blood Pressure Left Arm Blood Pressure Location Blood Pressure Position O2 Sat by Pulse Oximetry Oxygen Delivery Method Room Air Room Air Height Weight Telemetry Type Remote Telemetry Telemetry Monitoring Continues Telemetry Heart Rate 112 H EKG AR Interval 0.14 EKG QRS Interval 0.[address] 05/17/24 08:00 05/17/24 08:33 05/17/24 09:24 Temperature Temperature Source Pulse Rate Pulse Rate [Apical] Respiratory Rate Blood Pressure Blood Pressure Mean Blood Pressure Left Arm Blood Pressure Location Blood Pressure Position O2 Sat by Pulse Oximetry Oxygen Delivery Method Room Air Room Air Room Air Height Weight Telemetry Type Telemetry Monitoring Telemetry Heart Rate EKG AR Interval EKG QRS Interval Telemetry Strip Reading 05/17/24 10:00 05/17/24 10:38 05/17/24 11:00 Temperature 98.2 F Temperature Source Temporal Artery Scan Pulse Rate 107 H Pulse Rate [Apical] Respiratory Rate 19 Blood Pressure 132/84 Blood Pressure Mean 100 Blood Pressure Left Arm Blood Pressure Location Right Arm Blood Pressure Position Supine O2 Sat by Pulse Oximetry 99 Oxygen Delivery Method Room Air Room Air Height 5 ft 4 in Weight 55.1 kg Telemetry Type Telemetry Monitoring Telemetry Heart Rate EKG AR Interval EKG QRS Interval Telemetry Strip Reading 05/17/24 12:00 Temperature Temperature Source Pulse Rate Pulse Rate [Apical] Respiratory Rate Blood Pressure Blood Pressure Mean Blood Pressure Left Arm Blood Pressure Location Blood Pressure Position O2 Sat by Pulse Oximetry Oxygen Delivery Method Room Air Height Weight Telemetry Type Telemetry Monitoring Telemetry Heart Rate EKG AR Interval EKG QRS Interval Telemetry Strip Reading Lab Results Lab Results: Lab Results: Last 24 Hours 05/17/24 05/17/24 05/17/24 10:30 10:28 06:34 WBC RBC Hgb Hct MCV MCH MCHC RDW Coeff of Mainor Plt Count Immature Gran % (Auto) Neut % (Auto) Lymph % (Auto) [place] % (Auto) Eos % (Auto) Baso % (Auto) Neut # (Auto) Lymph # (Auto) [place] # (Auto) Eos # (Auto) Baso # (Auto) Immature Gran # (Auto) VBG pH 7.36 7.32 VBG pCO2 23 L 27 L VBG pO2 87 H 69 H VBG HCO3 13.0 L 13.9 L VBG O2 Saturation 96.2 H 91.9 H Sodium 135.6 Potassium 3.61 Chloride 116.0 H Carbon Dioxide 13.3 L Anion Gap 9.91 BUN 9.2 Creatinine 1.02 Estimated GFR (MDRD) 77.00 BUN/Creatinine Ratio 9.01 Glucose 130.9 H D Hemoglobin A1c Calcium 8.16 L Total Bilirubin AST ALT Alkaline Phosphatase Total Protein Albumin Globulin Albumin/Globulin Ratio Triglycerides 977.0 H Cholesterol 369.9 H LDL Cholesterol, Calc VLDL Cholesterol HDL Cholesterol 65.3 Cholesterol/HDL Ratio 5.7 H SARS CoV-2 RNA Rapid ANGEL 05/17/24 05/17/24 05/17/24 06:27 02:37 02:30 WBC 7.50 RBC 3.16 L Hgb 10.2 L D Hct 30.7 L D MCV 97.2 D MCH 32.3 H MCHC 33.2 RDW Coeff of Mainor 11.9 Plt Count 147 D Immature Gran % (Auto) 0.3 Neut % (Auto) 86.2 H Lymph % (Auto) 7.5 L [place] % (Auto) 5.6 Eos % (Auto) 0.3 Baso % (Auto) 0.1 Neut # (Auto) 6.5 Lymph # (Auto) 0.6 [place] # (Auto) 0.4 Eos # (Auto) 0.0 Baso # (Auto) 0.0 Immature Gran # (Auto) 0.0 VBG pH 7.29 L VBG pCO2 24 L VBG pO2 45 H VBG HCO3 11.5 L VBG O2 Saturation 74.5 Sodium 135.0 132.9 L Potassium 3.78 4.02 Chloride 113.6 H 109.6 H Carbon Dioxide 11.5 L 8.7 L* Anion Gap 13.68 18.62 BUN 10.9 12.4 Creatinine 1.02 1.15 Estimated GFR (MDRD) 77.00 67.00 BUN/Creatinine Ratio 10.68 10.78 Glucose 223.1 H 270.7 H Hemoglobin A1c Calcium 8.05 L 7.94 L Total Bilirubin 0.30 AST 26.2 ALT 26.4 Alkaline Phosphatase 64.5 D Total Protein 6.88 D Albumin 3.71 Globulin 3.17 Albumin/Globulin Ratio 1.17 Triglycerides Cholesterol LDL Cholesterol, Calc VLDL Cholesterol HDL Cholesterol Cholesterol/HDL Ratio SARS CoV-2 RNA Rapid ANGEL 05/16/24 05/16/24 05/16/24 22:48 22:30 18:15 WBC RBC Hgb Hct MCV MCH MCHC RDW Coeff of Mainor Plt Count Immature Gran % (Auto) Neut % (Auto) Lymph % (Auto) [place] % (Auto) Eos % (Auto) Baso % (Auto) Neut # (Auto) Lymph # (Auto) [place] # (Auto) Eos # (Auto) Baso # (Auto) Immature Gran # (Auto) VBG pH 7.23 L VBG pCO2 20 L VBG pO2 72 H VBG HCO3 8.4 L VBG O2 Saturation 90.7 H Sodium 131.2 L 136.9 Potassium 4.78 4.82 Chloride 107.3 H 106.4 Carbon Dioxide < 5.0 L* < 5.0 L* Anion Gap 23.08940 30.53101 BUN 13.9 14.9 Creatinine 1.18 1.24 Estimated GFR (MDRD) 65.00 61.00 BUN/Creatinine Ratio 11.77 12.01 Glucose 243.3 H 198.6 H D Hemoglobin A1c Calcium 8.13 L 8.66 Total Bilirubin AST ALT Alkaline Phosphatase Total Protein Albumin Globulin Albumin/Globulin Ratio Triglycerides Cholesterol LDL Cholesterol, Calc VLDL Cholesterol HDL Cholesterol Cholesterol/HDL Ratio SARS CoV-2 RNA Rapid ANGEL 05/16/24 05/16/24 05/16/24 18:10 14:06 13:30 WBC RBC Hgb Hct MCV MCH MCHC RDW Coeff of Mainor Plt Count Immature Gran % (Auto) Neut % (Auto) Lymph % (Auto) [place] % (Auto) Eos % (Auto) Baso % (Auto) Neut # (Auto) Lymph # (Auto) [place] # (Auto) Eos # (Auto) Baso # (Auto) Immature Gran # (Auto) VBG pH 7.07 L 6.95 L VBG pCO2 23 L 19 L VBG pO2 32 L 46 H VBG HCO3 6.7 L 4.2 L VBG O2 Saturation 35.5 L 50.6 L Sodium Potassium Chloride Carbon Dioxide Anion Gap BUN Creatinine Estimated GFR (MDRD) BUN/Creatinine Ratio Glucose Hemoglobin A1c Calcium Total Bilirubin AST ALT Alkaline Phosphatase Total Protein Albumin Globulin Albumin/Globulin Ratio Triglycerides Cholesterol LDL Cholesterol, Calc VLDL Cholesterol HDL Cholesterol Cholesterol/HDL Ratio SARS CoV-2 RNA Rapid ANGEL Negative 05/16/24 10:46 WBC RBC Hgb Hct MCV MCH MCHC RDW Coeff of Mainor Plt Count Immature Gran % (Auto) Neut % (Auto) Lymph % (Auto) [place] % (Auto) Eos % (Auto) Baso % (Auto) Neut # (Auto) Lymph # (Auto) [place] # (Auto) Eos # (Auto) Baso # (Auto) Immature Gran # (Auto) VBG pH VBG pCO2 VBG pO2 VBG HCO3 VBG O2 Saturation Sodium Potassium Chloride Carbon Dioxide Anion Gap BUN Creatinine Estimated GFR (MDRD) BUN/Creatinine Ratio Glucose Hemoglobin A1c 10.62 H Calcium Total Bilirubin AST ALT Alkaline Phosphatase Total Protein Albumin Globulin Albumin/Globulin Ratio Triglycerides Cholesterol LDL Cholesterol, Calc VLDL Cholesterol HDL Cholesterol Cholesterol/HDL Ratio SARS CoV-2 RNA Rapid ANGEL Additional Comments Additional Comments: I have independently reviewed and interpreted the labs/EKGs/imaging ordered during this hospital stay. I have reviewed outside records that are available in our EMR that pertain to medical stay including imaging/notes/labs from previous visits. Active Medications Active Medications: Medications Generic Name Dose Route Start Last Admin Trade Name Freq PRN Reason Stop Dose Admin Acetaminophen 650 mg 05/16/24 15:18 05/17/24 08:23 Acetaminophen 325 Mg Tablet PO 650 mg Q4H PRN Administration Mild Pain Diphenhydramine HCl 25 mg 05/16/24 19:42 05/16/24 20:30 Diphenhydramine Hcl 25 Mg Capsule PO 25 mg BEDTIME PRN Administration sleep Hydralazine HCl 10 mg 05/17/24 05:42 05/17/24 05:56 Hydralazine Hcl 20 Mg/Ml Sdv IVP 10 mg Q6H PRN Administration Hypertension INSULIN REGULAR IN 0.9 % NACL 100 unit in 100 mls @ 5.4 mls/hr 05/16/24 15:30 05/17/24 12:01 Myxredlin 100 Unit/100 Ml Bag IV 9 mls/hr TITRATION MICHAEL Titration Protocol 0.1 UNIT/KG/HR Potassium Chloride/Dextrose/Sod Cl 1,000 mls @ 250 mls/hr 05/16/24 23:10 05/17/24 08:46 D5%-Ns-Kcl 20 Meq/L Iv Raissa IV Infused .Q4H MICHAEL Infusion Sodium Chloride 1,000 mls @ 250 mls/hr 05/17/24 09:30 05/17/24 11:23 Sodium Chloride IV Infused .Q4H MICHAEL Infusion Potassium Chloride/Dextrose/Sod Cl 1,000 mls @ 300 mls/hr 05/17/24 11:14 05/17/24 11:19 D5%-1/2ns-Kcl 20 Meq/L Iv Raissa IV 300 mls/hr .Q3H20M MICHAEL Administration Ketorolac Tromethamine 15 mg 05/16/24 16:35 05/17/24 12:22 Ketorolac Tromethamine 15 Mg/Ml Vial IVP 05/20/24 16:36 15 mg Q6HR PRN Administration Pain Plan Plan: 1. Severe DKA - insulin gtt per protocol, IV fluids, accuchecks Q1H while on gtt, NPO, serial bmp and vbg Pt states she takes lantus 44 units at night and humalog through the day with meals, this is not represented on the med list from her pharmacy for several months. 2. Hyperkalemia - Resolved. secondary to DKA, serial BMP, trend and monitor 3. Hyponatremia - resolved. secondary to DKA, trend and monitor 4. Vaginal bleeding - unknown etiology, hemodynamically stable, hemoglobin stable, CT abd/pelv ordered by ER provider - no acute findings concerning reproductive organs, refer to procedures rn upon discharge. On control. 5. Hypertension - chronic, continue home medications DVT Prophylaxis: Ambulation Review Statement Review Statement: I have personally discussed and reviewed the patient's visit/currently labs/imaging/decision making with Dr. Garcia, my supervising attending. Greater that 50 minutes spent with patient, 50% of the time spent with this patient was devoted to counseling and coordination of care.
[2024-05-17 16:08] LABS: BLOOD UREA NITROGEN 7.7 mg/dL (7-17); CALCIUM 7.88 mg/dL (8.4-10.2); CARBON DIOXIDE 13.5 mmol/L (22-30.0); CHLORIDE 115.5 mmol/L (98-107); CREATININE 1.08 mg/dL (0.60-1.30); POTASSIUM 3.41 mmol/L (3.5-5.1); SODIUM 135.3 mmol/L (134.5-145)
[2024-05-17] MEDS ORDERED: HUMALOG (10 ML VIAL) SUBCUT PRN (16:31)
[2024-05-17] MEDS: LACTATED RINGERS 1,000 ML IV SCH (16:49)
[2024-05-17] MEDS: LANTUS SUBCUT ONE (17:30)
[2024-05-17] MEDS ORDERED: DEXTROSE 50%-WATER ABBOJECT IVP PRN (20:06)
[2024-05-17 21:31] LABS: BLOOD UREA NITROGEN 6.7 mg/dL (7-17); CALCIUM 8.11 mg/dL (8.4-10.2); CARBON DIOXIDE 10.9 mmol/L (22-30.0); CHLORIDE 109.9 mmol/L (98-107); CREATININE 1.23 mg/dL (0.60-1.30); GLUCOSE 249.1 mg/dL (74-106); POTASSIUM 4.17 mmol/L (3.5-5.1); SODIUM 132.7 mmol/L (134.5-145)
--- NOTE | 2024-05-17 21:49 | PCM.PROG ---
Patient's repeat BMP indicates she is going back into DKA. Plan: Restart insulin drip, stop LR, start d5NS+20K @250ml/hr, start bicarb drip (2 amps in LR) at 100 ml/hr, and repeat BMP and VBG at 0200. Pt to be NPO for now. Notified JAMMIE Hernandez of changes made to orders and to call provider with 0200 results for further orders. Discussed plan of care with Dr. Tiny Garcia as well. Mayra Iqbal PA-C [id number]
[2024-05-17] MEDS: SODIUM BICARBONATE 8.4% ONE (21:50)
[2024-05-17] MEDS: SODIUM BICARBONATE 8.4% 100 MEQ in LACTATED RINGERS 1,000 ML IV SCH (21:59)
[2024-05-17] MEDS: D5%-NS-KCL 20 MEQ/L IV SOL 1,000 ML IV SCH (22:56)
[2024-05-17] MEDS: MYXREDLIN 100 UNIT/100 ML BAG 100 UNIT/100 ML PLAST..BAG IV SCH (22:57)
[2024-05-18 02:09] LABS: VBG HCO3 15.6 (22-26); VBG OXYGEN SATURATION 65.9 (60-80); VBG PH 7.31 (7.30-7.40)
[2024-05-18 02:16] LABS: BLOOD UREA NITROGEN 5.6 mg/dL (7-17); CALCIUM 7.41 mg/dL (8.4-10.2); CARBON DIOXIDE 13.4 mmol/L (22-30.0); CHLORIDE 113.3 mmol/L (98-107); CREATININE 1.2 mg/dL (0.60-1.30); GLUCOSE 212.4 mg/dL (74-106); POTASSIUM 3.5 mmol/L (3.5-5.1); SODIUM 135.9 mmol/L (134.5-145)
[2024-05-18 05:56] LABS: BASOPHILS % (AUTO) 0.3 % (0.0-3.0); EOSINOPHILS # (AUTO) 0.1 K/ul (0.0-0.7); EOSINOPHILS % (AUTO) 2.6 % (0.0-7.0); HEMATOCRIT 30.4 % (37.0-47.0); IMMATURE GRANULOCYTE % (AUTO) 0.3 % (0.0-5.0); LYMPHOCYTES # (AUTO) 0.7 K/uL (0.60-3.4); MEAN CORPUSCULAR HEMOGLOBIN 31.6 pg (27.0-31.0); MEAN CORPUSCULAR HGB CONC 32.9 (31.8-35.4); MEAN CORPUSCULAR VOLUME 96.2 fl (81.0-99.0); MONOCYTES # (AUTO) 0.3 K/uL (0.4-2.0); MONOCYTES % (AUTO) 7.8 (0-10); NEUTROPHILS # (AUTO) 2.4 K/ul (2.0-6.9); PLATELET COUNT 145 10^3/uL (140-440); RDW COEFFICIENT OF VARIATION 12.4 % (11.6-14.8); RED BLOOD COUNT 3.16 10^6/ul (4.20-5.40); WHITE BLOOD COUNT 3.47 K/ul (4.6-10.2)
[2024-05-18 06:10] LABS: ALANINE AMINOTRANSFERASE 123.7 U/L (0-35); ALBUMIN 3.25 g/dL (3.5-5.0); ALKALINE PHOSPHATASE 80.2 U/L (38-126); ASPARTATE AMINO TRANSFERASE 442.7 U/L (14-36); BILIRUBIN,TOTAL 0.37 mg/dL (0.2-1.3); BLOOD UREA NITROGEN 4.5 mg/dL (7-17); CALCIUM 7.7 mg/dL (8.4-10.2); CARBON DIOXIDE 16.4 mmol/L (22-30.0); CHLORIDE 115.1 mmol/L (98-107); CREATININE 1.06 mg/dL (0.60-1.30); GLUCOSE 97.9 mg/dL (74-106); POTASSIUM 3.52 mmol/L (3.5-5.1); SODIUM 137.7 mmol/L (134.5-145); TOTAL PROTEIN 6.02 g/dL (6.3-8.2)
[2024-05-18] MEDS: D5%-1/2NS-KCL 20 MEQ/L IV SOL 1,000 ML IV SCH (08:11)
[2024-05-18 10:00] LABS: CALCIUM 7.31 mg/dL (8.4-10.2); CARBON DIOXIDE 16.8 mmol/L (22-30.0); CREATININE 0.94 mg/dL (0.60-1.30); GLUCOSE 144.7 mg/dL (74-106); POTASSIUM 3.38 mmol/L (3.5-5.1); SODIUM 136.9 mmol/L (134.5-145)
--- NOTE | 2024-05-18 14:22 | DCSUM ---
Admission Date Admission Date: 05/16/24 Discharge Date Discharge Date: 05/18/24 Admission Diagnosis Admission Diagnosis: 1. DKA, severe Discharge Diagnosis Discharge Diagnosis: 1. Severe DKA - resolved 2. Hyperkalemia - Resolved. 3. Hyponatremia - resolved. 4. Vaginal bleeding - improved 5. Hypertension Hospital Provider Hospital Provider: EULALIO ANDERSON PA-C, [facility] Primary Care Physician Primary Care Physician: BEST LANGFORD Summary of History and Physical Summary of History and Physical: 29 yo female presented to the ER with complaints of vaginal bleeding and abdominal pain. States the bleeding started yesterday and then the abdominal pain started today. Reports bleeding volume of 1 pad per hour. Last period was May 02. test negative. Sharp abdominal pain noted to upper abdomen and radiates through to her back. Was given norco and morphine in the ER without relief. Denies any urinary symptoms, N/V/D, fever, or other symptoms. Patient was found to be in severe DKA with pH of 6.95 and anion gap of 35. Admitted to med/surg observation for DKA. Hospital Course Subjective: Patient was made n.p.o. and treated with insulin drip and fluids. Overall she did well but her bicarb was very slow to improve despite her anion gap and pH normalizing. By 05/17 her nausea and abdominal pain was much improved. She was transitioned off the insulin drip and fluids to half of her Lantus dose and allowed to eat. However shortly after she slid right back into DKA and her bicarb dropped again. At this time she was placed on a bicarb drip, insulin drip, and fluids again. By afternoon of 05/18 her bicarb had normalized, anion gap and pH were normal. She was feeling much better at this point and eager to eat. She was transitioned again off of the drip and given 22 units of Lantus and started on Humalog sliding scale. She did well with her meal and wished to go home. We discussed about compliance of her medications. I suspect that noncompliance with her insulin led to this. She states she has plenty of Lantus at home but did not have enough of her short acting insulin. She does use the solution that you draw up. She states she currently does not have insurance. She is hoping to get insurance and follow-up with endocrinology to look into a insulin pump. She also states that she has been taking a "medication that starts with F" for her triglycerides. Triglycerides have worsened to 977. Unable to see where she has filled fenofibrate recently. Will start on fenofibrate 40 mg and likely will need to titrate that dose up. Regarding her vaginal bleeding this is mostly resolved upon admission. She is no longer having any abdominal pain or urinary symptoms. She states she is compliant with her control as she is not wanting to have another child at this time. We discussed following up with [facility] if she continues to have irregular bleeding. Patient is agreeable to plan of care. Appearance: Pleasant, No Apparent Distress and Alert HEENT: MMM and Supple CVS: No Murmur Abdomen: Soft, Non-Tender and No Distention Respiratory: No Accessory Muscle Use Extremities: No Edema Vital Signs: Most Recent Vital Signs Temperature 98 F 05/18/24 10:00 Temperature Source Temporal Artery Scan 05/18/24 10:00 Temperature Source Temporal Artery Scan 05/16/24 10:20 Pulse Rate 105 H 05/18/24 10:00 Respiratory Rate 17 05/18/24 10:00 Blood Pressure 128/98 H 05/18/24 10:00 Blood Pressure Mean 108 05/18/24 10:00 Blood Pressure Left Arm 160/107 05/16/24 15:49 Blood Pressure Location Right Arm 05/18/24 10:00 Blood Pressure Position Sitting 05/18/24 10:00 O2 Sat by Pulse Oximetry 100 05/18/24 10:00 Oxygen Delivery Method Room Air 05/18/24 13:00 Height 5 ft 4 in 05/17/24 10:38 Weight 55.1 kg 05/17/24 10:38 Telemetry Type Remote Telemetry 05/18/24 13:00 Telemetry Monitoring Continues 05/18/24 13:00 Telemetry Heart Rate 105 H 05/18/24 13:00 EKG IL Interval 0.20 05/18/24 13:00 EKG QRS Interval 0.08 05/18/24 13:00 Telemetry Strip Reading Sinus Tachycardia 05/18/24 13:00 Imaging: EXAMINATION: CT OF THE ABDOMEN AND PELVIS WITHOUT CONTRAST. HISTORY:Abdominal pain. COMPARISON: Ultrasound 08/30/2021. CT 01/02/2021. TECHNIQUE: CT acquisition images were obtained from lung base through pelvis. No intravenous contrast. Multiplanar reformats were obtained. FINDINGS: Heart: No significant pericardial fluid or thickening. Lower mediastinum. Small hiatal hernia suspected. Lung Bases: No effusion. Nonspecific ground-glass opacities at the posterior lung bases. Biliary: Gallbladder present without distension or surrounding inflammatory changes. No biliary ductal dilatation. Liver: Hepatic steatosis. Focal fat deposition versus a cyst adjacent the fissure for the falciform ligament measuring 13 mm. Spleen: Normal size. No lesions. Pancreas: Interval development of diffuse calcifications throughout the pancreas consistent with chronic pancreatitis. No acute inflammatory changes or surrounding fluid to suggest acute pancreatitis. The pancreatic duct is not well visualized but may be dilated. Adrenals: No abnormality. Kidneys: Nonobstructing inferior pole left renal calculus measuring 2.5 mm. Bowel: Stomach mildly distended with ingested material. No bowel dilatation or obstruction. The rectum is distended with stool measuring 6.3 cm in diameter. No surrounding inflammatory changes. Normal appendix. No signs of appendicitis. Bladder: No abnormality. Pelvic Organs: Uterus and adnexa without significant abnormality. Free Fluid: None. Lymphadenopathy: None. Vasculature: No abdominal aortic aneurysm. Atherosclerosis: No calcific atherosclerosis. Body wall: Minimal fat stranding and skin thickening in the bilateral lower quadrant anterior abdominal wall. May represent postsurgical changes, soft tissue contusion, or other etiology. Osseous structures: No significant abnormality. IMPRESSION: Interval development of diffuse calcifications throughout the pancreas consistent with chronic pancreatitis. No acute inflammatory changes or surrounding fluid to suggest acute pancreatitis. The pancreatic duct may be dilated. Nonobstructing 2.5 mm left renal calculus. No evidence of bowel obstruction, urinary obstruction, or localized inflammatory changes within the abdomen or pelvis. Fecal distension of the rectum. Correlate for fecal impaction. No surrounding perirectal inflammatory changes. Hepatic steatosis. Cyst or focal fatty deposition adjacent the fissure for the falciform ligament measuring 13 mm. Nonspecific ground-glass opacities dependently at the lung bases. May represent atelectatic changes. Infectious etiology not excluded. Lab Results Last 24 Hours: 05/18/24 05/18/24 05/18/24 09:44 05:35 02:00 WBC 3.47 L RBC 3.16 L Hgb 10.0 L Hct 30.4 L MCV 96.2 MCH 31.6 H MCHC 32.9 RDW Coeff of Mainor 12.4 Plt Count 145 Immature Gran % (Auto) 0.3 Neut % (Auto) 68.0 Lymph % (Auto) 21.0 Sampson % (Auto) 7.8 Eos % (Auto) 2.6 Baso % (Auto) 0.3 Neut # (Auto) 2.4 Lymph # (Auto) 0.7 Sampson # (Auto) 0.3 L Eos # (Auto) 0.1 Baso # (Auto) 0.0 Immature Gran # (Auto) 0.0 VBG pH 7.31 VBG pCO2 31 L VBG pO2 38 VBG HCO3 15.6 L VBG O2 Saturation 65.9 Sodium 136.9 137.7 135.9 Potassium 3.38 L 3.52 3.50 Chloride 113.0 H 115.1 H 113.3 H Carbon Dioxide 16.8 L 16.4 L 13.4 L Anion Gap 10.48 9.72 12.70 BUN 4.0 L 4.5 L 5.6 L Creatinine 0.94 1.06 1.20 Estimated GFR (MDRD) 84.00 73.00 64.00 BUN/Creatinine Ratio 4.25 4.24 4.66 Glucose 144.7 H 97.9 D 212.4 H Calcium 7.31 L 7.70 L 7.41 L Total Bilirubin 0.37 AST 442.7 H D ALT 123.7 H D Alkaline Phosphatase 80.2 Total Protein 6.02 L Albumin 3.25 L Globulin 2.77 Albumin/Globulin Ratio 1.17 05/17/24 05/17/24 21:13 15:52 WBC RBC Hgb Hct MCV MCH MCHC RDW Coeff of Mainor Plt Count Immature Gran % (Auto) Neut % (Auto) Lymph % (Auto) Sampson % (Auto) Eos % (Auto) Baso % (Auto) Neut # (Auto) Lymph # (Auto) Sampson # (Auto) Eos # (Auto) Baso # (Auto) Immature Gran # (Auto) VBG pH VBG pCO2 VBG pO2 VBG HCO3 VBG O2 Saturation Sodium 132.7 L 135.3 Potassium 4.17 3.41 L Chloride 109.9 H 115.5 H Carbon Dioxide 10.9 L 13.5 L Anion Gap 16.07 9.71 BUN 6.7 L 7.7 Creatinine 1.23 1.08 Estimated GFR (MDRD) 62.00 72.00 BUN/Creatinine Ratio 5.44 7.12 Glucose 249.1 H D 126.0 H Calcium 8.11 L 7.88 L Total Bilirubin AST ALT Alkaline Phosphatase Total Protein Albumin Globulin Albumin/Globulin Ratio Discharge Instructions Discharge Planning: Discharge Planning > [address] Tiny Garcia. Discharge Medications: Medications at Discharge (Home Meds & RX) Discharge Plan Discharge Discharge Orders: Discharge Patient (ONCE); Ordered 05/18/24 Ordered By: EULALIO ANDERSON Activity Restrictions/Additional Instructions: DISCHARGE TO HOME DX: DKA F/U WITH PCP AND ENDOCRINE DIET: DIABETIC ACTIVITY: TOLERATED F/U WITH OBGYN IF IRREGULAR VAGINAL BLEEDING CONTINUES Patient Disposition: HOME SELF-CARE Prescriptions: New insulin glargine [Lantus Solostar U-100 Insulin] 100 unit/mL (3 mL) insulin pen 44 unit subcut QPM Qty: 15 0RF fenofibrate 40 mg tablet 40 mg PO DAILY Qty: 30 0RF insulin lispro 100 unit/mL solution 12 unit subcut TID Qty: 10 0RF Rx Instructions: Take 12 units with meals and add additional units based on sliding scale parameters Continued alcohol swabs Pads, Medicated 1 pad topical TID Qty: 100 2RF Rx Instructions: Use 3 times daily buspirone 5 mg tablet See Rx Instructions .ROUTE .COMPLEX Qty: 90 0RF Dose Instruction: TAKE 1 TABLET BY MOUTH THREE TIMES DAILY Rx Instructions: TAKE 1 TABLET BY MOUTH THREE TIMES DAILY OneTouch Ultra Test Strip See Rx Instructions .ROUTE .COMPLEX Qty: 100 2RF Dose Instruction: USE TO TEST THREE TIMES DAILY AND NEEDED Rx Instructions: USE TO TEST THREE TIMES DAILY AND NEEDED hydralazine 25 mg tablet See Rx Instructions .ROUTE .COMPLEX Qty: 90 0RF Dose Instruction: TAKE 1 TABLET BY MOUTH THREE TIMES DAILY NEEDED FOR HIGH BLOOD PRESSURE Rx Instructions: TAKE 1 TABLET BY MOUTH THREE TIMES DAILY NEEDED FOR HIGH BLOOD PRESSURE melatonin 1 mg Tablet,Chewable 2 mg PO BEDTIME ibuprofen 600 mg tablet 600 mg PO Q6H PRN (Reason: pain) Qty: 30 0RF norgestimate-ethinyl estradiol [Estarylla] 0.25-35 mg-mcg tablet 1 tab PO DAILY fluticasone propionate [Flonase Allergy Relief] 50 mcg/actuation spray,suspension 2 spray ALEC QDAY Qty: 9.9 1RF Rx Instructions: administer into each nostril bupropion HCl [Wellbutrin SR] 150 mg tablet sustained-release 12 hr 150 mg PO BID Discontinued insulin lispro [Admelog U-100 Insulin lispro] 100 unit/mL solution 12 unit subcut QID Qty: 12 2RF Rx Instructions: take 12 units qid and add additional units based on sliding scale parameters qid No Action pen needle, diabetic [BD Piedad 2nd Gen Pen Needle] 32 gauge x 5/32" needle See Rx Instructions .ROUTE .COMPLEX Qty: 200 6RF Dose Instruction: USE DIRECTED TO INJECT INSULIN Rx Instructions: USE DIRECTED TO INJECT INSULIN ondansetron HCl [Zofran] 4 mg tablet 4 mg PO Q8H PRN (Reason: nausea and vomiting) Qty: 10 0RF metoprolol succinate 50 mg tablet extended release 24 hr 100 mg PO DAILY labetalol 100 mg tablet 100 mg PO 2XD Did you review [place] [employer] for ALL controlled substances?: Not Applicable Discussed opioids are addictive and Narcan is available by prescription or from pharmacy.: No Condition: Stable Referrals: BEST LANGFORD [Primary Care Provider] - 06/02/24 3:00 pm (YOU ALSO HAVE AN APPT TO GET BLOODWORK WITH BEST LANGFORD AT [facility] ON 05/22/24 AT 9:15AM. PLEASE KEEP THESE APPTS. )
[2024-05-18 16:15] LABS: BLOOD UREA NITROGEN 2.6 mg/dL (7-17); CALCIUM 7.37 mg/dL (8.4-10.2); CARBON DIOXIDE 19.4 mmol/L (22-30.0); CHLORIDE 109.3 mmol/L (98-107); CREATININE 0.88 mg/dL (0.60-1.30); GLUCOSE 127.8 mg/dL (74-106); POTASSIUM 3.06 mmol/L (3.5-5.1); SODIUM 137.6 mmol/L (134.5-145)
[2024-05-18] MEDS ORDERED: HUMALOG (10 ML VIAL) SUBCUT PRN (16:41)
[2024-05-18] MEDS: K-DUR PO ONE (17:25)
[2024-05-18] MEDS: LANTUS SUBCUT ONE (17:26)
[2024-05-18 17:47] VITALS: BP 144/100; PULSE 106; RESP 17; TEMP 98.4
[2024-05-18] MEDS: INFUVITE ADULT 10 ML in D5%-1/2NS-KCL 20 MEQ/L IV SOL 1,000 ML IV SCH (18:09)
[2024-05-18] MEDS: TRANDATE PO ONE (18:11)
== END 2024-05-18 18:40 | disposition home or self-care (01) ==
LOC: ED 09:36 → INTOOBSV 15:12 → MEDSURG B 15:12
PROVIDERS: ADMIT Hospitalist; ATTEND Physician Assistant
DX: I10 Essential (primary) hypertension; R10.10 Upper abdominal pain, unspecified; E87.5 Hyperkalemia; N20.0 Calculus of kidney; Z51.81 Encounter for therapeutic drug level monitoring; K76.0 Fatty (change of) liver, not elsewhere classified; Z91.199 Patient's noncompliance with other medical treatment and regimen due to unspecified reason; N93.8 Other specified abnormal uterine and vaginal bleeding; Z79.4 Long term (current) use of insulin; E87.1 Hypo-osmolality and hyponatremia; F17.210 Nicotine dependence, cigarettes, uncomplicated; Z20.822 Contact with and (suspected) exposure to COVID-19; Z79.899 Other long term (current) drug therapy; E10.10 Type 1 diabetes mellitus with ketoacidosis without coma; R91.8 Other nonspecific abnormal finding of lung field